=== PATIENT | male | born 1950 | race Asian ===

== ENCOUNTER 2016-11-26 15:32 | Inpatient (IN) | payer MEDICARE ==
--- NOTE | 2016-11-26 18:59 | RAD ---
INDICATION: Chest pain. COMPARISON: There are no prior studies available for comparison. TECHNIQUE: A portable view of the chest was obtained. FINDINGS: Cardiac and mediastinal contours appear to be within normal limits. The lungs are clear. No pleural effusion is seen. IMPRESSION: NO EVIDENCE FOR ACUTE DISEASE.
[2016-11-26 19:41] LABS: Urine Bacteria Absent (Absent); Urine Bilirubin Negative (Negative); Urine Glucose 1+(50 mg/dL) (Negative); Urine Nitrite Negative (Negative)
[2016-11-26 19:52] LABS: Hematocrit 29 % (42-52); Hemoglobin 9.4 g/dl (14.0-18.0); Mean Corpuscular HGB Conc 33 g/dl (31-36); Mean Corpuscular Hemoglobin 24 pg (27-31); Mean Corpuscular Volume 73 fL (80-94); Mean Platelet Volume 7 um3 (7.4-10.4); Red Blood Count 3.94 10^6/ul (4.0-5.4); Red Cell Distribution Width 16 % (10.5-15); White Blood Count 6.5 10^3/ul (3.5-10.8)
[2016-11-26 19:57] LABS: Add Diff/Slide Review? Slide Review Added; Comments Flag Yes
[2016-11-26 20:06] LABS: Albumin 3.3 g/dL (3.2-5.2); Calcium 8.6 mg/dL (8.6-10.3); EGFR African American 12.7 (>60); EGFR Non-African American 9.9 (>60); Globulin 3.7 g/dL (2-4); Magnesium 2.1 mg/dL (1.9-2.7); Potassium 5.6 mmol/L (3.5-5.0); Total Bilirubin 0.2 mg/dL (0.2-1.0)
[2016-11-26] MEDS: NS 0.9% 1000 ML* 1,000 ML IV ONE (20:32)
[2016-11-26 20:45] LABS: TSH (Thyroid Stimulating Horm) 1.18 mcIU/mL (0.34-5.60)
[2016-11-26] MEDS ORDERED: hydrALAZINE IV* 20 MG/ML VIAL IV SLOW PU ONE (21:12)
[2016-11-26] MEDS ORDERED: Acetaminophen TAB* 325 MG PO PRN (21:46)
[2016-11-26] MEDS ORDERED: Sodium Polystyrene ORAL.SOL* 15 GM/60 ML BTL PO ONE (21:49)
[2016-11-26] MEDS ORDERED: hydrALAZINE IV* 20 MG/ML VIAL IV SLOW PU PRN (21:50)
[2016-11-26] MEDS ORDERED: Dextrose 50% Syringe 50 ML* 25 GM/50 ML SYRINGE IV PUSH PRN (21:51)
[2016-11-26] MEDS: amLODIPine TAB* 5 MG PO SCH (23:08)
[2016-11-26] MEDS: hydrALAZINE TAB* 10 MG PO SCH (23:09)
[2016-11-26] MEDS: Heparin VIAL(*) 5000 UNITS/ML VIAL (FIVE THOUSAND) SUBCUT SCH (23:09)
--- NOTE | 2016-11-27 00:33 | HP ---
CC: Dr. Menezes; Dr. Vora* ADMISSION HISTORY AND PHYSICAL: DATE OF ADMISSION: 11/26/16 PRIMARY CARE PROVIDER: Dr. Menezes. AUTOMATIC SPREADER OPERATOR: Dr. Vora. ADMITTING PROVIDER: MARRY An SUPERVISING PHYSICIAN: Dr. Janusz Tsang* (dictated by MARRY An). CHIEF COMPLAINT: Dizziness and syncope. HISTORY OF PRESENT ILLNESS: This is a 66-year-old gentleman with history of stage 4 chronic kidney disease, hypertension, mqq-boaumtq-laeexgkhe diabetes and BPH, who presented to the emergency department with the recommendation of his primary care provider after syncopal episode that occurred yesterday with associated dizziness. The patient has actually been asymptomatic throughout the day today. Yesterday, the patient states that he was outside for the majority of the day and it was a hot day and he was somewhat uncomfortable. He remembers feeling dizzy and he collapsed to the sidewalk. His became nervous when he would not respond her and she started chest compressions. After about 10 to 12 compressions, he regained consciousness and they attempted to walk back into the house at which point he collapsed again and she provided additional compressions. When he regained consciousness, he threw up and then later had diarrhea. He states that after vomiting and diarrhea, he started to feel better. His took him to bed and he slept for the rest of the afternoon and overnight and has had no complaints of dizziness or presyncopal symptoms today. He has had no associated complaints of chest pain or shortness of breath. He denies any history of prior hospitalizations. He states that he is compliant with all of his medications, but is unable to tell me what they are except that he knows that he takes lisinopril, which recently was a dose adjusted down for him. He also denies recent acute illness and states that his symptoms that occurred yesterday were limited to yesterday and he had not been feeling that way for the days leading up. When I asked about recent changes to home medications, he states that in addition to his lisinopril dose going down, he also recalls that one of his diabetes medicines was decreased. He is followed by Dr. Vora for nephrology care. He was seen by his primary care provider earlier today who referred him to the emergency department for evaluation. His blood pressure according to the patient was normal when he was seen at his primary care provider's office earlier today, but since reaching the emergency department, his systolic BP has not been less than 190 mmHg. He continues to deny chest pain, difficulty breathing, headache, or visual changes since arriving in the emergency department. PAST MEDICAL HISTORY: 1. Hypertension. 2. Eyf-iyzxxib-qoarhovzh diabetes. 3. BPH. 4. Chronic kidney disease stage 4. PAST SURGICAL HISTORY: Cataract extraction bilaterally. HOME MEDICATIONS: 1. Lisinopril 10 mg daily. 2. The rest of medications are unknown. SOCIAL HISTORY: No history of smoking or regular alcohol consumption. Patient lives at home with his . REVIEW OF SYSTEMS: As noted above in HPI, all other systems reviewed and negative. PHYSICAL EXAMINATION GENERAL: This is a very pleasant gentleman who is accompanied by his . Pakistani is his second language, but there are no communication barriers. His Pakistani is 100% understandable and he seems to understand all of the information that is given to him. VITAL SIGNS: Initial vitals, temperature 97.9 degrees Fahrenheit, pulse 63 beats per minute, respiratory rate 20 per minute, oxygen saturation 100% on room air, and blood pressure 193/73 mmHg. HEENT: Head is normocephalic and atraumatic. The patient has missing multiple teeth. RESPIRATORY: Lungs are clear to auscultation without wheezes, crackles, or rhonchi. CARDIOVASCULAR: Heart has a regular rate and rhythm without murmurs, rubs, or gallops. ABDOMEN: Abdomen is soft and nontender to palpation. EXTREMITIES: Show no edema. PSYCH: The patient is alert and appropriately oriented and affect is appropriate to the situation. DIAGNOSTIC STUDIES/LAB DATA: CBC shows a white blood cell count of 6500, hemoglobin of 9.4 g/dL, and a platelet count of 332,000. INR of 0.87. Sodium of 131 mmol/L. Potassium of 5.6 mmol/L, BUN of 58, creatinine of 5.79 with a GFR of 9.9. Random glucose of 142 mg/dL. Transaminases and total bilirubin within normal limits. Troponins negative at 0.00. TSH normal at 1.18. Urinalysis shows 2+ protein and is otherwise negative. IMAGING: Chest x-ray shows no acute process. EKG shows a sinus rhythm with J-point elevation in V2 through V4, but this is unchanged from prior tracings. ASSESSMENT AND PLAN: This is a 66-year-old gentleman with chronic kidney disease, hypertension, pkv-myqikni-zretkyevr diabetes and BPH, who was referred to the emergency department after a syncopal event, which resulted in his performing chest compressions yesterday and was noted to be severely hypertensive. 1. Hypertensive urgency - the patient is asymptomatic with systolic pressures remain above 190 mmHg. No EKG changes and troponin negative. The patient received 1 dose of hydralazine in the emergency department. We will plan to start oral hydralazine and amlodipine for treatment of his hypertension at this time. He appears to be euvolemic and will avoid diuretics at this time. 2. Syncope - etiology sounds perhaps to be due to hypovolemia related to being out in the hot weather yesterday. It is unclear if he was truly pulseless and an indication for chest compressions or few loss of consciousness and his became concerned about his unresponsiveness. We will plan to obtain an echocardiogram tomorrow and maintain on continuous telemetry monitoring overnight. 3. Chronic kidney disease. The patient has noted elevated BUN, creatinine and hyperkalemia. The acuity of this is unknown. His last labs are from nearly 2 years ago and his creatinine at that time was about 3.5 with a GFR of 20. Today , his creatinine is up to 5.8 and the GFR of 10. He has followed by Dr. Voar for nephrology care. We will avoid hydration at this point due to the severity of his hypertension. 4. Hyperkalemia - no EKG changes and this is secondary to his renal dysfunction. We will plan to repeat labs in the morning, give 1 dose of Kayexalate at this time. 5. Cct-etvsqwj-kjihgfczbbh diabetes - random glucoses shows reasonable control at this time. We will monitor his glucose at meal times and cover for hyperglycemia with as needed Humalog. Unsure of what his home hypoglycemic agents are, metformin would surely be contraindicated given the severity of his renal disease. 6. Code status. The patient is full code. 7. DVT prophylaxis. The patient will be started on subcu heparin, Lovenox avoided due to his renal dysfunction. 8. Healthcare proxy is his . DISPOSITION: The patient is being admitted to observation status with hypertensive urgency and recent syncope. Can work to obtain last labs from Dr. Vora's office, which would be helpful to determine the acuity of his renal dysfunction and whether further evaluation needs to be done. MARRY AN [id number]/[facility] #: [id number] CARISSA
[2016-11-27] MEDS ORDERED: hydrALAZINE IV* 20 MG/ML VIAL IV SLOW PU PRN (00:41)
--- NOTE | 2016-11-27 02:31 | PN ---
Progress Note - Progress Note Date of Service: 11/27/16 Note: CAT response, called for syncope. Per his , Mr Rojas awoke and stood at the side of the bed attempting to use a urinal when he suddenly stared off into space and would not respond to her. He then slumped back into bed. Upon arrival, Mr Rojas is awake & alert. He reports feeling light-headed and his vision tunnelling. The next thing he knew was of awakening with a lot of staff around him. He denies chest pain, SOB, N/V, palpitations, abdominal pain, focal W/N/T, or other issues. He has a strong accent, but speech sounds clear & fluent. Vitals were reviewed and stable, including saO2. Systolic immediately after nursing respone was 119, by my arrival it was up to 140s. POC glucose 139. ECG is NSR with some peaked T-waves, elevated J-points w/ concave up T-waves similar to presentation. Telemetry showed no arrhythmia. general: WNWD male, NAD lungs: CTAB, normal effort CV: RRR w/ 2/6 aortic murmur abdomen: SNTND integument: diphoretic forehead, not elsewhere extremities: warm & dry He was monitored in bed for a few minutes continuing to feel well and so we decided to allow him up to the restroom to urinate. In the middle of urinating he again syncopized with nursing assisting him to the ground without head injury. LOC lasted less than 30 seconds as he became awake & oriented upon becoming supine. Systolic was 100. Repeat ECG unchanged. Labs ordered, pending: H&H, troponin, lactic acid, & BNP Assessment: plan highly suspicious for vaso-vagal vs situational vs orthostatic syncope : transfer to ICU for improved observation/caution : obtain repeat orthostatic vitals : review labs once reported : 2L IVF bolus : strict bedrest for now : ECHO ordered at admission to [facility] for valvular disease, specifically aortic stenosis : Kari Escudero MD parts interpreter on-call apprised Orthostatic vitals in ICU are markedly positive at lying 162/72 p83, sitting 151 /82 p98, & standing 73/56 p90.
[2016-11-27 02:52] LABS: Hematocrit 30 % (42-52); Hemoglobin 9.7 g/dl (14.0-18.0); Mean Corpuscular HGB Conc 32 g/dl (31-36); Mean Corpuscular Hemoglobin 23 pg (27-31); Mean Platelet Volume 7 um3 (7.4-10.4); Red Blood Count 4.12 10^6/ul (4.0-5.4); Red Cell Distribution Width 15 % (10.5-15); White Blood Count 9.2 10^3/ul (3.5-10.8)
[2016-11-27 02:58] LABS: Comments Flag Yes
[2016-11-27 02:59] LABS: Mean Corpuscular Volume 73 fL (80-94)
[2016-11-27 03:02] LABS: Albumin 3.3 g/dL (3.2-5.2); BUN/Creatinine Ratio 10.9 (8-20); Calcium 8.7 mg/dL (8.6-10.3); EGFR Non-African American 10.8 (>60); Globulin 3.9 g/dL (2-4); Total Bilirubin 0.2 mg/dL (0.2-1.0); Total Protein 7.2 g/dL (6.4-8.9)
[2016-11-27] MEDS: NS 0.9% 1000 ML* 1,000 ML IV ONE (03:23)
[2016-11-27] MEDS: NS 0.9% 1000 ML* 1,000 ML IV SCH ×3 (03:23→05:38)
[2016-11-27] MEDS: Heparin VIAL(*) 5000 UNITS/ML VIAL (FIVE THOUSAND) SUBCUT SCH ×3 (05:47→21:03)
[2016-11-27 06:11] LABS: Hematocrit 28 % (42-52); Hemoglobin 9.1 g/dl (14.0-18.0); Mean Corpuscular HGB Conc 33 g/dl (31-36); Mean Corpuscular Hemoglobin 24 pg (27-31); Mean Platelet Volume 7 um3 (7.4-10.4); Red Blood Count 3.83 10^6/ul (4.0-5.4); Red Cell Distribution Width 15 % (10.5-15); White Blood Count 8.8 10^3/ul (3.5-10.8)
[2016-11-27 06:12] LABS: Comments Flag Yes; Mean Corpuscular Volume 73 fL (80-94)
[2016-11-27 06:23] LABS: BUN/Creatinine Ratio 10.5 (8-20); Calcium 7.6 mg/dL (8.6-10.3); EGFR Non-African American 12.4 (>60)
[2016-11-27 06:56] LABS: Potassium 6.2 mmol/L (3.5-5.0)
[2016-11-27] MEDS ORDERED: Sodium Polystyrene ORAL.SOL* 15 GM/60 ML BTL PO ONE (08:34)
[2016-11-27] MEDS ORDERED: Dextrose 50% VIAL 50 ml IV ONE (08:48)
[2016-11-27] MEDS ORDERED: Insulin REGULAR(*) 1 UNITS UNIT IV PUSH ONE (08:55)
[2016-11-27] MEDS ORDERED: Sodium Bicarbonate 8.4% IV* 50 ML VIAL IV ONE (08:58)
[2016-11-27] MEDS: amLODIPine TAB* 5 MG PO SCH (09:00)
[2016-11-27] MEDS: hydrALAZINE TAB* 10 MG PO SCH ×3 (09:00→21:04)
[2016-11-27] MEDS: Insulin LISPRO* 1 UNITS UNIT SUBCUT SCH ×3 (09:06→18:11)
[2016-11-27] MEDS ORDERED: Calcium Gluconate INJ* 1 GM in NS 0.9% 50 ML* 50 ML IVPB ONE (10:00)
--- NOTE | 2016-11-27 10:44 | ECHO ---
Patient: BIJAN PRESTON [facility] Rec#: [id number] : 1950 Date: 11/27/2016 Age: 66y Height: 160.02 cm / 63.0 in Weight: 56.7 kg / 125.0 lbs Sex: M BSA: 1.58 Room#: [id number] Admit Date#: 11/26/2016 Type: Inpatient Referring: Carlos Miller Reading: Otto Willams MD Research Hydrologist: Juliet Mendoza RDCS CC: Brad Menezes MD Transthoracic Echocardiogram Indication: Syncope BP: 197/84 HR: 82 Rhythm: NSR Findings History: CKD IV, HTN, and DM. Technical Comments: The study quality is good. Completed at 0817. Left Ventricle: The left ventricular chamber size is normal. Moderate concentric left ventricular hypertrophy is observed. Global left ventricular wall motion and contractility are within normal limits. The left ventricle appears hyperdynamic. The estimated ejection fraction is greater than 65%. Abnormal left ventricular diastolic function is observed. Abnormal left ventricular diastolic filling is observed, consistent with impaired relaxation. Left Atrium: The left atrium is mildly dilated. Right Ventricle: Moderator Band present. The right ventricular cavity size is normal. The right ventricular global systolic function is normal. Right Atrium: The right atrial cavity size is normal. Aortic Valve: The aortic valve is trileaflet. The aortic valve leaflets are mildly thickened. There is no evidence of aortic regurgitation. There is no evidence of aortic stenosis. Mitral Valve: The mitral valve leaflets are mildly thickened. There is a trace of mitral regurgitation. There is no evidence of mitral stenosis. Tricuspid Valve: The tricuspid valve leaflets are normal. There is trace tricuspid regurgitation. The right ventricular systolic pressure is estimated at 22 mmHg. No pulmonary hypertension is noted. There is no tricuspid stenosis. Pulmonic Valve: The pulmonic valve appears normal. There is trace to mild pulmonic regurgitation. There is no pulmonic stenosis. Pericardium: There is no significant pericardial effusion. Aorta: There is no dilatation of the ascending aorta. There is no dilatation of the aortic arch. The aortic root is normal in size. Pulmonary Artery: The main pulmonary artery appears normal. Venous: The inferior vena cava appears normal in size. There is a greater than 50% respiratory change in the inferior vena cava dimension. Conclusions Moderate concentric left ventricular hypertrophy is observed. The left ventricle appears hyperdynamic. The estimated ejection fraction is greater than 65%. Abnormal left ventricular diastolic filling is observed, consistent with impaired relaxation. No significant valvular disease: There is a trace of mitral regurgitation. There is trace tricuspid regurgitation. There is trace to mild pulmonic regurgitation. No reports of prior studies are offetred for comparison. Measurements Name Value Normal Range RVIDd (AP) 2D 2.5 cm (0.9 - 2.6) RVDdMajor (2D) 3.8 cm (2.2 - 4.4) RAd ISD 4CH 4.5 cm (3.4 - 4.9) RA (A4C)W 3.3 cm (2.9 - 4.6) IVSd (2D) 1.3 cm (0.6 - 1) LVPWd (2D) 1.3 cm (0.6 - 1) LVIDd (2D) 4.4 cm (3.6 - 5.4) LVIDs (2D) 3.1 cm - LV FS (2D) 28 % (25 - 45) Aortic Annulus 2 cm (1.4 - 2.6) Ao root diameter (2D) 3.2 cm (2.1 - 3.5) Ascending Ao 3.2 cm (2.1 - 3.4) Aortic arch 2.2 cm (1.8 - 3.4) LA dimension (AP) 2D 3 cm (2.3 - 3.8) LAd ISD 4CH 5.6 cm (2.9 - 5.3) LA ISD 4CH W 4 cm (2.5 - 4.5) Name Value Normal Range LA ESV SP 4CH (A/L) 70 ml - LA ESV SP 2CH (A/L) 43 ml - LA ESV BP (A/L) 57 ml - LA ESV BP (A/L) index 36 ml/m2 - LA ESV SP 4CH (MOD) 65 ml - LA ESV SP 2CH (MOD) 39 ml - Name Value Normal Range MV E-wave Vmax 0.78 m/sec - MV deceleration time 153.2 msec - MV A-wave Vmax 1.17 m/sec - MV E:A ratio 0.66 ratio - LV septal e' Vmax 0.04 m/sec - LV lateral e' Vmax 0.07 m/sec - LV E:e' septal ratio 19.5 ratio - LV E:e' lateral ratio 11.14 ratio - Name Value Normal Range AV Vmax 1.4 m/sec - AV VTI 29.5 cm - AV peak gradient 7.84 mmHg - AV mean gradient 3.9 mmHg - LVOT Vmax 1 m/sec - LVOT VTI 21.6 cm - LVOT peak gradient 4.42 mmHg - LVOT mean gradient 2.25 mmHg - YESENIA Vmax 0.63 m/sec - Name Value Normal Range TR Vmax 2.2 m/sec - TR peak gradient 19 mmHg - RAP 3 mmHg - RVSP 22 mmHg - IVC diameter 1.6 cm - Name Value Normal Range PV Vmax 0.96 m/sec - PV peak gradient 3.66 mmHg - IL end-diastolic Vmax 0.78 m/sec -
[2016-11-27 12:23] LABS: BUN/Creatinine Ratio 10.4 (8-20); Calcium 7.6 mg/dL (8.6-10.3); EGFR African American 16.5 (>60); EGFR Non-African American 12.9 (>60)
[2016-11-27 13:49] LABS: Potassium 5.3 mmol/L (3.5-5.0)
[2016-11-27] MEDS: Gabapentin CAP(*) 100 MG PO SCH ×2 (14:04→21:04)
--- NOTE | 2016-11-27 16:42 | PN ---
Critical Care Services: 66 yo Bah[place]ian male with Hx type-2 diabetes, peripheral neuropathy, hypertension, and progressive renal insufficiency, who was admitted yesterday because of recurrent syncopal episodes. Patient was brought to the ICU following a syncopal episode on the floor, and there have been no further syncopal episodes while in the ICU. Vital Signs: Temp Pulse Resp BP SpO2 FiO2 100.2 F 87 16 176/76 99 NOTE: Patient sitting in bed for vital signs. Physical Exam: Gen:Alert and appropriate HEENT:pupils midposition and reactive Lungs:Clear Cardiac: No murmurs. Abdomen:Not distended. Extremities: Warm. No cyanosis or edema. Fluid Balance (Past 24 Hours): 11/28/16 06:59 Intake Total 390 Output Total 400 Balance -10 Intake: Oral 390 Output: Urine 400 Labs: Labs reviewed. Significant labs include serum creatinine = 4.75, BUN=50, K=5.3, Sn=929, and HCO3=20. Studies: None today Nutrition: Oral diet Impression: 1. Orthostatic hypotension - a likely contributing factor is diabetic neuropathy. 2. Renal insufficiency - diabetes is the culprit, but the renal function has improved somewhat with fluids. No signs of uremia at present. Plan: 1. Consult Dr. Vora regarding future plans for hemodialysis. 2. Keep in bed for now, and hydrate to reduce risk of orthostatic hypotension. 3. Monitor renal function and serum K. Critical Care Time: 45 minutes
[2016-11-28] MEDS: Heparin VIAL(*) 5000 UNITS/ML VIAL (FIVE THOUSAND) SUBCUT SCH ×2 (06:11→13:17)
[2016-11-28 06:59] LABS: BUN/Creatinine Ratio 10.8 (8-20); EGFR African American 17.3 (>60); EGFR Non-African American 13.5 (>60)
[2016-11-28 07:16] LABS: Potassium 5.1 mmol/L (3.5-5.0)
[2016-11-28] MEDS: Insulin LISPRO* 1 UNITS UNIT SUBCUT SCH ×2 (07:23→12:24)
[2016-11-28] MEDS: Gabapentin CAP(*) 100 MG PO SCH ×2 (07:38→13:17)
[2016-11-28] MEDS: amLODIPine TAB* 5 MG PO SCH (07:38)
[2016-11-28] MEDS: hydrALAZINE TAB* 10 MG PO SCH ×2 (07:38→13:17)
[2016-11-28 13:12] VITALS: BP 174/101
--- NOTE | 2016-11-28 18:47 | ED ---
Wilfredo Browning Benjamin, scribed for David Lowe MD on 11/26/16 at 1918 . HPI Chest Pain - HPI Summary HPI Summary: 66yo male who states that yesterday, he felt flushed, lightheaded, and room spinning like dizziness. Pt then passed out. Pt only woke up after his rubbed his sternum and pounded his chest. Pt is asymptomatic today but reports having high BP. - History of Current Complaint Chief Complaint: EDDizziness Time Seen by Provider: 11/26/16 18:35 Hx Obtained From: Patient, Family/Roofer Applicator Onset/Duration: Started Days Ago - 1 day ago, Resolved Timing: Constant Initial Severity: Mild Current Severity: None Pain Intensity: 0 Pain Scale Used: 0-10 Numeric Chest Pain Location: Diffuse Aggravating Factor(s): Nothing Alleviating Factor(s): Nothing Associated Signs and Symptoms: Positive: Dizziness, Syncope, Palpitations - Allergy/Home Medications Allergies/Adverse Reactions: Allergies Allergy/AdvReac Type Severity Reaction Status Date / Time No Known Allergies Allergy Verified 03/19/14 18:34 PMH/Surg Hx/FS Hx/Imm Hx Infectious Disease History: No Infectious Disease History: Denies: Traveled Outside the [place] in Last 30 Days - Family History Known Family History: Negative: Cardiac Disease, Hypertension - Social History Occupation: Employed Part-time Lives: With Family Alcohol Use: Rare Substance Use Type: Reports: None Smoking Status (MU): Former Smoker Review of Systems Constitutional: Negative Eyes: Negative ENT: Negative Positive: Palpitations, Chest Pain Respiratory: Negative Gastrointestinal: Negative Genitourinary: Negative Musculoskeletal: Negative Skin: Negative Neurological: Other - dizziness Positive: Syncope Psychological: Normal All Other Systems Reviewed And Are Negative: Yes Physical Exam Triage Information Reviewed: Yes Vital Signs On Initial Exam: Initial Vitals Temp Pulse Resp BP Pulse Ox 97.9 F 63 20 193/73 100 11/26/16 15:40 11/26/16 15:40 11/26/16 15:40 11/26/16 15:40 11/26/16 15:40 Vital Signs Reviewed: Yes Appearance: Positive: Well-Appearing, No Pain Distress, Well-Nourished Skin: Positive: Warm, Skin Color Reflects Adequate Perfusion, Dry Head/Face: Positive: Normal Head/Face Inspection Eyes: Positive: EOMI, DEE ENT: Positive: Normal ENT inspection, Hearing grossly normal Neck: Positive: Supple, Nontender Respiratory/Lung Sounds: Positive: Clear to Auscultation, Breath Sounds Present Cardiovascular: Positive: RRR, Pulses are Symmetrical in both Upper and Lower Extremities Abdomen Description: Positive: Nontender, Soft Bowel Sounds: Positive: Present Musculoskeletal: Positive: Strength/ROM Intact Neurological: Positive: Sensory/Motor Intact, Alert, Oriented to Person Place, Time Psychiatric: Positive: Affect/Mood Appropriate - Salomon Coma Scale Coma Scale Total: 15 Diagnostics - Vital Signs Vital Signs Temp Pulse Resp BP Pulse Ox 11/26/16 18:00 59 16 195/71 99 11/26/16 17:30 60 197/70 100 11/26/16 17:00 59 100 11/26/16 16:36 58 100 11/26/16 16:33 201/61 11/26/16 15:40 97.9 F 63 20 193/73 100 - Laboratory Lab Results: Lab Results 11/26/16 11/26/16 11/26/16 Range/Units 19:20 19:38 19:38 WBC 6.5 (3.5-10.8) 10^3/ul RBC 3.94 L (4.0-5.4) 10^6/ul Hgb 9.4 L (14.0-18.0) g/dl Hct 29 L (42-52) % MCV 73 L (80-94) fL MCH 24 L (27-31) pg MCHC 33 (31-36) g/dl RDW 16 H (10.5-15) % Plt Count 332 (150-450) 10^3/ul MPV 7 L (7.4-10.4) um3 Neut % (Auto) 66.3 (38-83) % Lymph % (Auto) 19.7 L (25-47) % Fallon % (Auto) 8.8 (1-9) % Eos % (Auto) 4.7 (0-6) % Baso % (Auto) 0.5 (0-2) % Absolute Neuts (auto) 4.3 (1.5-7.7) 10^3/ul Absolute Lymphs (auto) 1.3 (1.0-4.8) 10^3/ul Absolute Monos (auto) 0.6 (0-0.8) 10^3/ul Absolute Eos (auto) 0.3 (0-0.6) 10^3/ul Absolute Basos (auto) 0 (0-0.2) 10^3/ul Absolute Nucleated RBC 0 10^3/ul Nucleated RBC % 0 INR (Anticoag Therapy) (0.89-1.11) Sodium 131 L (133-145) mmol/L Potassium 5.6 H (3.5-5.0) mmol/L Chloride 104 (101-111) mmol/L Carbon Dioxide 22 (22-32) mmol/L Anion Gap 5 (2-11) mmol/L BUN 58 H (6-24) mg/dL Creatinine 5.79 H (0.67-1.17) mg/dL Est GFR ( Amer) 12.7 (>60) Est GFR (Non-Af Amer) 9.9 (>60) BUN/Creatinine Ratio 10.0 (8-20) Glucose 142 H (70-100) mg/dL POC Glucose (mg/dL) (70-100) mg/dL Lactic Acid (0.5-2.0) mmol/L Calcium 8.6 (8.6-10.3) mg/dL Magnesium 2.1 (1.9-2.7) mg/dL Total Bilirubin 0.20 (0.2-1.0) mg/dL AST 17 (13-39) U/L ALT 10 (7-52) U/L Alkaline Phosphatase 139 H (34-104) U/L Troponin I 0.00 (<0.04) ng/mL Total Protein 7.0 (6.4-8.9) g/dL Albumin 3.3 (3.2-5.2) g/dL Globulin 3.7 (2-4) g/dL Albumin/Globulin Ratio 0.9 L (1-3) TSH 1.18 (0.34-5.60) mcIU/mL Urine Color Colorless Urine Appearance Clear Urine pH 6.0 (5-9) Ur Specific [place] 1.005 L (1.010-1.030) Urine Protein 2+(100 mg/dl) H (Negative) Urine Ketones Negative (Negative) Urine Blood Negative (Negative) Urine Nitrate Negative (Negative) Urine Bilirubin Negative (Negative) Urine Urobilinogen Negative (Negative) Ur Leukocyte Esterase Negative (Negative) Urine WBC (Auto) Trace(0-5/hpf) (Absent) Urine RBC (Auto) 1+(3-5/hpf) H (Absent) Ur Squamous Epith Cells Present H (Absent) Urine Bacteria Absent (Absent) Urine Glucose 1+(50 mg/dl) H (Negative) 11/26/16 11/26/16 11/27/16 Range/Units 19:38 19:38 01:47 WBC (3.5-10.8) 10^3/ul RBC (4.0-5.4) 10^6/ul Hgb (14.0-18.0) g/dl Hct (42-52) % MCV (80-94) fL MCH (27-31) pg MCHC (31-36) g/dl RDW (10.5-15) % Plt Count (150-450) 10^3/ul MPV (7.4-10.4) um3 Neut % (Auto) (38-83) % Lymph % (Auto) (25-47) % Fallon % (Auto) (1-9) % Eos % (Auto) (0-6) % Baso % (Auto) (0-2) % Absolute Neuts (auto) (1.5-7.7) 10^3/ul Absolute Lymphs (auto) (1.0-4.8) 10^3/ul Absolute Monos (auto) (0-0.8) 10^3/ul Absolute Eos (auto) (0-0.6) 10^3/ul Absolute Basos (auto) (0-0.2) 10^3/ul Absolute Nucleated RBC 10^3/ul Nucleated RBC % INR (Anticoag Therapy) 0.87 L (0.89-1.11) Sodium (133-145) mmol/L Potassium (3.5-5.0) mmol/L Chloride (101-111) mmol/L Carbon Dioxide (22-32) mmol/L Anion Gap (2-11) mmol/L BUN (6-24) mg/dL Creatinine (0.67-1.17) mg/dL Est GFR ( Amer) (>60) Est GFR (Non-Af Amer) (>60) BUN/Creatinine Ratio (8-20) Glucose (70-100) mg/dL POC Glucose (mg/dL) 139 H (70-100) mg/dL Lactic Acid 0.9 (0.5-2.0) mmol/L Calcium (8.6-10.3) mg/dL Magnesium (1.9-2.7) mg/dL Total Bilirubin (0.2-1.0) mg/dL AST (13-39) U/L ALT (7-52) U/L Alkaline Phosphatase (34-104) U/L Troponin I (<0.04) ng/mL Total Protein (6.4-8.9) g/dL Albumin (3.2-5.2) g/dL Globulin (2-4) g/dL Albumin/Globulin Ratio (1-3) TSH (0.34-5.60) mcIU/mL Urine Color Urine Appearance Urine pH (5-9) Ur Specific [place] (1.010-1.030) Urine Protein (Negative) Urine Ketones (Negative) Urine Blood (Negative) Urine Nitrate (Negative) Urine Bilirubin (Negative) Urine Urobilinogen (Negative) Ur Leukocyte Esterase (Negative) Urine WBC (Auto) (Absent) Urine RBC (Auto) (Absent) Ur Squamous Epith Cells (Absent) Urine Bacteria (Absent) Urine Glucose (Negative) 11/27/16 11/27/16 11/27/16 Range/Units 01:55 01:55 02:35 WBC 9.2 (3.5-10.8) 10^3/ul RBC 4.12 (4.0-5.4) 10^6/ul Hgb 9.7 L (14.0-18.0) g/dl Hct 30 L (42-52) % MCV 73 L (80-94) fL MCH 23 L (27-31) pg MCHC 32 (31-36) g/dl RDW 15 (10.5-15) % Plt Count 340 (150-450) 10^3/ul MPV 7 L (7.4-10.4) um3 Neut % (Auto) 74.7 (38-83) % Lymph % (Auto) 14.6 L (25-47) % Fallon % (Auto) 6.1 (1-9) % Eos % (Auto) 3.9 (0-6) % Baso % (Auto) 0.7 (0-2) % Absolute Neuts (auto) 6.9 (1.5-7.7) 10^3/ul Absolute Lymphs (auto) 1.3 (1.0-4.8) 10^3/ul Absolute Monos (auto) 0.6 (0-0.8) 10^3/ul Absolute Eos (auto) 0.4 (0-0.6) 10^3/ul Absolute Basos (auto) 0.1 (0-0.2) 10^3/ul Absolute Nucleated RBC 0 10^3/ul Nucleated RBC % 0 INR (Anticoag Therapy) (0.89-1.11) Sodium 132 L (133-145) mmol/L Potassium 5.0 (3.5-5.0) mmol/L Chloride 107 (101-111) mmol/L Carbon Dioxide 18 L (22-32) mmol/L Anion Gap 7 (2-11) mmol/L BUN 58 H (6-24) mg/dL Creatinine 5.34 H (0.67-1.17) mg/dL Est GFR ( Amer) 14.0 (>60) Est GFR (Non-Af Amer) 10.8 (>60) BUN/Creatinine Ratio 10.9 (8-20) Glucose 135 H (70-100) mg/dL POC Glucose (mg/dL) (70-100) mg/dL Lactic Acid 0.9 (0.5-2.0) mmol/L Calcium 8.7 (8.6-10.3) mg/dL Magnesium (1.9-2.7) mg/dL Total Bilirubin 0.20 (0.2-1.0) mg/dL AST 21 (13-39) U/L ALT 11 (7-52) U/L Alkaline Phosphatase 132 H (34-104) U/L Troponin I 0.00 (<0.04) ng/mL Total Protein 7.2 (6.4-8.9) g/dL Albumin 3.3 (3.2-5.2) g/dL Globulin 3.9 (2-4) g/dL Albumin/Globulin Ratio 0.8 L (1-3) TSH (0.34-5.60) mcIU/mL Urine Color Urine Appearance Urine pH (5-9) Ur Specific [place] (1.010-1.030) Urine Protein (Negative) Urine Ketones (Negative) Urine Blood (Negative) Urine Nitrate (Negative) Urine Bilirubin (Negative) Urine Urobilinogen (Negative) Ur Leukocyte Esterase (Negative) Urine WBC (Auto) (Absent) Urine RBC (Auto) (Absent) Ur Squamous Epith Cells (Absent) Urine Bacteria (Absent) Urine Glucose (Negative) 11/27/16 11/27/16 11/27/16 Range/Units 06:00 06:00 11:55 WBC 8.8 (3.5-10.8) 10^3/ul RBC 3.83 L (4.0-5.4) 10^6/ul Hgb 9.1 L (14.0-18.0) g/dl Hct 28 L (42-52) % MCV 73 L (80-94) fL MCH 24 L (27-31) pg MCHC 33 (31-36) g/dl RDW 15 (10.5-15) % Plt Count 290 (150-450) 10^3/ul MPV 7 L (7.4-10.4) um3 Neut % (Auto) 86.0 H (38-83) % Lymph % (Auto) 9.2 L (25-47) % Fallon % (Auto) 3.6 (1-9) % Eos % (Auto) 0.8 (0-6) % Baso % (Auto) 0.4 (0-2) % Absolute Neuts (auto) 7.6 (1.5-7.7) 10^3/ul Absolute Lymphs (auto) 0.8 L (1.0-4.8) 10^3/ul Absolute Monos (auto) 0.3 (0-0.8) 10^3/ul Absolute Eos (auto) 0.1 (0-0.6) 10^3/ul Absolute Basos (auto) 0 (0-0.2) 10^3/ul Absolute Nucleated RBC 0 10^3/ul Nucleated RBC % 0 INR (Anticoag Therapy) (0.89-1.11) Sodium 132 L 135 (133-145) mmol/L Potassium 6.2 H* 5.3 H (3.5-5.0) mmol/L Chloride 110 112 H (101-111) mmol/L Carbon Dioxide 19 L 20 L (22-32) mmol/L Anion Gap 3 3 (2-11) mmol/L BUN 50 H 48 H (6-24) mg/dL Creatinine 4.75 H 4.61 H (0.67-1.17) mg/dL Est GFR ( Amer) 16.0 16.5 (>60) Est GFR (Non-Af Amer) 12.4 12.9 (>60) BUN/Creatinine Ratio 10.5 10.4 (8-20) Glucose 214 H 164 H (70-100) mg/dL POC Glucose (mg/dL) (70-100) mg/dL Lactic Acid (0.5-2.0) mmol/L Calcium 7.6 L 7.6 L (8.6-10.3) mg/dL Magnesium (1.9-2.7) mg/dL Total Bilirubin (0.2-1.0) mg/dL AST (13-39) U/L ALT (7-52) U/L Alkaline Phosphatase (34-104) U/L Troponin I (<0.04) ng/mL Total Protein (6.4-8.9) g/dL Albumin (3.2-5.2) g/dL Globulin (2-4) g/dL Albumin/Globulin Ratio (1-3) TSH (0.34-5.60) mcIU/mL Urine Color Urine Appearance Urine pH (5-9) Ur Specific [place] (1.010-1.030) Urine Protein (Negative) Urine Ketones (Negative) Urine Blood (Negative) Urine Nitrate (Negative) Urine Bilirubin (Negative) Urine Urobilinogen (Negative) Ur Leukocyte Esterase (Negative) Urine WBC (Auto) (Absent) Urine RBC (Auto) (Absent) Ur Squamous Epith Cells (Absent) Urine Bacteria (Absent) Urine Glucose (Negative) Result Diagrams: 11/27/16 06:00 11/28/16 06:15 Lab Statement: Any lab studies that have been ordered have been reviewed, and results considered in the medical decision making process. - Radiology CXR Xray Interpretation: No Acute Changes Radiology Interpretation Completed By: Radiologist - ED physician has reviewed the radiology report and agrees with the findings. - EKG 8337. Cardiac Rate: NL - 60bpm EKG Rhythm: Sinus Rhythm ST Segment: Non-Specific Chest Pain Course/Dx - Course Course Of Treatment: Reviewed pts list of medications and allergies. High blood pressure noted. Assessment/Plan: Mr. Rojas presented C/O syncope at home yesterday with his performing CPR for a few minutes. He was found to have dramatically worsened renal function (he had diabetic nephropathy) and is being admitted to the hospitalist, Dr. Tsang. - Diagnoses Provider Diagnoses: Syncope and collapse, Acute renal insufficiency Discharge - Discharge Plan Condition: Good Disposition: ADMITTED TO [facility] The documentation as recorded by the Wilfredo caballero Benjamin accurately reflects the service I personally performed and the decisions made by me, David Lowe MD.
--- NOTE | 2016-11-29 02:26 | DS ---
CC: Dr. Brad Menezes DISCHARGE SUMMARY: DATE OF ADMISSION: DATE OF DISCHARGE: 11/28/16 HISTORY: This patient is a 66-year-old [place] male, who is admitted because of orthostatic syncope. The patient has a history of diabetes, peripheral neuropathy, hypertension, and progressive renal insufficiency. After admission, the patient was noted to have orthostatic hypotension, and was given vigorous hydration because of an episode of syncope on the general floor service , the patient was sent to the intensive care unit. After admission to the ICU, the patient had no further episodes of syncope and orthostatic blood pressure showed a drop of about 10 mmHg systolic (the patient was also asymptomatic on standing). After hydration (about 3 liters) the renal function also improved ( creatinine dropped from 5 to 4.4). The patient was seen in consultation by Dr. Vora (renal service), who was encouraged by the impoved renal function, and felt that nothing further was necessary at this time. FINAL DISCHARGE DIAGNOSES: 1. Orthostatic hypotension, corrected with hydration. 2. Oiv-hjojzif-cqmnaaeow diabetes mellitus. 3. Diabetic neuropahy with probable dysautonomia 4. Advanced renal insufficiency. DISCHARGE MEDICATIONS: The patient will continue on oral hypoglycemic meds and antihypertensives in addition to gabapentin 100 mg 3 times daily. DISCHARGE PLAN: The patient to be seen by his primary physician, Dr. Brad Menezes, within 1 week of discharge. If the orthostatis becomes a problem, a "tilt test" would be appropriate. [id number]/[facility] #: [id number] MTDD
== END 2016-11-28 14:00 | disposition home or self-care (01) | DRG 312 ==
LOC: ED 15:32 → MEDTELE 21:16 → ICU 11-27 02:14 → OBSVTOIN 11-27 12:26
PROVIDERS: ADMIT Hospitalist; ATTEND Internal Medicine Critical Care Medicine
DX: I95.1 Orthostatic hypotension (principal); N18.4 Chronic kidney disease, stage 4 (severe); E11.22 Type 2 diabetes mellitus with diabetic chronic kidney disease; E11.43 Type 2 diabetes mellitus with diabetic autonomic (poly)neuropathy; I12.9 Hypertensive chronic kidney disease with stage 1 through stage 4 chronic kidney disease, or unspecified chronic kidney disease; N40.0 Benign prostatic hyperplasia without lower urinary tract symptoms; I16.0 Hypertensive urgency; E87.5 Hyperkalemia; Z79.84 Long term (current) use of oral hypoglycemic drugs; Z79.899 Other long term (current) drug therapy
CPT/HCPCS: 36415; 71010; 80048; 80053; 81003; 81015; 83605; 83735; 84443; 84484; 85025; 85610; 87641; 93005; 93306; A9270-GY; J0360; J0610; J1644

== ENCOUNTER 2017-07-22 07:32 | Inpatient (IN) | payer MEDICARE ==
[2017-07-22] MEDS ORDERED: NS 0.9% 1000 ML* 1,000 ML IV ONE (08:13)
[2017-07-22 09:11] LABS: ABS Basophils 0.1 10^3/ul (0-0.2); ABS Eosinophils 0.1 10^3/ul (0-0.6); ABS Lymphocytes 0.6 10^3/ul (1.0-4.8); ABS Monocytes 0.4 10^3/ul (0-0.8); ABS Neutrophils 8.1 10^3/ul (1.5-7.7); ABS Nucleated RBC 0 10^3/ul; Eosinophil % 0.6 % (0-6); Hematocrit 21 % (42-52); Hemoglobin 7.2 g/dl (14.0-18.0); Lymphocyte % 6.5 % (25-47); Mean Corpuscular HGB Conc 35 g/dl (31-36); Mean Corpuscular Hemoglobin 25 pg (27-31); Mean Corpuscular Volume 71 fL (80-94); Mean Platelet Volume 6.8 um3 (7.4-10.4); Nucleated Red Blood Cells % 0; Platelet Count 206 10^3/ul (150-450); Red Blood Count 2.94 10^6/ul (4.0-5.4); Red Cell Distribution Width 16 % (10.5-15); White Blood Count 9.2 10^3/ul (3.5-10.8)
[2017-07-22 09:26] LABS: EGFR Non-African American 3.7 (>60)
--- NOTE | 2017-07-22 09:35 | ED ---
Gerardo Browning Gabriel scribed for Berkley Tong MD on 07/22/17 at 0930 . HPI Febrile Illness - HPI Summary HPI Summary: This patient is a 67 year old M presenting to [facility] accompanied by his c/o bilateral LE pain and a fever that began 10 days ago. The patient rates the pain 8/10 in severity. Patient reports ABD pain, THOMPSON, neck pain, and n/v/d. The ABD pain began a few days ago but it is slightly better today and he has not vomited today. Patient denies rash, blood in stool, CP, and SOB. No trauma. pt continues with fevers, but had taken OTC antipyretics. Pt has also used topical homeopathic lotion with improvement. Pt took Tylenol and 0600 this morning. Pt denies trauma. No h/o similar. No travel. No rash. Decreased appetitis. Patients medications reviewed during this visit, he takes medication for neuropathy, DM, and HTN. NKDA. Pt is on gabapentin for chronic LE pain but he states today pain is different. - History of Current Complaint Chief Complaint: EDFever Time Seen by Provider: 07/22/17 07:59 Hx Obtained From: Patient Onset/Duration: Started Weeks Ago, Still Present Timing: Constant Initial Severity: Moderate Current Severity: Moderate Pain Intensity: 10 Pain Scale Used: 0-10 Numeric Associated Signs and Symptoms: Negative - rash, blood in stool, CP, and SOB, Other: - ABD pain, THOMPSON, neck pain, diarrhea, and n/v/d. - Additional Pertinent History Primary Care Physician: [id number] - Allergy/Home Medications Allergies/Adverse Reactions: Allergies Allergy/AdvReac Type Severity Reaction Status Date / Time No Known Allergies Allergy Verified 07/22/17 07:50 Home Medications: Home Medications Acetaminophen TAB* [Tylenol TAB*] 325 - 650 mg PO Q4H PRN 07/22/17 [History Confirmed 07/22/17] amLODIPine TAB* [Norvasc 5 mg TAB*] 5 mg PO DAILY 07/22/17 [History Confirmed ] glipiZIDE TAB.XL* [Glucotrol XL*] 5 mg PO QPM 07/22/17 [History Confirmed ] glipiZIDE TAB.XL* [Glucotrol XL*] 10 mg PO QAM 07/22/17 [History Confirmed 07/22] PMH/Surg Hx/FS Hx/Imm Hx Previously Healthy: Yes Endocrine/Hematology History: Reports: Hx Anticoagulant Therapy - ASA, Hx Diabetes Cardiovascular History: Reports: Hx Hypertension Sensory History: Denies: Hx Contacts or Glasses, Hx Hearing Aid Opthamlomology History: Denies: Hx Contacts or Glasses Neurological History: Reports: Hx Peripheral Neuropathy Denies: Hx Dementia Infectious Disease History: No Infectious Disease History: Denies: Traveled Outside the [place] in Last 30 Days - Family History Known Family History: Negative: Cardiac Disease, Hypertension - Social History Occupation: Retired - [employer] Lives: With Family Alcohol Use: Rare Substance Use Type: Reports: None Smoking Status (MU): Former Smoker Review of Systems Positive: Fever Negative: Chest Pain Negative: Shortness Of Breath Gastrointestinal: Negative - blood in stool Positive: Abdominal Pain, Vomiting, Diarrhea, Nausea Positive: Other - neck pain and bilateral LE pain Negative: Rash Positive: Headache All Other Systems Reviewed And Are Negative: Yes Physical Exam Triage Information Reviewed: Yes Vital Signs On Initial Exam: Initial Vitals Temp Pulse Resp BP Pulse Ox 98.6 F 91 20 199/116 98 07/22/17 07:45 07/22/17 07:45 07/22/17 07:45 07/22/17 07:45 07/22/17 07:45 Vital Signs Reviewed: Yes Appearance: Positive: Well-Appearing, No Pain Distress, Well-Nourished Skin: Positive: Warm, Skin Color Reflects Adequate Perfusion Head/Face: Positive: Normal Head/Face Inspection Eyes: Positive: Normal, EOMI, DEE ENT: Positive: Normal ENT inspection, Hearing grossly normal Neck: Positive: Supple, Nontender, No Lymphadenopathy Respiratory/Lung Sounds: Positive: Clear to Auscultation, Breath Sounds Present Cardiovascular: Positive: Normal, RRR Abdomen Description: Positive: No Organomegaly, Soft. Negative: Nontender - mild tender lower quads b/l no guarding, no rebound soft +BS Bowel Sounds: Positive: Present Musculoskeletal: Positive: Normal, Other - + SLE b/l + flex/ext knee, ankles Neurological: Positive: Normal, Sensory/Motor Intact, Alert, Oriented to Person Place, Time AVPU Assessment: Alert - Salomon Coma Scale Best Eye Response: 4 - Spontaneous Best Motor Response: 6 - Obeys Commands Best Verbal Response: 5 - Oriented Coma Scale Total: 15 Diagnostics - Vital Signs Vital Signs Temp Pulse Resp BP Pulse Ox 07/22/17 09:03 90 99 07/22/17 08:58 220/114 07/22/17 08:28 87 228/103 97 07/22/17 08:00 89 97 07/22/17 07:58 89 209/91 97 07/22/17 07:45 98.6 F 91 20 199/116 98 - Laboratory Lab Results: Lab Results 07/22/17 07/22/17 07/22/17 Range/Units 09:00 09:00 09:00 WBC 9.2 (3.5-10.8) 10^3/ul RBC 2.94 L (4.0-5.4) 10^6/ul Hgb 7.2 L (14.0-18.0) g/dl Hct 21 L (42-52) % MCV 71 L (80-94) fL MCH 25 L (27-31) pg MCHC 35 (31-36) g/dl RDW 16 H (10.5-15) % Plt Count 206 (150-450) 10^3/ul MPV 6.8 L (7.4-10.4) um3 Neut % (Auto) 88.0 H (38-83) % Lymph % (Auto) 6.5 L (25-47) % Pope % (Auto) 4.3 (0-7) % Eos % (Auto) 0.6 (0-6) % Baso % (Auto) 0.6 (0-2) % Absolute Neuts (auto) 8.1 H (1.5-7.7) 10^3/ul Absolute Lymphs (auto) 0.6 L (1.0-4.8) 10^3/ul Absolute Monos (auto) 0.4 (0-0.8) 10^3/ul Absolute Eos (auto) 0.1 (0-0.6) 10^3/ul Absolute Basos (auto) 0.1 (0-0.2) 10^3/ul Absolute Nucleated RBC 0 10^3/ul Nucleated RBC % 0 ESR Pending Sodium Pending Potassium Pending Chloride 91 L (101-111) mmol/L Carbon Dioxide Pending Anion Gap Pending BUN 95 H (6-24) mg/dL Creatinine 13.58 H (0.67-1.17) mg/dL Est GFR ( Amer) 4.7 (>60) Est GFR (Non-Af Amer) 3.7 (>60) BUN/Creatinine Ratio 7.0 L (8-20) Glucose 105 H (70-100) mg/dL Lactic Acid 0.7 (0.5-2.0) mmol/L Calcium 7.7 L (8.6-10.3) mg/dL Magnesium 2.0 (1.9-2.7) mg/dL Total Bilirubin 0.30 (0.2-1.0) mg/dL AST 21 (13-39) U/L ALT 9 (7-52) U/L Alkaline Phosphatase 137 H (34-104) U/L Total Creatine Kinase 271 H (10-223) U/L C-Reactive Protein Pending Total Protein 6.5 (6.4-8.9) g/dL Albumin 3.0 L (3.2-5.2) g/dL Globulin 3.5 (2-4) g/dL Albumin/Globulin Ratio 0.9 L (1-3) Result Diagrams: 07/28/17 05:19 07/28/17 05:19 Lab Statement: Any lab studies that have been ordered have been reviewed, and results considered in the medical decision making process. - EKG 0941 Cardiac Rate: NL EKG Rhythm: Sinus Rhythm - at 88 BPM EKG Interpretation: peaked T waves in the lateral leads. No STEMI Re-Evaluation - Re-Evaluation First Eval Comment: reviewed labs with pt and . d/w Dr. Vora, Dr Escudero. Will admit to ICU. eval for ? dialysis. uriel check bladder scan - if retaining, place aguilar reassess abd exam. Pt amd understand with plan Course/Dx - Course Course Of Treatment: Pt with intermittent fevers, progessive LEG pain, nausea, intermittent vomiting, intermittent fevers x 10 days. Will check labs, cxr, EKG , IVF. Pt noted with elevated BP - pt wtih h/o same. will give IV treatment. close reassessment - Diagnoses Provider Diagnoses: ARF (acute renal failure), Hypertensive urgency, Hyponatremia, Hyperkalemia Discharge - Sign-Out/Discharge Documenting (check all that apply): Discharge/Admit/Transfer - Discharge Plan Condition: Fair Disposition: ADMITTED TO [facility] Disposition and Condition Condition: FAIR Disposition: [facility] [place] Consult Consult: [id number] I discussed patient care with Dr. Milner and she suggests checking with the software systems analyst before admitting the patient. 0947 I discussed patient care with Dr. Vora and he suggest a bladder scan and then placing a Aguilar. He will consult on the patient. 0928 I discussed patient care with Dr. Escudero who accepted the patient to ICU. The documentation as recorded by the Gerardo caballero Gabriel accurately reflects the service I personally performed and the decisions made by , Berkley Tong MD.
[2017-07-22 10:34] LABS: Urine Appearance Cloudy; Urine Blood 1+ (Negative); Urine Color Yellow; Urine Ketones Trace (Negative); Urine Protein 3+(>=500 mg/dL) (Negative); Urine Specific Gravity 1.012 (1.010-1.030); Urine Urobilinogen Negative (Negative)
--- NOTE | 2017-07-22 10:59 | RAD ---
INDICATION: Short of breath COMPARISON: November 26, 2016 TECHNIQUE: An AP portable view obtained at 1046 hours is submitted. FINDINGS: Bones/Soft Tissues: There are no acute bony findings. Cardiomediastinal: The cardiomediastinal silhouette is mildly prominent.. Lungs: There are no infiltrates. Pleura: There are no pleural effusions. Other: None IMPRESSION: LUNGS CLEAR. NO RADIOGRAPHIC EVIDENCE OF CHF
[2017-07-22] MEDS ORDERED: Lisinopril TAB* 10 MG PO SCH (11:00)
[2017-07-22] MEDS ORDERED: Morphine INJ* 2 MG/ML 1 ML CARPUJECT IV PRN (11:08)
[2017-07-22] MEDS ORDERED: cloNIDine TAB* 0.1 MG PO ONE (11:10)
[2017-07-22] MEDS: Lisinopril TAB* 10 MG PO SCH (11:41)
[2017-07-22] MEDS: amLODIPine TAB* 5 MG PO SCH (11:42)
[2017-07-22] MEDS ORDERED: Morphine VIAL* 4 MG/ML VIAL (1 ml vial) IV PRN (12:20)
[2017-07-22] MEDS ORDERED: Morphine VIAL* 4 MG/ML VIAL (1 ml vial) IV ONE (12:22)
--- NOTE | 2017-07-22 12:36 | HP ---
ADMISSION HISTORY AND PHYSICAL: DATE OF ADMISSION: 07/22/17 REASON FOR ADMISSION: Renal failure. HISTORY OF PRESENT ILLNESS: This patient is a 67-year-old male with a history of type 2 diabetes, peripheral neuropathy and hypertension who presented to the emergency room today because of pains in the lower extremity and lower abdomen, and was found to have a BUN of 95 and a creatinine of 13.6. There is no associated nausea, vomiting, or chest pain. According to the patient's , there has been difficulty with blood pressure control recently on the meds listed in the next section. Blood pressure in the emergency room was 240/80 and after 10 mg of labetalol the pressure decreased to 196/90. There were no complaints of shortness of breath. OUTPATIENT MEDICATIONS: 1. Amlodipine 5 mg daily. 2. Lisinopril 10 mg daily. 3. Glipizide 10 mg in the morning and 5 mg in the evening. 4. Gabapentin 100 mg 3 times daily. ALLERGIES: There are no known drug allergies. REVIEW OF SYSTEMS: Noncontributory. PHYSICAL EXAMINATION GENERAL: The patient was alert, oriented, and appeared in no distress. VITAL SIGNS: Temp was 97.9, blood pressure as stated, pulse rate was 87 and regular, respirations was 16 and not labored, O2 sat was 99% on room air. HEENT: Pupils were equal. There was no facial asymmetry. There were also no neck masses and no jugular venous distention. LUNGS: Clear to auscultation. CARDIAC: No evidence of a pericardial friction rub. ABDOMEN: Soft and nontender. EXTREMITIES: Warm, not cyanotic, and not edematous. ADMISSION LABORATORY DATA: Labs were significant for a sodium of 117, potassium of 6, CO2 of 11, anion gap of 15, BUN 95, creatinine 13.6, glucose 105 , lactate 0.7. White count of 9.2, hemoglobin of 7.2, and platelet count of 206K. EKG showed a normal sinus rhythm with LVH by voltage and chest x-ray is pending. IMPRESSION: End-stage renal failure secondary to diabetes and poorly- controlled hypertension. No signs of uremia at this time. MANAGEMENT PLAN: Dr. Vora of the renal service has been consulted and the patient will be brought to the intensive care unit for more aggressive blood pressure control and dialysis if deemed necessary. CRITICAL CARE TIME: 50 minutes. [id number]/[facility] #: [id number] [facility]ITALKami
[2017-07-22] MEDS ORDERED: Gabapentin CAP(*) 100 MG PO SCH (14:00)
--- NOTE | 2017-07-22 14:44 | RAD ---
INDICATION: Dialysis catheter placement COMPARISON: July 22, 2017 TECHNIQUE: An AP portable view obtained at 1350 hours is submitted. FINDINGS: Bones/Soft Tissues: There are no acute bony findings. There is a right IJ catheter terminating at the superior vena cava/right atrial junction. There is an external pacer device. Cardiomediastinal: The cardiomediastinal silhouette is normal. Lungs: The lungs are clear. Pleura: There are suspected tiny bilateral effusions. Other: None IMPRESSION: RIGHT IJ CATHETER POSITIONED DESCRIBED. NO PNEUMOTHORAX. LUNGS CLEAR
[2017-07-22] MEDS ORDERED: Norepinephrine VIAL* 1 MG/ML 4 ML VIAL ONE (16:33)
[2017-07-22] MEDS ORDERED: Piperacillin/Tazobac ADVAN(*) 3.375 GM in NS 0.9% 100 ML* 100 ML IVPB ONE (16:46)
[2017-07-22] MEDS ORDERED: Albumin Human 25%* 25 GM/100 ML BTL IV ONE (17:00)
[2017-07-22] MEDS ORDERED: Zosyn per Pharmacy* NOTE FOLLOW UP SCH (17:00)
[2017-07-22] MEDS ORDERED: Heparin DIALYSIS ONLY(*) 1,000 UNITS/ML VIAL DIALYSIS ONE (17:00)
[2017-07-22] MEDS: glipiZIDE TAB.XL* 5 MG PO SCH (19:39)
[2017-07-22 20:54] LABS: EGFR Non-African American 9.9 (>60)
[2017-07-22] MEDS: Heparin VIAL(*) 5000 UNITS/ML VIAL (FIVE THOUSAND) SUBCUT SCH (21:21)
--- NOTE | 2017-07-22 21:36 | CONS ---
NEPHROLOGY CONSULTATION: DATE OF CONSULT: 07/22/17 HISTORY OF PRESENT ILLNESS: Mr. Rojas is a 66-year-old gentleman with a history of diabetes mellitus, type 2 and known stage 4 chronic kidney disease. He apparently came to the emergency room because he was told his blood pressure was quite high and he was complaining of left lower quadrant abdominal pain and pain to his legs. I was taking history from him via his and a wool hat hydraulicker on the phone when he became apneic and unresponsive and then became bradycardic and pulseless. I began chest compressions myself. An ABC alert was called. Dr. Escudero presented immediately. He then began to have a bradycardic rhythm without pulses. Chest compressions were continued. Eventually his rate picked up into the 50s and now there were pulses. He then had spontaneous respirations and then woke up. I have consulted on him in the past for stage 4 chronic kidney disease, which had been stable up until recently. He has long history of hypertension. He has a history of benign prostatic hypertrophy. MEDICATIONS: His home medications included: 1. Lisinopril 10 mg daily. 2. Norvasc 5 mg daily. 3. Gabapentin 100 mg 3 times a day. ALLERGIES: He has no medical allergy. SOCIAL HISTORY: To the best of my knowledge, he is not a smoker. REVIEW OF SYSTEMS: His review of systems is not really obtainable at the present time. PHYSICAL EXAM: General: He is an arousable [place] gentleman, who responds to questions, but in [place]. At the present time, his pulse is 59, respiratory rate is 18. His blood pressure around the time of the arrest is 202/90. His pupils were reactive to light. He is anicteric. His extraocular muscles were intact. Chest: Clear. Heart: Revealed regular rhythm without murmurs. Abdomen is soft. There is no wincing on palpation. I could not feel any organomegaly. Bones, Joints, Extremities: Revealed no cyanosis or clubbing, but there is 1+ edema. DIAGNOSTIC STUDIES/LAB DATA: Review of his laboratory studies reveals a white count of 9.2, hemoglobin of 7.2, hematocrit of 21. Sodium of 117, potassium of 6, total CO2 of 11, chloride 91, BUN 95, creatinine 13.58. In March, his creatinine was 5.33 and it had been 5.79 in October of 2016. He had 200 cc on his bladder scan. A Low catheter was placed. His current urinalysis reveals 1+ blood, trace ketones, is otherwise unremarkable. IMPRESSION AND PLAN: Chronic renal failure with acute exacerbation. It is not clear at all if there was a precipitant to this change in his renal function, which had been relatively stable with a known clearance of 22 cc a minute in March of this year when his serum creatinine was 5.33. I have explained to his that he has had a significant change in his kidney function and that we need to proceed on with dialysis urgently. I have explained the risks of bleeding and infection and potential . She is willing to have us proceed. [id number]/[facility] #: [id number] CARISSA
[2017-07-22] MEDS: ZOSYN 3.375 GM Q12H per EXTENDED INFUSION IVPB SCH ×2 (23:56)
[2017-07-23 05:31] LABS: Hematocrit 16 % (42-52); Hemoglobin 5.7 g/dl (14.0-18.0); Mean Corpuscular HGB Conc 35 g/dl (31-36); Mean Corpuscular Hemoglobin 24 pg (27-31); Mean Corpuscular Volume 69 fL (80-94); Mean Platelet Volume 6.8 um3 (7.4-10.4); Platelet Count 170 10^3/ul (150-450); Red Blood Count 2.36 10^6/ul (4.0-5.4); Red Cell Distribution Width 16 % (10.5-15); White Blood Count 5.8 10^3/ul (3.5-10.8)
[2017-07-23 05:45] LABS: EGFR Non-African American 7.9 (>60)
[2017-07-23] MEDS: Gabapentin CAP(*) 100 MG PO SCH (08:53)
[2017-07-23] MEDS: glipiZIDE TAB.XL* 5 MG PO SCH ×2 (08:53→18:15)
[2017-07-23] MEDS: Famotidine TAB* 20 MG PO SCH (08:53)
[2017-07-23] MEDS: Lisinopril TAB* 10 MG PO SCH (08:54)
[2017-07-23] MEDS: Heparin VIAL(*) 5000 UNITS/ML VIAL (FIVE THOUSAND) SUBCUT SCH ×2 (08:54→21:16)
[2017-07-23] MEDS: amLODIPine TAB* 5 MG PO SCH (08:54)
[2017-07-23] MEDS ORDERED: Ondansetron 40 MG VIAL* 2 MG/ML 20 ML VIAL IV PRN (09:14)
--- NOTE | 2017-07-23 11:02 | ECHO ---
Patient: BIJAN PRESTON [facility] Rec#: [id number] : 1950 Date: 07/23/2017 Age: 67y Height: 163 cm / 64.2 in Weight: 64 kg / 141.1 lbs Sex: M BSA: 1.7 Room#: ICU 8 Admit Date#: 07/22/2017 Type: Inpatient Referring: Otto Escudero MD Reading: Otto Willams MD Metal Machine Operator: Sue Winter RN RDCS CC: Brad Menezes MD Transthoracic Echocardiogram Indication: Hypotension BP: 153/78 HR: 84 Rhythm: NSR Findings History: HTN, DM, CKD Technical Comments: The study quality is good. Completed at 0907. Left Ventricle: The left ventricular chamber size is normal. Moderate concentric left ventricular hypertrophy is observed. There is increased basal septal hypertrophy noted without evidence of an increased gradient across the left ventricular outflow tract. Global left ventricular wall motion and contractility are within normal limits. The left ventricle appears hyperdynamic. The estimated ejection fraction is greater than 65%. Abnormal left ventricular diastolic filling is observed, consistent with impaired relaxation. Left Atrium: The left atrium is mildly dilated. Right Ventricle: The right ventricular cavity size is normal. The right ventricular global systolic function is normal. Right Atrium: The right atrial cavity size is normal. Aortic Valve: The aortic valve is trileaflet. The aortic valve leaflets are mildly thickened. There is no evidence of aortic regurgitation. There is no evidence of aortic stenosis. Mitral Valve: The mitral valve leaflets are mildly thickened. There is a trace of mitral regurgitation. There is no evidence of mitral stenosis. Tricuspid Valve: The tricuspid valve leaflets are normal. There is trace tricuspid regurgitation. Unable to estimate the right ventricular systolic pressure. There is no tricuspid stenosis. Pulmonic Valve: The pulmonic valve appears normal. There is trace to mild pulmonic regurgitation. There is no pulmonic stenosis. Pericardium: There is a small pericardial effusion. There are no signs of significant hemodynamic compromise. There is a circumferential pericardial effusion. Aorta: There is no dilatation of the ascending aorta. The aortic arch is not well visualized. There is no dilation of the aortic root. Pulmonary Artery: The main pulmonary artery appears normal. Venous: The inferior vena cava appears normal in size. There is a greater than 50% respiratory change in the inferior vena cava dimension. Conclusions Moderate concentric left ventricular hypertrophy is observed. There is increased basal septal hypertrophy noted without evidence of an increased gradient across the left ventricular outflow tract. The left ventricle appears hyperdynamic. The estimated ejection fraction is greater than 65%. Abnormal left ventricular diastolic filling is observed, consistent with impaired relaxation. The left atrium is mildly dilated. There is a trace of mitral regurgitation. There is trace tricuspid regurgitation. There is trace to mild pulmonic regurgitation. There is a small pericardial effusion. There are no signs of significant hemodynamic compromise. Compared to report of prio study from 11/25/2016 the small , hemodynamically insignificant pericardial effusion is now seen. Measurements Name Value Normal Range RVIDd (AP) 2D 2.1 cm (0.9 - 2.6) RVDdMajor (2D) 2.8 cm (2.2 - 4.4) RAd ISD 4CH 4.2 cm (3.4 - 4.9) RA (A4C)W 3.1 cm (2.9 - 4.6) IVSd (2D) 1.4 cm (0.6 - 1) LVPWd (2D) 1.3 cm (0.6 - 1) LVIDd (2D) 4.6 cm (3.6 - 5.4) LVIDs (2D) 3 cm - LV FS (2D) 35 % (25 - 45) Aortic Annulus 1.9 cm (1.4 - 2.6) Ao root diameter (2D) 2.9 cm (2.1 - 3.5) Ascending Ao 3.1 cm (2.1 - 3.4) LA dimension (AP) 2D 3.2 cm (2.3 - 3.8) LAd ISD 4CH 4.7 cm (2.9 - 5.3) LA ISD 4CH W 4.2 cm (2.5 - 4.5) Name Value Normal Range LA ESV SP 4CH (A/L) 62 ml - LA ESV SP 2CH (A/L) 61 ml - LA ESV BP (A/L) 65 ml - LA ESV BP (A/L) index 39 ml/m2 - LA ESV SP 4CH (MOD) 56 ml - LA ESV SP 2CH (MOD) 57 ml - Name Value Normal Range MV E-wave Vmax 0.81 m/sec - MV deceleration time 175 msec - MV A-wave Vmax 1.2 m/sec - MV E:A ratio 0.66 ratio - LV septal e' Vmax 0.04 m/sec - LV lateral e' Vmax 0.08 m/sec - LV E:e' septal ratio 20.3 ratio - LV E:e' lateral ratio 10.1 ratio - Name Value Normal Range AV Vmax 1.6 m/sec - AV VTI 35.8 cm - AV peak gradient 9.6 mmHg - AV mean gradient 6.7 mmHg - LVOT Vmax 1.3 m/sec - LVOT VTI 29.2 cm - LVOT peak gradient 7.1 mmHg - LVOT mean gradient 4.2 mmHg - Name Value Normal Range MV Vmax 1.6 m/sec - MV VTI 31.6 cm - MV peak gradient 10.9 mmHg - MV mean gradient 4.3 mmHg - MV PHT 60 msec - MVA (PHT) 3.6 cm2 - Name Value Normal Range IVC diameter 2 cm - Name Value Normal Range PV Vmax 1.1 m/sec -
--- NOTE | 2017-07-23 12:05 | PRO ---
PROCEDURE NOTE: DATE OF PROCEDURE: 07/22/17 PROCEDURE: Insertion of a hemodialysis catheter. INDICATION: The patient is a 67-year-old [place] male who is admitted with end- stage renal failure secondary to diabetes and hypertension, and requires emergency hemodialysis to control hyperkalemia and acidosis. PROCEDURE IN DETAIL: A double-lumen 12-gauge hemodialysis catheter was inserted in the right internal jugular vein under ultrasound guidance and advanced to a distance of 20 cm. The patient tolerated the procedure well and postprocedure x- ray showed proper placement of the catheter and no pneumothorax. Plan is for emergency hemodialysis today. [id number]/[facility] #: [id number] MTDD
[2017-07-23] MEDS: ZOSYN 3.375 GM Q12H per EXTENDED INFUSION IVPB SCH ×4 (12:29→23:42)
--- NOTE | 2017-07-23 13:22 | PN ---
Date of Service: 07/23/17 Critical Care Services: Dialysed yesterday followed by considerable improvement (both clinically and by laboratory measurements). However, Hb dropped from 7.2 to 5.7 since admission, without apparent blood loss. Vital Signs: Temp Pulse Resp BP SpO2 FiO2 98.4 F 80 14 139/81 94 Physical Exam: Gen:Alert and breathing comfortably. Responds appropriately to verbal commands. HEENT: No JVD Lungs: Clear Extremities: No cyanosis or edema Neuro: No asterixis Fluid Balance (Past 24 Hours): 07/23/17 06:59 Intake Total 343 Output Total 750 Balance -407 Weight 137 lb Intake: IV Fluids 93 NS with ABX 93 IVPB 200 NS with ABX 200 Medicated IV 50 CC - Norepinephrine/ 50 Levophed Oral 0 Output: Urine 0 Low 450 Residual 300 Low 16 Fr 300 Labs: 3 07/23/17 07/23/17 07/23/17 05:20 05:20 05:20 WBC 5.8 RBC 2.36 L Hgb 5.7 Hct 16 L MCV 69 L MCH 24 L MCHC 35 RDW 16 H Plt Count 170 MPV 6.8 L Sodium 126 Potassium 4.2 Chloride 87 Carbon Dioxide 24 Anion Gap 15 H BUN 44 H Creatinine 7.04 H Glucose 103 H POC Glucose (mg/dL) Lactic Acid Calcium 7.4 L Phosphorus 7.2 H Troponin I Hepatitis A IgM Ab Hep Bs Antigen Hep B Core IgM Ab Hepatitis C Antibody Blood Type B Positive Antibody Screen Negative Crossmatch See Detail Studies: Cardiac ECHO: LVH with impaired diastolic relaxation Nutrition: Oral diet Impression: Doing well post-dialysis. Hyperkalemia and acidosis corrected, and no signs of uremia. Drop in hemoglobin is surprising, as there is no apparent blood loss ( and sudden hemolysis unlikely). Plan: 1. Blood transfusion to a target Hb of 7 g/dL. 2. Monitor potassium and serum bicarbonate. 3. Repeat dialysis tomorrow.
[2017-07-23 16:25] LABS: Hematocrit 18 % (42-52); Hemoglobin 6.2 g/dl (14.0-18.0)
[2017-07-23] MEDS: hydrALAZINE IV* 20 MG/ML VIAL IV PRN (23:35)
[2017-07-23 23:49] LABS: Hematocrit 25 % (42-52); Hemoglobin 8.6 g/dl (14.0-18.0)
[2017-07-24] MEDS ORDERED: Metoprolol Tartrate IV* 1 MG/ML 5 ML VIAL IV ONE (02:08)
[2017-07-24] MEDS: hydrALAZINE IV* 20 MG/ML VIAL IV PRN (03:38)
[2017-07-24] MEDS ORDERED: Labetalol IV* 5 MG/ML 20 ML VIAL IV PUSH ONE (06:02)
[2017-07-24 06:14] LABS: Hematocrit 25 % (42-52); Hemoglobin 8.9 g/dl (14.0-18.0); Mean Corpuscular HGB Conc 36 g/dl (31-36); Mean Corpuscular Hemoglobin 26 pg (27-31); Mean Corpuscular Volume 72 fL (80-94); Mean Platelet Volume 6.9 um3 (7.4-10.4); Platelet Count 204 10^3/ul (150-450); Red Blood Count 3.45 10^6/ul (4.0-5.4); Red Cell Distribution Width 17 % (10.5-15); White Blood Count 8.3 10^3/ul (3.5-10.8)
[2017-07-24 06:31] LABS: EGFR Non-African American 6.6 (>60)
[2017-07-24] MEDS ORDERED: Heparin DIALYSIS ONLY(*) 1,000 UNITS/ML VIAL DIALYSIS ONE (10:00)
[2017-07-24] MEDS: Heparin VIAL(*) 5000 UNITS/ML VIAL (FIVE THOUSAND) SUBCUT SCH ×2 (10:08→21:25)
[2017-07-24] MEDS: Gabapentin CAP(*) 100 MG PO SCH (10:08)
[2017-07-24] MEDS: Famotidine TAB* 20 MG PO SCH (10:08)
[2017-07-24] MEDS: Lisinopril TAB* 10 MG PO SCH (12:27)
[2017-07-24] MEDS: amLODIPine TAB* 5 MG PO SCH (12:28)
[2017-07-24] MEDS: glipiZIDE TAB.XL* 5 MG PO SCH (12:45)
[2017-07-24] MEDS ORDERED: cloNIDine TAB* 0.1 MG ONE (13:36)
--- NOTE | 2017-07-24 14:31 | PN ---
Date of Service: 07/24/17 Critical Care Services: Continues to do well - no dialysis yesterday, and urine output increased to > 500 ccs over 24 hrs. Dialysed this AM and tolerated it well. Hemoglobin increased to 8.6 after 2nd unit of PRBCs. Vital Signs: Temp Pulse Resp BP SpO2 FiO2 96.6 F 84 16 188/85 93 Physical Exam: Gen:Alert, oriented Lungs:clear Abdomen:Not distended. Extremities:No edema Neuro:No asterixis Fluid Balance (Past 24 Hours): 07/24/17 06:59 Intake Total 2147 Output Total 845 Balance 1302 Weight 152 lb Intake: IV Fluids 256 NS with ABX 256 IVPB 210 NS with ABX 210 Medicated IV CC - Norepinephrine/ Levophed Oral 1080 Packed Cells 601 Output: Urine 190 Low 655 Residual Low 16 Fr Labs: 07/23/17 07/23/17 07/23/17 05:20 16:00 23:40 Hgb 6.2 L* 8.6 L Hct 18 L 25 L MCV MCH MCHC RDW Plt Count MPV Sodium Potassium Chloride Carbon Dioxide Anion Gap BUN Creatinine Est GFR ( Amer) Est GFR (Non-Af Amer) BUN/Creatinine Ratio Glucose Calcium Blood Type B Positive Antibody Screen Negative Crossmatch See Detail 07/24/17 07/24/17 05:55 05:55 WBC 8.3 RBC 3.45 L Hgb 8.9 L Hct 25 L MCV 72 L MCH 26 L MCHC 36 RDW 17 H Plt Count 204 MPV 6.9 L Sodium 126 L Potassium 4.0 Chloride 89 L Carbon Dioxide 26 Anion Gap 11 BUN 49 H Creatinine 8.18 H Est GFR ( Amer) 8.5 Est GFR (Non-Af Amer) 6.6 BUN/Creatinine Ratio 6.0 L Glucose 153 H Calcium 6.7 L Blood Type Antibody Screen Crossmatch Studies: None today Nutrition: Oral diet Impression: Responding to dialysis. Continues to have elevated systolic BPs. Plan: Add clonidine for BP control. Continue dialysis as needed..
[2017-07-24] MEDS: cloNIDine TAB* 0.1 MG PO ONE ×3 (16:20→16:39)
[2017-07-24] MEDS ORDERED: cloNIDine TAB* 0.1 MG PO ONE (17:00)
[2017-07-24] MEDS: cloNIDine TAB* 0.1 MG PO SCH (21:24)
[2017-07-25] MEDS: hydrALAZINE IV* 20 MG/ML VIAL IV PRN (04:05)
[2017-07-25 05:42] LABS: Hematocrit 24 % (42-52); Hemoglobin 8.1 g/dl (14.0-18.0); Mean Corpuscular HGB Conc 34 g/dl (31-36); Mean Corpuscular Hemoglobin 25 pg (27-31); Mean Corpuscular Volume 74 fL (80-94); Mean Platelet Volume 6.9 um3 (7.4-10.4); Platelet Count 178 10^3/ul (150-450); Red Blood Count 3.24 10^6/ul (4.0-5.4); Red Cell Distribution Width 17 % (10.5-15); White Blood Count 5.8 10^3/ul (3.5-10.8)
[2017-07-25] MEDS: Gabapentin CAP(*) 100 MG PO SCH (08:52)
[2017-07-25] MEDS: Heparin VIAL(*) 5000 UNITS/ML VIAL (FIVE THOUSAND) SUBCUT SCH ×2 (08:53→21:12)
[2017-07-25] MEDS: Famotidine TAB* 20 MG PO SCH (08:53)
[2017-07-25] MEDS: amLODIPine TAB* 5 MG PO SCH (08:53)
[2017-07-25] MEDS: cloNIDine TAB* 0.1 MG PO SCH ×2 (08:53→21:12)
[2017-07-25] MEDS: Lisinopril TAB* 10 MG PO SCH (08:53)
--- NOTE | 2017-07-25 15:20 | PN ---
Subjective Date of Service: 07/25/17 Interval History: Patient feeling well, no new complaints. He has been eating well, feels weak over all. Has not been out of bed since leaving ICU yesterday. Denies dyspnea, orthopnea, chest pain. Has mild cough. Family History: Unchanged from Admission Social History: Unchanged from Admission Past Medical History: Unchanged from Admission Objective Active Medications: Amlodipine Besylate (Norvasc Tab*) 5 mg PO DAILY [facility] Last Admin: 07/25/17 08:53 Dose: 5 mg Clonidine HCl (Catapres Tab*) 0.2 mg PO BID [facility] Last Admin: 07/25/17 08:53 Dose: 0.2 mg Famotidine (Pepcid Tab*) 20 mg PO DAILY [facility] Last Admin: 07/25/17 08:53 Dose: 20 mg Gabapentin (Neurontin Cap(*)) 100 mg PO DAILY [facility] Last Admin: 07/25/17 08:52 Dose: 100 mg Heparin Sodium (Porcine) (Heparin Vial(*)) 5,000 units SUBCUT Q12HR [facility] Last Admin: 07/25/17 08:53 Dose: 5,000 units Hydralazine HCl (Apresoline Iv*) 10 mg IV Q4H PRN PRN Reason: Systolic >170 Last Admin: 07/25/17 04:05 Dose: 10 mg Lisinopril (Prinivil Tab*) 20 mg PO DAILY [facility] Last Admin: 07/25/17 08:53 Dose: 20 mg Morphine Sulfate (Morphine Vial*) 2 mg IV Q4H PRN PRN Reason: PAIN - MILD Last Admin: 07/22/17 12:24 Dose: 2 mg Ondansetron HCl (Zofran 40 Mg Vial*) 4 mg IV Q6H PRN PRN Reason: NAUSEA Last Admin: 07/23/17 09:47 Dose: 4 mg Vital Signs - 8 hr 07/25/17 07/25/17 07/25/17 08:52 11:27 11:38 Temperature 36.4 C Pulse Rate 59 Respiratory 16 14 16 Rate Blood Pressure 121/50 (mmHg) O2 Sat by Pulse 94 Oximetry Oxygen Devices in Use Now: None Appearance: no acute distress Eyes: No Scleral Icterus Ears/Nose/Mouth/Throat: Clear Oropharnyx Neck: - - IJ dialysis cath Respiratory: Symmetrical Chest Expansion and Respiratory Effort, Clear to Auscultation Cardiovascular: NL Sounds; No Murmurs; No JVD, RRR Abdominal: NL Sounds; No Tenderness; No Distention Lymphatic: No Cervical Adenopathy Extremities: No Edema Skin: No Rash or Ulcers Neurological: Alert and Oriented x 3 Lines/Tubes/Other Access: Clean, Dry and Intact Central Line Nutrition: Taking PO's Result Diagrams: 07/25/17 05:03 07/25/17 05:03 Microbiology and Other Data: Microbiology 07/22/17 16:58 Aerobic Blood Culture - Preliminary Blood Venous No Growth Day 2 Anaerobic Blood Culture - Preliminary No Growth Day 2 07/22/17 16:58 Aerobic Blood Culture - Preliminary Blood Venous No Growth Day 2 Anaerobic Blood Culture - Preliminary No Growth Day 2 07/22/17 10:13 Urine Culture - Final Urine No Growth (<1,000 CFU/mL) 07/22/17 10:53 Nasal Screen MRSA (PCR)(ANAMARIA) - Final Nasal Mrsa Not Detected Assess/Plan/Problems-Billing Assessment: 67 year old man with HTN, diabetes presented w/ acute on chronic renal failure. - Patient Problems (1) End stage chronic kidney disease Current Visit: Yes Status: Acute Priority: High Code(s): N18.6 - END STAGE RENAL DISEASE SNOMED Code(s): 37596654 Comment: - patient presented w/ full progression to ESRD, after years of CKD - volume status, potassium corrected w/ dialysis. - will discuss discharge plan with Dr. Vora. (2) Type 2 diabetes mellitus Current Visit: Yes Status: Chronic Priority: Medium Comment: - diabetes under adequate control - checking A1c in AM (3) DVT prophylaxis Current Visit: Yes Status: Acute Priority: Low Code(s): YUT2286 - SNOMED Code(s): 401379435 Comment: - SC heparin (4) Hypertension Current Visit: No Status: Acute Priority: Medium Code(s): I10 - ESSENTIAL (PRIMARY) HYPERTENSION SNOMED Code(s): 68265969 Comment: - BP under excellent control Status and Disposition: Inpatient, will work toward discharge in 1-2 days
[2017-07-26 05:49] LABS: EGFR Non-African American 7.7 (>60)
[2017-07-26 05:53] LABS: Hematocrit 22 % (42-52); Hemoglobin 7.7 g/dl (14.0-18.0); Mean Corpuscular HGB Conc 35 g/dl (31-36); Mean Corpuscular Hemoglobin 26 pg (27-31); Mean Corpuscular Volume 74 fL (80-94); Mean Platelet Volume 6.9 um3 (7.4-10.4); Platelet Count 198 10^3/ul (150-450); Red Cell Distribution Width 16 % (10.5-15); White Blood Count 6.6 10^3/ul (3.5-10.8)
[2017-07-26] MEDS: cloNIDine TAB* 0.1 MG PO SCH ×2 (08:52→20:57)
[2017-07-26] MEDS: Lisinopril TAB* 10 MG PO SCH (08:52)
[2017-07-26] MEDS: amLODIPine TAB* 5 MG PO SCH ×2 (08:53→20:57)
[2017-07-26] MEDS: Gabapentin CAP(*) 100 MG PO SCH (08:54)
[2017-07-26] MEDS ORDERED: Polyethylene Glycol 3350* 17 GM PACKET ONE (08:55)
[2017-07-26] MEDS ORDERED: Docusate CAP* 100 MG ONE (08:55)
[2017-07-26] MEDS: Famotidine TAB* 20 MG PO SCH (08:56)
[2017-07-26] MEDS: Docusate CAP* 100 MG PO PRN (08:57)
[2017-07-26] MEDS: Heparin VIAL(*) 5000 UNITS/ML VIAL (FIVE THOUSAND) SUBCUT SCH ×2 (08:58→20:57)
[2017-07-26] MEDS: Polyethylene Glycol 3350* 17 GM PACKET PO PRN (09:00)
--- NOTE | 2017-07-26 14:28 | PN ---
Subjective Date of Service: 07/26/17 Interval History: Patient feels weak. He has not had stool in several days. Eating OK. Was able to walk w/ walker and standby assist today. in room, she does not feel he is strong enough to go home tomorrow. Family History: Unchanged from Admission Social History: Unchanged from Admission Past Medical History: Unchanged from Admission Objective Active Medications: Amlodipine Besylate (Norvasc Tab*) 5 mg PO DAILY [facility] Last Admin: 07/26/17 08:53 Dose: 5 mg Clonidine HCl (Catapres Tab*) 0.2 mg PO BID [facility] Last Admin: 07/26/17 08:52 Dose: 0.2 mg Docusate Sodium (Colace Cap*) 100 mg PO BID PRN PRN Reason: CONSTIPATION Last Admin: 07/26/17 08:57 Dose: 100 mg Famotidine (Pepcid Tab*) 20 mg PO DAILY [facility] Last Admin: 07/26/17 08:56 Dose: 20 mg Gabapentin (Neurontin Cap(*)) 100 mg PO DAILY [facility] Last Admin: 07/26/17 08:54 Dose: 100 mg Heparin Sodium (Porcine) (Heparin Vial(*)) 5,000 units SUBCUT Q12HR [facility] Last Admin: 07/26/17 08:58 Dose: 5,000 units Hydralazine HCl (Apresoline Iv*) 10 mg IV Q4H PRN PRN Reason: Systolic >170 Last Admin: 07/25/17 04:05 Dose: 10 mg Lisinopril (Prinivil Tab*) 20 mg PO DAILY [facility] Last Admin: 07/26/17 08:52 Dose: 20 mg Morphine Sulfate (Morphine Vial*) 2 mg IV Q4H PRN PRN Reason: PAIN - MILD Last Admin: 07/22/17 12:24 Dose: 2 mg Ondansetron HCl (Zofran 40 Mg Vial*) 4 mg IV Q6H PRN PRN Reason: NAUSEA Last Admin: 07/23/17 09:47 Dose: 4 mg Polyethylene Glycol/Electrolytes (Miralax*) 17 gm PO DAILY PRN PRN Reason: CONSTIPATION Last Admin: 07/26/17 09:00 Dose: 17 gm Vital Signs - 8 hr 07/26/17 07/26/17 11:25 13:28 Temperature 37.7 C Pulse Rate 64 Respiratory 16 17 Rate Blood Pressure 149/46 (mmHg) O2 Sat by Pulse 90 Oximetry Oxygen Devices in Use Now: None Appearance: lying in bed, looks fatigued Eyes: No Scleral Icterus Ears/Nose/Mouth/Throat: Clear Oropharnyx Neck: No Thyroid Enlargement, Masses Respiratory: Symmetrical Chest Expansion and Respiratory Effort, Clear to Auscultation Cardiovascular: NL Sounds; No Murmurs; No JVD, RRR Abdominal: NL Sounds; No Tenderness; No Distention Extremities: No Edema Neurological: Alert and Oriented x 3 Lines/Tubes/Other Access: Clean, Dry and Intact Peripheral IV Result Diagrams: 07/26/17 05:15 07/26/17 05:15 Additional Lab and Data: Laboratory Tests 07/26/17 07/26/17 05:15 05:15 Sodium 123 L Potassium 3.9 Carbon Dioxide 29 BUN 31 H Creatinine 7.16 H Glucose 159 H Hemoglobin A1c 6.4 H Calcium 6.3 L* Microbiology and Other Data: Microbiology 07/22/17 16:58 Aerobic Blood Culture - Preliminary Blood Venous No Growth Day 2 Anaerobic Blood Culture - Preliminary No Growth Day 2 07/22/17 16:58 Aerobic Blood Culture - Preliminary Blood Venous No Growth Day 2 Anaerobic Blood Culture - Preliminary No Growth Day 2 07/22/17 10:13 Urine Culture - Final Urine No Growth (<1,000 CFU/mL) 07/22/17 10:53 Nasal Screen MRSA (PCR)(ANAMARIA) - Final Nasal Mrsa Not Detected Assess/Plan/Problems-Billing Assessment: 67 year old man with HTN, diabetes presented w/ acute on chronic renal failure. - Patient Problems (1) End stage chronic kidney disease Current Visit: Yes Status: Acute Priority: High Code(s): N18.6 - END STAGE RENAL DISEASE SNOMED Code(s): 51568552 Comment: - patient presented w/ full progression to ESRD, after years of CKD - volume status, potassium corrected w/ dialysis. - Discussed with Dr. Vora. He will run dialysis tomorrow. Discussed hyponatremia, low Ca, and anemia progression. Will start0.25 calcitriol, restrict fluid 1 liter, give 10,000 units epogen (2) Type 2 diabetes mellitus Current Visit: Yes Status: Chronic Priority: Medium Comment: - diabetes under adequate control - continue finger stick glucose (3) DVT prophylaxis Current Visit: Yes Status: Acute Priority: Low Code(s): [id number] - SNOMED Code(s): 663731184 Comment: - SC heparin (4) Hypertension Current Visit: No Status: Acute Priority: Medium Code(s): I10 - ESSENTIAL (PRIMARY) HYPERTENSION SNOMED Code(s): 66295029 Comment: - BP not fully under control - amlodipine increased Status and Disposition: Inpatient, will work toward discharge in 1-2 days
[2017-07-26] MEDS ORDERED: Epoetin Alfa* 10,000 UNITS/ML VIAL SUBCUT ONE (14:33)
[2017-07-26] MEDS: Calcitriol CAP* 0.25 MCG PO SCH (15:26)
[2017-07-27] MEDS: Docusate CAP* 100 MG PO PRN ×3 (01:42→20:54)
[2017-07-27] MEDS: Polyethylene Glycol 3350* 17 GM PACKET PO PRN ×2 (01:42→11:52)
[2017-07-27 06:24] LABS: Hematocrit 23 % (42-52); Mean Corpuscular HGB Conc 34 g/dl (31-36); Mean Corpuscular Hemoglobin 26 pg (27-31); Mean Corpuscular Volume 75 fL (80-94); Platelet Count 240 10^3/ul (150-450); Red Blood Count 3.11 10^6/ul (4.0-5.4); Red Cell Distribution Width 16 % (10.5-15); White Blood Count 7.8 10^3/ul (3.5-10.8)
[2017-07-27 06:41] LABS: EGFR Non-African American 6.3 (>60)
[2017-07-27] MEDS ORDERED: Heparin DIALYSIS ONLY(*) 1,000 UNITS/ML VIAL DIALYSIS ONE (09:00)
[2017-07-27] MEDS ORDERED: Epoetin Alfa* 10,000 UNITS/ML VIAL IV ONE (09:00)
[2017-07-27] MEDS: cloNIDine TAB* 0.1 MG PO SCH ×2 (11:52→20:53)
[2017-07-27] MEDS: Calcitriol CAP* 0.25 MCG PO SCH (11:52)
[2017-07-27] MEDS: Gabapentin CAP(*) 100 MG PO SCH (11:52)
[2017-07-27] MEDS: Famotidine TAB* 20 MG PO SCH (11:53)
[2017-07-27] MEDS: Lisinopril TAB* 10 MG PO SCH (11:53)
[2017-07-27] MEDS: amLODIPine TAB* 5 MG PO SCH ×2 (11:53→20:54)
[2017-07-27] MEDS: Heparin VIAL(*) 5000 UNITS/ML VIAL (FIVE THOUSAND) SUBCUT SCH ×2 (11:54→20:54)
--- NOTE | 2017-07-27 12:10 | CONS ---
CC: Dr. Surjit Vora; [facility]; Dr. Brad Menezes * SURGICAL CONSULTATION REPORT: DATE OF CONSULT: 07/27/17 HISTORY OF PRESENT ILLNESS: Mr. Rojas is a 67-year-old gentleman with a history of chronic kidney disease who presented with [id number] kidney failure and underwent urgent dialysis through a temporary catheter. He was admitted to the ICU and has since transferred to the floor. He has been undergoing dialysis successfully. He continues to have hyponatremia as well as anemia, but has been improving somewhat since initial admission and the plan is for the patient to continue undergoing hemodialysis as an outpatient and request for a tunneled hemodialysis catheter was made. ASSESSMENT/PLAN: The patient is feeling well. He understands the need for continued hemodialysis in the foreseeable future and for this reason, I described him the placement of a tunneled hemodialysis catheter. I went over the risks, benefits, and alternatives. The patient wishes to proceed. We will try to schedule him for tomorrow, but if not possible then we will look towards Thursday schedule. [id number]/[facility] #: [id number] CARISSA
[2017-07-27 12:43] LABS: INR 0.82 (0.77-1.02)
--- NOTE | 2017-07-27 15:32 | PN ---
Hospitalist Progress Note Date of Service: 07/27/17 Pt seen and examined. Meds and labs reviewed. ROS: Denied THOMPSON/dizziness, F/C, N/V, CP, SOB, increased cough, sputum production , abd pain, diarrhea, constipation, dysuria, myalgias, arthralgias, throat pain , and new skin lesions. The rest of the 14 point ROS are unremarkable. PHYSICAL EXAM: GEN APPEARANCE: Awake, not in acute distress HEENT: NC/AT, PERRLA, moist oral mucosa, (-) throat erythema NECK: Soft, supple, (-) cervical LAD, (-)JVD HEART: S1S2 WNL, RRR, No MRG CHEST: CTA, BL, GAE, No W/R/R ABD: Soft, ND/NT, NABS 4x Q EXT: No C/C/E SKIN: Warm to touch PSYCH: No active psychosis, hallucinations, depression, SI/HI ASSESSMENT AND PLAN: #End stage chronic kidney disease: - patient presented w/ full progression to ESRD, after years of CKD - volume status, potassium corrected w/ dialysis. - Discussed with Dr. Vora S/P dialysis today. -Discussed hyponatremia, low Ca, and anemia progression. Will start0.25 calcitriol, restrict fluid 1 liter, give 10,000 units epogen -Check Vit D levels -Discussed conversion of temporary dialysis catheter to a tunneled catheter with Dr. Morales who requested the pt be placed on NPO after midnight tonight and to obtain coags; requested labs and orders have been placed -Spoke with anesthesia tech and no plan for ultrafiltration today, i.e., for euvolemic dialysis only but will touch base when done #Type 2 diabetes mellitus - continue finger stick glucose #DVT prophylaxis - SC heparin q12h #Hypertension: - BP not fully under control - amlodipine increased #Status and Disposition: -Inpatient, will work toward discharge in 1-2 days
[2017-07-27] MEDS ORDERED: Castor Oil (Pharmaceutic Aid)* 118 ML BTL PO ONE (15:46)
[2017-07-28 06:20] LABS: ABS Basophils 0.1 10^3/ul (0-0.2); ABS Eosinophils 0.1 10^3/ul (0-0.6); ABS Lymphocytes 1.2 10^3/ul (1.0-4.8); ABS Monocytes 0.7 10^3/ul (0-0.8); ABS Neutrophils 4.4 10^3/ul (1.5-7.7); ABS Nucleated RBC 0 10^3/ul; Eosinophil % 1.9 % (0-6); Hematocrit 22 % (42-52); Hemoglobin 7.4 g/dl (14.0-18.0); Lymphocyte % 19.2 % (25-47); Mean Corpuscular HGB Conc 34 g/dl (31-36); Mean Corpuscular Hemoglobin 26 pg (27-31); Mean Corpuscular Volume 75 fL (80-94); Mean Platelet Volume 7.7 um3 (7.4-10.4); Nucleated Red Blood Cells % 0; Platelet Count 240 10^3/ul (150-450); Red Blood Count 2.91 10^6/ul (4.0-5.4); Red Cell Distribution Width 16 % (10.5-15); White Blood Count 6.5 10^3/ul (3.5-10.8)
[2017-07-28 06:33] LABS: EGFR Non-African American 8.5 (>60)
[2017-07-28] MEDS: Gabapentin CAP(*) 100 MG PO SCH (08:50)
[2017-07-28] MEDS: amLODIPine TAB* 5 MG PO SCH ×2 (08:51→20:39)
[2017-07-28] MEDS: Famotidine TAB* 20 MG PO SCH (08:51)
[2017-07-28] MEDS: Lisinopril TAB* 10 MG PO SCH (08:51)
[2017-07-28] MEDS: cloNIDine TAB* 0.1 MG PO SCH ×2 (08:51→20:39)
[2017-07-28] MEDS: Calcitriol CAP* 0.25 MCG PO SCH (08:51)
[2017-07-28] MEDS: Heparin VIAL(*) 5000 UNITS/ML VIAL (FIVE THOUSAND) SUBCUT SCH ×2 (08:52→20:39)
[2017-07-28] MEDS ORDERED: Buffered Lidocaine 0.9% SYRIN* 5 ML/SYR SYRINGE INTRADERM ONE (12:47)
--- NOTE | 2017-07-28 16:35 | PN ---
Hospitalist Progress Note Date of Service: 07/28/17 Pt seen and examined. Meds and labs reviewed. Spoke with Dr. Adame who mentioned he will place tunnel cath tomorrow instead. ROS: Denied THOMPSON/dizziness, F/C, N/V, CP, SOB, increased cough, sputum production , abd pain, diarrhea, constipation, dysuria, myalgias, arthralgias, throat pain , and new skin lesions. The rest of the 14 point ROS are unremarkable. PHYSICAL EXAM: GEN APPEARANCE: Awake, not in acute distress HEENT: NC/AT, PERRLA, moist oral mucosa, (-) throat erythema NECK: Soft, supple, (-) cervical LAD, (-)JVD HEART: S1S2 WNL, RRR, No MRG CHEST: CTA, BL, GAE, No W/R/R ABD: Soft, ND/NT, NABS 4x Q EXT: No C/C/E SKIN: Warm to touch PSYCH: No active psychosis, hallucinations, depression, SI/HI ASSESSMENT AND PLAN: #End stage chronic kidney disease: - patient presented w/ full progression to ESRD, after years of CKD - volume status, potassium corrected w/ dialysis. - Discussed with Dr. Vora S/P dialysis today. -Discussed hyponatremia, low Ca, and anemia progression. Will start0.25 calcitriol, restrict fluid 1 liter, give 10,000 units epogen -Check Vit D levels -Discussed conversion of temporary dialysis catheter to a tunneled catheter with Dr. Morales who requested the pt be placed on NPO after midnight tonight and to obtain re-ordered #Anemia of Chronic disease concomitant with mild CATRACHO: -Pt on Epoetin -Wont give PO Iron given history of significant constipation at this time; Transferrin/Iron sats not low enough and will defer with Nephrology if IV Iron might be necessary in the future -Continue watchful waiting #Euvolemic hyponatremia: -Likely with some form of SIADH -Improved with mild fluid restriction #Type 2 diabetes mellitus - continue finger stick glucose #DVT prophylaxis - SC heparin q12h #Hypertension: - BP not fully under control - amlodipine increased #Status and Disposition: -Inpatient, will work toward discharge in 1-2 days -For Tunneled cath placement tomorrow
[2017-07-29] MEDS ORDERED: NS 0.45% 1000 ML BAG* 1,000 ML IV SCH (06:00)
[2017-07-29] MEDS: Lisinopril TAB* 10 MG PO SCH (07:53)
[2017-07-29] MEDS: amLODIPine TAB* 5 MG PO SCH ×2 (07:53→20:32)
[2017-07-29] MEDS: hydrALAZINE IV* 20 MG/ML VIAL IV PRN (07:53)
[2017-07-29] MEDS: cloNIDine TAB* 0.1 MG PO SCH ×2 (07:53→20:33)
[2017-07-29] MEDS: Calcitriol CAP* 0.25 MCG PO SCH (07:53)
[2017-07-29] MEDS: Gabapentin CAP(*) 100 MG PO SCH (07:53)
[2017-07-29] MEDS: Famotidine TAB* 20 MG PO SCH (07:53)
[2017-07-29] MEDS: Heparin VIAL(*) 5000 UNITS/ML VIAL (FIVE THOUSAND) SUBCUT SCH ×2 (08:01→20:33)
[2017-07-29] MEDS ORDERED: Dexamethasone IV* 4 MG/ML 1 ML (4 MG) ONE (09:31)
[2017-07-29] MEDS ORDERED: Propofol* 10 MG/ML 20 ML BTL IV PUSH ONE (09:31)
[2017-07-29] MEDS ORDERED: fentaNYL* 50 MCG/ML 2 ML VIAL (100 MCG VIAL) ONE (09:31)
[2017-07-29] MEDS ORDERED: Lidocaine 2% PF * 5 ML VIAL ONE (09:31)
[2017-07-29] MEDS ORDERED: Ondansetron ODT TAB* 4 MG ONE (09:31)
[2017-07-29] MEDS ORDERED: Midazolam* 1 MG/ML 5 ML VIAL (5 MG) ONE (09:32)
[2017-07-29] MEDS ORDERED: amLODIPine TAB* 5 MG PO ONE (10:00)
[2017-07-29] MEDS ORDERED: Lisinopril TAB* 10 MG PO ONE (10:00)
[2017-07-29] MEDS ORDERED: Lidocain 1% EPI 1:100,000 * 30 ML MDV ONE (10:28)
[2017-07-29] MEDS ORDERED: ceFAZolin 2 GM PREMIX (*) 0 GM/0 ML BAG IVPB ONE (10:28)
[2017-07-29] MEDS ORDERED: ceFAZolin 1 GM in Dextrose (*) 1 GM/50 ML BAG IVPB ONE (10:31)
--- NOTE | 2017-07-29 11:46 | BRIEFOPN ---
Brief Operative Note - Surgery Procedures: Procedures Pre-OP Diagnoses: ESRD Post-op Diagnosis: same Procedure: placement of hemosplit hemodialysis catheter Surgeon: Deep Asst: none Anethesia: local, MAC EBL: minimal IVF: minimal Specimen: none Drains: 19cm 14.5fr curved catheter placed via R IJV
[2017-07-29] MEDS ORDERED: fentaNYL* 50 MCG/ML 2 ML VIAL (100 MCG VIAL) IV PRN (11:55)
[2017-07-29] MEDS ORDERED: Naloxone* 0.4 MG/ML 1 ML VIAL IV PRN (11:55)
[2017-07-29] MEDS ORDERED: Ondansetron ODT TAB* 4 MG PO PRN (11:55)
[2017-07-29 15:47] LABS: ABS Basophils 0 10^3/ul (0-0.2); ABS Eosinophils 0.1 10^3/ul (0-0.6); ABS Lymphocytes 1.1 10^3/ul (1.0-4.8); ABS Monocytes 0.9 10^3/ul (0-0.8); ABS Nucleated RBC 0 10^3/ul; Eosinophil % 1.3 % (0-6); Hematocrit 25 % (42-52); Hemoglobin 8.1 g/dl (14.0-18.0); Lymphocyte % 13.8 % (25-47); Mean Corpuscular HGB Conc 33 g/dl (31-36); Mean Corpuscular Hemoglobin 25 pg (27-31); Mean Corpuscular Volume 76 fL (80-94); Mean Platelet Volume 7.3 um3 (7.4-10.4); Nucleated Red Blood Cells % 0; Platelet Count 279 10^3/ul (150-450); Red Blood Count 3.23 10^6/ul (4.0-5.4); Red Cell Distribution Width 15 % (10.5-15); White Blood Count 8.2 10^3/ul (3.5-10.8)
[2017-07-29 16:09] LABS: EGFR Non-African American 6.3 (>60)
--- NOTE | 2017-07-29 17:06 | PN ---
Hospitalist Progress Note Date of Service: 07/29/17 Pt seen and examined. Meds and labs reviewed. S/P tunneled cath placement on Right IJV. Pt however, was observed in PACU longer since he was sedated longer than usual given his CKD. Saw pt when he is already appropriately responding and answering questions on the floor. ROS: Denied THOMPSON/dizziness, F/C, N/V, CP, SOB, increased cough, sputum production , abd pain, diarrhea, constipation, dysuria, myalgias, arthralgias, throat pain , and new skin lesions. The rest of the 14 point ROS are unremarkable. PHYSICAL EXAM: GEN APPEARANCE: Awake, not in acute distress HEENT: NC/AT, PERRLA, moist oral mucosa, (-) throat erythema NECK: Soft, supple, (-) cervical LAD, (-)JVD HEART: S1S2 WNL, RRR, No MRG CHEST: CTA, BL, GAE, No W/R/R ABD: Soft, ND/NT, NABS 4x Q EXT: No C/C/E SKIN: Warm to touch PSYCH: No active psychosis, hallucinations, depression, SI/HI ASSESSMENT AND PLAN: #End stage chronic kidney disease: - patient presented w/ full progression to ESRD, after years of CKD - Dialysis deferred today by Dr. Vora given above prolonged sedation; Dr. Vora informed and prefers dialysis to transpire until tomorrowwill defer -Check Vit D levels -Appreciate Dr. Acosta help in placing tunneled cath -Possible transient bradycardia and mental status change on presentation may have been due to underlying arrhythmia and electrolyte abnormalities on presentation #Anemia of Chronic disease concomitant with mild CATRACHO: -Pt on Epoetin -Wont give PO Iron given history of significant constipation at this time; Transferrin/Iron sats not low enough and will defer with Nephrology if IV Iron might be necessary in the future -Continue watchful waiting #Euvolemic hyponatremia, chronic: -Likely with some form of SIADH -Continue watchful waiting -Will check TSH #Type 2 diabetes mellitus - continue finger stick glucose #DVT prophylaxis - SC heparin q12h #Hypertension, Well controlled: - Continue Amlodipine and Lisinopril #Disposition: -For D/C tomorrow if no issues o/n and during dialysis
[2017-07-30 05:17] LABS: Hematocrit 24 % (42-52); Hemoglobin 8.1 g/dl (14.0-18.0); Mean Corpuscular HGB Conc 34 g/dl (31-36); Mean Corpuscular Hemoglobin 25 pg (27-31); Mean Corpuscular Volume 75 fL (80-94); Mean Platelet Volume 7.6 um3 (7.4-10.4); Platelet Count 279 10^3/ul (150-450); Red Blood Count 3.21 10^6/ul (4.0-5.4); Red Cell Distribution Width 16 % (10.5-15); White Blood Count 8.2 10^3/ul (3.5-10.8)
[2017-07-30 05:32] LABS: EGFR Non-African American 5.8 (>60)
[2017-07-30] MEDS: amLODIPine TAB* 5 MG PO SCH (08:08)
[2017-07-30] MEDS: Heparin VIAL(*) 5000 UNITS/ML VIAL (FIVE THOUSAND) SUBCUT SCH ×2 (08:08→20:02)
[2017-07-30] MEDS: Lisinopril TAB* 10 MG PO SCH (08:08)
[2017-07-30] MEDS: Gabapentin CAP(*) 100 MG PO SCH (08:08)
[2017-07-30] MEDS: Famotidine TAB* 20 MG PO SCH (08:09)
[2017-07-30] MEDS: cloNIDine TAB* 0.1 MG PO SCH ×2 (08:09→20:01)
[2017-07-30] MEDS: Polyethylene Glycol 3350* 17 GM PACKET PO PRN (08:17)
[2017-07-30] MEDS: Calcitriol CAP* 0.25 MCG PO SCH (08:17)
[2017-07-30] MEDS: Docusate CAP* 100 MG PO PRN (08:17)
[2017-07-30] MEDS ORDERED: Epoetin Alfa* 10,000 UNITS/ML VIAL IV ONE (13:30)
[2017-07-30] MEDS ORDERED: Heparin DIALYSIS ONLY(*) 1,000 UNITS/ML VIAL DIALYSIS ONE (13:30)
--- NOTE | 2017-07-30 14:07 | OP ---
CC: Dr. Brad Menezes; Dr. Surjit Vora. * DATE OF OPERATION: 07/29/17 - ROOM #438 DATE OF : 52 SURGEON: Deep Adame MD HEADING REPAIRER: None. ANESTHESIOLOGIST: Dr. Miguel. ANESTHESIA: Local MAC. PRE-OP DIAGNOSIS: Acute on chronic renal disease. POST-OP DIAGNOSIS: Acute on chronic renal disease. OPERATIVE PROCEDURE: Insertion of HemoSplit catheter. ESTIMATED BLOOD LOSS: Less than 50 cc. SPECIMEN: None. INDICATIONS: The patient was identified in the preoperative area, case was discussed with him and his . We went over the details of the procedure and they signed consent. We spoke about the possible complications which included, but not limited to bleeding, infection, need for removal of the catheter, and a possible malfunction. PROCEDURE IN DETAIL: The patient was brought to the operating room, placed on the operating room table in supine position. Gentle sedation was given. The previously placed non-tunneled dialysis catheter was cut from its sutures and then backed out approximately 2 cm and the right upper chest and right neck along with the catheter were prepped and draped in a standard surgical fashion. A time-out was performed. Next, the catheter was gently pulled a little more out of the incision site. It was cut and then a wire inserted through the catheter. Once this was assured in the approximate position in the inferior vena cava, which was seen under fluoroscopy, we then removed the tubing and passed it off the table. With the wire in place, we then dilated the right internal jugular vein with the given dilators and then placed the split-away catheter. Next a 19 cm HemoSplit catheter, a straight type catheter was then brought in through separate stab incision and tunneled into the area of our wire. The catheter was then inserted. Split away catheter removed and we assured its location under fluoroscopy. Next the catheter was noted to be kinked and I opened up the incision at the next somewhat more and tried to take down some tissue to allow for this catheter to lay with more of a gentle bend. This proved not possible. A new catheter was opened, this time a 19-cm curved catheter. Again, we cut the catheter, wire inserted under fluoroscopy in a similar fashion, put the split- away catheter in and at this time the curved catheter was placed into the superior vena cava. Split-away catheter removed and this lay in the pre-made angle in the catheter. The ports were both aspirated of blood with ease and injected with first saline and then heparinized saline. Next the capsule was sutured to the chest wall with 3-0 Prolene sutures and then we closed the incision on the neck with 4-0 Monocryl subcuticular suture. Steri- strips and sterile dressing were applied. The patient tolerated the procedure well and was transferred to the PACU in stable condition. [id number]/[facility] #: [id number] CARISSA
[2017-07-30 17:45] LABS: EGFR Non-African American 11.8 (>60)
--- NOTE | 2017-07-30 19:52 | RAD ---
HISTORY: Desaturation COMPARISONS: July 22, 2017 VIEWS: 2: frontal portable view of the chest at 7:34 PM FINDINGS: LINES AND TUBES: A right sided dual lumen internal jugular venous catheter is noted with the tip overlying the cavoatrial junction. CARDIOMEDIASTINAL SILHOUETTE: The cardiomediastinal silhouette is normal for portable technique. PLEURA: The costophrenic angles are sharp. No pleural abnormalities are noted. LUNG PARENCHYMA: There is a mild diffuse reticular pattern with indistinct pulmonary vessels. ABDOMEN: The upper abdomen is clear. There is no subphrenic gas. BONES AND SOFT TISSUES: No bone or soft tissue abnormalities are noted. IMPRESSION: 1. LINES AND TUBES ABOVE. 2. MILD PULMONARY INTERSTITIAL EDEMA.
[2017-07-31] MEDS: amLODIPine TAB* 5 MG PO SCH (08:11)
[2017-07-31] MEDS: Lisinopril TAB* 10 MG PO SCH (08:11)
[2017-07-31] MEDS: Famotidine TAB* 20 MG PO SCH (08:11)
[2017-07-31] MEDS: cloNIDine TAB* 0.1 MG PO SCH ×2 (08:11→20:54)
[2017-07-31] MEDS: Gabapentin CAP(*) 100 MG PO SCH (08:11)
[2017-07-31] MEDS: Calcitriol CAP* 0.25 MCG PO SCH (08:12)
[2017-07-31] MEDS: Heparin VIAL(*) 5000 UNITS/ML VIAL (FIVE THOUSAND) SUBCUT SCH ×2 (08:13→20:55)
[2017-07-31] MEDS: Docusate CAP* 100 MG PO PRN ×2 (08:17→20:58)
[2017-07-31] MEDS: Polyethylene Glycol 3350* 17 GM PACKET PO PRN (08:17)
--- NOTE | 2017-07-31 08:28 | PN ---
Hospitalist Progress Note Date of Service: 07/30/17 Pt seen and examined. Meds and labs reviewed. Pt S/P hemodialysis. Pt was being prepared for D/C, however, pt when ambulated prior to D/C desaturated with CXR showing some interstitial edema. D/C order rescinded ROS: Denied THOMPSON/dizziness, F/C, N/V, CP, SOB, increased cough, sputum production , abd pain, diarrhea, constipation, dysuria, myalgias, arthralgias, throat pain , and new skin lesions. The rest of the 14 point ROS are unremarkable. PHYSICAL EXAM: GEN APPEARANCE: Awake, not in acute distress HEENT: NC/AT, PERRLA, moist oral mucosa, (-) throat erythema NECK: Soft, supple, (-) cervical LAD, (-)JVD HEART: S1S2 WNL, RRR, No MRG CHEST: CTA, BL, GAE, No W/R/R ABD: Soft, ND/NT, NABS 4x Q EXT: No C/C/E SKIN: Warm to touch PSYCH: No active psychosis, hallucinations, depression, SI/HI ASSESSMENT AND PLAN: #End stage chronic kidney disease: - patient presented w/ full progression to ESRD, after years of CKD - S/P ultra-filtration of 1L todaywill discuss with Dr. Vora if pt can be re-ultrafiltrated on Thursday -Appreciate Dr. Acsota help in placing tunneled cath -Possible transient bradycardia and mental status change on presentation may have been due to underlying arrhythmia and electrolyte abnormalities on presentation #Anemia of Chronic disease concomitant with mild CATRACHO: -Pt on Epoetin -Wont give PO Iron given history of significant constipation at this time; Transferrin/Iron sats not low enough and will defer with Nephrology if IV Iron might be necessary in the future -Continue watchful waiting #Euvolemic hyponatremia, chronic: -Likely with some form of SIADH -Continue watchful waiting -Improves with ultrafiltration -Continue 1L fluid restriction given congestion despite ultrafiltration #Type 2 diabetes mellitus - continue finger stick glucose #DVT prophylaxis - SC heparin q12h #Hypertension, Well controlled: - Continue Amlodipine and Lisinopril #Disposition: -Will discuss with Dr. Vora
[2017-07-31 10:08] LABS: ABS Basophils 0.1 10^3/ul (0-0.2); ABS Eosinophils 0.1 10^3/ul (0-0.6); ABS Lymphocytes 1.1 10^3/ul (1.0-4.8); ABS Monocytes 0.8 10^3/ul (0-0.8); ABS Neutrophils 4.1 10^3/ul (1.5-7.7); ABS Nucleated RBC 0 10^3/ul; Eosinophil % 1.8 % (0-6); Hematocrit 24 % (42-52); Lymphocyte % 17.2 % (25-47); Mean Corpuscular HGB Conc 33 g/dl (31-36); Mean Corpuscular Hemoglobin 25 pg (27-31); Mean Corpuscular Volume 77 fL (80-94); Mean Platelet Volume 7.6 um3 (7.4-10.4); Nucleated Red Blood Cells % 0.1; Platelet Count 268 10^3/ul (150-450); Red Blood Count 3.17 10^6/ul (4.0-5.4); Red Cell Distribution Width 16 % (10.5-15); White Blood Count 6.1 10^3/ul (3.5-10.8)
--- NOTE | 2017-07-31 10:28 | RAD ---
INDICATION: Hemodialysis catheter placement. COMPARISON: Comparison is made with a prior chest x-ray study from July 22, 2017. TECHNIQUE: 13.4 seconds of intermittent fluoroscopic guidance were provided and a single spot film was obtained in the operating room. FINDINGS: Note is made of placement of a hemodialysis catheter entering on the right side. The catheter tips project approximately the region of the superior vena cava and right atrial junction. IMPRESSION: INTRAOPERATIVE CONTROL FILMS. CPT II Codes: G9500
[2017-07-31 10:42] LABS: EGFR Non-African American 8.4 (>60)
--- NOTE | 2017-07-31 18:25 | ECHO ---
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 Abn/Edema BP: 154/70 HR: 60 Rhythm: NSR Findings History: Full echo 07/22/2017. Limited study for evaluation of EF. PMHx: renal failure with dialysis,HTN,DM. Technical Comments: The study quality is good. Completed at 1347(post dialysis). Left Ventricle: There is a prominent septal knuckle. There is normal left ventricular systolic function. The estimated ejection fraction is 60-65%. Right Ventricle: The right ventricular global systolic function is normal. Pericardium: A pericardial effusion is visualized. There is a small pericardial effusion. There are no signs of significant hemodynamic compromise. A left pleural effusion is present. There is a moderate pleural effusion. Conclusions Limited study for evaluation of EF. There is normal left ventricular systolic function. The estimated ejection fraction is 60-65%. There is a small pericardial effusion. There are no signs of significant hemodynamic compromise. A left pleural effusion is present. There is a moderate pleural effusion. Similar to 5.23.18; pericardial effusion is miminal and stable.
--- NOTE | 2017-07-31 18:28 | DS ---
CC: Dr. Otto Escudero; Dr. Berkley Tong; Dr. Deep Adame; Dr. Brad Menezes; and Dr. Vora. DISCHARGE SUMMARY: DATE OF ADMISSION: DATE OF DISCHARGE: 07/30/17 DISCHARGE DIAGNOSES: As follows: 1. End-stage chronic kidney disease, now on dialysis. 2. Anemia of chronic disease with concomitant mild iron deficiency anemia. 3. Euvolemic hyponatremia likely secondary to syndrome of inappropriate antidiuretic hormone secretion, chronic. 4. Type 2 diabetes mellitus. 5. Hypertension, well controlled. DISCHARGE MEDICATIONS: 1. Amlodipine 7.5 mg p.o. daily. 2. Calcitriol 0.25 mg p.o. daily. 3. Clonidine 0.2 mg p.o. b.i.d. 4. Colace 100 mg p.o. b.i.d. 5. Famotidine 20 mg p.o. daily. 6. Gabapentin 100 mg p.o. t.i.d. 7. Lisinopril 10 mg p.o. daily. 8. Polyethylene glycol 17 g p.o. daily p.r.n. 9. Tylenol 650 p.o. q. 4 p.r.n. 10. Glipizide 5 mg p.o. q. p.m. and 10 mg p.o. q. a.m. HISTORY OF PRESENT ILLNESS/HOSPITAL COURSE: The patient is a 67-year-old gentleman from [facility] who has a history of type 2 diabetes mellitus, peripheral neuropathy, and hypertension who presented to the ED on 07/22/17 due to pain in his lower extremity and lower abdomen. He was then found to have BUN of 95 and creatinine of 13.6 and had no associated nausea and vomiting nor chest pain. He was then transferred to the ICU for acute on chronic renal failure and while being evaluated by Dr. Vora in the ICU, he mentioned that the patient became bradycardic and possibly lost pulse and he started chest compression only for a few seconds to minutes until they regained his blood pressure. This was thought to be due to his uremia and Dr. Escudero has also seen patient in consultation in the ICU. He has not had any events after he was dialyzed and his electrolyte abnormalities were corrected and has been clinically stable since. There has been some doubt as to whether the code that was called was in fact a real code because of the [facility] presentation. He was also found to have anemia of chronic disease with concomitant mild iron deficiency anemia and given his history of constipation, we have elected not to give him oral iron, but will defer with Dr. Vora and his PCP whether oral iron therapy versus IV therapy while on dialysis is needed. He did have significant constipation while he was hospitalized that was not amenable to Senna Plus as well as MiraLAX, but responded well with castor oil x1. His hyponatremia, on review of his records, is chronic and usually in the level of high 120s to mid 120s. His urine lytes as well as his clinical picture suggests an SIADH given his euvolemic hyponatremia. His TSH was found to be normal at 3. He will be discharged home with VNS and had been advised to follow up with his PCP within 3 days post discharge and to make sure to go to his appointments for dialysis 3 times a week, Thursday, Thursday, and Thursday and to take his medications as prescribed. PHYSICAL EXAM: GEN APPEARANCE: Awake, not in acute distress HEENT: NC/AT, PERRLA, moist oral mucosa, (-) throat erythema NECK: Soft, supple, (-) cervical LAD, (-)JVD HEART: S1S2 WNL, RRR, No MRG CHEST: CTA, BL, GAE, No W/R/R ABD: Soft, ND/NT, NABS 4x Q EXT: No C/C/E SKIN: Warm to touch PSYCH: No active psychosis, hallucinations, depression, SI/HI ADDENDUM: -DISCHARGE ORDER AND PLAN RISCINDED given pt was found to be intravascularly hypervolemic and desaturated when ambulated by PT upon re-assessment prior to planned D/C. Please se subsequent documentations. TIME SPENT: The total time spent evaluating the patient, reviewing pertinent data, and appropriate documentation is greater than 30 minutes. [id number]/[facility] #: [id number] CARISSA
--- NOTE | 2017-07-31 18:46 | PN ---
Hospitalist Progress Note Date of Service: 07/31/17 Pt seen and examined. Meds and labs reviewed. Pt planned to be ultrafiltrated today for total of 2.5L due to desaturation upon ambulation on preparation for D/C yesterday. D/C order rescinded as pt needs ultrafiltration. Please see discussion below. ROS: Denied THOMPSON/dizziness, F/C, N/V, CP, SOB, increased cough, sputum production , abd pain, diarrhea, constipation, dysuria, myalgias, arthralgias, throat pain , and new skin lesions. The rest of the 14 point ROS are unremarkable. PHYSICAL EXAM: GEN APPEARANCE: Awake, not in acute distress HEENT: NC/AT, PERRLA, moist oral mucosa, (-) throat erythema NECK: Soft, supple, (-) cervical LAD, (-)JVD HEART: S1S2 WNL, RRR, No MRG CHEST: CTA, BL, GAE, No W/R/R ABD: Soft, ND/NT, NABS 4x Q EXT: No C/C/E SKIN: Warm to touch PSYCH: No active psychosis, hallucinations, depression, SI/HI ASSESSMENT AND PLAN: #End stage chronic kidney disease: - patient presented w/ full progression to ESRD, after years of CKD - S/P ultra-filtration of 1L todaywill discuss with Dr. Vora if pt can be re-ultrafiltrated on Thursday -Appreciate Dr. Acosta help in placing tunneled cath -Possible transient bradycardia and mental status change on presentation may have been due to underlying arrhythmia and electrolyte abnormalities on presentation #Anemia of Chronic disease concomitant with mild CATRACHO: -Pt on Epoetin -Wont give PO Iron given history of significant constipation at this time; Transferrin/Iron sats not low enough and will defer with Nephrology if IV Iron might be necessary in the future -Continue watchful waiting #Hypervolemic hyponatremia, chronic: -Given CXR suggestive of congestion yesterday, I have spoken with Dr. Vora and agreed he will need more ultrafiltration with goal of 2.5L to be removed in repeat dialysis today -Pt is intravascularly hypervolemic despite minimal third spacing if any on physical exam -Continue watchful waiting -Improves with ultrafiltration -Continue 1L fluid restriction given congestion despite ultrafiltration #Type 2 diabetes mellitus - continue finger stick glucose #DVT prophylaxis - SC heparin q12h #Hypertension, Well controlled: - Continue Amlodipine and Lisinopril #Disposition: -Discussed case with care coordinators and requested PT to re-evaluate -For possible STR placement
[2017-08-01] MEDS: amLODIPine TAB* 5 MG PO SCH (08:28)
[2017-08-01] MEDS: Famotidine TAB* 20 MG PO SCH (08:29)
[2017-08-01] MEDS: Calcitriol CAP* 0.25 MCG PO SCH (08:29)
[2017-08-01] MEDS: Gabapentin CAP(*) 100 MG PO SCH (08:29)
[2017-08-01] MEDS: Heparin VIAL(*) 5000 UNITS/ML VIAL (FIVE THOUSAND) SUBCUT SCH ×2 (08:29→20:24)
[2017-08-01] MEDS: cloNIDine TAB* 0.1 MG PO SCH ×2 (08:29→20:24)
[2017-08-01] MEDS: Lisinopril TAB* 10 MG PO SCH (08:29)
[2017-08-01] MEDS: Polyethylene Glycol 3350* 17 GM PACKET PO PRN (08:38)
--- NOTE | 2017-08-01 15:45 | PN ---
Hospitalist Progress Note Date of Service: 08/01/17 Pt seen and examined. Meds and labs reviewed. ROS: Denied THOMPSON/dizziness, F/C, N/V, CP, SOB, increased cough, sputum production , abd pain, diarrhea, constipation, dysuria, myalgias, arthralgias, throat pain , and new skin lesions. The rest of the 14 point ROS are unremarkable. PHYSICAL EXAM: GEN APPEARANCE: Awake, not in acute distress HEENT: NC/AT, PERRLA, moist oral mucosa, (-) throat erythema NECK: Soft, supple, (-) cervical LAD, (-)JVD HEART: S1S2 WNL, RRR, No MRG CHEST: CTA, BL, GAE, No W/R/R ABD: Soft, ND/NT, NABS 4x Q EXT: No C/C/E SKIN: Warm to touch PSYCH: No active psychosis, hallucinations, depression, SI/HI ASSESSMENT AND PLAN: #End stage chronic kidney disease: - patient presented w/ full progression to ESRD, after years of CKD - S/P ultra-filtration of 1L todaywibrandin discuss with Dr. Vora if pt can be re-ultrafiltrated on Thursday -Appreciate Dr. Acosta help in placing tunneled cath -Possible transient bradycardia and mental status change on presentation may have been due to underlying arrhythmia and electrolyte abnormalities on presentation #Anemia of Chronic disease concomitant with mild CATRACHO: -Pt on Epoetin -Wont give PO Iron given history of significant constipation at this time; Transferrin/Iron sats not low enough and will defer with Nephrology if IV Iron might be necessary in the future -Continue watchful waiting #Hypervolemic hyponatremia, chronic: -Will D/C fluid restriction and instead place pt on Sodium restriction (<2g/ day) concomitant with ultrafiltration on dialysis -Continue watchful waiting -Improves with ultrafiltration #Type 2 diabetes mellitus - continue finger stick glucose #DVT prophylaxis - SC heparin q12h #Hypertension, Well controlled: - Continue Amlodipine and Lisinopril #Disposition: -For STR placement
[2017-08-02 05:48] LABS: ABS Basophils 0.1 10^3/ul (0-0.2); ABS Eosinophils 0.2 10^3/ul (0-0.6); ABS Lymphocytes 1.1 10^3/ul (1.0-4.8); ABS Monocytes 0.9 10^3/ul (0-0.8); ABS Neutrophils 4.9 10^3/ul (1.5-7.7); ABS Nucleated RBC 0 10^3/ul; Hematocrit 24 % (42-52); Hemoglobin 7.9 g/dl (14.0-18.0); Lymphocyte % 15.5 % (25-47); Mean Corpuscular HGB Conc 33 g/dl (31-36); Mean Corpuscular Hemoglobin 26 pg (27-31); Mean Corpuscular Volume 77 fL (80-94); Mean Platelet Volume 7.8 um3 (7.4-10.4); Nucleated Red Blood Cells % 0; Platelet Count 287 10^3/ul (150-450); Red Blood Count 3.08 10^6/ul (4.0-5.4); Red Cell Distribution Width 16 % (10.5-15); White Blood Count 7.1 10^3/ul (3.5-10.8)
[2017-08-02 06:06] LABS: EGFR Non-African American 6.4 (>60)
--- NOTE | 2017-08-02 07:39 | PN ---
Subjective Date of Service: 08/02/17 Interval History: Patient went from 3L to 3.5L overnight - was sleeping all night. States he is coughing. Denies SOB. RN is weaning him back down to 3L this AM. NO CP. No N/ V or abdominal pain. AMbulating with a walker. Awaiting subacute rehab placement Family History: Unchanged from Admission Social History: Unchanged from Admission Past Medical History: Unchanged from Admission Objective Active Medications: Amlodipine Besylate (Norvasc Tab*) 10 mg PO DAILY [facility] Last Admin: 08/01/17 08:28 Dose: 10 mg Calcitriol (Rocaltrol Cap*) 0.25 mcg PO DAILY [facility] Last Admin: 08/01/17 08:29 Dose: 0.25 mcg Clonidine HCl (Catapres Tab*) 0.2 mg PO BID [facility] Last Admin: 08/01/17 20:24 Dose: 0.2 mg Docusate Sodium (Colace Cap*) 100 mg PO BID PRN PRN Reason: CONSTIPATION Last Admin: 07/31/17 20:58 Dose: 100 mg Famotidine (Pepcid Tab*) 20 mg PO DAILY [facility] Last Admin: 08/01/17 08:29 Dose: 20 mg Gabapentin (Neurontin Cap(*)) 100 mg PO DAILY [facility] Last Admin: 08/01/17 08:29 Dose: 100 mg Heparin Sodium (Porcine) (Heparin Vial(*)) 5,000 units SUBCUT Q12HR [facility] Last Admin: 08/01/17 20:24 Dose: 5,000 units Hydralazine HCl (Apresoline Iv*) 10 mg IV Q4H PRN PRN Reason: Systolic >170 Last Admin: 07/29/17 07:53 Dose: 10 mg Sodium Chloride (Ns 0.45% 1000 Ml Bag*) 1,000 mls @ 0 mls/hr IV KVO [facility] PRN Reason: KVO Lisinopril (Prinivil Tab*) 30 mg PO DAILY [facility] Last Admin: 08/01/17 08:29 Dose: 30 mg Ondansetron HCl (Zofran 40 Mg Vial*) 4 mg IV Q6H PRN PRN Reason: NAUSEA Last Admin: 07/23/17 09:47 Dose: 4 mg Polyethylene Glycol/Electrolytes (Miralax*) 17 gm PO DAILY PRN PRN Reason: CONSTIPATION Last Admin: 08/01/17 08:38 Dose: 17 gm Vital Signs - 8 hr 08/02/17 08/02/17 00:01 04:16 Temperature 98.2 F 98.6 F Pulse Rate 64 71 Respiratory 18 18 Rate Blood Pressure 155/60 149/62 (mmHg) O2 Sat by Pulse 94 91 Oximetry Oxygen Devices in Use Now: Nasal Cannula Appearance: NAD, sitting up in chair Ears/Nose/Mouth/Throat: Mucous Membranes Moist Respiratory: Symmetrical Chest Expansion and Respiratory Effort, - - bibasilar crackles Cardiovascular: RRR, - - systolic murmur heard throughout Abdominal: NL Sounds; No Tenderness; No Distention Extremities: No Edema Skin: No Rash or Ulcers Neurological: Alert and Oriented x 3, NL Muscle Strength and Tone Result Diagrams: 08/02/17 05:11 08/02/17 05:11 Additional Lab and Data: Lab Results 07/22/17 07/22/17 07/22/17 Range/Units 09:00 09:00 09:00 WBC 9.2 (3.5-10.8) 10^3/ul RBC 2.94 L (4.0-5.4) 10^6/ul Hgb 7.2 L (14.0-18.0) g/dl Hct 21 L (42-52) % MCV 71 L (80-94) fL MCH 25 L (27-31) pg MCHC 35 (31-36) g/dl RDW 16 H (10.5-15) % Plt Count 206 (150-450) 10^3/ul MPV 6.8 L (7.4-10.4) um3 Neut % (Auto) 88.0 H (38-83) % Lymph % (Auto) 6.5 L (25-47) % [place] % (Auto) 4.3 (0-7) % Eos % (Auto) 0.6 (0-6) % Baso % (Auto) 0.6 (0-2) % Absolute Neuts (auto) 8.1 H (1.5-7.7) 10^3/ul Absolute Lymphs (auto) 0.6 L (1.0-4.8) 10^3/ul Absolute Monos (auto) 0.4 (0-0.8) 10^3/ul Absolute Eos (auto) 0.1 (0-0.6) 10^3/ul Absolute Basos (auto) 0.1 (0-0.2) 10^3/ul Absolute Nucleated RBC 0 10^3/ul Nucleated RBC % 0 ESR Pending Sodium Pending Potassium Pending Chloride 91 L (101-111) mmol/L Carbon Dioxide Pending Anion Gap Pending BUN 95 H (6-24) mg/dL Creatinine 13.58 H (0.67-1.17) mg/dL Est GFR ( Amer) 4.7 (>60) Est GFR (Non-Af Amer) 3.7 (>60) BUN/Creatinine Ratio 7.0 L (8-20) Glucose 105 H (70-100) mg/dL Lactic Acid 0.7 (0.5-2.0) mmol/L Calcium 7.7 L (8.6-10.3) mg/dL Magnesium 2.0 (1.9-2.7) mg/dL Total Bilirubin 0.30 (0.2-1.0) mg/dL AST 21 (13-39) U/L ALT 9 (7-52) U/L Alkaline Phosphatase 137 H (34-104) U/L Total Creatine Kinase 271 H (10-223) U/L C-Reactive Protein Pending Total Protein 6.5 (6.4-8.9) g/dL Albumin 3.0 L (3.2-5.2) g/dL Globulin 3.5 (2-4) g/dL Albumin/Globulin Ratio 0.9 L (1-3) Microbiology and Other Data: Microbiology 07/22/17 16:58 Aerobic Blood Culture - Preliminary Blood Venous No Growth Day 2 Anaerobic Blood Culture - Preliminary No Growth Day 2 07/22/17 16:58 Aerobic Blood Culture - Preliminary Blood Venous No Growth Day 2 Anaerobic Blood Culture - Preliminary No Growth Day 2 07/22/17 10:13 Urine Culture - Final Urine No Growth (<1,000 CFU/mL) 07/22/17 10:53 Nasal Screen MRSA (PCR)(ANAMARIA) - Final Nasal Mrsa Not Detected Assess/Plan/Problems-Billing Assessment: 67 year old man with HTN and diabetes presented w/ acute on chronic renal failure and HTN urgency, admitted initially to the ICU for BP control. - Patient Problems (1) End stage chronic kidney disease Current Visit: Yes Status: Acute Priority: High Code(s): N18.6 - END STAGE RENAL DISEASE SNOMED Code(s): 26375801 Comment: A- patient presented w/ full progression to ESRD, after years of CKD - volume status, potassium corrected w/ Dialysis and ultrafiltration. Plan Continue ultrafiltration/dialysis per Dr. Vora's recommendations via tunnelled catheter Will likely need more permanent port placement - if prolonged hospitalization would consider pursuing this. Continue Calcitriol (2) Type 2 diabetes mellitus Current Visit: Yes Status: Chronic Priority: Medium Comment: A. HgbA1c: 6.4 Glucose: 100-200 - diabetes under adequate control - continue finger stick glucose and lispro sliding scale (3) Hypertension Current Visit: No Status: Acute Priority: Medium Code(s): I10 - ESSENTIAL (PRIMARY) HYPERTENSION SNOMED Code(s): 79072548 Comment: A. Controlled Continue LIsinopril, Clonidine, Amlodipine and Hydralazine, prn (4) Diastolic dysfunction with acute on chronic heart failure Current Visit: Yes Status: Acute Code(s): I50.33 - ACUTE ON CHRONIC DIASTOLIC (CONGESTIVE) HEART FAILURE SNOMED Code(s): 2294526 Comment: A. Echo shows diastolic dysfunction with interstitial edema on CXR Patient on 3L of oxygen Plan Continue with HD and ultrafiltration Patient also to get a overnight pulse ox - likely undiagnosed sleep apnea and needs CPAP (5) Obstructive sleep apnea Current Visit: Yes Status: Acute Code(s): G47.33 - OBSTRUCTIVE SLEEP APNEA ( ADULT) (PEDIATRIC) SNOMED Code(s): 99331294 Comment: A. There is a question of SOLEDAD - per family patient sleeps all night and most of day. Is smonolent on occasion but awakes easily. Plan Overnight pulse ox ordered (6) DVT prophylaxis Current Visit: Yes Status: Acute Priority: Low Code(s): UZU1728 - SNOMED Code(s): 976879157 Comment: - SC heparin (7) Full code status Current Visit: Yes Status: Acute Code(s): Z78.9 - OTHER SPECIFIED HEALTH STATUS SNOMED Code(s): 837845116 (8) Peripheral neuropathy Current Visit: Yes Status: Acute Code(s): G62.9 - POLYNEUROPATHY, UNSPECIFIED SNOMED Code(s): 898555515 Comment: A/P stable COntinue gabapentin Status and Disposition: Patient qualified for subacute rehab - waiting for placement
[2017-08-02] MEDS ORDERED: Dextrose 50% Syringe 50 ML* 25 GM/50 ML SYRINGE IV PUSH PRN ×2 (07:41→07:42)
[2017-08-02] MEDS: Gabapentin CAP(*) 100 MG PO SCH (08:27)
[2017-08-02] MEDS: amLODIPine TAB* 5 MG PO SCH (08:27)
[2017-08-02] MEDS: cloNIDine TAB* 0.1 MG PO SCH ×2 (08:27→20:46)
[2017-08-02] MEDS: Lisinopril TAB* 10 MG PO SCH (08:27)
[2017-08-02] MEDS: Calcitriol CAP* 0.25 MCG PO SCH (08:27)
[2017-08-02] MEDS: Heparin VIAL(*) 5000 UNITS/ML VIAL (FIVE THOUSAND) SUBCUT SCH ×2 (08:27→20:46)
[2017-08-02] MEDS: Polyethylene Glycol 3350* 17 GM PACKET PO PRN (08:30)
[2017-08-02] MEDS ORDERED: Insulin LISPRO* 1 UNITS UNIT SUBCUT SCH (11:30)
[2017-08-02] MEDS: Insulin LISPRO* 1 UNITS UNIT SUBCUT SCH ×2 (12:27→17:46)
--- NOTE | 2017-08-02 20:30 | PN ---
Hospitalist Progress Note Date of Service: 08/02/17 Added PRN Lactulose q72H PRN for constipation to bowel regimen due to constipation
[2017-08-03] MEDS: amLODIPine TAB* 5 MG PO SCH (08:43)
[2017-08-03] MEDS: Calcitriol CAP* 0.25 MCG PO SCH (08:43)
[2017-08-03] MEDS: Lisinopril TAB* 10 MG PO SCH (08:43)
[2017-08-03] MEDS: cloNIDine TAB* 0.1 MG PO SCH ×2 (08:43→20:31)
[2017-08-03] MEDS: Gabapentin CAP(*) 100 MG PO SCH (08:43)
[2017-08-03] MEDS: Heparin VIAL(*) 5000 UNITS/ML VIAL (FIVE THOUSAND) SUBCUT SCH ×2 (08:43→20:31)
[2017-08-03] MEDS: Insulin LISPRO* 1 UNITS UNIT SUBCUT SCH ×3 (08:44→18:32)
[2017-08-03] MEDS ORDERED: Epoetin Alfa* 3,000 UNITS/ML VIAL IV ONE (11:30)
[2017-08-03] MEDS ORDERED: Epoetin Alfa* 2,000 UNITS/ML VIAL IV ONE (11:30)
[2017-08-03] MEDS ORDERED: Epoetin Alfa* 2,000 UNITS/ML VIAL SUBCUT ONE (11:30)
[2017-08-03] MEDS: hydrALAZINE IV* 20 MG/ML VIAL IV PRN (17:09)
--- NOTE | 2017-08-03 17:33 | PN ---
Subjective Date of Service: 08/03/17 Interval History: hypoxic overnight on pulse ox, needed 10L weaned down to 3L in AM got bed offer for [facility]. Family History: Unchanged from Admission Social History: Unchanged from Admission Past Medical History: Unchanged from Admission Objective Active Medications: Amlodipine Besylate (Norvasc Tab*) 10 mg PO DAILY [facility] Last Admin: 08/03/17 08:43 Dose: 10 mg Calcitriol (Rocaltrol Cap*) 0.25 mcg PO DAILY [facility] Last Admin: 08/03/17 08:43 Dose: 0.25 mcg Clonidine HCl (Catapres Tab*) 0.2 mg PO BID [facility] Last Admin: 08/03/17 08:43 Dose: 0.2 mg Dextrose (D50w Syringe 50 Ml*) 12.5 gm IV PUSH .FOR FS < 60 - SS PRN PRN Reason: FS < 60 Dextrose (D50w Syringe 50 Ml*) 12.5 gm IV PUSH .FOR FS < 60 - SS PRN PRN Reason: FS < 60 Docusate Sodium (Colace Cap*) 100 mg PO BID PRN PRN Reason: CONSTIPATION Last Admin: 07/31/17 20:58 Dose: 100 mg Gabapentin (Neurontin Cap(*)) 100 mg PO DAILY [facility] Last Admin: 08/03/17 08:43 Dose: 100 mg Heparin Sodium (Porcine) (Heparin Vial(*)) 5,000 units SUBCUT Q12HR [facility] Last Admin: 08/03/17 08:43 Dose: 5,000 units Hydralazine HCl (Apresoline Iv*) 10 mg IV Q4H PRN PRN Reason: Systolic >170 Last Admin: 08/03/17 17:09 Dose: 10 mg Sodium Chloride (Ns 0.45% 1000 Ml Bag*) 1,000 mls @ 0 mls/hr IV KVO [facility] PRN Reason: KVO Insulin Human Lispro (Humalog*) 0 units SUBCUT AC [facility] PRN Reason: Protocol Last Admin: 08/03/17 12:25 Dose: 1 units Lactulose (Lactulose*) 30 ml PO Q73H PRN PRN Reason: CONSTIPATION Last Admin: 08/02/17 20:46 Dose: 30 ml Lisinopril (Prinivil Tab*) 30 mg PO DAILY [facility] Last Admin: 08/03/17 08:43 Dose: 30 mg Ondansetron HCl (Zofran 40 Mg Vial*) 4 mg IV Q6H PRN PRN Reason: NAUSEA Last Admin: 07/23/17 09:47 Dose: 4 mg Polyethylene Glycol/Electrolytes (Miralax*) 17 gm PO DAILY PRN PRN Reason: CONSTIPATION Last Admin: 08/02/17 08:30 Dose: 17 gm Vital Signs - 8 hr 08/03/17 08/03/17 08/03/17 09:39 10:30 15:34 Temperature 100.7 F Pulse Rate 71 76 Respiratory 16 16 Rate Blood Pressure 166/59 170/73 (mmHg) O2 Sat by Pulse 96 Oximetry Oxygen Devices in Use Now: Nasal Cannula Appearance: NAD Ears/Nose/Mouth/Throat: NL Teeth, Lips, Gums Neck: NL Appearance and Movements; NL JVP Respiratory: Symmetrical Chest Expansion and Respiratory Effort, - - rales Cardiovascular: NL Sounds; No Murmurs; No JVD, RRR Abdominal: NL Sounds; No Tenderness; No Distention, No Hepatosplenomegaly Extremities: - - 1+ edema Skin: No Rash or Ulcers Neurological: Alert and Oriented x 3, NL Sensation, NL Muscle Strength and Tone Nutrition: Taking PO's Result Diagrams: 08/02/17 05:11 08/02/17 05:11 Additional Lab and Data: Laboratory Results - last 24 hr 08/03/17 08/03/17 08/03/17 07:26 11:32 17:24 POC Glucose (mg/dL) 175 H 176 H 222 H Microbiology and Other Data: Microbiology 07/22/17 16:58 Blood Venous Aerobic Blood Culture - Final No Growth Day 5 07/22/17 16:58 Blood Venous Anaerobic Blood Culture - Final No Growth Day 5 07/22/17 16:58 Blood Venous Aerobic Blood Culture - Final No Growth Day 5 07/22/17 16:58 Blood Venous Anaerobic Blood Culture - Final No Growth Day 5 07/22/17 10:13 Urine Urine Culture - Final No Growth (<1,000 CFU/mL) 07/22/17 10:53 Nasal Nasal Screen MRSA (PCR)(ANAMARIA) - Final Mrsa Not Detected Assess/Plan/Problems-Billing Assessment: 67 year old man with HTN and diabetes presented w/ acute on chronic renal failure and HTN urgency, admitted initially to the ICU for BP control. - Patient Problems (1) Diastolic dysfunction with acute on chronic heart failure Current Visit: Yes Status: Acute Code(s): I50.33 - ACUTE ON CHRONIC DIASTOLIC (CONGESTIVE) HEART FAILURE SNOMED Code(s): 7815619 Comment: Echo shows diastolic dysfunction with interstitial edema on CXR Patient on 3L of oxygen Continue with HD desay on overnight pulse ox - likely undiagnosed sleep apnea and have ordered CPAP (2) End stage chronic kidney disease Current Visit: Yes Status: Acute Priority: High Code(s): N18.6 - END STAGE RENAL DISEASE SNOMED Code(s): 78693824 Comment: Continue ultrafiltration/dialysis per Dr. Vora's recommendations via tunnelled catheter Will likely need more permanent port placement - if prolonged hospitalization would consider pursuing this. Continue Calcitriol (3) Obstructive sleep apnea Current Visit: Yes Status: Acute Code(s): G47.33 - OBSTRUCTIVE SLEEP APNEA ( ADULT) (PEDIATRIC) SNOMED Code(s): 46709266 Comment: CPAP initiated. (4) Type 2 diabetes mellitus Current Visit: Yes Status: Chronic Priority: Medium Comment: HgbA1c: 6.4 Glucose: 100-200 - diabetes under adequate control - continue finger stick glucose and lispro sliding scale (5) Hypertension Current Visit: No Status: Acute Priority: Medium Code(s): I10 - ESSENTIAL (PRIMARY) HYPERTENSION SNOMED Code(s): 98648481 Comment: A. Controlled Continue LIsinopril 30mg, Clonidine 0.2mg po BID, Amlodipine 10 and Hydralazine prn Status and Disposition: Patient qualified for subacute rehab - likely to [facility] in AM
[2017-08-03] MEDS: Acetaminophen TAB* 325 MG PO PRN (18:48)
[2017-08-04] MEDS: hydrALAZINE IV* 20 MG/ML VIAL IV PRN (00:38)
[2017-08-04 06:02] LABS: Hematocrit 30 % (42-52); Hemoglobin 9.9 g/dl (14.0-18.0); Mean Corpuscular HGB Conc 33 g/dl (31-36); Mean Corpuscular Hemoglobin 26 pg (27-31); Mean Corpuscular Volume 78 fL (80-94); Red Blood Count 3.84 10^6/ul (4.0-5.4)
[2017-08-04 06:39] LABS: Monocytes % 5 % (0-7); Platelet Count 234 10^3/ul (150-450); Red Cell Distribution Width 17 % (10.5-15); White Blood Count 8.2 10^3/ul (3.5-10.8)
[2017-08-04] MEDS: Gabapentin CAP(*) 100 MG PO SCH (08:29)
[2017-08-04] MEDS: Lisinopril TAB* 10 MG PO SCH (08:29)
[2017-08-04] MEDS: cloNIDine TAB* 0.1 MG PO SCH ×2 (08:29→20:51)
[2017-08-04] MEDS: amLODIPine TAB* 5 MG PO SCH (08:29)
[2017-08-04] MEDS: Calcitriol CAP* 0.25 MCG PO SCH (08:29)
[2017-08-04] MEDS: Insulin LISPRO* 1 UNITS UNIT SUBCUT SCH ×3 (08:29→17:18)
[2017-08-04] MEDS: Heparin VIAL(*) 5000 UNITS/ML VIAL (FIVE THOUSAND) SUBCUT SCH ×2 (08:30→20:52)
--- NOTE | 2017-08-04 15:17 | RAD ---
HISTORY: Fever, hypoxia, end-stage renal disease COMPARISONS: July 30, 2017 VIEWS: 4: Frontal dual-energy and lateral views of the chest. FINDINGS: CARDIOMEDIASTINAL SILHOUETTE: The cardiomediastinal silhouette is normal. DEL: The del are normal. PLEURA: There are small bilateral pleural effusions. LUNG PARENCHYMA: There is mild diffuse pattern of reticular opacification. ABDOMEN: The upper abdomen is clear. There is no subphrenic gas. BONES AND SOFT TISSUES: No bone or soft tissue abnormalities are noted. OTHER: A central venous catheter is noted from a right internal jugular vein approach with the tip overlying the cavoatrial junction. IMPRESSION: 1. MILD PULMONARY INTERSTITIAL EDEMA. 2. SMALL BILATERAL PLEURAL EFFUSIONS.
[2017-08-04] MEDS: Acetaminophen TAB* 325 MG PO PRN (15:46)
--- NOTE | 2017-08-04 17:15 | PN ---
Subjective Date of Service: 08/04/17 Interval History: Slept poorly with the CPAP. not restful. complaint in AM that his face, legs and arms were puffy. Spiked fever again. Family History: Unchanged from Admission Social History: Unchanged from Admission Past Medical History: Unchanged from Admission Objective Active Medications: Acetaminophen (Tylenol Tab*) 650 mg PO Q6H PRN PRN Reason: FEVER/PAIN Last Admin: 08/04/17 15:46 Dose: 650 mg Amlodipine Besylate (Norvasc Tab*) 10 mg PO DAILY [facility] Last Admin: 08/04/17 08:29 Dose: 10 mg Calcitriol (Rocaltrol Cap*) 0.25 mcg PO DAILY [facility] Last Admin: 08/04/17 08:29 Dose: 0.25 mcg Clonidine HCl (Catapres Tab*) 0.2 mg PO BID [facility] Last Admin: 08/04/17 08:29 Dose: 0.2 mg Dextrose (D50w Syringe 50 Ml*) 12.5 gm IV PUSH .FOR FS < 60 - SS PRN PRN Reason: FS < 60 Dextrose (D50w Syringe 50 Ml*) 12.5 gm IV PUSH .FOR FS < 60 - SS PRN PRN Reason: FS < 60 Docusate Sodium (Colace Cap*) 100 mg PO BID PRN PRN Reason: CONSTIPATION Last Admin: 07/31/17 20:58 Dose: 100 mg Gabapentin (Neurontin Cap(*)) 100 mg PO DAILY [facility] Last Admin: 08/04/17 08:29 Dose: 100 mg Heparin Sodium (Porcine) (Heparin Vial(*)) 5,000 units SUBCUT Q12HR [facility] Last Admin: 08/04/17 08:30 Dose: 5,000 units Hydralazine HCl (Apresoline Iv*) 10 mg IV Q4H PRN PRN Reason: Systolic >170 Last Admin: 08/04/17 00:38 Dose: 10 mg Sodium Chloride (Ns 0.45% 1000 Ml Bag*) 1,000 mls @ 0 mls/hr IV KVO [facility] PRN Reason: KVO Insulin Human Lispro (Humalog*) 0 units SUBCUT AC [facility] PRN Reason: Protocol Last Admin: 08/04/17 12:47 Dose: 1 units Lactulose (Lactulose*) 30 ml PO Q73H PRN PRN Reason: CONSTIPATION Last Admin: 08/02/17 20:46 Dose: 30 ml Lisinopril (Prinivil Tab*) 30 mg PO DAILY [facility] Last Admin: 08/04/17 08:29 Dose: 30 mg Ondansetron HCl (Zofran 40 Mg Vial*) 4 mg IV Q6H PRN PRN Reason: NAUSEA Last Admin: 07/23/17 09:47 Dose: 4 mg Polyethylene Glycol/Electrolytes (Miralax*) 17 gm PO DAILY PRN PRN Reason: CONSTIPATION Last Admin: 08/02/17 08:30 Dose: 17 gm Vital Signs - 8 hr 08/04/17 08/04/17 11:15 15:30 Temperature 100.1 F 100.1 F Pulse Rate 70 Respiratory 18 16 Rate Blood Pressure 165/64 143/45 (mmHg) O2 Sat by Pulse 98 96 Oximetry Oxygen Devices in Use Now: None, Nasal Cannula Appearance: NAD Eyes: No Scleral Icterus, PERRLA Ears/Nose/Mouth/Throat: NL Teeth, Lips, Gums, Mucous Membranes Moist Respiratory: Symmetrical Chest Expansion and Respiratory Effort, - - rales at left midlung and base. Cardiovascular: NL Sounds; No Murmurs; No JVD, RRR Abdominal: NL Sounds; No Tenderness; No Distention, No Hepatosplenomegaly Extremities: - - 1+ edema in arms. trace in legs. Skin: No Rash or Ulcers Neurological: Alert and Oriented x 3, NL Sensation, NL Muscle Strength and Tone Nutrition: Taking PO's Result Diagrams: 08/04/17 05:32 08/04/17 11:06 Additional Lab and Data: Laboratory Results - last 24 hr 08/03/17 08/04/17 08/04/17 17:24 05:32 07:22 WBC 8.2 RBC 3.84 L Hgb 9.9 L Hct 30 L MCV 78 L MCH 26 L MCHC 33 RDW 17 H Plt Count 234 MPV Not Reportable Neut % (Auto) Not Reportable Lymph % (Auto) Not Reportable [place] % (Auto) Not Reportable Eos % (Auto) Not Reportable Baso % (Auto) Not Reportable Absolute Neuts (auto) 6.0 Absolute Lymphs (auto) Not Reportable Absolute Monos (auto) Not Reportable Absolute Eos (auto) Not Reportable Absolute Basos (auto) Not Reportable Absolute Nucleated RBC Not Reportable Neutrophils % 78 Lymphocytes % 12 L Monocytes % 5 Eosinophils % 5 Basophils % 0 Nucleated RBC % Not Reportable Abs Neuts (Manual) 6.9 Abs Lymphs (Manual) 1.1 Abs Monocytes (Manual) 0.4 Absolute Eos (Manual) 0.4 Abs Basophils (Manual) 0 Normal RBC Morphology Not Reportable Hypochromasia 2+ Anisocytosis 2+ Sodium Potassium Chloride Carbon Dioxide Anion Gap BUN Creatinine Est GFR ( Amer) Est GFR (Non-Af Amer) BUN/Creatinine Ratio Glucose POC Glucose (mg/dL) 222 H 153 H Calcium C-Reactive Protein 08/04/17 08/04/17 08/04/17 11:06 11:49 16:57 WBC RBC Hgb Hct MCV MCH MCHC RDW Plt Count MPV Neut % (Auto) Lymph % (Auto) [place] % (Auto) Eos % (Auto) Baso % (Auto) Absolute Neuts (auto) Absolute Lymphs (auto) Absolute Monos (auto) Absolute Eos (auto) Absolute Basos (auto) Absolute Nucleated RBC Neutrophils % Lymphocytes % Monocytes % Eosinophils % Basophils % Nucleated RBC % Abs Neuts (Manual) Abs Lymphs (Manual) Abs Monocytes (Manual) Absolute Eos (Manual) Abs Basophils (Manual) Normal RBC Morphology Hypochromasia Anisocytosis Sodium 134 L Potassium 4.5 Chloride 97 L Carbon Dioxide 30 Anion Gap 7 BUN 39 H Creatinine 6.91 H Est GFR ( Amer) 10.3 Est GFR (Non-Af Amer) 8.0 BUN/Creatinine Ratio 5.6 L Glucose 167 H POC Glucose (mg/dL) 165 H 215 H Calcium 8.0 L C-Reactive Protein 40.36 H Microbiology and Other Data: Microbiology 07/22/17 16:58 Blood Venous Aerobic Blood Culture - Final No Growth Day 07/22/17 16:58 Blood Venous Anaerobic Blood Culture - Final No Growth Day 5 07/22/17 16:58 Blood Venous Aerobic Blood Culture - Final No Growth Day 5 07/22/17 16:58 Blood Venous Anaerobic Blood Culture - Final No Growth Day 07/22/17 10:13 Urine Urine Culture - Final No Growth (<1,000 CFU/mL) 07/22/17 10:53 Nasal Nasal Screen MRSA (PCR)(ANAMARIA) - Final Mrsa Not Detected Assess/Plan/Problems-Billing Assessment: 67 year old man with HTN and diabetes presented w/ acute on chronic renal failure and HTN urgency. Course complicated by PEA cardiac arrest in ICU s/p CPR but no shocks. Febrile, continued volume overload present barriers to discharge. - Patient Problems (1) Diastolic dysfunction with acute on chronic heart failure Current Visit: Yes Status: Acute Code(s): I50.33 - ACUTE ON CHRONIC DIASTOLIC (CONGESTIVE) HEART FAILURE SNOMED Code(s): 7717012 Comment: Echo shows diastolic dysfunction with interstitial edema on CXR Patient on 2L of oxygen today. Continue with HD desat on overnight pulse ox - likely undiagnosed sleep apnea, howevere did not tolerate CPAP CXR with left pleural effusion and pulm interstitial edema - countinue volume removal with HD. (2) End stage chronic kidney disease Current Visit: Yes Status: Acute Priority: High Code(s): N18.6 - END STAGE RENAL DISEASE SNOMED Code(s): 14543165 Comment: Continue ultrafiltration/dialysis per Dr. Vora's recommendations via tunnelled catheter Will likely need more permanent port placement - if prolonged hospitalization would consider pursuing this. Continue Calcitriol (3) Obstructive sleep apnea Current Visit: Yes Status: Acute Code(s): G47.33 - OBSTRUCTIVE SLEEP APNEA ( ADULT) (PEDIATRIC) SNOMED Code(s): 01546004 Comment: CPAP not tolerated (4) Type 2 diabetes mellitus Current Visit: Yes Status: Chronic Priority: Medium Comment: HgbA1c: 6.4 Glucose: 100-200 - diabetes under adequate control - continue finger stick glucose and lispro sliding scale (5) Hypertension Current Visit: No Status: Acute Priority: Medium Code(s): I10 - ESSENTIAL (PRIMARY) HYPERTENSION SNOMED Code(s): 04802084 Comment: poorly controlled. Continue Lisinopril 30mg, Clonidine 0.2mg po BID, Amlodipine 10 and Hydralazine prn. Add isosorbide mononitrate 30mg daily. (6) Fever Current Visit: Yes Status: Acute Code(s): R50.9 - FEVER, UNSPECIFIED SNOMED Code(s): 337975299 Comment: f/u Bcx, does have tunneled cath. CXR with pleural effusion, no declan infiltrate. CRP to 40. UA Status and Disposition: Patient qualified for subacute rehab - likely to [facility] when medically clear.
[2017-08-04] MEDS ORDERED: Isosorbide Mononitrate ER TAB* 30 MG PO SCH (18:00)
[2017-08-05] MEDS: Insulin LISPRO* 1 UNITS UNIT SUBCUT SCH ×2 (08:41→13:02)
[2017-08-05] MEDS: Docusate CAP* 100 MG PO PRN (08:41)
[2017-08-05] MEDS: Gabapentin CAP(*) 100 MG PO SCH (08:41)
[2017-08-05] MEDS: hydrALAZINE IV* 20 MG/ML VIAL IV PRN (08:42)
[2017-08-05] MEDS: Heparin VIAL(*) 5000 UNITS/ML VIAL (FIVE THOUSAND) SUBCUT SCH (08:42)
[2017-08-05] MEDS: Polyethylene Glycol 3350* 17 GM PACKET PO PRN (08:42)
[2017-08-05] MEDS: Lisinopril TAB* 10 MG PO SCH (08:42)
[2017-08-05] MEDS: cloNIDine TAB* 0.1 MG PO SCH (08:42)
[2017-08-05] MEDS: amLODIPine TAB* 5 MG PO SCH (08:42)
[2017-08-05] MEDS: Calcitriol CAP* 0.25 MCG PO SCH (08:46)
[2017-08-05 09:50] LABS: Urine Appearance Cloudy; Urine Blood Negative (Negative); Urine Color Yellow; Urine Ketones Trace (Negative); Urine Protein 3+(>=500 mg/dL) (Negative); Urine Urobilinogen Negative (Negative)
[2017-08-05] MEDS ORDERED: Epoetin Alfa* 3,000 UNITS/ML VIAL IV ONE (11:00)
[2017-08-05] MEDS ORDERED: Epoetin Alfa* 2,000 UNITS/ML VIAL IV ONE (11:00)
[2017-08-05] MEDS ORDERED: Isosorbide Mononitrate ER TAB* 30 MG PO SCH (12:00)
[2017-08-05 14:21] VITALS: BP 142/64
--- NOTE | 2017-08-05 14:41 | DS ---
DISCHARGE SUMMARY: DATE OF ADMISSION: 07/22/17 DATE OF DISCHARGE: 08/05/17 ADMITTING PROVIDER: Otto Escudero MD, glove cutter service. PRIMARY CARE PROVIDER: Dr. Brad Menezes. CONSULTING PHYSICIANS: Dr. Deep Adame of Surgery, Dr. Vora of Nephrology. HOSPITALIST ATTENDING ON DISCHARGE: Vel Amaya MD. CHIEF COMPLAINT: Lower extremity pain and lower abdominal pain. PRINCIPAL DIAGNOSES: 1. Progression of stage 5 chronic kidney disease into endstage renal disease requiring initiation of dialysis. 2. Anemia of chronic disease with mild iron-deficiency anemia, euvolemic hyponatremia secondary to syndrome of inappropriate antidiuretic hormone secretion. 3. Type 2 diabetes mellitus. 4. Hypertension. 5. Hypoxic respiratory failure. 6. Obstructive sleep apnea. 7. Left pleural effusion. 8. Cardiac arrest (pulseless electrical activity), status post CPR but no shocks or medicine administration. HISTORY OF PRESENT ILLNESS AND HOSPITAL COURSE: Filippo Rojas is a 67-year-old male who presents from from [facility] with a history of type 2 diabetes mellitus, peripheral neuropathy, hypertension, chronic kidney disease, presented to the ED on 07/22/17 with lower extremity and lower abdominal pain, found to have been in acute renal failure with BUN of 95, creatinine of 13.6. He denied nausea, vomiting, or chest pain. He was transferred to the ICU for progression of kidney disease and while being evaluated by Dr. Vora, Nephrology, in ICU he became bradycardic, lost his pulse, and CPR was initiated. He had pulseless electrical activity before regaining a pulse. He did not require any shocks or medications administered during ACLS protocol, this was thought due to his uremia. He was set up for dialysis and a tunnel catheter was eventually placed. He was found to have anemia of chronic disease with mild iron- deficiency anemia, but given his history of constipation he was not given oral iron. He was hyponatremic which was chronic initially in the high 120s to mid 120s. His urine lytes were consistent with history of SIADH. His TSH was checked, it was normal at 3. He had hypoxic respiratory failure, desaturated prior to previous attempts at discharge on 07/30/17. He had had transthoracic echocardiogram which demonstrated ejection fraction of 60% to 65%, small pericardial effusion, a left pleural effusion that was moderate in size. This was a limited study. He had also had a transthoracic echocardiogram on which demonstrated EF of 65%, trace mitral regurgitation, trace tricuspid regurgitation, trace to mild pulmonic regurgitation, small pericardial effusion with no evidence of significant hemodynamic compromise. The patient was noted to desaturate at night requiring up to 10 L between 08/02/17 and 08/03/17 and he had an overnight pulse oximetry testing which confirmed desaturations. He was tried on CPAP, but did not tolerate the device. He also had fevers to a max of 101.5 on 08/03/17, blood cultures have been obtained, there had been no growth for the first 24 hours. He had had a repeat chest x-ray which showed no evidence of infiltrate, but persistent evidence of a left greater than right pleural effusion and some mild pulmonary interstitial edema. It was requested that additional volume be taken off with his hemodialysis and his discharge weight is 63 kg. He also had a urinalysis which did not show any evidence of infection. He is being discharged to [facility] for continued rehabilitation and planned outpatient hemodialysis on Thursday, Thursday, and Thursday. His blood pressures were difficult to control and multiple medications were added. PHYSICAL EXAMINATION: On discharge, general appearance: In no acute distress. HEENT: Normocephalic and atraumatic. Pupils are equal, round, and reactive to light. Extraocular movements intact. No scleral icterus. Moist mucous membranes. No oropharyngeal lesions. Neck: Supple and soft. No cervical lymphadenopathy. Heart: Regular, rate, and rhythm. No murmurs, rubs, or gallops. Pulmonary: Clear to auscultation except for rales at left base. Abdomen : Soft, nontender, and nondistended. Extremities: Trace to 1+ pitting edema bilaterally. Skin: No lesions, no rashes. Neuro: Cranial nerves II through XII intact. Alert and oriented x4. DISCHARGE MEDICATIONS: Include: 1. Amlodipine 10 mg daily (new). 2. Calcitriol 0.24 mcg p.o. daily (new). 3. Clonidine 0.2 mg p.o. b.i.d. (new). 4. Docusate 100 mg p.o. b.i.d. (new). 5. Gabapentin 100 mg p.o. daily (new). 6. Lisinopril 30 mg (increased dose from prior 10). 7. MiraLAX 17 g p.o. daily p.r.n. (new). 8. Tylenol 650 mg p.o. q. 6 hours p.r.n. 9. Glipizide 5 mg p.o. q.a.m. and 10 mg q. . 10. Imdur 60 mg p.o. daily (new). DISCHARGE DIET: Heart healthy renal diet, low salt. ACTIVITY LEVEL: No restrictions. FOLLOWUP: Please follow up with Dr. Brad Menezes within 3 to 5 days of discharge to [facility]. He will be doing hemodialysis at the local [facility] on Thursday, Thursday, and Thursday. His blood cultures should be followed up until finalized negative. TIME SPENT: Time spent on discharge 45 minutes. [id number]/CPS #: [id number] MTDD
== END 2017-08-05 16:28 | DRG 698 ==
LOC: ED 07:32 → ICU 10:08 → MEDTELE 07-24 17:35
PROVIDERS: ADMIT Internal Medicine Critical Care Medicine; ATTEND Internal Medicine
PROC: 5A12012 Performance of Cardiac Output, Single, Manual (ICD-10-PCS; principal; 2017-07-22)
PROC: 5A1D70Z Performance of Urinary Filtration, Intermittent, Less than 6 Hours Per Day (ICD-10-PCS; 2017-07-22)
PROC: 30233N1 Transfusion of Nonautologous Red Blood Cells into Peripheral Vein, Percutaneous Approach (ICD-10-PCS; 2017-07-23)
PROC: 05HM33Z Insertion of Infusion Device into Right Internal Jugular Vein, Percutaneous Approach (ICD-10-PCS; 2017-07-23)
PROC: 5A1D70Z Performance of Urinary Filtration, Intermittent, Less than 6 Hours Per Day (ICD-10-PCS; 2017-07-24)
PROC: 5A1D70Z Performance of Urinary Filtration, Intermittent, Less than 6 Hours Per Day (ICD-10-PCS; 2017-07-27)
PROC: 06W Lower Veins, Revision (ICD-10-PCS; 2017-07-29)
PROC: 0JH63XZ Insertion of Tunneled Vascular Access Device into Chest Subcutaneous Tissue and Fascia, Percutaneous Approach (ICD-10-PCS; 2017-07-29)
PROC: 06H033Z Insertion of Infusion Device into Inferior Vena Cava, Percutaneous Approach (ICD-10-PCS; 2017-07-29)
PROC: 5A09357 Assistance with Respiratory Ventilation, Less than 24 Consecutive Hours, Continuous Positive Airway Pressure (ICD-10-PCS; 2017-07-29)
PROC: 5A1D70Z Performance of Urinary Filtration, Intermittent, Less than 6 Hours Per Day (ICD-10-PCS; 2017-07-29)
PROC: 5A1D70Z Performance of Urinary Filtration, Intermittent, Less than 6 Hours Per Day (ICD-10-PCS; 2017-07-31)
PROC: 5A1D70Z Performance of Urinary Filtration, Intermittent, Less than 6 Hours Per Day (ICD-10-PCS; 2017-08-05)
DX: E11.22 Type 2 diabetes mellitus with diabetic chronic kidney disease (principal); I46.9 Cardiac arrest, cause unspecified; J96.91 Respiratory failure, unspecified with hypoxia; I50.33 Acute on chronic diastolic (congestive) heart failure; I13.2 Hypertensive heart and chronic kidney disease with heart failure and with stage 5 chronic kidney disease, or end stage renal disease; E22.2 Syndrome of inappropriate secretion of antidiuretic hormone; N18.6 End stage renal disease; N17.9 Acute kidney failure, unspecified; D63.1 Anemia in chronic kidney disease; D50.9 Iron deficiency anemia, unspecified; E11.42 Type 2 diabetes mellitus with diabetic polyneuropathy; G47.33 Obstructive sleep apnea (adult) (pediatric); R50.9 Fever, unspecified; K59.00 Constipation, unspecified; G89.29 Other chronic pain; M79.606 Pain in leg, unspecified; E87.5 Hyperkalemia; N40.0 Benign prostatic hyperplasia without lower urinary tract symptoms; R00.1 Bradycardia, unspecified; I08.1 Rheumatic disorders of both mitral and tricuspid valves; E11.65 Type 2 diabetes mellitus with hyperglycemia; R40.2142 Coma scale, eyes open, spontaneous, at arrival to emergency department; R40.2362 Coma scale, best motor response, obeys commands, at arrival to emergency department; R40.2252 Coma scale, best verbal response, oriented, at arrival to emergency department; I16.0 Hypertensive urgency; E11.36 Type 2 diabetes mellitus with diabetic cataract; Z79.84 Long term (current) use of oral hypoglycemic drugs; Z87.891 Personal history of nicotine dependence
CPT/HCPCS: 36415; 71045; 71046; 76000; 80048; 80051; 80053; 80061; 80074; 81003; 81015; 82306; 82550; 82553; 82607; 82728; 83036; 83540; 83550; 83605; 83690; 83735; 83880; 84100; 84443; 84484; 85014; 85018; 85025; 85027; 85610; 85652; 86140; 86850; 86900; 86901; 86922; 87040; 87086; 87641; 90935; 92950; 93005; 93306; 93308; 94660; 94762; 99284; A9270-GY; C1750; G0257; G8978-GP-CI; G8978-GP-CJ; G8979-GP-CH; G8979-GP-CI; G8980-GP-CI; J0360; J0690; J0885; J1100; J1642; J1644; J2250; J2270; J2543; J2704; J3010; J3490; P9040; P9047

== ENCOUNTER 2017-09-17 05:59 | Day surgery (SDC) | payer MEDICARE ==
--- NOTE | 2017-09-16 12:01 | HP ---
HISTORY AND PHYSICAL: DATE OF ADMISSION: 09/17/17 CHIEF COMPLAINT: End-stage renal disease. HISTORY OF PRESENT ILLNESS: The patient is a 67-year-old male with end-stage renal disease that has been on dialysis, first peritoneal and most recently hemodialysis via temporary catheter through the right jugular vein. The patient is being admitted for the creation of right arm radiocephalic fistula. PAST MEDICAL HISTORY: Remarkable for hypertension, end-stage renal disease. Denies any coronary artery disease. The patient's past medical history is also remarkable for non-insulin diabetes mellitus. CURRENT MEDICATIONS: Include: 1. Amlodipine 10 mg p.o. daily. 2. Clonidine 0.2 mg p.o. daily. 3. Gabapentin 100 mg p.o. daily. 4. Glipizide 5 mg p.o. daily. 5. Isosorbide 60 mg daily, long relief. 6. Lisinopril 30 mg p.o. daily. 7. Polyethylene glycol. ALLERGIES: He has no known allergies. REVIEW OF SYSTEMS: Contributory for the above mentioned end-stage renal disease , diabetes, hypertension. PHYSICAL EXAMINATION VITAL SIGNS: The patient's height is 56 inches, weight is 133 pounds, blood pressure is 143/73, BMI of 29.8, pulse 55, respirations of 16. HEAD AND NECK: Reveal no neck nodes or masses. No evidence of pacemaker. There is a temporary dialysis catheter on the right internal jugular. LUNGS: Clear to auscultation bilaterally. HEART: Regular without murmurs. ABDOMEN: Unremarkable. EXTREMITIES: Lower extremities, unremarkable. On examination of the upper arm on the left side, the patient had an insect bite as a child with an area of scarring. There are visible forearm veins; however, the ones on the right side appear to be better. The patient has excellent palpable pulses at the axillary , brachial, radials, and ulnars. The cephalic veins of the wrist are at least 3 mm in diameter. There is peripheral edema present both in the arms and in the lower extremities. DIAGNOSTIC STUDIES: An upper extremity ultrasound on the right side as the selected access reveals the cephalic vein at mid arm measures 3.7 mm, at the wrist measures 3.1 mm, and the basilic vein at the mid arm measures 4.6 mm with excellent arterial thickness at the brachial and at the radial. The selected right arm was done because of better appearance and no history of trauma on the right side. 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 DIAGNOSTIC IMPRESSION: End-stage renal disease. The patient being admitted for creation of right radiocephalic fistula under local anesthesia. The patient understands that there are potential complications including, but not exclusive of others such as, recurrence of occlusion, stenosis, hematoma formation, bruising, infection. The patient understands that 30% of radiocephalic fistulas do not mature to be used and that this may be to be converted into a different fistula or a graft. The patient assisted by his daughter had the opportunity to ask questions. He understands, agrees, and wishes to proceed with the surgery. PLAN: Planned surgery is right radiocephalic fistula. [id number]/CPS #: [id number] CARISSA
[~2017-09-17 05:59] MED LIST: Buffered Lidocaine 0.9% SYRIN* 5 ML/SYR SYRINGE INTRADERM ONE
[2017-09-17] MEDS ORDERED: Famotidine IV* 10 MG/ML 2 ML (20 mg) IV ONE (06:00)
[2017-09-17] MEDS ORDERED: NS 0.9% 1000 ML* 1,000 ML IV SCH (06:00)
[2017-09-17] MEDS ORDERED: Famotidine IV* 10 MG/ML 2 ML (20 mg) ONE (06:05)
[2017-09-17] MEDS ORDERED: ceFAZolin 2 GM PREMIX (*) 2 GM/50 ML BAG IVPB ONE (06:05)
[2017-09-17] MEDS ORDERED: Lidocaine 1% INJ* 10 MG/ML 30 ML SDV ONE (07:16)
[2017-09-17] MEDS ORDERED: Heparin VIAL(*) 5000 UNITS/ML VIAL (FIVE THOUSAND) ONE ×2 (07:16→08:30)
[2017-09-17] MEDS ORDERED: fentaNYL* 50 MCG/ML 2 ML VIAL (100 MCG VIAL) ONE (07:30)
[2017-09-17] MEDS ORDERED: Midazolam* 1 MG/ML 5 ML VIAL (5 MG) ONE (07:31)
[2017-09-17] MEDS ORDERED: DiMENhydriNATE IV* 50 MG/ML VIAL IV PUSH PRN (07:59)
[2017-09-17] MEDS ORDERED: Acetaminophen TAB* 325 MG PO PRN (07:59)
[2017-09-17] MEDS ORDERED: Ondansetron INJ* 2 MG/ML VIAL ONE (08:00)
[2017-09-17 10:09] VITALS: BP 161/74
--- NOTE | 2017-09-17 11:49 | OP ---
DATE OF OPERATION: 09/17/17 - [facility] DATE OF : 52 SURGEON: Sukh Delcid MD BODY PIERCER: Isabelle Seklton NP ANESTHESIA: Local plus MAC. PRE-OP DIAGNOSIS: End-stage renal disease. POST-OP DIAGNOSIS: End-stage renal disease. OPERATIVE PROCEDURE: Right radiocephalic arteriovenous fistula. ESTIMATED BLOOD LOSS: Approximately 10 cc. DESCRIPTION OF PROCEDURE: The patient was taken to the procedure room. The right radiocephalic approach was selected as the patient had adequate-sized vessels for [place] fistula creation. The proper surgical site was identified. The patient was placed in supine position. He was prepped and draped in the usual sterile fashion. He received preoperative antibiotics. Proper time-out was performed and after this was completed under sedation, lidocaine 1% was used to infiltrate on the radial aspect of the wrist. A transverse incision that measured approximately 4 cm in length was performed. The incision was carried down through the skin subcutaneous tissue, branch of the radial nerve was identified and preserved. The cephalic vein was identified, dissected proximal and distally, encircling vessel loops, and after this was done, the dissection of the radial artery was then performed, encircling vessel loops, proximally and distally. Retraction was performed and transection of the distal end of the cephalic vein was done, tied off with 3-0 silk suture. The proximal end of the cephalic vein was then dilated using dilators starting with 1 mm going up to 3.5 mm going easily and without obstruction. The vein was then tested using heparinized saline and there was flow into the vein easily without resistance. It was felt that the vein was adequate for anastomosis. Retractors were then placed and we then proceeded to given the patient heparin 2000 units and 5 minutes later, the artery was then cross clamped proximally and distally and arteriotomy was performed with an 11 blade and extended with Fiore scissors. The vein was then fashioned for anastomosis. The anastomosis measured a centimeter in length. We then proceeded to do the anastomosis in a parachute technique using 7-0 Prolene from the cephalic vein and to the side of the radial artery. Once the anastomosis was completed, flow was established into the vein and artery with excellent flow into the vein and a good thrill up to the mid arm. At this point, the area was checked for hemostasis. A lateral branch of the radial nerve was stretched out and detached; it was then reattached with 7-0 Prolene suture; however, the main branch was intact. After this was done, again the area was checked for hemostasis, no bleeding was noted. The subcutaneous tissue was then closed with 4-0 Vicryl and the skin was closed with subcuticular 5-0 Biosyn. The patient tolerated the procedure well and he was taken in good condition to the recovery room. [id number]/[facility] #: [id number] CARISSA
== END 2017-09-17 10:17 | disposition home or self-care (01) ==
LOC: OR 05:59
PROVIDERS: ATTEND Surgery
DX: I12.9 Hypertensive chronic kidney disease with stage 1 through stage 4 chronic kidney disease, or unspecified chronic kidney disease (principal); N18.6 End stage renal disease; E11.22 Type 2 diabetes mellitus with diabetic chronic kidney disease; I12.0 Hypertensive chronic kidney disease with stage 5 chronic kidney disease or end stage renal disease; Z99.2 Dependence on renal dialysis
CPT/HCPCS: J0690; J1644; J2250; J2405; J3010

== ENCOUNTER 2017-09-22 08:00 | Emergency (ER) | payer MEDICARE ==
[2017-09-22] MEDS ORDERED: amLODIPine TAB* 5 MG PO ONE (08:22)
--- NOTE | 2017-09-22 08:22 | ED ---
Hypertension - HPI Summary HPI Summary: This is [facility] documenting for attending Jose Qureshi MD. Pt is a 67 y/o M c/o THOMPSON and increasing blood pressure. THOMPSON onset 3 days ago and is located all around head. BP was noted to be up to 200 this AM. Denies: SOB, CP. PMHx: denies respiratory issues. - History of Current Complaint Chief Complaint: EDHypertension Stated Complaint: HIGH BP Time Seen by Provider: 09/22/17 08:14 Hx Obtained From: Family/Health Plan Manager Onset/Duration: Started Days Ago Timing: Constant, Lasting Days Associated Signs & Symptoms: Negative - CP, SOB, Headaches - Allergies/Home Medications Allergies/Adverse Reactions: Allergies Allergy/AdvReac Type Severity Reaction Status Date / Time No Known Allergies Allergy Verified 09/17/17 06:15 PMH/Surg Hx/FS Hx/Imm Hx Endocrine/Hematology History: Reports: Hx Anticoagulant Therapy - ASA, Hx Diabetes - type 2 Cardiovascular History: Reports: Hx Congestive Heart Failure - hx of diastolic dysfunction w/acute chronic heart failure, Hx Hypertension Sensory History: Reports: Hx Contacts or Glasses - glasses Denies: Hx Hearing Aid Opthamlomology History: Reports: Hx Contacts or Glasses - glasses Neurological History: Reports: Hx Nerve Disease - peripheral neuropathy- patient denied- per md note, Hx Peripheral Neuropathy Denies: Hx Dementia, Hx Developmental Delay - Cancer History Hx Chemotherapy: No - Surgical History Surgery Procedure, Year, and Place: insertion of hemosplit catheter 07/29/[place] [facility] [place] Cataract left eye with SCMIN and IOL Hx Anesthesia Reactions: No Infectious Disease History: No Infectious Disease History: Denies: Traveled Outside the [place] in Last 30 Days - Family History Known Family History: Negative: Cardiac Disease, Hypertension - Social History Occupation: Retired Lives: With Family Alcohol Use: None Substance Use Type: Reports: None Smoking Status (MU): Never Smoked Tobacco Type: Cigarettes Review of Systems Negative: Fever Positive: Other - Hypertension All Other Systems Reviewed And Are Negative: Yes Physical Exam - Summary Physical Exam Summary: Constitutional: Well-developed, Well-nourished, Alert. (-) Distressed Skin: Warm, Dry HENT: Normocephalic; Atraumatic Eyes: Conjunctiva normal Neck: Musculoskeletal ROM normal neck. (-) JVD, (-) Stridor, (-) Tracheal deviation Cardio: Rhythm regular, rate normal, Heart sounds normal; Intact distal pulses; The pedal pulses are 2+ and symmetric. Radial pulses are 2+ and symmetric. (-) Murmur Pulmonary/Chest wall: Effort normal. (-) Respiratory distress, (-) Wheezes, (-) Rales Abd: Soft, (-), epigastric tenderness, (-) Distension, (-) Guarding, (-) Rebound Musculoskeletal: (-) Edema Lymph: (-) Cervical adenopathy Neuro: Alert, Oriented x3 Psych: Mood and affect Normal Triage Information Reviewed: Yes Vital Signs On Initial Exam: Initial Vitals Temp Pulse Resp BP Pulse Ox 97.3 F 106 16 180/100 98 09/22/17 08:02 09/22/17 08:02 09/22/17 08:02 09/22/17 08:02 09/22/17 08:02 Vital Signs Reviewed: Yes Diagnostics - Vital Signs Vital Signs Temp Pulse Resp BP Pulse Ox 09/22/17 08:02 97.3 F 106 16 180/100 98 - Laboratory Result Diagrams: 09/22/17 09:03 09/22/17 09:03 Lab Statement: Any lab studies that have been ordered have been reviewed, and results considered in the medical decision making process. - EKG 0824 Cardiac Rate: NL - 94 bpm EKG Rhythm: Sinus Rhythm ST Segment: Normal EKG Interpretation: Sinus rhythm.normal P axis, V-rate 60- 99 Prolonged [place] interval.NY >215, Re-Evaluation - Re-Evaluation First Eval Re-Evaluation Time: 11:10 Change: Improved Comment: Pt is feeling better. Took gliposide w/o eating this AM. Feeling better now but BP is 200 systolic. Second Eval Re-Evaluation Time: 12:00 Change: Improved - remarkably Comment: Improved w home medication regimen. Hypertension Course/Dx - Course Assessment/Plan: BP medications are at [facility] waiting pick-up. - Diagnoses Provider Diagnoses: Hypoglycemia, Uncontrolled hypertension, Noncompliance with diabetes treatment , Medication adverse effect Discharge - Sign-Out/Discharge Documenting (check all that apply): Patient Departure - Discharge Plan Condition: Stable Disposition: HOME Patient Education Materials: Hypoglycemia in a Person with Diabetes (ED) Referrals: Brad Menezes MD [Primary Care Provider] - 2 Days Additional Instructions: Follow up with primary care physician within 48 hours. RETURN TO THE EMERGENCY DEPARTMENT FOR CHANGING OR WORSENING SYMPTOMS
[2017-09-22 09:10] LABS: Hematocrit 35 % (42-52); Hemoglobin 11.4 g/dl (14.0-18.0); Mean Corpuscular HGB Conc 32 g/dl (31-36); Mean Corpuscular Hemoglobin 25 pg (27-31); Mean Corpuscular Volume 76 fL (80-94); Mean Platelet Volume 6.6 um3 (7.4-10.4); Platelet Count 290 10^3/ul (150-450); Red Blood Count 4.67 10^6/ul (4.00-5.40); Red Cell Distribution Width 17 % (10.5-15); White Blood Count 6.3 10^3/ul (3.5-10.8)
[2017-09-22] MEDS ORDERED: Isosorbide Mononitrate ER TAB* 60 MG PO ONE (09:15)
[2017-09-22 09:42] LABS: EGFR Non-African American 10.9 (>60)
[2017-09-22 12:33] VITALS: BP 127/103
== END 2017-09-22 12:32 | disposition home or self-care (01) ==
LOC: ED 08:00
DX: I10 Essential (primary) hypertension (principal); E11.649 Type 2 diabetes mellitus with hypoglycemia without coma; Z79.01 Long term (current) use of anticoagulants
CPT/HCPCS: 36415; 80048; 85027; 93005; 99283; A9270-GY

== ENCOUNTER 2017-11-18 14:29 | Day surgery (SDC) | payer MEDICARE ==
--- NOTE | 2017-11-17 21:49 | HP ---
HISTORY AND PHYSICAL: DATE OF ADMISSION: 11/18/17 CHIEF COMPLAINT: Malfunctioning right radiocephalic fistula. HISTORY OF PRESENT ILLNESS: The patient is a 67-year-old male with end-stage renal disease, on hemodialysis, who underwent a radiocephalic fistula on the right wrist on 09/17/17. The patient did well postoperatively with excellent process in maturation of the fistula. He was then referred back to the dialysis unit and they started doing dialysis. He has excellent flow on the arterial side of the fistula, but they had difficulty cannulating the venous side. He was referred back for evaluation and he is noticed to have large collaterals around the fistula. This may be contributing to a steal syndrome, and therefore not enough flow is in the more proximal veins. For this reason, the patient is being admitted for an intraoperative angiogram, possible ligation of collaterals, possible balloon angioplasty. PAST MEDICAL HISTORY: Remarkable for hypertension, end-stage renal disease, diabetes. CURRENT MEDICATIONS: Include: 1. Amlodipine 10 mg p.o. daily. 2. Clonidine 0.2 mg p.o. daily. 3. Gabapentin 100 mg p.o. daily. 4. Glipizide 5 mg p.o. daily. 5. Isosorbide ER 60 mg p.o. daily. 6. Lisinopril 30 mg p.o. daily. 7. Polyethylene glycol mixture p.r.n. ALLERGIES: The patient has no known allergies. REVIEW OF SYSTEMS: Contributory for the above mentioned. PHYSICAL EXAMINATION GENERAL: The patient is alert and oriented, in no acute distress. HEAD AND NECK: Unremarkable. There is a dialysis catheter on the right side of the neck for temporary use. LUNGS: Clear to auscultation bilaterally. HEART: Regular without murmurs. EXTREMITIES: On the left side is completely unremarkable with excellent palpable pulses on the right side. The patient has a radiocephalic fistula with a palpable bruit and collateral flow likely stealing the main flow to the fistula itself. The lower extremity examination is completely unremarkable. DIAGNOSTIC IMPRESSION: Malfunctioning right radiocephalic fistula, likely related to steal syndrome, and possible vein stenosis. PLAN: The plan is admission for angiogram, possible angioplasty, possible ligation of fistula. [id number]/[facility] #: [id number] [facility]OTSDAM HOSPITALKami
[~2017-11-18 14:29] MED LIST changes: +Famotidine IV* 10 MG/ML 2 ML (20 mg) IV ONE; +Famotidine IV* 10 MG/ML 2 ML (20 mg) ONE; +NS 0.45% 1000 ML BAG* 1,000 ML IV SCH; +ceFAZolin 2 GM in NS PREMIX(*) 2 GM/100 ML BAG IVPB ONE
[2017-11-18] MEDS ORDERED: Metoclopramide IV* 5 MG/ML 2 ML VIAL ONE (15:08)
[2017-11-18] MEDS ORDERED: Metoclopramide IV* 5 MG/ML 2 ML VIAL IV ONE (15:30)
[2017-11-18] MEDS ORDERED: Labetalol IV* 5 MG/ML 20 ML VIAL IV PUSH ONE (15:30)
[2017-11-18] MEDS ORDERED: Labetalol IV* 5 MG/ML 20 ML VIAL ONE (15:33)
[2017-11-18] MEDS ORDERED: fentaNYL* 50 MCG/ML 2 ML VIAL (100 MCG VIAL) ONE (16:30)
[2017-11-18] MEDS ORDERED: Midazolam* 1 MG/ML 5 ML VIAL (5 MG) ONE (16:30)
[2017-11-18] MEDS ORDERED: Enalaprilat IV* 1.25 MG/ML 2 ML VIAL (2.5 MG) ONE (16:42)
[2017-11-18] MEDS ORDERED: Iodixanol* (CONTRAST) 320 MG/ML 100 ML SDV ONE (17:54)
[2017-11-18] MEDS ORDERED: Ondansetron INJ* 2 MG/ML VIAL IV PRN (19:30)
[2017-11-18] MEDS ORDERED: fentaNYL* 50 MCG/ML 2 ML VIAL (100 MCG VIAL) IV PRN (19:30)
[2017-11-18] MEDS ORDERED: Naloxone* 0.4 MG/ML 1 ML VIAL IV PRN (19:30)
[2017-11-18 19:46] VITALS: BP 179/92
--- NOTE | 2017-11-19 15:02 | OP ---
DATE OF OPERATION: 11/18/17 - [facility] DATE OF : 52 SURGEON: Sukh Delcid MD ANESTHESIA: Local plus MAC. PRE-OP DIAGNOSIS: Malfunctioning right radiocephalic arteriovenous fistula. POST-OP DIAGNOSIS: Malfunctioning right radiocephalic arteriovenous fistula secondary to stenosis of the cephalic vein. OPERATIVE PROCEDURE: 1. Right arm radiocephalic fistula angiogram. 2. Balloon angioplasty of cephalic vein. INDICATIONS: The patient is a 67-year-old male with end-stage renal disease, on hemodialysis. He had a right arm radiocephalic fistula placement and the patient had excellent pulse and bruit, but they were having difficulty cannulating the venous site and for this reason, the patient was taken to the operating room for an on-table angiogram. The working diagnosis is possible stenosis, possible steal syndrome from collateral branches. ESTIMATED BLOOD LOSS: None. DESCRIPTION OF PROCEDURE: The patient was taken to the operating room. He was placed in the supine position. After appropriate identification of the patient and site of surgery, he was prepped and draped in the usual sterile fashion. Under ultrasound guidance, dorsal branch of the cephalic vein connecting to the arteriovenous fistula was accessed under direct ultrasound guidance with a micropuncture kit, once the needle was in place, the guidewire was advanced which would not thread in the more distal area. However, we were able to advance the 4- Vietnamese catheter over the wire into the branch and into the main fistula. Brisk arterial back flow was noted and at this point, an angiogram performed through the 4-Vietnamese catheter revealed an obstruction of the main cephalic vein at approximately the junction between the mid third and lower third of the forearm. The 4-Vietnamese catheter was then advanced closer to the stenosis and using a 0.035 Glidewire, the area of obstruction was able to be crossed. This area was limited to approximately a segment of 1.5 to 2 cm. Once the wire advanced further proximal into the forearm, we then proceeded to exchange the 4-Vietnamese catheter for a 6- Vietnamese sheath. That was advanced over the wire and subsequently via the sheath, we proceeded to perform an angiogram again revealing areas of stenosis along the cephalic vein. After this was done, we then proceeded to sequentially balloon angioplasty the cephalic vein from the antecubital fossa all the way down to the arteriovenous fistula branch. After this was completed, an angiogram was performed and this appeared to show flow without areas of stenosis. At that time, the patient had excellent thrill in the forearm veins and a palpable pulse in the branches of the cephalic vein. At this point, it was felt that there was no need to tie off the collateral branches and the sheath and wire were removed. Pressure was applied uninterrupted for 10 minutes. There was no bleeding. The small incision was then closed with 5-0 Prolene and Steri-Strips. The patient was then taken in good condition to recovery room. The balloon angioplasty performed was done with a 5-mm [place] balloon, 4 cm long. [id number]/[facility] #: [id number] MTDD
--- NOTE | 2017-11-25 11:41 | RAD ---
CPT II Codes: G9500 INDICATION: Fluoroscopic imaging was provided to Dr. Delcid during a right arm fistulogram and angioplasty TECHNIQUE: Intraoperative fluoroscopy was provided during right upper extremity fistulogram and angioplasty. FINDINGS: 39 spot films depict a right arm fistulogram and balloon angioplasty. Fluoroscopy time: 5 minutes and 9 seconds IMPRESSION: 1. As above. 2. Please see Dr. Delcid's operative note for details of the procedure, imaging findings and intervention.
== END 2017-11-18 20:00 | disposition home or self-care (01) ==
LOC: OR 14:29
PROVIDERS: ATTEND Surgery
DX: T82.898A Other specified complication of vascular prosthetic devices, implants and grafts, initial encounter (principal); N18.6 End stage renal disease; Z99.2 Dependence on renal dialysis; G47.33 Obstructive sleep apnea (adult) (pediatric); E22.2 Syndrome of inappropriate secretion of antidiuretic hormone; D64.9 Anemia, unspecified; I13.2 Hypertensive heart and chronic kidney disease with heart failure and with stage 5 chronic kidney disease, or end stage renal disease; I50.9 Heart failure, unspecified; E11.22 Type 2 diabetes mellitus with diabetic chronic kidney disease
CPT/HCPCS: 36140; 36415; 75710; 80051; J0690; J2250; J2765; J3010

== ENCOUNTER 2017-11-20 22:12 | Inpatient (IN) | payer MEDICARE ==
[2017-11-20] MEDS ORDERED: Acetaminophen TAB* 325 MG PO ONE (22:45)
[2017-11-20 23:33] LABS: INR 0.84 (0.77-1.02)
[2017-11-20] MEDS ORDERED: Azithromycin IV(*) 500 MG in NS 0.9% 250 ML* 250 ML IVPB ONE (23:37)
[2017-11-20] MEDS ORDERED: cefTRIAXone(*) 1 GM in NS 0.9% 50 ML* 50 ML IVPB ONE (23:37)
[2017-11-20 23:38] LABS: Hematocrit 36 % (42-52); Hemoglobin 11.6 g/dl (14.0-18.0); Mean Corpuscular HGB Conc 33 g/dl (31-36); Mean Corpuscular Hemoglobin 24 pg (27-31); Mean Corpuscular Volume 74 fL (80-94); Mean Platelet Volume 8.1 um3 (7.4-10.4); Platelet Count 271 10^3/ul (150-450); Red Blood Count 4.77 10^6/ul (4.00-5.40); Red Cell Distribution Width 20 % (10.5-15); White Blood Count 8.4 10^3/ul (3.5-10.8)
--- NOTE | 2017-11-20 23:38 | ED ---
HPI Cardiac - HPI Summary HPI Summary: This patient is a 67 year old male [facility] by with a chief complaint of cough since today. Patient states that the cough is productive and he is bringing up clear phlegm. Symptoms aggravated by nothing. Symptoms alleviated by nothing. Patient denies SOB, fever. - History of Current Complaint Chief Complaint: EDUpperRespComplaint Stated Complaint: COUGH Time Seen by Provider: 11/20/17 23:33 Hx Obtained From: Patient Onset/Duration: Still Present Timing: Constant Initial Severity: Moderate Current Severity: Moderate Pain Intensity: 0 Pain Scale Used: 0-10 Numeric Chest Pain Radiates: No Aggravating Factor(s): Nothing Alleviating Factor(s): Nothing Associated Signs and Symptoms: Positive: Cough, Productive Cough - clear phlegm - Additional Pertinent History Primary Care Physician: TERESA - Allergy/Home Medications Allergies/Adverse Reactions: Allergies Allergy/AdvReac Type Severity Reaction Status Date / Time No Known Allergies Allergy Verified 11/18/17 15:03 Home Medications: Home Medications Isosorbide Mononitrate ER TAB* [Imdur ER TAB*] 60 mg PO DAILY 11/21/17 [History Confirmed 11/21/17] PMH/Surg Hx/FS Hx/Imm Hx Previously Healthy: No Endocrine/Hematology History: Reports: Hx Anticoagulant Therapy - ASA, Hx Diabetes - type 2 Denies: Hx Bone Marrow Disease, Hx Sickle Cell Disease, Hx Anemia Cardiovascular History: Reports: Hx Congestive Heart Failure - hx of diastolic dysfunction w/acute chronic heart failure, Hx Hypertension, Other Cardiovascular Problems/Disorders - right AV fistula, stenosis of vascular devices Respiratory History: Reports: Hx Sleep Apnea - 08/17 dx [facility]- can't tolerate CPAP Sensory History: Reports: Hx Contacts or Glasses - reading glasses Denies: Hx Hearing Aid Opthamlomology History: Reports: Hx Contacts or Glasses - reading glasses Neurological History: Reports: Hx Nerve Disease - peripheral neuropathy- patient denied- per md note, Hx Peripheral Neuropathy Denies: Hx Dementia, Hx Developmental Delay - Cancer History Hx Chemotherapy: No - Surgical History Surgery Procedure, Year, and Place: Circumcision 08/01 [facility]. Extraction of cataract to the right eye with an IOL implant 04/07 [facility]. Extraction of cataract to the left eye with an IOL implant 01/10 [facility]. Insertion of watermelon inspector hemosplit hemodialysis catheter 5/30/18 [facility] Hx Anesthesia Reactions: No Infectious Disease History: No Infectious Disease History: Denies: Traveled Outside the [place] in Last 30 Days - Family History Known Family History: Negative: Cardiac Disease, Hypertension - Social History Lives: With Family Alcohol Use: None Hx Substance Use: No Substance Use Type: Reports: None Hx Tobacco Use: No Smoking Status (MU): Never Smoked Tobacco Type: Cigarettes Have You Smoked in the Last Year: No Review of Systems Negative: Fever Negative: Chest Pain Positive: Cough. Negative: Shortness Of Breath All Other Systems Reviewed And Are Negative: Yes Physical Exam - Summary Physical Exam Summary: Appearance: Well-appearing, Well-nourished, lying in bed comfortable Skin: Warm, dry, no obvious rash Eyes: sclera anicteric, no conjunctival pallor ENT: mucous membranes moist Neck: deferred Respiratory: Bronchial breath sounds on right midline, No wheezing, No respiratory distress, No signs of pleural effusion Cardiovascular: Appears well perfused, pulses are nml Abdomen: deferred Musculoskeletal: Moving all 4 extremities without obvious discomfort Neurological: Awake and alert, mentation is normal, speech is fluent and appropriate Psychiatric: affect is normal, does not appear anxious or depressed Triage Information Reviewed: Yes Vital Signs On Initial Exam: Initial Vitals Temp Pulse Resp BP Pulse Ox 100.2 F 108 16 224/85 92 11/20/17 22:15 11/20/17 22:15 11/20/17 22:15 11/20/17 22:15 11/20/17 22:15 Vital Signs Reviewed: Yes Diagnostics - Vital Signs Vital Signs Temp Pulse Resp BP Pulse Ox 11/20/17 22:15 100.2 F 108 16 224/85 92 - Laboratory Lab Results: Lab Results 11/20/17 Range/Units 23:15 INR (Anticoag Therapy) 0.84 (0.77-1.02) Result Diagrams: 11/24/17 05:07 11/24/17 05:07 Lab Statement: Any lab studies that have been ordered have been reviewed, and results considered in the medical decision making process. - Radiology CXR Xray Interpretation: Positive (See Comments) - CXR reveals right lower lobe infiltrate. ED physician has reviewed this XR. Radiology Interpretation Completed By: ED Physician - EKG 0121 Cardiac Rate: NL EKG Rhythm: Sinus Rhythm - [address] Segment: Normal Ectopy: None EKG Interpretation: P waves, QRS complex, and T waves are within normal limits, no isc changes Disposition - Course Assessment/Plan: This patient is a 67 year old male presenting to [facility] accompanied by with a chief complaint of cough since today. Patient states that the cough is productive and he is bringing up clear phlegm. CXR reveals right lower lobe infiltrate. ED physician has reviewed this XR. An EKG, taken 0121, reveals NSR at 98 BPM, P waves, QRS complex, and T waves are within normal limits, T waves and intervals are normal, no ischemic changes. Bloodwork Obtained. Urinalysis Obtained. Test results with no significant abnormalities except for 0.04H troponin. In the ED course the patient was given Acetaminophen 650mg PO, Robitussin 10mL PO, Zofran 8mg SL, Oxycodone 2 tabs PO, Rocephin 1gm in NS 0.9% 50mL, Zithromax 500mg in NS 0.9% 250mL. We discussed patient care with Baron Hamlin (Hospitalist) at 0055 and they recommended admitting patient to ICU. The patient is agreeable with this plan. - Diagnoses Provider Diagnoses: Pneumonia - Physician Notifications Discussed Care Of Patient With: Baron Hamlin - Hospitalist Time Discussed With Above Provider: 00:55 - We discussed patient care with Baron Hamlin (Hospitalist) at 0055 and they recommended admitting patient to ICU Discharge - Sign-Out/Discharge Documenting (check all that apply): Patient Departure All imaging exams completed and their final reports reviewed: Yes - Discharge Plan Condition: Fair Disposition: ADMITTED TO [facility] - Billing Disposition and Condition Condition: FAIR Disposition: Admitted to [facility] - Attestation Statements Document Initiated by John: Yes Documenting Scribe: Shannan Husain Provider For Whom John is Documenting (Include Credential): David Wheeler MD Scribe Attestation: Shannan Browning scribed for David Wheeler MD on 12/05/17 at 0438. Scribe Documentation Reviewed: Yes Provider Attestation: The documentation as recorded by the Shannan caballero accurately reflects the service I personally performed and the decisions made by me, David Wheeler MD
[2017-11-20] MEDS ORDERED: GuaiFENesin DM* 5 ML UDC PO ONE (23:39)
[2017-11-20 23:44] LABS: EGFR Non-African American 12.9 (>60)
[2017-11-20 23:59] LABS: ABS Basophils 0 10^3/ul (0-0.2); ABS Neutrophils 6.9 10^3/ul (1.5-7.7); Monocytes % 3 % (0-7)
[2017-11-21] LABS: ABS Neutrophils 6.6 10^3/ul (1.5-7.7)
[2017-11-21] MEDS ORDERED: Ondansetron ODT TAB* 4 MG SL ONE (00:52)
[2017-11-21] MEDS ORDERED: oxyCODONE/Acetamin 5/325 MG* TAB PO ONE (00:52)
[2017-11-21] MEDS ORDERED: Acetaminophen TAB* 325 MG PO PRN (01:01)
[2017-11-21] MEDS ORDERED: Albuterol 2.5 MG/3 ML NEB.SOL* (0.083%) INH PRN (01:01)
[2017-11-21] MEDS ORDERED: Dextrose 50% Syringe 50 ML* 25 GM/50 ML SYRINGE IV PUSH PRN (01:05)
[2017-11-21] MEDS ORDERED: Sodium Polystyrene ORAL.SOL* 15 GM/60 ML BTL PO ONE ×2 (01:15→09:33)
[2017-11-21] MEDS: cloNIDine TAB* 0.1 MG PO SCH ×4 (01:53→20:30)
[2017-11-21] MEDS: predniSONE TAB* 20 MG PO SCH (01:53)
[2017-11-21] MEDS ORDERED: Albuterol/Ipratropium NEB.SOL* Albuterol 2.5 MG/Ipratropium 0.5 MG 3 ML INH SCH (02:00)
[2017-11-21] MEDS: hydrALAZINE IV* 20 MG/ML VIAL IV SLOW PU PRN ×2 (02:51→18:09)
[2017-11-21] MEDS ORDERED: diPHENhydraMINE PO* 25 MG PO ONE (04:02)
[2017-11-21] MEDS ORDERED: Labetalol IV* 5 MG/ML 20 ML VIAL IV PUSH ONE (04:02)
--- NOTE | 2017-11-21 04:03 | HP ---
CC: Dr. Menezes; Dr. Vora * HISTORY AND PHYSICAL: DATE OF ADMISSION: 11/21/17 PRIMARY CARE PROVIDER: Dr. Menezes. ATTENDING PHYSICIAN WHILE IN THE HOSPITAL: Juanis Moses DO * (report dictated by Baron Hamlin NP) CONSULTING STAFFING RN: Dr. Vora. CHIEF COMPLAINT: 1. Cough. 2. Chills. HISTORY OF PRESENT ILLNESS: Mr. Rojas is a 67-year-old male patient with multiple medical problems. He has a history of hypertension, diabetes, BPH, and end-stage renal disease, on hemodialysis. He is coming into our ER today stating that today he developed pretty significant cough. He has not had any weight gain. He denies any orthopnea. He has admitted to having shortness of breath. He states recently he has been having chills; he just cannot get warm. He denied any chest pain. He states that he has been feeling warm at times. He has been coughing up a clear- type sputum. His was recently sick with similar symptoms. He did admit to having last few days some rhinorrhea, but no sore throat. He denies any arthralgias or myalgias, but he just states that he just has not been feeling good. He has been coughing, feeling short of breath. He denied having any chest discomfort, but he denied any abdominal pain or any nausea or vomiting. He states that he just was not feeling well. He decided to come into the ED today because of this. He was noted to have what appeared to be pneumonia in the right lower lobe and we were asked to evaluate for admission. He was also requiring oxygen when he presented. In addition to this , he was noted to be tachycardic. PAST MEDICAL HISTORY: Significant for: 1. Hypertension. 2. Diabetes. 3. BPH. 4. End-stage renal disease. PAST SURGICAL HISTORY: 1. He has had cataract extraction. 2. AV fistula. MEDICATIONS: Home medications include: 1. Glipizide 10 mg in the morning and 5 mg at bedtime. 2. MiraLAX 17 g p.o. daily as needed. 3. Tylenol 650 mg every 6 hours as needed. 4. Colace 100 mg p.o. b.i.d. 5. Catapres 0.2 mg p.o. b.i.d. 6. Norvasc 10 mg in the morning. 7. Neurontin 100 mg daily. 8. Imdur 60 mg p.o. daily. 9. Lisinopril 30 mg p.o. q.a.m. ALLERGIES TO MEDICATIONS: Include no known drug allergies. FAMILY HISTORY: His mother had kidney disease as well. Father had a history of dementia. SOCIAL HISTORY: He does not smoke. He does not drink. Surrogate decision maker is his . REVIEW OF SYSTEMS: There is no documented fever, but he did admit to subjective chills and fever. He denied having any chest pain. He did admit to rhinorrhea. No sore throat. No thyroid enlargement. He denied having again any chest pain. He denied any orthopnea. He did admit to shortness of breath, dyspnea on exertion. No abdominal pain. There was no nausea. No vomiting. No dysuria. No frequency. No seizure. No loss of consciousness. No pruritus. No skin ulcerations. Review of 14 systems was completed, all others negative. PHYSICAL EXAMINATION GENERAL: At this time, Mr. Rojas is a 67-year-old male patient. He is chronically ill appearing. He is sitting in the ED stretcher. He does not appear to be in any acute respiratory distress. VITAL SIGNS: Blood pressure of 224/109 with a pulse of 98, respirations were 24 , O2 sat 94% on 2 L, temperature initially when he came in was 100.2, it is now 99.6. HEENT: Head: Atraumatic. Eyes: EOMs intact. Sclerae anicteric, not pale. NECK: Supple. Throat: Oral mucosa appears to be dry. No oropharyngeal erythema. LUNGS: He had wheezing noted in the bases. He had rhonchi noted in the upper lobes and he did have diaphragmatic expansion. HEART: Sounds S1 and S2. He is tachycardic. ABDOMEN: Soft. It was flat, nontender. Bowel sounds present. EXTREMITIES: Pulses were 2+ throughout. He had no peripheral edema. Moving all 4 extremities with 5/5 strength. NEUROLOGIC: He is awake, alert, oriented x3. Speech is clear. No gross focal deficits. SKIN: Intact. LABORATORY DATA/DIAGNOSTIC STUDIES: Labs, WBC of 8.4, RBC of 4.77, hemoglobin 11.6, hematocrit of 36, his platelet count was 271. INR 0.84. His sodium was 130, potassium was 5.3, chloride 99, his bicarb was 22, his BUN was 14, creatinine of 4.59, which is near his baseline, glucose 114. Lactate 1.2. Calcium 9.0. Total bili 0.6, AST 30, ALT less than 3. Troponin was 0.04. CRP pending. Albumin was 3.7. Chest x-ray obtained today under my review, he does appear to have infiltrate noted in the right lower lobe, he did have diaphragmatic expansion, no effusions were noted. Old medical records were reviewed. ASSESSMENT AND PLAN: Mr. Rojas is a 67-year-old male patient coming in to the ED today with complaints of cough, getting much worse today. He was evaluated here in the ED because of the fact that he had pneumonia and was requiring O2. We were asked to evaluate for admission. He will be admitted under observation status for: 1. Pneumonia. He does meet septic criteria, but not severe sepsis. He does have elevated heart rate and he is mildly tachypneic. Plan: He has been pancultured. He had blood cultures sent. I am going to put him on antibiotics. I am not going to give him fluids because his blood pressures are exclusively high. In addition to this, he is a dialysis patient. He appears to be euvolemic and I do not want to put him in worsening respiratory stress and cause fluid overload. We will check Legionella antigen, Strep pneumo antigen, flu swab. In addition to this, I will also get sputum culture if possible. I have placed him on nebulizers, steroids. In addition to this, flutter valve and Dulera for aggressive pulmonary toileting and we will continue to follow him. 2. Hypertension with hypertensive urgency. I am placing him in the ICU. I am going to go ahead and get his blood pressure down. I would like to try get him in the 180 systolic range and the diastolic less than 100. I have ordered p.r.n. hydralazine. I am going to give him extra dose of clonidine tonight and we will follow this closely. If I need to, I will start him on a nicardipine drip in the ICU. 3. Elevated troponins, probably demand ischemia secondary to the patient's acute illness and blood pressure. He is not having any chest pain. EKG is pending. We will check this. We will continue to monitor. If they continue to elevate, low threshold for cardiology consult. 4. Diabetes. Lispro sliding scale has been ordered. 5. History of end-stage renal disease. We will place call with Dr. Vora in the morning to continue his dialysis. I do note his potassium is 5.3. I will repeat this in the morning. We will continue to follow it closely. If it is unchanged or elevated, I certainly will give him Kayexalate. 6. Benign prostatic hypertrophy. Continue current medical regimen. 7. Deep vein thrombosis prophylaxis. He will be placed on heparin subcu. 8. Code status. He is full code. 9. Fluids, electrolytes, and nutrition. He can have a renal diet. TIME SPENT: On admission 50 minutes, greater than half of the time spent face- to- face with the patient obtaining my history and physical, the other half of the time was spent going over the plan of care with the patient and implementing the plan of care. I discussed the plan with my attending, Dr. Moses; she is in agreement. BARON HAMLIN, REJI [id number]/CPS #: [id number] CARISSA
[2017-11-21] MEDS ORDERED: Labetalol IV* 5 MG/ML 20 ML VIAL ONE (04:11)
[2017-11-21] MEDS ORDERED: diPHENhydraMINE PO* 25 MG ONE (04:11)
[2017-11-21 05:40] LABS: Hematocrit 32 % (42-52); Hemoglobin 10.5 g/dl (14.0-18.0); Mean Corpuscular HGB Conc 33 g/dl (31-36); Mean Corpuscular Hemoglobin 24 pg (27-31); Mean Corpuscular Volume 74 fL (80-94); Mean Platelet Volume 6.8 um3 (7.4-10.4); Platelet Count 211 10^3/ul (150-450); Red Blood Count 4.33 10^6/ul (4.00-5.40); Red Cell Distribution Width 19 % (10.5-15); White Blood Count 14.9 10^3/ul (3.5-10.8)
[2017-11-21 05:46] LABS: INR 0.93 (0.77-1.02)
[2017-11-21 05:59] LABS: ABS Basophils 0.1 10^3/ul (0-0.2); ABS Eosinophils 0 10^3/ul (0-0.6); ABS Lymphocytes 0.3 10^3/ul (1.0-4.8); ABS Monocytes 0.7 10^3/ul (0-0.8); ABS Neutrophils 13.8 10^3/ul (1.5-7.7); ABS Nucleated RBC 0 10^3/ul; Eosinophil % 0.1 % (0-6); Nucleated Red Blood Cells % 0
[2017-11-21 06:06] LABS: EGFR Non-African American 11.6 (>60)
[2017-11-21] MEDS: Heparin VIAL(*) 5000 UNITS/ML VIAL (FIVE THOUSAND) SUBCUT SCH ×3 (06:30→23:08)
[2017-11-21] MEDS ORDERED: cloNIDine TAB* 0.1 MG PO ONE ×2 (08:14→09:33)
[2017-11-21] MEDS: Mometasone/Formoter 200/5 MDI INH SCH ×2 (08:15→20:30)
[2017-11-21] MEDS: Insulin LISPRO* 1 UNITS UNIT SUBCUT SCH ×3 (08:27→18:10)
[2017-11-21] MEDS: Isosorbide Mononitrate ER TAB* 60 MG PO SCH (08:28)
[2017-11-21] MEDS: Lisinopril TAB* 10 MG PO SCH (08:28)
[2017-11-21] MEDS: amLODIPine TAB* 5 MG PO SCH (08:28)
--- NOTE | 2017-11-21 09:49 | PN ---
Subjective Date of Service: 11/21/17 Interval History: Pt had been coughing x 2 days. Vapotherm weaned down from 30 to 5 L/min Objective Active Medications: Acetaminophen (Tylenol Tab*) 650 mg PO Q4H PRN PRN Reason: FEVER/PAIN Albuterol (Ventolin 2.5 Mg/3 Ml Neb.Bindu*) 2.5 mg INH Q2H PRN PRN Reason: SOB/WHEEZING Amlodipine Besylate (Norvasc Tab*) 10 mg PO QAM [facility] Last Admin: 11/21/17 08:28 Dose: 10 mg Clonidine HCl (Catapres Tab*) 0.3 mg PO TID [facility] Dextrose (D50w Syringe 50 Ml*) 12.5 gm IV PUSH .FOR FS < 60 - SS PRN PRN Reason: FS < 60 Gabapentin (Neurontin Cap(*)) 100 mg PO QPM [facility] Heparin Sodium (Porcine) (Heparin Vial(*)) 5,000 units SUBCUT Q8HR [facility] Last Admin: 11/21/17 06:30 Dose: 5,000 units Hydralazine HCl (Apresoline Iv*) 5 mg IV SLOW PU Q6H PRN PRN Reason: BLOOD PRESSURE Last Admin: 11/21/17 02:51 Dose: 5 mg Ceftriaxone Sodium 1,000 mg/ (Sodium Chloride) 50 mls @ 200 mls/hr IVPB Q24H [facility] Azithromycin 500 mg/ Sodium (Chloride) 250 mls @ 250 mls/hr IVPB Q24H [facility] Insulin Human Lispro (Humalog*) 0 units SUBCUT AC [facility]; Protocol Last Admin: 11/21/17 08:27 Dose: Not Given Isosorbide Mononitrate (Imdur Er Tab*) 60 mg PO DAILY [facility] Last Admin: 11/21/17 08:28 Dose: 60 mg Lisinopril (Prinivil Tab*) 30 mg PO QAM [facility] Last Admin: 11/21/17 08:28 Dose: 30 mg Mometasone Furoate/Formoterol Fumar (Dulera 200/5 Mdi*) 2 puff INH BID [facility] Last Admin: 11/21/17 08:15 Dose: Not Given Prednisone (Deltasone Tab*) 60 mg PO 0900 [facility] Last Admin: 11/21/17 01:53 Dose: 60 mg Vital Signs - 8 hr 11/21/17 11/21/1711/21/18 01:53 02:00 02:01 Temperature Pulse Rate 93 94 Respiratory 24 20 25 Rate Blood Pressure 228/114 (mmHg) O2 Sat by Pulse 100 100 Oximetry 11/21/17 11/21/17 11/21/17 02:22 02:34 02:45 Temperature 98.8 F 98.6 F Pulse Rate 93 96 92 Respiratory 22 26 23 Rate Blood Pressure 228/114 242/107 242/112 (mmHg) O2 Sat by Pulse 99 100 100 Oximetry 11/21/17 11/21/17 11/21/17 03:00 03:15 03:31 Temperature Pulse Rate 98 100 108 Respiratory 15 24 24 Rate Blood Pressure 215/100 214/95 225/108 (mmHg) O2 Sat by Pulse 99 97 95 Oximetry 11/21/17 11/21/17 11/21/17 03:41 03:45 04:00 Temperature 98.6 F Pulse Rate 109 110 Respiratory 19 21 Rate Blood Pressure 220/104 212/112 (mmHg) O2 Sat by Pulse 91 95 Oximetry 11/21/17 11/21/17 11/21/17 04:16 04:31 04:46 Temperature Pulse Rate 118 80 81 Respiratory 24 14 18 Rate Blood Pressure 232/102 192/91 201/73 (mmHg) O2 Sat by Pulse 93 96 97 Oximetry 11/21/17 11/21/17 11/21/17 05:00 05:30 05:45 Temperature Pulse Rate 79 77 78 Respiratory 16 16 16 Rate Blood Pressure 182/115 189/86 208/91 (mmHg) O2 Sat by Pulse 100 98 97 Oximetry 11/21/17 11/21/17 11/21/17 06:00 06:15 07:56 Temperature 100 F Pulse Rate 75 77 Respiratory 15 16 Rate Blood Pressure 201/92 194/93 (mmHg) O2 Sat by Pulse 97 98 Oximetry 11/21/17 08:19 Temperature Pulse Rate 89 Respiratory 25 Rate Blood Pressure (mmHg) O2 Sat by Pulse 96 Oximetry Oxygen Devices in Use Now: High Flow Heated Nasal Cannula Appearance: 67 yo M in nAD, AAOx3 Eyes: No Scleral Icterus, PERRLA Ears/Nose/Mouth/Throat: NL Teeth, Lips, Gums, Mucous Membranes Moist Neck: NL Appearance and Movements; NL JVP, Trachea Midline Respiratory: Symmetrical Chest Expansion and Respiratory Effort, - - coarse rhonchi b/l Cardiovascular: NL Sounds; No Murmurs; No JVD, RRR Abdominal: NL Sounds; No Tenderness; No Distention, No Hepatosplenomegaly Lymphatic: No Cervical Adenopathy Extremities: No Clubbing, Cyanosis, - - R forearm fistula with positive thrill. R subclavian dialysis cath inplace , no evidence of skin infection Skin: No Rash or Ulcers, No Nodules or Sclerosis Neurological: Alert and Oriented x 3, NL Muscle Strength and Tone Result Diagrams: 11/21/17 05:21 11/21/17 05:21 Additional Lab and Data: Lab Results 11/20/17 Range/Units 23:15 INR (Anticoag Therapy) 0.84 (0.77-1.02) Microbiology and Other Data: Microbiology 11/21/17 03:12 Gram Stain - Final Sputum 11/21/17 06:30 Influenza Types A,B Antigen - Final Nasopharyngeal Specimen received for Influenza A/B Molecular testing Assess/Plan/Problems-Billing Assessment: 67 year old man with HTN and diabetes, ESRD presented PNA and sepsis - Patient Problems (1) Acute hypoxemic respiratory failure Comment: due to pneumonia and sepsis due to it cont Ceftriaxone/Azithro cx pending cont Vapotherm-02 need improving (2) Hypertension Comment: uncontrolled. Pt's baseline SBP in 170's range. D/w /Vileka-pt's Clonidine was just increased to 0.3 mg BID. will increase it to TID. Cont hydralazine/lisinopril/Norvasc/imdur (3) End stage chronic kidney disease Comment: Continue dialysis per Dr. Vora's recommendations via tunnelled catheter. Pt's was dialysed on Thursday. Will tx hyperkalemia with Kayexalate. There is no avaliability of urgent dialysis over the weekend at [facility] if it were needed (4) Diabetes Comment: cont iSS (5) DVT prophylaxis Comment: - SC heparin Status and Disposition: inpatient
[2017-11-21] MEDS ORDERED: cloNIDine TAB* 0.1 MG PO SCH (14:00)
--- NOTE | 2017-11-21 15:09 | RAD ---
INDICATION: Cough and fever COMPARISON: Most recent comparison chest x-rays dated August 04, 2017 TECHNIQUE: PA and lateral views of the chest were obtained. FINDINGS: Again seen is a right internal jugular vein hemodialysis catheter with the tip terminating at the superior vena cava. There is a mild degree of cardiomegaly similar in appearance to the previous chest x-ray. There is a new density in the right lower lobe that appears to be localizing anteriorly in the lateral view chest x-ray. The pulmonary vasculature appears mildly engorged and indistinct consistent with vascular congestion. There is a mild degree of peribronchial cuffing depicted better on the lateral view images. There is no focal or lobar consolidation. Visualized bones are normal for the patient's age. There is no radiographic evidence of free air beneath the diaphragm IMPRESSION: 1. THERE IS A NEW INFILTRATE AT THE RIGHT LOWER LOBE. THIS CORRELATE TO SIGNS OR SYMPTOMS OF PNEUMONIA. 2. THE MILD PERIBRONCHIAL CUFFING COULD BE DUE TO BRONCHITIS AND/OR INFLAMMATORY LUNG DISEASE. 3. APPEARANCE IS CONSISTENT WITH MILD PULMONARY EDEMA SIMILAR IN APPEARANCE TO THE PRIOR CHEST X-RAY. R0
--- NOTE | 2017-11-21 16:04 | RAD ---
CPT II Codes: 3100F INDICATION: Hypertension COMPARISON: None TECHNIQUE: Multiple lovell scale, color and doppler tracings of the common, internal and external carotid and vertebral arteries were obtained. Stenosis estimations reflect velocity criteria that have been correlated to angiographic stenosis calculations based on the distal internal carotid diameter. Right carotid: There is partially calcified moderate plaque within the right carotid bulb. The peak systolic velocity in the proximal right internal carotid artery is 53 cm/s and the maximum end-diastolic velocity is 10 cm/s. The peak systolic velocity in the distal common carotid artery is 83 cm/s and the maximum end-diastolic velocity is 14 cm/s. The internal to common carotid ratio is 0.6. This would be consistent with a <50% stenosis. Left carotid: There is moderate partially calcified plaque within the left carotid bulb. The peak systolic velocity in the proximal right internal carotid artery is 86 cm/s and the maximum end-diastolic velocity is 21 cm/s. The peak systolic velocity in the distal common carotid artery is 90 cm/s and the maximum end-diastolic velocity is 13 cm/s. The internal to common carotid ratio is 1.0. This would be consistent with a <50% stenosis. Vertebrals: There is antegrade flow in both vertebral arteries. IMPRESSION: Mixed echogenicity plaque at the bilateral carotid bulbs without increased flow velocity to indicate significant stenosEs according to the NASCET criteria.
[2017-11-21] MEDS: Gabapentin CAP(*) 100 MG PO SCH (18:09)
[2017-11-21] MEDS: cefTRIAXone VIAL(*) 1,000 MG in NS 0.9% 50 ML* 50 ML IVPB SCH (23:07)
[2017-11-21] MEDS: Azithromycin IV(*) 500 MG in NS 0.9% 250 ML* 250 ML IVPB SCH (23:30)
[2017-11-22 06:27] LABS: Hematocrit 31 % (42-52); Hemoglobin 9.8 g/dl (14.0-18.0); Mean Corpuscular HGB Conc 32 g/dl (31-36); Mean Corpuscular Hemoglobin 24 pg (27-31); Mean Corpuscular Volume 75 fL (80-94); Mean Platelet Volume 6.9 um3 (7.4-10.4); Platelet Count 219 10^3/ul (150-450); Red Blood Count 4.15 10^6/ul (4.00-5.40); Red Cell Distribution Width 20 % (10.5-15); White Blood Count 12.5 10^3/ul (3.5-10.8)
[2017-11-22 06:35] LABS: EGFR Non-African American 8.3 (>60)
[2017-11-22] MEDS: Heparin VIAL(*) 5000 UNITS/ML VIAL (FIVE THOUSAND) SUBCUT SCH ×3 (06:35→21:14)
[2017-11-22 06:45] LABS: ABS Basophils 0 10^3/ul (0-0.2); ABS Neutrophils 10.8 10^3/ul (1.5-7.7); ABS Neutrophils 9.7 10^3/ul (1.5-7.7); Monocytes % 6 % (0-7)
[2017-11-22] MEDS: Mometasone/Formoter 200/5 MDI INH SCH (07:18)
[2017-11-22] MEDS ORDERED: Sodium Polystyrene ORAL.SOL* 15 GM/60 ML BTL PO ONE (08:06)
[2017-11-22] MEDS: hydrALAZINE IV* 20 MG/ML VIAL IV SLOW PU PRN (08:12)
[2017-11-22] MEDS: Insulin LISPRO* 1 UNITS UNIT SUBCUT SCH ×3 (08:52→16:29)
[2017-11-22] MEDS: predniSONE TAB* 20 MG PO SCH (08:53)
[2017-11-22] MEDS: Lisinopril TAB* 10 MG PO SCH (08:54)
[2017-11-22] MEDS: amLODIPine TAB* 5 MG PO SCH (08:55)
[2017-11-22] MEDS: Isosorbide Mononitrate ER TAB* 60 MG PO SCH (08:55)
[2017-11-22] MEDS: cloNIDine TAB* 0.1 MG PO SCH ×3 (08:55→21:14)
--- NOTE | 2017-11-22 14:18 | PN ---
Subjective Date of Service: 11/22/17 Interval History: Pt feels better. Still "wheezing". Less cough complaints Objective Active Medications: Acetaminophen (Tylenol Tab*) 650 mg PO Q4H PRN PRN Reason: FEVER/PAIN Albuterol (Ventolin 2.5 Mg/3 Ml Neb.Bindu*) 2.5 mg INH Q2H PRN PRN Reason: SOB/WHEEZING Last Admin: 11/22/17 02:48 Dose: 2.5 mg Amlodipine Besylate (Norvasc Tab*) 10 mg PO QAM [facility] Last Admin: 11/22/17 08:55 Dose: 10 mg Clonidine HCl (Catapres Tab*) 0.4 mg PO TID [facility] Last Admin: 11/22/17 14:03 Dose: 0.4 mg Dextrose (D50w Syringe 50 Ml*) 12.5 gm IV PUSH .FOR FS < 60 - SS PRN PRN Reason: FS < 60 Gabapentin (Neurontin Cap(*)) 100 mg PO QPM [facility] Last Admin: 11/21/17 18:09 Dose: 100 mg Heparin Sodium (Porcine) (Heparin Vial(*)) 5,000 units SUBCUT Q8HR [facility] Last Admin: 11/22/17 14:03 Dose: 5,000 units Hydralazine HCl (Apresoline Iv*) 5 mg IV SLOW PU Q6H PRN PRN Reason: BLOOD PRESSURE Last Admin: 11/22/17 08:12 Dose: 5 mg Ceftriaxone Sodium 1,000 mg/ (Sodium Chloride) 50 mls @ 200 mls/hr IVPB Q24H [facility] Last Admin: 11/21/17 23:07 Dose: 200 mls/hr Azithromycin 500 mg/ Sodium (Chloride) 250 mls @ 250 mls/hr IVPB Q24H [facility] Last Admin: 11/21/17 23:30 Dose: 250 mls/hr Insulin Human Lispro (Humalog*) 0 units SUBCUT AC [facility]; Protocol Last Admin: 11/22/17 11:49 Dose: 2 units Isosorbide Mononitrate (Imdur Er Tab*) 60 mg PO DAILY [facility] Last Admin: 11/22/17 08:55 Dose: 60 mg Lisinopril (Prinivil Tab*) 30 mg PO QAM [facility] Last Admin: 11/22/17 08:54 Dose: 30 mg Mometasone Furoate/Formoterol Fumar (Dulera 200/5 Mdi*) 2 puff INH BID [facility] Last Admin: 11/22/17 07:18 Dose: Not Given Prednisone (Deltasone Tab*) 60 mg PO 0900 [facility] Last Admin: 11/22/17 08:53 Dose: 60 mg Vital Signs - 8 hr 11/22/17 11/22/17 11/22/17 07:55 08:00 08:01 Temperature 97.5 F Pulse Rate 64 61 Respiratory 18 16 Rate Blood Pressure 210/69 201/69 (mmHg) O2 Sat by Pulse 100 100 Oximetry 11/22/17 11:15 Temperature 97.9 F Pulse Rate 73 Respiratory 20 Rate Blood Pressure 190/66 (mmHg) O2 Sat by Pulse 100 Oximetry Oxygen Devices in Use Now: High Flow Nasal Cannula Appearance: 67 yo m in nAD, aAOx3 Eyes: No Scleral Icterus, PERRLA Ears/Nose/Mouth/Throat: NL Teeth, Lips, Gums, Mucous Membranes Moist Neck: NL Appearance and Movements; NL JVP, Trachea Midline Respiratory: Symmetrical Chest Expansion and Respiratory Effort, - - diffuse b/ l wheezing and rhonchi at RLL Cardiovascular: NL Sounds; No Murmurs; No JVD, RRR Abdominal: NL Sounds; No Tenderness; No Distention, No Hepatosplenomegaly Lymphatic: No Cervical Adenopathy Extremities: No Clubbing, Cyanosis, - - R arm dialysis fistula noted Skin: No Rash or Ulcers, No Nodules or Sclerosis Neurological: Alert and Oriented x 3, NL Muscle Strength and Tone Result Diagrams: 11/22/17 05:49 11/22/17 05:49 Additional Lab and Data: Lab Results 11/20/17 Range/Units 23:15 INR (Anticoag Therapy) 0.84 (0.77-1.02) Microbiology and Other Data: Microbiology 11/21/17 03:12 Gram Stain - Final Sputum 11/21/17 06:30 Influenza Types A,B Antigen - Final Nasopharyngeal Specimen received for Influenza A/B Molecular testing Assess/Plan/Problems-Billing Assessment: 67 year old man with HTN and diabetes, ESRD presented PNA and sepsis - Patient Problems (1) Acute hypoxemic respiratory failure Comment: due to pneumonia and sepsis due to it cont Ceftriaxone/Azithro Sputum cx positive for Klebsiella Pneumoniae cont oxygen and prednisone for significant bronchospasm. Will start CECELIA duonebs and hold Dulera (2) Hypertension Comment: uncontrolled. Pt's baseline SBP in 170's range at home D/w /Vielka- will increase Clonidine to 0.4 mg TID. Cont hydralazine/lisinopril/Norvasc/imdur (3) End stage chronic kidney disease Comment: Continue dialysis per Dr. Vora's recommendations via tunnelled catheter. Pt's was dialysed on Thursday. Will tx hyperkalemia with Kayexalate. There is no avaliability of urgent dialysis over the weekend at [facility] if it were needed (4) Diabetes Comment: cont iSS (5) DVT prophylaxis Comment: - SC heparin Status and Disposition: inpatient
[2017-11-22] MEDS: Albuterol/Ipratropium NEB.SOL* Albuterol 2.5 MG/Ipratropium 0.5 MG 3 ML INH SCH ×2 (14:56→19:56)
[2017-11-22] MEDS: Gabapentin CAP(*) 100 MG PO SCH (17:00)
[2017-11-22] MEDS: cefTRIAXone VIAL(*) 1,000 MG in NS 0.9% 50 ML* 50 ML IVPB SCH (23:40)
[2017-11-23] MEDS: Azithromycin IV(*) 500 MG in NS 0.9% 250 ML* 250 ML IVPB SCH (00:23)
[2017-11-23] MEDS: Heparin VIAL(*) 5000 UNITS/ML VIAL (FIVE THOUSAND) SUBCUT SCH ×3 (06:38→23:04)
[2017-11-23] MEDS: Albuterol/Ipratropium NEB.SOL* Albuterol 2.5 MG/Ipratropium 0.5 MG 3 ML INH SCH ×3 (06:59→13:22)
[2017-11-23 07:09] LABS: EGFR Non-African American 6.4 (>60)
[2017-11-23] MEDS: Insulin LISPRO* 1 UNITS UNIT SUBCUT SCH ×3 (09:08→19:42)
[2017-11-23] MEDS: amLODIPine TAB* 5 MG PO SCH (10:02)
[2017-11-23] MEDS: cloNIDine TAB* 0.1 MG PO SCH ×3 (10:02→20:32)
[2017-11-23] MEDS: Isosorbide Mononitrate ER TAB* 60 MG PO SCH (10:02)
[2017-11-23] MEDS: Lisinopril TAB* 10 MG PO SCH (10:02)
[2017-11-23] MEDS: predniSONE TAB* 20 MG PO SCH (10:04)
[2017-11-23] MEDS ORDERED: Albuterol/Ipratropium NEB.SOL* Albuterol 2.5 MG/Ipratropium 0.5 MG 3 ML INH PRN (14:36)
--- NOTE | 2017-11-23 14:42 | PN ---
Subjective Date of Service: 11/23/17 Interval History: pt and RT think that duonebs are not helpful. pt continues to wheeze despite the scheduled tx. Overall pt feels better, c/o less cough, 02 needs down Objective Active Medications: Acetaminophen (Tylenol Tab*) 650 mg PO Q4H PRN PRN Reason: FEVER/PAIN Albuterol (Ventolin 2.5 Mg/3 Ml Neb.Bindu*) 2.5 mg INH Q2H PRN PRN Reason: SOB/WHEEZING Last Admin: 11/22/17 02:48 Dose: 2.5 mg Albuterol/Ipratropium (Duoneb (Albuterol 2.5 Mg/Ipratropium 0.5 Mg)) 1 neb INH [id number] AWAKE PRN PRN Reason: WHEEZING Amlodipine Besylate (Norvasc Tab*) 10 mg PO QAM [facility] Last Admin: 11/23/17 10:02 Dose: 10 mg Clonidine HCl (Catapres Tab*) 0.4 mg PO TID [facility] Last Admin: 11/23/17 13:00 Dose: 0.4 mg Dextrose (D50w Syringe 50 Ml*) 12.5 gm IV PUSH .FOR FS < 60 - SS PRN PRN Reason: FS < 60 Gabapentin (Neurontin Cap(*)) 100 mg PO QPM [facility] Last Admin: 11/22/17 17:00 Dose: 100 mg Heparin Sodium (Porcine) (Heparin Vial(*)) 5,000 units SUBCUT Q8HR [facility] Last Admin: 11/23/17 13:00 Dose: 5,000 units Hydralazine HCl (Apresoline Iv*) 5 mg IV SLOW PU Q6H PRN PRN Reason: BLOOD PRESSURE Last Admin: 11/22/17 08:12 Dose: 5 mg Ceftriaxone Sodium 1,000 mg/ (Sodium Chloride) 50 mls @ 200 mls/hr IVPB Q24H [facility] Last Admin: 11/22/17 23:40 Dose: 200 mls/hr Insulin Human Lispro (Humalog*) 0 units SUBCUT AC [facility]; Protocol Last Admin: 11/23/17 12:14 Dose: 1 units Isosorbide Mononitrate (Imdur Er Tab*) 60 mg PO DAILY [facility] Last Admin: 11/23/17 10:02 Dose: 60 mg Lisinopril (Prinivil Tab*) 30 mg PO QAM [facility] Last Admin: 11/23/17 10:02 Dose: 30 mg Prednisone (Deltasone Tab*) 60 mg PO 0900 [facility] Last Admin: 11/23/17 10:04 Dose: 60 mg Vital Signs - 8 hr 11/23/17 11/23/17 11/23/17 07:29 07:52 08:00 Temperature Pulse Rate 55 54 Respiratory 18 20 Rate Blood Pressure 191/62 (mmHg) O2 Sat by Pulse 99 100 Oximetry 11/23/17 11/23/17 11:32 13:22 Temperature 97.4 F Pulse Rate 51 55 Respiratory 20 18 Rate Blood Pressure 184/58 (mmHg) O2 Sat by Pulse 100 98 Oximetry Oxygen Devices in Use Now: Nasal Cannula Appearance: 67 yo M in NAD, aAOx3 Eyes: No Scleral Icterus, PERRLA Ears/Nose/Mouth/Throat: NL Teeth, Lips, Gums, Mucous Membranes Moist Neck: NL Appearance and Movements; NL JVP, Trachea Midline Respiratory: Symmetrical Chest Expansion and Respiratory Effort, - - diffuse wheezes and rhonchi b/l Cardiovascular: NL Sounds; No Murmurs; No JVD, RRR Abdominal: NL Sounds; No Tenderness; No Distention, No Hepatosplenomegaly Lymphatic: No Cervical Adenopathy Extremities: No Clubbing, Cyanosis, - - R arm fistulA maturing with positive thrill. R chest dialysis cath with no evidence of infection Skin: No Nodules or Sclerosis, - - R arm ecchymosis Neurological: Alert and Oriented x 3, NL Muscle Strength and Tone Result Diagrams: 11/22/17 05:49 11/23/17 06:20 Additional Lab and Data: Lab Results 11/20/17 Range/Units 23:15 INR (Anticoag Therapy) 0.84 (0.77-1.02) Microbiology and Other Data: Microbiology 11/21/17 03:12 Gram Stain - Final Sputum 11/21/17 06:30 Influenza Types A,B Antigen - Final Nasopharyngeal Specimen received for Influenza A/B Molecular testing Assess/Plan/Problems-Billing Assessment: 67 year old man with HTN and diabetes, ESRD presented PNA and sepsis - Patient Problems (1) Acute hypoxemic respiratory failure Comment: due to pneumonia and sepsis due to it cont Ceftriaxone, d/c Azithro Sputum cx positive for Klebsiella Pneumoniae cont oxygen and prednisone for significant bronchospasm. Will d/c duonebs, benefit doubtful, clinically pt is not improving after using them (2) Hypertension Comment: uncontrolled. Pt's baseline SBP in 170's range at home D/w /Vielka- will increase Clonidine to 0.4 mg TID. Cont hydralazine/lisinopril/Norvasc/imdur will observe if BP better after HD today (3) End stage chronic kidney disease Comment: Continue dialysis per Dr. Vora's recommendations via tunnelled catheter. HD today (4) Diabetes Comment: cont iSS (5) DVT prophylaxis Comment: - SC heparin Status and Disposition: inpatient
--- NOTE | 2017-11-23 15:34 | RAD ---
Indication: Evaluate for renal artery stenosis. Real-time sonography of the kidneys was performed. The right kidney measures 7.8 x 4.3 x 5.0 cm with echogenic kidneys. No cortical flow could be identified. Evaluation of the right renal artery is limited due to inability for patient to hold his breath. The left kidney measures 9.8 x 4.3 x 5.4 cm. Echogenic kidneys are noted. No hydronephrosis is noted. The left renal artery could not be evaluated as the patient could not cooperate with examination. Pleural effusion and ascites is noted. IMPRESSION: Bilateral echogenic kidneys. Renal arteries could not be evaluated due to lack of patient cooperation.
[2017-11-23] MEDS ORDERED: Epoetin Alfa* 3,000 UNITS/ML VIAL IV ONE (17:00)
[2017-11-23] MEDS ORDERED: Heparin DIALYSIS ONLY(*) 1,000 UNITS/ML VIAL DIALYSIS ONE (17:00)
[2017-11-23] MEDS ORDERED: Epoetin Alfa* 2,000 UNITS/ML VIAL IV ONE (17:00)
[2017-11-23] MEDS: Gabapentin CAP(*) 100 MG PO SCH (20:32)
[2017-11-23] MEDS: cefTRIAXone VIAL(*) 1,000 MG in NS 0.9% 50 ML* 50 ML IVPB SCH (23:03)
[2017-11-24] MEDS: hydrALAZINE IV* 20 MG/ML VIAL IV SLOW PU PRN (04:17)
[2017-11-24 05:31] LABS: ABS Basophils 0 10^3/ul (0-0.2); ABS Eosinophils 0 10^3/ul (0-0.6); ABS Lymphocytes 0.7 10^3/ul (1.0-4.8); ABS Monocytes 0.5 10^3/ul (0-0.8); ABS Neutrophils 8.4 10^3/ul (1.5-7.7); ABS Nucleated RBC 0 10^3/ul; Eosinophil % 0 % (0-6); Hematocrit 32 % (42-52); Hemoglobin 10.5 g/dl (14.0-18.0); Lymphocyte % 7.5 % (25-47); Mean Corpuscular HGB Conc 33 g/dl (31-36); Mean Corpuscular Hemoglobin 24 pg (27-31); Mean Corpuscular Volume 74 fL (80-94); Mean Platelet Volume 7.5 um3 (7.4-10.4); Nucleated Red Blood Cells % 0.2; Platelet Count 244 10^3/ul (150-450); Red Blood Count 4.29 10^6/ul (4.00-5.40); Red Cell Distribution Width 20 % (10.5-15); White Blood Count 9.7 10^3/ul (3.5-10.8)
[2017-11-24] MEDS: Heparin VIAL(*) 5000 UNITS/ML VIAL (FIVE THOUSAND) SUBCUT SCH ×3 (06:04→23:06)
[2017-11-24] MEDS: Insulin LISPRO* 1 UNITS UNIT SUBCUT SCH ×3 (08:31→17:25)
[2017-11-24] MEDS: predniSONE TAB* 20 MG PO SCH (08:33)
[2017-11-24] MEDS: Isosorbide Mononitrate ER TAB* 60 MG PO SCH (08:34)
[2017-11-24] MEDS: Lisinopril TAB* 10 MG PO SCH (08:35)
[2017-11-24] MEDS: amLODIPine TAB* 5 MG PO SCH (08:35)
[2017-11-24] MEDS: cloNIDine TAB* 0.1 MG PO SCH ×3 (08:36→20:25)
[2017-11-24] MEDS: Docusate CAP* 100 MG PO SCH ×2 (14:22→20:25)
--- NOTE | 2017-11-24 14:26 | PN ---
Subjective Date of Service: 11/24/17 Interval History: HOSPITALIST PROGRESS NOTE Patient seen and examined at bedside. Care reviewed and d/w Carlton Lomeli RN. He feels better today. Dyspnea is improved. States he coughed and expectorated a lot last night and his breathing felt easier today as he got "the phlegm out off of my chest". Family History: Unchanged from Admission Social History: Unchanged from Admission Past Medical History: Unchanged from Admission Objective Active Medications: Acetaminophen (Tylenol Tab*) 650 mg PO Q4H PRN PRN Reason: FEVER/PAIN Albuterol (Ventolin 2.5 Mg/3 Ml Neb.Bindu*) 2.5 mg INH Q2H PRN PRN Reason: SOB/WHEEZING Last Admin: 11/22/17 02:48 Dose: 2.5 mg Albuterol/Ipratropium (Duoneb (Albuterol 2.5 Mg/Ipratropium 0.5 Mg)) 1 neb INH [id number] AWAKE PRN PRN Reason: WHEEZING Amlodipine Besylate (Norvasc Tab*) 10 mg PO QAM [facility] Last Admin: 11/24/17 08:35 Dose: 10 mg Clonidine HCl (Catapres Tab*) 0.4 mg PO TID [facility] Last Admin: 11/24/17 13:48 Dose: 0.4 mg Dextrose (D50w Syringe 50 Ml*) 12.5 gm IV PUSH .FOR FS < 60 - SS PRN PRN Reason: FS < 60 Docusate Sodium (Colace Cap*) 100 mg PO BID CECELIA Gabapentin (Neurontin Cap(*)) 100 mg PO QPM [facility] Last Admin: 11/23/17 20:32 Dose: 100 mg Heparin Sodium (Porcine) (Heparin Vial(*)) 5,000 units SUBCUT Q8HR [facility] Last Admin: 11/24/17 13:49 Dose: 5,000 units Hydralazine HCl (Apresoline Iv*) 5 mg IV SLOW PU Q6H PRN PRN Reason: BLOOD PRESSURE Last Admin: 11/24/17 04:17 Dose: 5 mg Ceftriaxone Sodium 1,000 mg/ (Sodium Chloride) 50 mls @ 200 mls/hr IVPB Q24H [facility] Last Admin: 11/23/17 23:03 Dose: 200 mls/hr Insulin Human Lispro (Humalog*) 0 units SUBCUT AC [facility]; Protocol Last Admin: 11/24/17 12:30 Dose: 1 units Isosorbide Mononitrate (Imdur Er Tab*) 60 mg PO DAILY [facility] Last Admin: 11/24/17 08:34 Dose: 60 mg Lisinopril (Prinivil Tab*) 30 mg PO QAM [facility] Last Admin: 11/24/17 08:35 Dose: 30 mg Polyethylene Glycol/Electrolytes (Miralax*) 17 gm PO 0800,2100 [facility] Prednisone (Deltasone Tab*) 60 mg PO 0900 [facility] Last Admin: 11/24/17 08:33 Dose: 60 mg Vital Signs - 8 hr 11/24/17 11/24/17 11/24/17 07:37 08:00 11:05 Temperature 98.0 F 97.7 F Pulse Rate 56 53 Respiratory 18 18 18 Rate Blood Pressure 181/58 191/63 (mmHg) O2 Sat by Pulse 96 97 Oximetry 11/24/17 13:45 Temperature Pulse Rate 59 Respiratory 18 Rate Blood Pressure (mmHg) O2 Sat by Pulse 96 Oximetry Oxygen Devices in Use Now: None Appearance: Pleasant gentleman sitting up in bed in NAD. Eyes: No Scleral Icterus Ears/Nose/Mouth/Throat: Mucous Membranes Moist Neck: Trachea Midline Respiratory: Symmetrical Chest Expansion and Respiratory Effort, Clear to Auscultation Cardiovascular: RRR - Normal S1 and S2 Abdominal: NL Sounds; No Tenderness; No Distention Extremities: - - Right arm fistula +thrill. Right ACW HD catheter in place, clean and dry Neurological: Alert and Oriented x 3, NL Muscle Strength and Tone Result Diagrams: 11/24/17 05:07 11/24/17 05:07 Assess/Plan/Problems-Billing Assessment: Mr Rojas is a 67 yo M with PMH of HTN, diabetes, ESRD on HD, PEA in 08/17 (likely secondary to uremia), who presented to ED with cough and chills, found to have pneumonia. - Patient Problems (1) Acute hypoxemic respiratory failure Comment: - Secondary to pneumonia. - Much improved - patient is now on RA. (2) Sepsis Comment: - Presentation on admission compatible with sepsis on leukocytosis, fever, and tachycardia. - Source is pneumonia. (3) Klebsiella pneumonia Comment: - Sputum culture positive for Klebsiella Pneumoniae. - Continue Ceftriaxone. - Taper steroids. (4) Hypertension Comment: - Still uncontrolled. Pt's baseline SBP in 170's range at home. - Continue Lisinopril 30mg/day, Amlodipine 10mg/day, Imdur 60mg/day and Clonidine 0.4 mg TID (recently increased). - HR in the high 50s and SBP still elevated - may need to add another agent. (5) Diabetes Comment: - Controlled - continue Lispro SS. (6) End stage chronic kidney disease Comment: - Continue dialysis as scheduled. (7) DVT prophylaxis Comment: - SQ heparin. (8) Full code status Status and Disposition: inpatient
[2017-11-24] MEDS: Polyethylene Glycol 3350* 17 GM PACKET PO SCH ×2 (14:29→20:26)
--- NOTE | 2017-11-24 17:23 | CONSULT ---
Consult Consult: Endocrinology Inpatient Consult Note Reason for Consultation: type 2 diabetes with hypoglycemia Reason for Admission: lower respiratory infection with sepsis syndrome ASSESSMENT: 67 yo M with well-controlled DM (A1c 6.4% in June 2017), ESRD on HD and HTN, now admitted for LRI with sepsis. His history is notable for symptomatic hypoglycemia occurring in the morning and requiring frequent carbohydrate rescue. Note is made of modest hyperglycemia during this admission , most likely due to use of systemic steroids. His A1c goal is <7.5% and glipizide therapy should be reduced to target this number and avoid overnight hypoglycemia. There is no indication for insulin at this time. PLAN: - continue lispro SSI while inpatient (no need for scheduled insulin therapy) - REDUCE glipizide XL to 5mg QAM only at discharge (d/c QPM dose) - RECHECK A1c and fructosamine this admission (d/c glipizide entirely if A1c <6% ) - f/u with PCP or nephrology HPI: 67-year-old male patient with history of hypertension, diabetes, BPH and ESRD on HD, who presented to ED on 11/21/17 with cough, dyspnea, fatigue and malaise. He was hypoxemic on presentation with airspace disease on CXR and had signs of early sepsis. He was admitted to ICU for respiratory failure and hypertensive urgency. In addition to ESRD, he has diabetic retinopathy ("foggy vision") and neuropathy ("tingling"). He was diagnosed with T2DM >10 years ago and has used only oral medications since then. He has never required insulin. His tells me that he routinely has BG<80 occurring upon awakening in the morning and accompanied by tremors, altered mental status and tremors. These symptoms always resolve with provision of juice or other snack. He has never had severe hypoglycemia or seizure. Home Meds: glipiZIDE TAB.XL* [Glucotrol Xl*] 5 mg PO QPM 07/22/17 [History Confirmed ] glipiZIDE TAB.XL* [Glucotrol Xl*] 10 mg PO QAM 07/22/17 [History Confirmed 11/21] Polyethylene Glycol 3350* [Miralax*] 17 gm PO DAILY PRN 30 Days #30 packet 07/30 [Rx Confirmed 11/21/17] Acetaminophen TAB* [Tylenol TAB*] 650 mg PO Q6H PRN #30 tab 08/05/17 [Rx Confirmed 11/21/17] Docusate CAP* [Colace Cap*] 100 mg PO BID PRN #40 cap 08/05/17 [Rx Confirmed ] Gabapentin CAP(*) [Neurontin 100 mg CAP(*)] 100 mg PO QPM 09/16/17 [History Confirmed 11/21/17] Lisinopril TAB* [Prinivil TAB 10 MG*] 30 mg PO QAM 09/16/17 [History Confirmed 11/21/17] amLODIPine TAB* [Norvasc 5 mg TAB*] 10 mg PO QAM 09/16/17 [History Confirmed ] Isosorbide Mononitrate ER TAB* [Imdur ER TAB*] 60 mg PO DAILY 11/21/17 [History Confirmed 11/21/17] cloNIDine TAB* [Catapres 0.1 MG TAB*] 0.2 mg PO BID 11/21/17 [History Confirmed 11/21/17] Hospital Meds: Acetaminophen (Tylenol Tab*) 650 mg PO Q4H PRN PRN Reason: FEVER/PAIN Albuterol (Ventolin 2.5 Mg/3 Ml Neb.Bindu*) 2.5 mg INH Q2H PRN PRN Reason: SOB/WHEEZING Last Admin: 11/22/17 02:48 Dose: 2.5 mg Albuterol/Ipratropium (Duoneb (Albuterol 2.5 Mg/Ipratropium 0.5 Mg)) 1 neb INH [id number] AWAKE PRN PRN Reason: WHEEZING Amlodipine Besylate (Norvasc Tab*) 10 mg PO QAM [facility] Last Admin: 11/24/17 08:35 Dose: 10 mg Clonidine HCl (Catapres Tab*) 0.4 mg PO TID [facility] Last Admin: 11/24/17 13:48 Dose: 0.4 mg Dextrose (D50w Syringe 50 Ml*) 12.5 gm IV PUSH .FOR FS < 60 - SS PRN PRN Reason: FS < 60 Docusate Sodium (Colace Cap*) 100 mg PO BID [facility] Last Admin: 11/24/17 14:22 Dose: 100 mg Gabapentin (Neurontin Cap(*)) 100 mg PO QPM [facility] Last Admin: 11/23/17 20:32 Dose: 100 mg Heparin Sodium (Porcine) (Heparin Vial(*)) 5,000 units SUBCUT Q8HR [facility] Last Admin: 11/24/17 13:49 Dose: 5,000 units Hydralazine HCl (Apresoline Iv*) 5 mg IV SLOW PU Q6H PRN PRN Reason: BLOOD PRESSURE Last Admin: 11/24/17 04:17 Dose: 5 mg Ceftriaxone Sodium 1,000 mg/ (Sodium Chloride) 50 mls @ 200 mls/hr IVPB Q24H [facility] Last Admin: 11/23/17 23:03 Dose: 200 mls/hr Insulin Human Lispro (Humalog*) 0 units SUBCUT AC [facility]; Protocol Last Admin: 11/24/17 12:30 Dose: 1 units Isosorbide Mononitrate (Imdur Er Tab*) 60 mg PO DAILY [facility] Last Admin: 11/24/17 08:34 Dose: 60 mg Lisinopril (Prinivil Tab*) 30 mg PO QAM [facility] Last Admin: 11/24/17 08:35 Dose: 30 mg Polyethylene Glycol/Electrolytes (Miralax*) 17 gm PO 0800,2100 [facility] Last Admin: 11/24/17 14:29 Dose: 17 gm Prednisone (Deltasone Tab*) 50 mg PO 0900 [facility] FAM: no relevant family history ALL: NKDA SOC: lives with ; no tobacco, alcohol or drugs OBJECTIVE: Vital Signs: Temp Pulse Resp BP Pulse Ox 97.4 F 50 16 172/63 98 11/24/17 15:13 11/24/17 15:13 11/24/17 15:13 11/24/17 15:13 11/24/17 15:13 GEN: alert, pleasant, NAD ENT: no thyromegaly CHEST: rhonchorous breath sounds, no crackles, central line RUE CV: RRR, no murmur EXT: shunt in RUE with thrill, no edema ABD: S/NT/ND Laboratory Tests 11/20/17 11/20/17 11/20/17 23:15 23:15 23:15 WBC 8.4 RBC 4.77 Hgb 11.6 L Hct 36 L MCV 74 L MCH 24 L MCHC 33 RDW 20 H Plt Count 271 MPV 8.1 Neut % (Auto) Not Reportable Lymph % (Auto) Not Reportable [place] % (Auto) Not Reportable Eos % (Auto) Not Reportable Baso % (Auto) Not Reportable Absolute Neuts (auto) 6.6 Absolute Lymphs (auto) Not Reportable Absolute Monos (auto) Not Reportable Absolute Eos (auto) Not Reportable Absolute Basos (auto) Not Reportable Absolute Nucleated RBC Not Reportable Immature Gran % 2 Neutrophils % 82 Lymphocytes % 11 L Monocytes % 3 Eosinophils % 2 Basophils % 0 Myelocytes % 1 Promyelocytes % 1 Nucleated RBC % Not Reportable Abs Neuts (Manual) 6.9 Abs Lymphs (Manual) 0.9 L Abs Monocytes (Manual) 0.3 Absolute Eos (Manual) 0.2 Abs Basophils (Manual) 0 Normal RBC Morphology Not Reportable Anisocytosis 1+ ESR 43 H INR (Anticoag Therapy) 0.84 Sodium 130 L Potassium 5.3 H Chloride 99 L Carbon Dioxide 22 Anion Gap 9 BUN 14 Creatinine 4.59 H Est GFR ( Amer) 15.6 Est GFR (Non-Af Amer) 12.9 BUN/Creatinine Ratio 3.1 L Glucose 114 H POC Glucose (mg/dL) Lactic Acid Calcium 9.0 Total Bilirubin 0.60 AST 30 ALT < 3 L Alkaline Phosphatase 336 H Troponin I 0.04 H* C-Reactive Protein 13.96 H Total Protein 7.4 Albumin 3.7 Globulin 3.7 Albumin/Globulin Ratio 1.0 Procalcitonin Influenza A (Rapid) Influenza B (Rapid) 11/20/17 11/20/17 11/21/17 23:15 23:15 01:19 WBC RBC Hgb Hct MCV MCH MCHC RDW Plt Count MPV Neut % (Auto) Lymph % (Auto) [place] % (Auto) Eos % (Auto) Baso % (Auto) Absolute Neuts (auto) Absolute Lymphs (auto) Absolute Monos (auto) Absolute Eos (auto) Absolute Basos (auto) Absolute Nucleated RBC Immature Gran % Neutrophils % Lymphocytes % Monocytes % Eosinophils % Basophils % Myelocytes % Promyelocytes % Nucleated RBC % Abs Neuts (Manual) Abs Lymphs (Manual) Abs Monocytes (Manual) Absolute Eos (Manual) Abs Basophils (Manual) Normal RBC Morphology Anisocytosis ESR INR (Anticoag Therapy) Sodium Potassium Chloride Carbon Dioxide Anion Gap BUN Creatinine Est GFR ( Amer) Est GFR (Non-Af Amer) BUN/Creatinine Ratio Glucose POC Glucose (mg/dL) Lactic Acid 1.2 Calcium Total Bilirubin AST ALT Alkaline Phosphatase Troponin I 0.04 H* C-Reactive Protein Total Protein Albumin Globulin Albumin/Globulin Ratio Procalcitonin 0.2 Influenza A (Rapid) Influenza B (Rapid) 11/21/17 11/21/17 11/21/17 05:21 05:21 05:21 WBC 14.9 H RBC 4.33 Hgb 10.5 L Hct 32 L MCV 74 L MCH 24 L MCHC 33 RDW 19 H Plt Count 211 MPV 6.8 L Neut % (Auto) 92.9 H Lymph % (Auto) 2.0 L [place] % (Auto) 4.6 Eos % (Auto) 0.1 Baso % (Auto) 0.4 Absolute Neuts (auto) 13.8 H Absolute Lymphs (auto) 0.3 L Absolute Monos (auto) 0.7 Absolute Eos (auto) 0 Absolute Basos (auto) 0.1 Absolute Nucleated RBC 0 Immature Gran % Neutrophils % Lymphocytes % Monocytes % Eosinophils % Basophils % Myelocytes % Promyelocytes % Nucleated RBC % 0 Abs Neuts (Manual) Abs Lymphs (Manual) Abs Monocytes (Manual) Absolute Eos (Manual) Abs Basophils (Manual) Normal RBC Morphology Anisocytosis ESR INR (Anticoag Therapy) 0.93 Sodium 130 L Potassium 5.4 H Chloride 100 L Carbon Dioxide 23 Anion Gap 7 BUN 17 Creatinine 5.03 H Est GFR ( Amer) 14.0 Est GFR (Non-Af Amer) 11.6 BUN/Creatinine Ratio 3.4 L Glucose 135 H POC Glucose (mg/dL) Lactic Acid Calcium 8.4 L Total Bilirubin AST ALT Alkaline Phosphatase Troponin I 0.04 H* C-Reactive Protein Total Protein Albumin Globulin Albumin/Globulin Ratio Procalcitonin Influenza A (Rapid) Influenza B (Rapid) 11/21/17 11/21/17 11/21/17 06:36 07:56 12:30 WBC RBC Hgb Hct MCV MCH MCHC RDW Plt Count MPV Neut % (Auto) Lymph % (Auto) [place] % (Auto) Eos % (Auto) Baso % (Auto) Absolute Neuts (auto) Absolute Lymphs (auto) Absolute Monos (auto) Absolute Eos (auto) Absolute Basos (auto) Absolute Nucleated RBC Immature Gran % Neutrophils % Lymphocytes % Monocytes % Eosinophils % Basophils % Myelocytes % Promyelocytes % Nucleated RBC % Abs Neuts (Manual) Abs Lymphs (Manual) Abs Monocytes (Manual) Absolute Eos (Manual) Abs Basophils (Manual) Normal RBC Morphology Anisocytosis ESR INR (Anticoag Therapy) Sodium Potassium Chloride Carbon Dioxide Anion Gap BUN Creatinine Est GFR ( Amer) Est GFR (Non-Af Amer) BUN/Creatinine Ratio Glucose POC Glucose (mg/dL) 129 H 256 H Lactic Acid Calcium Total Bilirubin AST ALT Alkaline Phosphatase Troponin I C-Reactive Protein Total Protein Albumin Globulin Albumin/Globulin Ratio Procalcitonin Influenza A (Rapid) Negative Influenza B (Rapid) Negative 11/21/17 11/22/17 11/22/17 17:57 05:49 05:49 WBC 12.5 H RBC 4.15 Hgb 9.8 L Hct 31 L MCV 75 L MCH 24 L MCHC 32 RDW 20 H Plt Count 219 MPV 6.9 L Neut % (Auto) Not Reportable Lymph % (Auto) Not Reportable [place] % (Auto) Not Reportable Eos % (Auto) Not Reportable Baso % (Auto) Not Reportable Absolute Neuts (auto) 9.7 H Absolute Lymphs (auto) Not Reportable Absolute Monos (auto) Not Reportable Absolute Eos (auto) Not Reportable Absolute Basos (auto) Not Reportable Absolute Nucleated RBC Not Reportable Immature Gran % Neutrophils % 86 H Lymphocytes % 5 L Monocytes % 6 Eosinophils % 3 Basophils % 0 Myelocytes % Promyelocytes % Nucleated RBC % Not Reportable Abs Neuts (Manual) 10.8 H Abs Lymphs (Manual) 0.6 L Abs Monocytes (Manual) 0.8 Absolute Eos (Manual) 0.4 Abs Basophils (Manual) 0 Normal RBC Morphology Not Reportable Anisocytosis 1+ ESR INR (Anticoag Therapy) Sodium 132 L Potassium 5.5 H Chloride 99 L Carbon Dioxide 24 Anion Gap 9 BUN 33 H Creatinine 6.74 H Est GFR ( Amer) 10.0 Est GFR (Non-Af Amer) 8.3 BUN/Creatinine Ratio 4.9 L Glucose 129 H POC Glucose (mg/dL) 222 H Lactic Acid Calcium 7.9 L Total Bilirubin AST ALT Alkaline Phosphatase Troponin I C-Reactive Protein Total Protein Albumin Globulin Albumin/Globulin Ratio Procalcitonin Influenza A (Rapid) Influenza B (Rapid) 11/22/17 11/22/17 11/22/17 07:32 11:25 16:08 WBC RBC Hgb Hct MCV MCH MCHC RDW Plt Count MPV Neut % (Auto) Lymph % (Auto) [place] % (Auto) Eos % (Auto) Baso % (Auto) Absolute Neuts (auto) Absolute Lymphs (auto) Absolute Monos (auto) Absolute Eos (auto) Absolute Basos (auto) Absolute Nucleated RBC Immature Gran % Neutrophils % Lymphocytes % Monocytes % Eosinophils % Basophils % Myelocytes % Promyelocytes % Nucleated RBC % Abs Neuts (Manual) Abs Lymphs (Manual) Abs Monocytes (Manual) Absolute Eos (Manual) Abs Basophils (Manual) Normal RBC Morphology Anisocytosis ESR INR (Anticoag Therapy) Sodium Potassium Chloride Carbon Dioxide Anion Gap BUN Creatinine Est GFR ( Amer) Est GFR (Non-Af Amer) BUN/Creatinine Ratio Glucose POC Glucose (mg/dL) 137 H 219 H 236 H Lactic Acid Calcium Total Bilirubin AST ALT Alkaline Phosphatase Troponin I C-Reactive Protein Total Protein Albumin Globulin Albumin/Globulin Ratio Procalcitonin Influenza A (Rapid) Influenza B (Rapid) 11/23/17 11/23/17 11/23/17 06:20 07:15 11:19 WBC RBC Hgb Hct MCV MCH MCHC RDW Plt Count MPV Neut % (Auto) Lymph % (Auto) [place] % (Auto) Eos % (Auto) Baso % (Auto) Absolute Neuts (auto) Absolute Lymphs (auto) Absolute Monos (auto) Absolute Eos (auto) Absolute Basos (auto) Absolute Nucleated RBC Immature Gran % Neutrophils % Lymphocytes % Monocytes % Eosinophils % Basophils % Myelocytes % Promyelocytes % Nucleated RBC % Abs Neuts (Manual) Abs Lymphs (Manual) Abs Monocytes (Manual) Absolute Eos (Manual) Abs Basophils (Manual) Normal RBC Morphology Anisocytosis ESR INR (Anticoag Therapy) Sodium 130 L Potassium 5.6 H Chloride 96 L Carbon Dioxide 23 Anion Gap 11 BUN 47 H Creatinine 8.37 H Est GFR ( Amer) 7.8 Est GFR (Non-Af Amer) 6.4 BUN/Creatinine Ratio 5.6 L Glucose 233 H POC Glucose (mg/dL) 226 H 175 H Lactic Acid Calcium 7.3 L Total Bilirubin AST ALT Alkaline Phosphatase Troponin I C-Reactive Protein Total Protein Albumin Globulin Albumin/Globulin Ratio Procalcitonin Influenza A (Rapid) Influenza B (Rapid) 11/24/17 11/24/17 11/24/17 05:07 05:07 07:25 WBC 9.7 RBC 4.29 Hgb 10.5 L Hct 32 L MCV 74 L MCH 24 L MCHC 33 RDW 20 H Plt Count 244 MPV 7.5 Neut % (Auto) 86.8 H Lymph % (Auto) 7.5 L [place] % (Auto) 5.4 Eos % (Auto) 0 Baso % (Auto) 0.3 Absolute Neuts (auto) 8.4 H Absolute Lymphs (auto) 0.7 L Absolute Monos (auto) 0.5 Absolute Eos (auto) 0 Absolute Basos (auto) 0 Absolute Nucleated RBC 0 Immature Gran % Neutrophils % Lymphocytes % Monocytes % Eosinophils % Basophils % Myelocytes % Promyelocytes % Nucleated RBC % 0.2 Abs Neuts (Manual) Abs Lymphs (Manual) Abs Monocytes (Manual) Absolute Eos (Manual) Abs Basophils (Manual) Normal RBC Morphology Anisocytosis ESR INR (Anticoag Therapy) Sodium 128 L Potassium 5.0 Chloride 94 L Carbon Dioxide 24 Anion Gap 10 BUN 37 H Creatinine 6.24 H Est GFR ( Amer) 10.9 Est GFR (Non-Af Amer) 9.0 BUN/Creatinine Ratio 5.9 L Glucose 278 H POC Glucose (mg/dL) 254 H Lactic Acid Calcium 7.5 L Total Bilirubin AST ALT Alkaline Phosphatase Troponin I C-Reactive Protein Total Protein Albumin Globulin Albumin/Globulin Ratio Procalcitonin Influenza A (Rapid) Influenza B (Rapid) 11/24/17 11/24/17 11:22 17:04 WBC RBC Hgb Hct MCV MCH MCHC RDW Plt Count MPV Neut % (Auto) Lymph % (Auto) [place] % (Auto) Eos % (Auto) Baso % (Auto) Absolute Neuts (auto) Absolute Lymphs (auto) Absolute Monos (auto) Absolute Eos (auto) Absolute Basos (auto) Absolute Nucleated RBC Immature Gran % Neutrophils % Lymphocytes % Monocytes % Eosinophils % Basophils % Myelocytes % Promyelocytes % Nucleated RBC % Abs Neuts (Manual) Abs Lymphs (Manual) Abs Monocytes (Manual) Absolute Eos (Manual) Abs Basophils (Manual) Normal RBC Morphology Anisocytosis ESR INR (Anticoag Therapy) Sodium Potassium Chloride Carbon Dioxide Anion Gap BUN Creatinine Est GFR ( Amer) Est GFR (Non-Af Amer) BUN/Creatinine Ratio Glucose POC Glucose (mg/dL) 190 H 286 H Lactic Acid Calcium Total Bilirubin AST ALT Alkaline Phosphatase Troponin I C-Reactive Protein Total Protein Albumin Globulin Albumin/Globulin Ratio Procalcitonin Influenza A (Rapid) Influenza B (Rapid)
[2017-11-24] MEDS: Gabapentin CAP(*) 100 MG PO SCH (17:51)
[2017-11-24] MEDS: cefTRIAXone VIAL(*) 1,000 MG in NS 0.9% 50 ML* 50 ML IVPB SCH (23:06)
[2017-11-25] MEDS: hydrALAZINE IV* 20 MG/ML VIAL IV SLOW PU PRN (03:52)
[2017-11-25] MEDS: Heparin VIAL(*) 5000 UNITS/ML VIAL (FIVE THOUSAND) SUBCUT SCH ×3 (05:38→22:41)
[2017-11-25] MEDS: Polyethylene Glycol 3350* 17 GM PACKET PO SCH ×2 (07:31→22:44)
[2017-11-25] MEDS: cloNIDine TAB* 0.1 MG PO SCH ×3 (07:32→22:41)
[2017-11-25] MEDS: amLODIPine TAB* 5 MG PO SCH (07:33)
[2017-11-25] MEDS: Docusate CAP* 100 MG PO SCH ×2 (07:33→22:41)
[2017-11-25] MEDS: Isosorbide Mononitrate ER TAB* 60 MG PO SCH (07:34)
[2017-11-25] MEDS: Lisinopril TAB* 10 MG PO SCH (07:34)
[2017-11-25] MEDS: predniSONE TAB* 50 MG PO SCH (08:47)
[2017-11-25] MEDS: Insulin LISPRO* 1 UNITS UNIT SUBCUT SCH ×3 (08:47→17:21)
--- NOTE | 2017-11-25 16:19 | PN ---
Subjective Date of Service: 11/25/17 Interval History: HOSPITALIST PROGRESS NOTE Patient seen and examined at bedside. Care reviewed and d/w Carlton Lomeli RN. He feels better today, dyspnea and cough are improved. Family History: Unchanged from Admission Social History: Unchanged from Admission Past Medical History: Unchanged from Admission Objective Active Medications: Acetaminophen (Tylenol Tab*) 650 mg PO Q4H PRN PRN Reason: FEVER/PAIN Albuterol (Ventolin 2.5 Mg/3 Ml Neb.Bindu*) 2.5 mg INH Q2H PRN PRN Reason: SOB/WHEEZING Last Admin: 11/22/17 02:48 Dose: 2.5 mg Albuterol/Ipratropium (Duoneb (Albuterol 2.5 Mg/Ipratropium 0.5 Mg)) 1 neb INH [id number] AWAKE PRN PRN Reason: WHEEZING Amlodipine Besylate (Norvasc Tab*) 10 mg PO QAM ON [facility] OF [facility] Last Admin: 11/25/17 07:33 Dose: 10 mg Clonidine HCl (Catapres Tab*) 0.6 mg PO TID ON [facility] OF [facility] Dextrose (D50w Syringe 50 Ml*) 12.5 gm IV PUSH .FOR FS < 60 - SS PRN PRN Reason: FS < 60 Docusate Sodium (Colace Cap*) 100 mg PO BID ON [facility] Last Admin: 11/25/17 07:33 Dose: 100 mg Gabapentin (Neurontin Cap(*)) 100 mg PO QPM [facility] Last Admin: 11/24/17 17:51 Dose: 100 mg Heparin Sodium (Porcine) (Heparin Vial(*)) 5,000 units SUBCUT Q8HR [facility] Last Admin: 11/25/17 15:22 Dose: 5,000 units Hydralazine HCl (Apresoline Iv*) 5 mg IV SLOW PU Q6H PRN PRN Reason: BLOOD PRESSURE Last Admin: 11/25/17 03:52 Dose: 5 mg Ceftriaxone Sodium 1,000 mg/ (Sodium Chloride) 50 mls @ 200 mls/hr IVPB Q24H [facility] Last Admin: 11/24/17 23:06 Dose: 200 mls/hr Insulin Human Lispro (Humalog*) 0 units SUBCUT AC [facility]; Protocol Last Admin: 11/25/17 12:27 Dose: 2 units Isosorbide Mononitrate (Imdur Er Tab*) 60 mg PO DAILY [facility] Last Admin: 11/25/17 07:34 Dose: 60 mg Lisinopril (Prinivil Tab*) 40 mg PO QAM ON [facility] Polyethylene Glycol/Electrolytes (Miralax*) 17 gm PO 0800,2100 [facility] Last Admin: 11/25/17 07:31 Dose: 17 gm Prednisone (Deltasone Tab*) 50 mg PO 0900 [facility] Last Admin: 11/25/17 08:47 Dose: 50 mg Vital Signs - 8 hr 11/25/17 11:08 Temperature 97.4 F Pulse Rate 53 Respiratory 16 Rate Blood Pressure 182/59 (mmHg) O2 Sat by Pulse 98 Oximetry Oxygen Devices in Use Now: None Appearance: Pleasant gentleman sitting up in bed in NAD. Eyes: No Scleral Icterus Ears/Nose/Mouth/Throat: Mucous Membranes Moist Neck: Trachea Midline Respiratory: Symmetrical Chest Expansion and Respiratory Effort, Clear to Auscultation Cardiovascular: RRR - Normal S1 and S2 Neurological: Alert and Oriented x 3, NL Muscle Strength and Tone Result Diagrams: 11/24/17 05:07 11/24/17 05:07 Assess/Plan/Problems-Billing Assessment: Mr Rojas is a 67 yo M with PMH of HTN, diabetes, ESRD on HD, PEA in 08/17 (likely secondary to uremia), who presented to ED with cough and chills, found to have pneumonia. - Patient Problems (1) Acute hypoxemic respiratory failure Comment: - Secondary to pneumonia. - Much improved - patient is now on RA. (2) Sepsis Comment: - Presentation on admission compatible with sepsis on leukocytosis, fever, and tachycardia. - Source is pneumonia. (3) Klebsiella pneumonia Comment: - Sputum culture positive for Klebsiella Pneumoniae. - Continue Ceftriaxone. - Taper steroids. (4) Hypertension Comment: - Still uncontrolled but becomes symptomatic when BP around 170s. D/w Dr Vora - recommended increasing Lisinopril to 40mg/day, continue Amlodipine 10mg/day, Imdur 60mg/day and reduce Clonidine to 0.3 mg TID. - May need Caverdilol and Minoxidil as outpatient. (5) Diabetes Comment: - Controlled - continue Lispro SS. - Endocrinology input appreciated - decrease Glipizide to 5mg/daily on discharge. (6) End stage chronic kidney disease Comment: - Continue dialysis as scheduled. (7) DVT prophylaxis Comment: - SQ heparin. (8) Full code status Status and Disposition: inpatient
[2017-11-25] MEDS: Gabapentin CAP(*) 100 MG PO SCH (17:21)
[2017-11-25] MEDS ORDERED: Heparin DIALYSIS ONLY(*) 1,000 UNITS/ML VIAL DIALYSIS ONE ×2 (20:00→21:00)
[2017-11-25] MEDS ORDERED: cloNIDine TAB* 0.1 MG PO SCH (21:00)
[2017-11-25] MEDS: cefTRIAXone VIAL(*) 1,000 MG in NS 0.9% 50 ML* 50 ML IVPB SCH (22:45)
[2017-11-26] MEDS: hydrALAZINE IV* 20 MG/ML VIAL IV SLOW PU PRN ×2 (00:03→08:28)
[2017-11-26] MEDS: Heparin VIAL(*) 5000 UNITS/ML VIAL (FIVE THOUSAND) SUBCUT SCH (06:25)
--- NOTE | 2017-11-26 08:00 | PN ---
Progress Note - Progress Note Date of Service: 11/26/17 Note: [facility] Inpatient Follow-Up Note Reason for Consult: hyperglycemia Reason for Admission: respiratory failure ASSESSMENT: 67 yo M with ESRD and diabetes, now admitted for acute respiratory failure. His condition is improving, though he remains weak. He is now experienced significant hyperglycemia >300mg/dL despite sliding scale coverage. This is likely due to ongoing dose of high-dose prednisone and discontinuation of glipizide, which had been causing hypoglycemia at home prior to admission. A reduced dose of this agent should be sufficient to prevent steroid-induced hyperglycemia. PLAN: - start glipizide XL 5mg once daily, first dose this AM, continue at discharge - recommend scheduled insulin (5 units regular with meals, 5 units NPH QHS) if patient remains hospitalized SUBJECTIVE: As above. Acetaminophen (Tylenol Tab*) 650 mg PO Q4H PRN PRN Reason: FEVER/PAIN Albuterol (Ventolin 2.5 Mg/3 Ml Neb.Bindu*) 2.5 mg INH Q2H PRN PRN Reason: SOB/WHEEZING Last Admin: 11/22/17 02:48 Dose: 2.5 mg Albuterol/Ipratropium (Duoneb (Albuterol 2.5 Mg/Ipratropium 0.5 Mg)) 1 neb INH [id number] AWAKE PRN PRN Reason: WHEEZING Amlodipine Besylate (Norvasc Tab*) 10 mg PO QAM [facility] Last Admin: 11/25/17 07:33 Dose: 10 mg Clonidine HCl (Catapres Tab*) 0.3 mg PO TID [facility] Last Admin: 11/25/17 22:41 Dose: 0.3 mg Dextrose (D50w Syringe 50 Ml*) 12.5 gm IV PUSH .FOR FS < 60 - SS PRN PRN Reason: FS < 60 Docusate Sodium (Colace Cap*) 100 mg PO BID [facility] Last Admin: 11/25/17 22:41 Dose: 100 mg Gabapentin (Neurontin Cap(*)) 100 mg PO QPM [facility] Last Admin: 11/25/17 17:21 Dose: 100 mg Heparin Sodium (Porcine) (Heparin Vial(*)) 5,000 units SUBCUT Q8HR [facility] Last Admin: 11/26/17 06:25 Dose: 5,000 units Hydralazine HCl (Apresoline Iv*) 5 mg IV SLOW PU Q6H PRN PRN Reason: BLOOD PRESSURE Last Admin: 11/26/17 00:03 Dose: 5 mg Ceftriaxone Sodium 1,000 mg/ (Sodium Chloride) 50 mls @ 200 mls/hr IVPB Q24H [facility] Last Admin: 11/25/17 22:45 Dose: 200 mls/hr Insulin Human Lispro (Humalog*) 0 units SUBCUT AC [facility]; Protocol Last Admin: 11/25/17 17:21 Dose: 4 units Isosorbide Mononitrate (Imdur Er Tab*) 60 mg PO DAILY [facility] Last Admin: 11/25/17 07:34 Dose: 60 mg Lisinopril (Prinivil Tab*) 40 mg PO QAM [facility] Polyethylene Glycol/Electrolytes (Miralax*) 17 gm PO 0800,2100 [facility] Last Admin: 11/25/17 22:44 Dose: 17 gm Prednisone (Deltasone Tab*) 50 mg PO 0900 [facility] Last Admin: 11/25/17 08:47 Dose: 50 mg OBJECTIVE: Vital Signs: Temp Pulse Resp BP Pulse Ox 98.4 F 58 16 217/62 96 11/26/17 07:24 11/26/17 07:24 11/26/17 07:47 11/26/17 07:24 11/26/17 07:24 Labs: 11/23/17 11/24/17 11/24/17 11:19 05:07 05:07 WBC 9.7 RBC 4.29 Hgb 10.5 L Hct 32 L MCV 74 L MCH 24 L MCHC 33 RDW 20 H Plt Count 244 MPV 7.5 Neut % (Auto) 86.8 H Lymph % (Auto) 7.5 L [place] % (Auto) 5.4 Eos % (Auto) 0 Baso % (Auto) 0.3 Absolute Neuts (auto) 8.4 H Absolute Lymphs (auto) 0.7 L Absolute Monos (auto) 0.5 Absolute Eos (auto) 0 Absolute Basos (auto) 0 Absolute Nucleated RBC 0 Nucleated RBC % 0.2 Sodium 128 L Potassium 5.0 Chloride 94 L Carbon Dioxide 24 Anion Gap 10 BUN 37 H Creatinine 6.24 H Est GFR ( Amer) 10.9 Est GFR (Non-Af Amer) 9.0 BUN/Creatinine Ratio 5.9 L Glucose 278 H POC Glucose (mg/dL) 175 H Hemoglobin A1c Calcium 7.5 L 11/24/17 11/24/17 11/24/17 05:07 07:25 11:22 WBC RBC Hgb Hct MCV MCH MCHC RDW Plt Count MPV Neut % (Auto) Lymph % (Auto) [place] % (Auto) Eos % (Auto) Baso % (Auto) Absolute Neuts (auto) Absolute Lymphs (auto) Absolute Monos (auto) Absolute Eos (auto) Absolute Basos (auto) Absolute Nucleated RBC Nucleated RBC % Sodium Potassium Chloride Carbon Dioxide Anion Gap BUN Creatinine Est GFR ( Amer) Est GFR (Non-Af Amer) BUN/Creatinine Ratio Glucose POC Glucose (mg/dL) 254 H 190 H Hemoglobin A1c 5.5 Calcium 11/24/17 11/25/17 11/25/17 17:04 06:52 11:59 WBC RBC Hgb Hct MCV MCH MCHC RDW Plt Count MPV Neut % (Auto) Lymph % (Auto) [place] % (Auto) Eos % (Auto) Baso % (Auto) Absolute Neuts (auto) Absolute Lymphs (auto) Absolute Monos (auto) Absolute Eos (auto) Absolute Basos (auto) Absolute Nucleated RBC Nucleated RBC % Sodium Potassium Chloride Carbon Dioxide Anion Gap BUN Creatinine Est GFR ( Amer) Est GFR (Non-Af Amer) BUN/Creatinine Ratio Glucose POC Glucose (mg/dL) 286 H 250 H 229 H Hemoglobin A1c Calcium 11/25/17 11/26/17 17:01 07:19 WBC RBC Hgb Hct MCV MCH MCHC RDW Plt Count MPV Neut % (Auto) Lymph % (Auto) [place] % (Auto) Eos % (Auto) Baso % (Auto) Absolute Neuts (auto) Absolute Lymphs (auto) Absolute Monos (auto) Absolute Eos (auto) Absolute Basos (auto) Absolute Nucleated RBC Nucleated RBC % Sodium Potassium Chloride Carbon Dioxide Anion Gap BUN Creatinine Est GFR ( Amer) Est GFR (Non-Af Amer) BUN/Creatinine Ratio Glucose POC Glucose (mg/dL) 306 H 266 H Hemoglobin A1c Calcium
[2017-11-26] MEDS ORDERED: glipiZIDE TAB.XL* 5 MG PO ONE (08:17)
[2017-11-26] MEDS: Polyethylene Glycol 3350* 17 GM PACKET PO SCH (08:28)
[2017-11-26] MEDS: Insulin LISPRO* 1 UNITS UNIT SUBCUT SCH (08:28)
[2017-11-26] MEDS: cloNIDine TAB* 0.1 MG PO SCH (08:29)
[2017-11-26] MEDS: Isosorbide Mononitrate ER TAB* 60 MG PO SCH (08:29)
[2017-11-26] MEDS: Docusate CAP* 100 MG PO SCH (08:29)
[2017-11-26] MEDS: amLODIPine TAB* 5 MG PO SCH (08:29)
[2017-11-26] MEDS: predniSONE TAB* 50 MG PO SCH (08:30)
[2017-11-26] MEDS ORDERED: Lisinopril TAB* 10 MG PO SCH (09:00)
[2017-11-26 11:48] VITALS: BP 175/58
--- NOTE | 2017-11-27 07:28 | DS ---
CC: Dr. Menezes; Dr. Vora * DISCHARGE SUMMARY: DATE OF ADMISSION: 11/21/17 DATE OF DISCHARGE: 11/26/17 PRIMARY CARE PROVIDER: Dr. Menezes. WAFER POLISHER: Dr. Vora. DISCHARGE DIAGNOSES: 1. Sepsis, present on admission. 2. Acute hypoxemic respiratory failure. 3. Klebsiella pneumoniae. 4. Uncontrolled hypertension. SECONDARY DIAGNOSES: 1. Hypertension. 2. Type 2 diabetes. 3. Benign prostatic hypertrophy. 4. End-stage renal disease status post AV fistula to the right arm and PermCath placement to the right internal jugular vein. MEDICATIONS: 1. Amlodipine 10 mg p.o. daily. 2. Gabapentin 100 mg p.o. at bedtime. 3. Imdur 60 mg p.o. daily. Medication change: 1. Clonidine was increased to 0.3 mg p.o. t.i.d. 2. Lisinopril was increased to 40 mg p.o. daily. New medications: 1. MiraLAX 17 g p.o. daily as needed for constipation. 2. Acetaminophen 650 mg p.o. q.6 hours p.r.n. pain or fever. 3. Colace 100 mg p.o. b.i.d. as needed for constipation. 4. Prednisone taper as follows: 40 mg p.o. daily for 3 days, then 30 mg for 3 days, 20 mg for 3 days, 10 mg for 3 days, and stop. 5. Glipizide XL was reduced to 5 mg p.o. daily. 6. Cefpodoxime 200 mg p.o., after dialysis 3 more doses. HOSPITAL COURSE: Mr. Rojas is a 67-year-old male with a past medical history stated above that presented to the emergency room with complaints of cough and chills. For more details about his presentation, I refer you to his history and physical. In the emergency room, he had a chest x-ray that revealed a new infiltrate at the right lower lobe, mild peribronchial cuffing that could be due to bronchitis and/or inflammatory lung disease. The patient had a white cell count of 14.9, low-grade temperature of 100.2, and he was tachycardic. His presentation was compatible with sepsis as the source was pneumonia. The patient's sputum culture grew Klebsiella pneumoniae and he was treated in the hospital with ceftriaxone. He also had a component of bronchitis and responded to steroids. Regarding his diabetes, the patient was having episodes of hypoglycemia at home and was using sulfonylurea in a patient with no end-stage renal disease, so an vice president quality improvement consultation was requested with Dr. Mitchell Thorne. His assessment was the patient had a well-controlled diabetes; ESRD, on hemodialysis ; hypertension, admitted for pneumonia with sepsis. His history is notable for symptomatic hypoglycemia occurring in the morning and requiring a frequent carbohydrate rescue. Note is made of hyperglycemia during this admission most likely due to use of systemic steroids. He thought that his glipizide therapy should be reduced to avoid overnight hypoglycemia and he felt there is no indication for insulin at this time. At this point, the patient is being discharged on glipizide 5 mg p.o. daily, but his A1c is 5.5, so after he is done with his steroid taper, maybe he will not require medication anymore, but maybe just diet, so he will need to be monitored as outpatient. Another issue during the hospital stay was uncontrolled hypertension. When the patient's systolic blood pressure became lower than 170, he was symptomatic, so the goal was to keep him between 170s and 180s. We increased his clonidine and lisinopril with a somewhat reasonable blood pressure control, but he will need further management as outpatient. I discussed the case with Dr. Vora, and as outpatient, he may need addition of carvedilol and minoxidil. He had improvement of his symptoms. He did not require supplemental oxygen anymore and he was felt to be stable for discharge. PHYSICAL EXAMINATION: Vital Signs: Temperature 97.3, heart rate is 67, respiratory rate is 19, oxygen saturation is 98% on room air, blood pressure is 175/58. General: The patient is a pleasant gentleman, sitting up in bed, in no acute distress. CVS: Normal S1, S2. Regular rate and rhythm. Chest: Breath sounds present bilaterally with no added sounds. Extremities: The patient has a right arm AV fistula with positive thrill. His right IJ hemodialysis catheter is clean with no drainage. Neuro: He is alert and oriented x3, able to move all 4 extremities. DIET: Renal, consistent carb diet. ACTIVITY: As tolerated. DISPOSITION: To home. STATUS WHILE IN THE HOSPITAL: Inpatient. Please keep in mind this is a summarized version of this patient's hospital stay. If you need more information, please feel free to call me at [phone] or please obtain full medical records. TIME SPENT: Approximately 45 minutes were spent to complete this discharge. [id number]/[facility] #: [id number] CARISSA
== END 2017-11-26 11:53 | disposition home health service (06) | DRG 871 ==
LOC: ED 22:12 → ICU 11-21 00:24 → MEDTELE 11-21 21:36
PROVIDERS: ADMIT Hospitalist; ATTEND Internal Medicine
PROC: 5A1D70Z Performance of Urinary Filtration, Intermittent, Less than 6 Hours Per Day (ICD-10-PCS; principal; 2017-11-23)
PROC: 5A1D70Z Performance of Urinary Filtration, Intermittent, Less than 6 Hours Per Day (ICD-10-PCS; 2017-11-25)
DX: A41.9 Sepsis, unspecified organism (principal); J96.01 Acute respiratory failure with hypoxia; J15.0 Pneumonia due to Klebsiella pneumoniae; N18.6 End stage renal disease; I13.2 Hypertensive heart and chronic kidney disease with heart failure and with stage 5 chronic kidney disease, or end stage renal disease; N40.0 Benign prostatic hyperplasia without lower urinary tract symptoms; E11.22 Type 2 diabetes mellitus with diabetic chronic kidney disease; J40 Bronchitis, not specified as acute or chronic; E11.65 Type 2 diabetes mellitus with hyperglycemia; E11.649 Type 2 diabetes mellitus with hypoglycemia without coma; I16.0 Hypertensive urgency; R74.8 Abnormal levels of other serum enzymes; E87.5 Hyperkalemia; I50.9 Heart failure, unspecified; G47.33 Obstructive sleep apnea (adult) (pediatric); E11.42 Type 2 diabetes mellitus with diabetic polyneuropathy; Z96.1 Presence of intraocular lens; T38.0X5A Adverse effect of glucocorticoids and synthetic analogues, initial encounter; Y92.239 Unspecified place in hospital as the place of occurrence of the external cause; R55 Syncope and collapse; I95.9 Hypotension, unspecified; E11.319 Type 2 diabetes mellitus with unspecified diabetic retinopathy without macular edema; Z99.2 Dependence on renal dialysis; Z79.84 Long term (current) use of oral hypoglycemic drugs; Z84.1 Family history of disorders of kidney and ureter; Z82.0 Family history of epilepsy and other diseases of the nervous system; Z98.42 Cataract extraction status, left eye; Z98.41 Cataract extraction status, right eye
CPT/HCPCS: 36140; 36415; 71046; 75710; 80048; 80051; 80053; 83036; 83605; 84145; 84484; 85025; 85610; 85652; 86140; 87040; 87070; 87077; 87186; 87205; 90935; 93005; 93880; 93975; 94640; 99285; A9270-GY; G0257; J0360; J0456; J0690; J0696; J0885; J1644; J2250; J2765; J3010; J7512

== ENCOUNTER 2017-12-06 09:25 | Emergency (ER) | payer MEDICARE ==
--- NOTE | 2017-12-06 10:02 | ED ---
Hypertension - HPI Summary HPI Summary: The patient is a 67 y/o M presenting to [facility] with a chief complaint of shaking , mild chest pain, and HTN starting this morning around 0700. He woke up shaking after a normal night's rest of approximately 9 hours. He has had this shaking before but not in a long time. He is also experiencing chest pressure and heaviness over the right anterior of his chest, which is where his dialysis catheter is placed. He additionally c/o a parietal headache and SOB. He denies abnormal urination and BM, cough, and fever. His CP has since resolved in the ED , so his pain is rated 0/10 in severity at this time. Since he is currently a dialysis patient and he gets treatments on Mondays, Wednesdays, and Fridays, so he is expected to have a treatment tomorrow. He also has a hx of HTN, which he takes medication for. He states that he has taken all of his medications today, except for carvedilol, which he has not taken for two days. - History of Current Complaint Chief Complaint: EDHypertension Stated Complaint: DIZZINESS/HIGH BP Time Seen by Provider: 12/06/17 09:47 Hx Obtained From: Patient Onset/Duration: Started Hours Ago - this morning at 0700, Resolved - CP has resolved Timing: Lasting Hours Aggravating Factor(s): Nothing Alleviating Factor(s): Nothing Associated Signs & Symptoms: Chest Pain - pressure and heaviness, Headaches - parietal, SOB, Other: - NEGATIVE: abnormal urination and BM, cough, fever Current Medications: Beta Kwasi - Allergies/Home Medications Allergies/Adverse Reactions: Allergies Allergy/AdvReac Type Severity Reaction Status Date / Time No Known Allergies Allergy Verified 11/18/17 15:03 PMH/Surg Hx/FS Hx/Imm Hx Endocrine/Hematology History: Reports: Hx Anticoagulant Therapy - ASA, Hx Diabetes - type 2 Denies: Hx Bone Marrow Disease, Hx Sickle Cell Disease, Hx Anemia Cardiovascular History: Reports: Hx Congestive Heart Failure - hx of diastolic dysfunction w/acute chronic heart failure, Hx Hypertension, Other Cardiovascular Problems/Disorders - right AV fistula, stenosis of vascular devices Respiratory History: Reports: Hx Sleep Apnea - 08/17 dx [facility]- can't tolerate CPAP Denies: Hx Asthma, Hx Chronic Obstructive Pulmonary Disease (COPD) History: Reports: Hx Dialysis Sensory History: Reports: Hx Contacts or Glasses - reading glasses Denies: Hx Hearing Aid Opthamlomology History: Reports: Hx Contacts or Glasses - reading glasses EENT History: Denies: Hx Deafness Neurological History: Reports: Hx Nerve Disease - peripheral neuropathy- patient denied- per md note, Hx Peripheral Neuropathy Denies: Hx Dementia, Hx Developmental Delay - Cancer History Hx Chemotherapy: No - Surgical History Surgery Procedure, Year, and Place: Circumcision 08/01 [facility]. Extraction of cataract to the right eye with an IOL implant 04/07 [facility]. Extraction of cataract to the left eye with an IOL implant 01/10 [facility]. Insertion of residential hemosplit hemodialysis catheter 07/29/17 [facility] Hx Anesthesia Reactions: No Infectious Disease History: No Infectious Disease History: Denies: Traveled Outside the [place] in Last 30 Days - Family History Known Family History: Negative: Cardiac Disease, Hypertension - Social History Alcohol Use: None Hx Substance Use: No Substance Use Type: Reports: None Hx Tobacco Use: No Smoking Status (MU): Never Smoked Tobacco Type: Cigarettes Have You Smoked in the Last Year: No Review of Systems Negative: Fever Positive: Chest Pain - heaviness in near catheter on right anterior chest Positive: Shortness Of Breath. Negative: Cough Neurological: Other - shaking in bilateral feet Positive: Headache All Other Systems Reviewed And Are Negative: Yes Physical Exam - Summary Physical Exam Summary: Appearance: Well appearing, no pain distress Skin: warm, dry, reflects adequate perfusion Head/face: normal Eyes: EOMI, DEE ENT: mucous membranes moist Neck: supple, non-tender Respiratory: fine crackles in bases, breath sounds present Cardiovascular: RRR, pulses symmetrical, dialysis catheter in right chest Abdomen: non-tender, soft Bowel Sounds: present Musculoskeletal: normal, strength/ROM intact Neuro: normal, sensory motor intact, A&Ox3 Triage Information Reviewed: Yes Vital Signs On Initial Exam: Initial Vitals Temp Pulse Resp BP Pulse Ox 97.4 F 52 16 239/73 96 12/06/17 09:40 12/06/17 09:40 12/06/17 09:40 12/06/17 09:40 12/06/17 09:40 Vital Signs Reviewed: Yes Diagnostics - Vital Signs Vital Signs Temp Pulse Resp BP Pulse Ox 12/06/17 09:40 97.4 F 52 16 239/73 96 - Laboratory Result Diagrams: 12/06/17 10:10 12/06/17 10:10 Lab Statement: Any lab studies that have been ordered have been reviewed, and results considered in the medical decision making process. - Radiology CXR Xray Interpretation: No Acute Changes - Alveolar and interstitial pulmonary edema with small pleural effusions. Worsening compared with the prior exam. ED physician has reviewed this report. Radiology Interpretation Completed By: Radiologist - EKG 10:04 Cardiac Rate: Bradycardia - 54 BPM EKG Rhythm: Sinus Bradycardia EKG Interpretation: Non-specific T wave. Nml axis. Hypertension Course/Dx - Course Course Of Treatment: Patient with history of end-stage renal disease on dialysis with chronically uncontrolled hypertension area he is a Thursday, Thursday, Thursday dialysis patient and would be due for dialysis today Asher in that pattern however no dialysis is done on Thursday. He does have some fluid overload evident on chest x-ray. His blood pressure was managed here with IV hydralazine with significant improvement. His symptoms have not recurred. He is due for dialysis in the morning. He'll follow this up with his a operator and primary care physician. - Diagnoses Differential Diagnosis/HQI PQRI: Hypertension, Hypertensive Crisis, Hypertensive Urgency, Myocardial Infarction, Renal Disease, Other - Sepsis Provider Diagnoses: End stage renal disease on dialysis, Uncontrolled hypertension, Iron deficiency anemia - Critical Care Time Critical Care Time: 30-74 min - Critical care time is exclusive of separately billable procedures Discharge - Sign-Out/Discharge Documenting (check all that apply): Patient Departure - Patient will be discharged home. - Discharge Plan Condition: Improved Disposition: HOME Patient Education Materials: Dialysis Diet (DC) Referrals: Brad Menezes MD [Primary Care Provider] - Surjit Vora MD [Medical Doctor] - Additional Instructions: Return with fevers, chills, worse, new symptoms or other concerns. Low-salt diet. Be sure to go to dialysis first thing in the morning. - Billing Disposition and Condition Condition: IMPROVED Disposition: Home - Attestation Statements Document Initiated by Scribe: Yes Documenting Scribe: Lillian Fitzgerald Provider For Whom Maraibe is Documenting (Include Credential): Dr. Shyam Silverman MD Scribe Attestation: Lillian Browning, scribed for Dr. Shyam Silverman MD on 12/06/17 at 1457. Scribe Documentation Reviewed: Yes Provider Attestation: The documentation as recorded by the Lillian caballero accurately reflects the service I personally performed and the decisions made by me, Dr. Shyam Silverman MD
[2017-12-06 10:21] LABS: ABS Basophils 0.1 10^3/ul (0-0.2); ABS Eosinophils 0 10^3/ul (0-0.6); ABS Lymphocytes 0.4 10^3/ul (1.0-4.8); ABS Monocytes 0.9 10^3/ul (0-0.8); ABS Neutrophils 10.2 10^3/ul (1.5-7.7); ABS Nucleated RBC 0 10^3/ul; Eosinophil % 0.4 % (0-6); Hematocrit 32 % (42-52); Hemoglobin 10.2 g/dl (14.0-18.0); Lymphocyte % 3.4 % (25-47); Mean Corpuscular HGB Conc 32 g/dl (31-36); Mean Corpuscular Hemoglobin 24 pg (27-31); Mean Corpuscular Volume 75 fL (80-94); Mean Platelet Volume 8.2 um3 (7.4-10.4); Nucleated Red Blood Cells % 0; Platelet Count 194 10^3/ul (150-450); Red Blood Count 4.22 10^6/ul (4.00-5.40); Red Cell Distribution Width 20 % (10.5-15); White Blood Count 11.7 10^3/ul (3.5-10.8)
[2017-12-06] MEDS ORDERED: hydrALAZINE IV* 20 MG/ML VIAL IV SLOW PU ONE (10:26)
[2017-12-06 10:28] LABS: INR 0.85 (0.77-1.02)
[2017-12-06 10:39] LABS: EGFR Non-African American 5.4 (>60)
--- NOTE | 2017-12-06 10:39 | RAD ---
Indication: High blood pressure. Shaking. History of diastolic cardiac dysfunction with chronic heart failure. Comparison: November 20, 2017 Technique: Upright AP 1027 hours Report: Distal tip of the dual-lumen tunneled RIGHT chest wall central venous catheter at level of the RIGHT atrium. Cardiomegaly and prominent ill-defined central pulmonary vasculature with perihilar alveolar opacities. Diffuse prominence of the interstitial markings. Small bilateral pleural effusions. Negative for pneumothorax. IMPRESSION: #. Alveolar and interstitial pulmonary edema with small pleural effusions. Worsening compared with the prior exam.
[2017-12-06 12:20] VITALS: BP 162/74
== END 2017-12-06 12:16 | disposition home or self-care (01) ==
LOC: ED 09:25
DX: I13.2 Hypertensive heart and chronic kidney disease with heart failure and with stage 5 chronic kidney disease, or end stage renal disease (principal); N18.6 End stage renal disease; I50.30 Unspecified diastolic (congestive) heart failure; Z99.2 Dependence on renal dialysis; D50.0 Iron deficiency anemia secondary to blood loss (chronic); G47.33 Obstructive sleep apnea (adult) (pediatric); R07.9 Chest pain, unspecified; I44.5 Left posterior fascicular block; Z79.899 Other long term (current) drug therapy
CPT/HCPCS: 36415; 71045; 80053; 83605; 83880; 84443; 84484; 85025; 85610; 93005; 96374; 99283; J0360

== ENCOUNTER 2017-12-07 14:34 | Inpatient (IN) | payer MEDICARE ==
[2017-12-07] MEDS ORDERED: LORazepam INJ* 2 MG/ML 1 ML VIAL ONE (15:05)
[2017-12-07 15:14] LABS: Hematocrit 37 % (42-52); Hemoglobin 11.9 g/dl (14.0-18.0); Mean Corpuscular HGB Conc 32 g/dl (31-36); Mean Corpuscular Hemoglobin 24 pg (27-31); Mean Corpuscular Volume 75 fL (80-94); Mean Platelet Volume 7.8 um3 (7.4-10.4); Platelet Count 219 10^3/ul (150-450); Red Cell Distribution Width 20 % (10.5-15); White Blood Count 13.8 10^3/ul (3.5-10.8)
[2017-12-07] MEDS ORDERED: niCARdipine 0.1MG/ML IVPREMIX* 20 MG/200 ML BAG IV ONE (15:23)
[2017-12-07] MEDS ORDERED: LORazepam INJ* 2 MG/ML 1 ML VIAL IV PUSH ONE (15:35)
--- NOTE | 2017-12-07 15:36 | RAD ---
INDICATION: Seizure COMPARISON: None. TECHNIQUE: Contiguous axial sections of the brain were obtained from the skull base to the vertex without contrast. FINDINGS: The ventricles, cisterns and sulci mild symmetrical involutional changes. Is a mild degree of periventricular and subcortical white matter hypoattenuation most consistent with chronic microvascular disease. Otherwise the young-white matter differentiation is adequately maintained and there is no sulcal effacement. No significant focal abnormality or mass effect is present. There is no evidence for intracranial hemorrhage. No significant focal osseous abnormality is present. The visualized portion of the paranasal sinuses appear clear. There is a fusion of the right mastoid air cells IMPRESSION: 1. Intracranial CT findings are consistent with mild involutional changes and mild microvascular disease. 2. Right-sided mastoid air cell effusion. Please correlate to signs or symptoms of mastoiditis.
[2017-12-07 15:37] LABS: INR 0.82 (0.77-1.02)
--- NOTE | 2017-12-07 15:40 | ED ---
Neurological HPI - HPI Summary HPI Summary: This patient is a 67 year old male BIBA to [facility] with a chief complaint of seizures since approx. 2 hours ago. EMS states that patient was at dialysis when he exhibited seizure-like activity. The pain is rated 9/10 in severity. Symptoms aggravated by nothing. Symptoms alleviated by nothing. Level 5 Caveat: AMS - History of Current Complaint Chief Complaint: EDSeizure Stated Complaint: AMS Time Seen by Provider: 12/07/17 14:49 Hx Obtained From: Patient, EMS Hx From Patient Unobtainable Due To: Altered Mental Status Onset/Duration: Started hours ago, Still Present Current Severity: Mild Pain Intensity: 9 Pain Scale Used: 0-10 Numeric Character: Motor Weakness Episode Lasting: Seconds/Minutes Syncope Context: Witnessed Aggravating: Nothing Alleviating: Nothing - Additional Pertinent History Primary Care Physician: TERESA - Allergy/Home Medications Allergies/Adverse Reactions: Allergies Allergy/AdvReac Type Severity Reaction Status Date / Time No Known Allergies Allergy Verified 12/23/17 12:00 Home Medications: Home Medications Carvedilol TAB* [Coreg TAB*] 12.5 mg PO BID 12/07/17 [History Confirmed 12/07/17 ] Lisinopril 40 mg PO QPM 12/07/17 [History Confirmed 12/07/17] amLODIPine TAB* [Norvasc 5 mg TAB*] 10 mg PO QPM 12/07/17 [History Confirmed 10/17] glipiZIDE TAB* [Glucotrol TAB*] 5 mg PO QPM 12/07/17 [History Confirmed 12/07/17 ] PMH/Surg Hx/FS Hx/Imm Hx Previously Healthy: No Endocrine/Hematology History: Reports: Hx Anticoagulant Therapy - ASA, Hx Diabetes - type 2 Denies: Hx Bone Marrow Disease, Hx Sickle Cell Disease, Hx Anemia Cardiovascular History: Reports: Hx Congestive Heart Failure - hx of diastolic dysfunction w/acute chronic heart failure, Hx Hypertension, Other Cardiovascular Problems/Disorders - right AV fistula, stenosis of vascular devices Respiratory History: Reports: Hx Sleep Apnea - 08/17 dx [facility]- can't tolerate CPAP Denies: Hx Asthma, Hx Chronic Obstructive Pulmonary Disease (COPD) History: Reports: Hx Dialysis Sensory History: Reports: Hx Contacts or Glasses - reading glasses Denies: Hx Deafness, Hx Hearing Aid Opthamlomology History: Reports: Hx Contacts or Glasses - reading glasses Neurological History: Reports: Hx Nerve Disease - peripheral neuropathy- patient denied- per md note, Hx Peripheral Neuropathy Denies: Hx Dementia, Hx Developmental Delay - Cancer History Hx Chemotherapy: No - Surgical History Surgery Procedure, Year, and Place: Circumcision 08/01 [facility]. Extraction of cataract to the right eye with an IOL implant 04/07 [facility]. Extraction of cataract to the left eye with an IOL implant 01/10 [facility]. Insertion of buttermaker hemosplit hemodialysis catheter 07/29/17 [facility] Hx Anesthesia Reactions: No Infectious Disease History: No Infectious Disease History: Denies: Traveled Outside the [place] in Last 30 Days - Family History Known Family History: Negative: Cardiac Disease, Hypertension - Social History Alcohol Use: None Hx Substance Use: No Substance Use Type: Reports: None Hx Tobacco Use: No Smoking Status (MU): Never Smoked Tobacco Type: Cigarettes Have You Smoked in the Last Year: No Review of Systems Negative: Fever Neurological: Other - seizure Positive: Syncope All Other Systems Reviewed And Are Negative: No - Comments Additional Review of Systems Comments: Level 5 Caveat - AMS Physical Exam - Summary Physical Exam Summary: Appearance: Obtunded, not responsive. Responds to painful stimuli Skin: Warm, dry, no obvious rash Eyes: sclera anicteric, no conjunctival pallor ENT: mucous membranes moist Neck: deferred Respiratory: No signs of respiratory distress Cardiovascular: S3 gallop rhythm Abdomen: deferred Musculoskeletal: Moving all 4 extremities without obvious discomfort Neurological: unable to follow commands, but muscle tone is symmetric and normal Triage Information Reviewed: Yes Vital Signs On Initial Exam: Initial Vitals Temp Pulse Resp BP Pulse Ox 99.1 F 103 12 00/00 99 12/07/17 14:37 12/07/17 14:37 12/07/17 14:37 12/07/17 14:37 12/07/17 14:37 Vital Signs Reviewed: Yes Completion Of Physical Exam Limited Due To: Altered Mental Status, Level 5 Diagnostics - Vital Signs Vital Signs Temp Pulse Resp BP Pulse Ox 12/07/17 15:31 282/112 12/07/17 14:37 99.1 F 103 12 00/00 99 - Laboratory Lab Results: Lab Results 12/07/17 12/07/17 Range/Units 15:00 15:00 WBC 13.8 H (3.5-10.8) 10^3/ul RBC 4.90 (4.00-5.40) 10^6/ul Hgb 11.9 L (14.0-18.0) g/dl Hct 37 L (42-52) % MCV 75 L (80-94) fL MCH 24 L (27-31) pg MCHC 32 (31-36) g/dl RDW 20 H (10.5-15) % Plt Count 219 (150-450) 10^3/ul MPV 7.8 (7.4-10.4) um3 Neut % (Auto) Pending Lymph % (Auto) Pending [place] % (Auto) Pending Eos % (Auto) Pending Baso % (Auto) Pending Absolute Neuts (auto) Pending Absolute Lymphs (auto) Pending Absolute Monos (auto) Pending Absolute Eos (auto) Pending Absolute Basos (auto) Pending Absolute Nucleated RBC Pending Nucleated RBC % Pending Sodium 130 L (135-145) mmol/L Potassium 4.6 (3.5-5.0) mmol/L Chloride 97 L (101-111) mmol/L Carbon Dioxide 15 L (22-32) mmol/L Anion Gap 18 H (2-11) mmol/L BUN 70 H (6-24) mg/dL Creatinine 6.94 H (0.67-1.17) mg/dL Est GFR ( Amer) 9.7 (>60) Est GFR (Non-Af Amer) 8.0 (>60) BUN/Creatinine Ratio 10.1 (8-20) Glucose 229 H (70-100) mg/dL Calcium 8.9 (8.6-10.3) mg/dL Magnesium 2.3 (1.9-2.7) mg/dL Total Bilirubin 1.00 (0.2-1.0) mg/dL AST 36 (13-39) U/L ALT 31 (7-52) U/L Alkaline Phosphatase 219 H (34-104) U/L Total Protein 6.7 (6.4-8.9) g/dL Albumin 3.6 (3.2-5.2) g/dL Globulin 3.1 (2-4) g/dL Albumin/Globulin Ratio 1.2 (1-3) Result Diagrams: 12/11/17 06:04 12/11/17 06:04 Lab Statement: Any lab studies that have been ordered have been reviewed, and results considered in the medical decision making process. - CT CT Brain CT Interpretation: Positive (See Comments) - CT Brain reveals, per radiologist, IMPRESSION: 1. Intracranial CT findings are consistent with mild involutional changes and mild microvascular disease. 2. Right-sided mastoid air cell effusion. Please correlate to signs or symptoms of mastoiditis. ED physician has reviewed this radiology report. CT Interpretation Completed By: Radiologist Course/Dx - Course Assessment/Plan: This patient is a 67 year old male BIBA to [facility] with a chief complaint of seizures since approx. 2 hours ago. EMS states that patient was at dialysis when he exhibited seizure-like activity. CT Brain reveals, per radiologist, IMPRESSION: 1. Intracranial CT findings are consistent with mild involutional changes and mild microvascular disease. 2. Right-sided mastoid air cell effusion. Please correlate to signs or symptoms of mastoiditis. ED physician has reviewed this radiology report. Bloodwork Obtained. Urinalysis Obtained. In the ED course the patient was given Ativan 1mg IV, Cardene 20mg in 200mL IV. We discussed patient care with Dr. Leal (ICU) at 1527 and they agreed to come see the patient and admit them into ICU. Patient will be admitted with a dx of seizure. - Diagnoses Provider Diagnoses: Malignant hypertension, Seizure - Physician Notifications Discussed Care Of Patient With: Nestor Leal - ICU Time Discussed With Above Provider: 15:27 - We discussed patient care with Dr. Leal (ICU) at 1527 and they agreed to come see the patient and admit them into ICU - Critical Care Time Critical Care Time: 30-74 min - Critically ill dialysis patient with seizures from malignant hypertension, requiring IV anti hypertensives, ICU consultation and admission to ICU Discharge - Sign-Out/Discharge Documenting (check all that apply): Patient Departure - Discharge Plan Condition: Improved Disposition: ADMITTED TO [facility] - Billing Disposition and Condition Condition: IMPROVED Disposition: Admitted to [facility] - Attestation Statements Document Initiated by Scribe: Yes Documenting Scribe: Shannan Husain Provider For Whom Scribe is Documenting (Include Credential): David Wheeler MD Scribe Attestation: Sahnnan Browning, scribed for David Wheeler MD on 12/24/17 at 1448. Scribe Documentation Reviewed: Yes Provider Attestation: The documentation as recorded by the Shannan caballero accurately reflects the service I personally performed and the decisions made by me, David Wheeler MD
[2017-12-07 16:09] LABS: ABS Basophils 0.2 10^3/ul (0-0.2); ABS Eosinophils 0.1 10^3/ul (0-0.6); ABS Lymphocytes 0.3 10^3/ul (1.0-4.8); ABS Monocytes 0.9 10^3/ul (0-0.8); ABS Neutrophils 12.4 10^3/ul (1.5-7.7); ABS Nucleated RBC 0 10^3/ul; Eosinophil % 0.4 % (0-6); Lymphocyte % 1.8 % (25-47); Nucleated Red Blood Cells % 0.1
[2017-12-07] MEDS ORDERED: levETIRAcetam IV* 1,000 MG in NS 0.9% 100 ML* 100 ML IVPB ONE ×2 (16:09→16:30)
[2017-12-07] MEDS ORDERED: Dextrose 50% Syringe 50 ML* 25 GM/50 ML SYRINGE IV PUSH PRN (16:15)
--- NOTE | 2017-12-07 16:17 | HP ---
H&P (Free Text) History and Physical: [facility] History and Physical CC: Seizure HPI: 67M with htn, dm, bph, esrd on hd presents with a seizure. The patient was at his HD session today which he did not complete. His BP was markedly elevated and then he had a seizure. He was post ictal after and brought to the ER. The patient was found to have a bp of 280 systolic and was started on a cardene gtt. He was taken to ct scan which did not show any bleeding. He currently remains post-ictal and is unable to provide history. History was obtained from his family members. He has never had a seizure before. ROS - unable 2/2 ams PMHx - htn, dm, bph, esrd on hd PSHx - av fistual, permcath, cataract removal All - nkda SocHx - no drugs, etoh, or tobacco FamHx - denies PE Vital Signs: Temp Pulse Resp BP Pulse Ox 99.1 F 85 15 209/94 93 12/07/17 14:37 12/07/17 15:52 12/07/17 15:52 12/07/17 15:52 12/07/17 15:52 Gen - NAD HEENT - ncat, eomi, perrl Neck - mild jvd CV - s1/s2, no murmur Lungs - cta, dec bs at bases Abd - soft, nt, nd Ext - no cce Neuro - unresponsive, protecting airway Labs Laboratory Results - last 24 hr 12/07/17 12/07/17 12/07/17 15:00 15:00 15:00 WBC 13.8 H RBC 4.90 Hgb 11.9 L Hct 37 L MCV 75 L MCH 24 L MCHC 32 RDW 20 H Plt Count 219 MPV 7.8 Neut % (Auto) 90.1 H Lymph % (Auto) 1.8 L [place] % (Auto) 6.5 Eos % (Auto) 0.4 Baso % (Auto) 1.2 Absolute Neuts (auto) 12.4 H Absolute Lymphs (auto) 0.3 L Absolute Monos (auto) 0.9 H Absolute Eos (auto) 0.1 Absolute Basos (auto) 0.2 Absolute Nucleated RBC 0 Nucleated RBC % 0.1 INR (Anticoag Therapy) 0.82 Sodium 130 L Potassium 4.6 Chloride 97 L Carbon Dioxide 15 L Anion Gap 18 H BUN 70 H Creatinine 6.94 H Est GFR ( Amer) 9.7 Est GFR (Non-Af Amer) 8.0 BUN/Creatinine Ratio 10.1 Glucose 229 H Lactic Acid Calcium 8.9 Magnesium 2.3 Total Bilirubin 1.00 AST 36 ALT 31 Alkaline Phosphatase 219 H Total Protein 6.7 Albumin 3.6 Globulin 3.1 Albumin/Globulin Ratio 1.2 12/07/17 15:00 WBC RBC Hgb Hct MCV MCH MCHC RDW Plt Count MPV Neut % (Auto) Lymph % (Auto) [place] % (Auto) Eos % (Auto) Baso % (Auto) Absolute Neuts (auto) Absolute Lymphs (auto) Absolute Monos (auto) Absolute Eos (auto) Absolute Basos (auto) Absolute Nucleated RBC Nucleated RBC % INR (Anticoag Therapy) Sodium Potassium Chloride Carbon Dioxide Anion Gap BUN Creatinine Est GFR ( Amer) Est GFR (Non-Af Amer) BUN/Creatinine Ratio Glucose Lactic Acid 4.8 H* Calcium Magnesium Total Bilirubin AST ALT Alkaline Phosphatase Total Protein Albumin Globulin Albumin/Globulin Ratio Imaging CT Head 12/07 IMPRESSION: 1[address] Intr[address] CT findings are consistent with mild involutional changes and mild microvascular disease. 2. Right-sided mastoid air cell effusion. Please correlate to signs or symptoms of mastoiditis. Impression 67M with htn, dm, bph, esrd on hd presents with seizure 2/2 hypertensive emergency Neuro - Seizure - likely 2/2 hypertensive emergency/PRES - ct head negative - eeg - ativan prn - fall/seizure precautions - neurology consult CV - hypertensive emergency - cardene gtt - lower bp to 200 systolic today - can lower further tomorrow Pulm - oxygenating ok - protecting airway ID - no evidence of infection - lactate mildly elevate 2/2 seizure GI - npo for now - diet when awake Renal - esrd on hd - hd per renal Heme - monitor cbc Endo - check fs, niss Lines - piv PPx - gi/dvt Full Code Admit to ICU Critical Care Time: 65 mins
[2017-12-07] MEDS: Insulin LISPRO* 1 UNITS UNIT SUBCUT SCH (19:00)
[2017-12-07] MEDS: Heparin VIAL(*) 5000 UNITS/ML VIAL (FIVE THOUSAND) SUBCUT SCH (20:45)
--- NOTE | 2017-12-07 21:40 | CONS ---
CONSULTATION REPORT: DATE OF CONSULT: 12/07/17 PATIENT OF: Dr. Leal. HISTORY: This is a 67-year-old man who I am evaluating for seizures. The history is difficult to elicit from the , but it seems like at least he had a seizure at 2 a.m. this morning that consisted of bilateral clonic activity that lasted for perhaps a couple of minutes. He was then somewhat confused this morning, but still talking. Then, at dialysis, in the late morning, he had a seizure that was generalized shaking, and then at CAT scan shortly before 3 o'clock, he had a third seizure. Those were the seizures that she reported to me, but in the notes, there was some shaking that was noted when he was in the ER on 12/06/17 when he came in for acute hypertension and the shaking. She says that it was not as large an episode as the ones he has had since 2 a.m., but it was similar in quality. It sounds like he was not completely out of it but was somewhat confused briefly with this, but that part of the history is a little unsure. There is also some history that he has prior shaking but it is unclear whether this was tremor or similar to what he has been having today and yesterday. It sounds like it may be the same. Then, yesterday when he came to the ER, he had shortness of breath and a headache, but on review of systems, all other spheres was negative. He had a blood pressure initially of 239/73 in the ER yesterday. PAST MEDICAL HISTORY: He has a history of hypertension, end-stage renal disease , well-controlled diabetes. He was recently hospitalized on 11/24/17. He had sepsis for this recent admission. He also has diabetic retinopathy and neuropathy secondary to diabetes. PAST SURGICAL HISTORY: He has no recent surgeries. MEDICATIONS: At home, include: 1. Amlodipine 10 mg once a day. 2. Carvedilol 12.5 twice a day. 3. Clonidine 0.3 three times a day. 4. Docusate 100 mg as needed. 5. Gabapentin 100 mg once a day. 6. Glipizide 5 mg a day. 7. Imdur 60 mg once a day. 8. Lidocaine cream. 9. Lisinopril 40 mg once a day. ALLERGIES: There is no known allergies. FAMILY HISTORY: There is no relevant family history. SOCIAL HISTORY: Per the , there is no tobacco, alcohol, or drugs. He gets dialysis. REVIEW OF SYSTEMS: Negative in all 14 spheres, although history is somewhat limited. PHYSICAL EXAM: Blood pressure is currently 209/94, he came in at 282/112; temperature 99.1 initially; pulse 85; respirations 15. He has no spontaneous eye opening, but when stimulated on either side, he would partially open his eyes. He had some mouthing movements during the exam and would move both extremities semi- purposely, but at times it looks like he was just bringing his hands together and holding them. There is no clear asymmetry. He withdrew to noxious stim in his legs symmetrically. Pupils were equal, round, and reactive to light. He had full extraocular movements Reflexes were trace to 1. Toes were equivocal. Chest: Clear. Cardiovascular: Regular rate and rhythm. Abdomen: Soft, positive bowel sounds. DIAGNOSTIC STUDIES/LAB DATA: His white count is 13.8 today, hematocrit 37, platelets 219. INR was 0.82. Chemistries include sodium of 130, BUN of 70, creatinine of 6.9, lactate is 4.8. Normal liver function tests. He had, as I said, dialysis. A CT scan was reviewed and to my eye it showed some diffuse white matter disease consistent with microvascular changes and there was no acute bleed or stroke noted. An EEG is being done. IMPRESSION AND PLAN: He is being treated for his blood pressure. He got 1 mg of Ativan and I have ordered Keppra 1000 mg. We are getting an EEG now. It is unclear whether he is just postictal or whether he is having recurrent seizures. It is very possible and likely that his seizures are secondary to malignant hypertension, but for now, I would treat the seizures and see how he does over the short term. It is possible that there will be a different underlying etiology for his seizures, but that is not clear at this point. He has nothing that clearly suggested focality on his exam that would show an underlying stroke. We will give him Keppra and we will see what the EEG shows and go from there. Thank you for sharing his case. [id number]/[facility] #: [id number] CARISSA
[2017-12-07] MEDS ORDERED: LORazepam INJ* 2 MG/ML 1 ML VIAL IV PUSH PRN (21:42)
[2017-12-07] MEDS: niCARdipine 0.1MG/ML IVPREMIX* 20 MG/200 ML BAG IV SCH (22:45)
[2017-12-07] MEDS ORDERED: Ketorolac INJ* 15 MG/ML 1 ML VIAL IV PUSH ONE (23:00)
[2017-12-07] MEDS ORDERED: ZOSYN 3.375 GM x ONE DOSE over 30 miuntes IVPB ×2 (23:00)
[2017-12-08] MEDS: Insulin LISPRO* 1 UNITS UNIT SUBCUT SCH ×4 (00:44→18:18)
[2017-12-08 01:04] LABS: Urine Appearance Cloudy; Urine Blood Negative (Negative); Urine Color Yellow; Urine Ketones Negative (Negative); Urine Protein 3+(>=500 mg/dL) (Negative); Urine Red Blood Cell 3+(>10/hpf) (Absent); Urine Specific Gravity 1.029 (1.010-1.030); Urine Urobilinogen Negative (Negative); Urine White Blood Cell 3+(>20/hpf) (Absent)
[2017-12-08] MEDS ORDERED: ZOSYN 3.375 GM Q12H per EXTENDED INFUSION IVPB SCH ×2 (02:15)
[2017-12-08] MEDS: niCARdipine 0.1MG/ML IVPREMIX* 20 MG/200 ML BAG IV SCH ×6 (02:19→17:21)
[2017-12-08 05:36] LABS: ABS Basophils 0.1 10^3/ul (0-0.2); ABS Eosinophils 0 10^3/ul (0-0.6); ABS Lymphocytes 0.4 10^3/ul (1.0-4.8); ABS Monocytes 0.6 10^3/ul (0-0.8); ABS Neutrophils 8.2 10^3/ul (1.5-7.7); ABS Nucleated RBC 0 10^3/ul; Eosinophil % 0 % (0-6); Hematocrit 31 % (42-52); Hemoglobin 10.4 g/dl (14.0-18.0); Lymphocyte % 4.3 % (25-47); Mean Corpuscular HGB Conc 33 g/dl (31-36); Mean Corpuscular Hemoglobin 25 pg (27-31); Mean Corpuscular Volume 74 fL (80-94); Mean Platelet Volume 8.4 um3 (7.4-10.4); Nucleated Red Blood Cells % 0.1; Platelet Count 190 10^3/ul (150-450); Red Blood Count 4.19 10^6/ul (4.00-5.40); Red Cell Distribution Width 19 % (10.5-15); White Blood Count 9.3 10^3/ul (3.5-10.8)
[2017-12-08 05:41] LABS: EGFR Non-African American 6.3 (>60)
--- NOTE | 2017-12-08 07:53 | RAD ---
HISTORY: sepsis criteria COMPARISONS: December 06, 2017 VIEWS: 1: frontal AP view of the chest at 9:49 PM FINDINGS: LINES AND TUBES: A right central venous catheter is noted from internal jugular vein pressure the tip overlying the trachea which will junction. CARDIOMEDIASTINAL SILHOUETTE: The cardiac silhouette is enlarged. The cardiomediastinal silhouette is otherwise normal for portable technique. PLEURA: There is blunting of the right costophrenic angle. LUNG PARENCHYMA: There is a diffuse reticular pattern with indistinct pulmonary vessels. ABDOMEN: The upper abdomen is clear. There is no subphrenic gas. BONES AND SOFT TISSUES: No bone or soft tissue abnormalities are noted. IMPRESSION: 1. CARDIOMEGALY. 2. PULMONARY INTERSTITIAL EDEMA. 3. SMALL RIGHT PLEURAL EFFUSION. 4. LINES AND TUBES ABOVE. R1
[2017-12-08] MEDS: Heparin VIAL(*) 5000 UNITS/ML VIAL (FIVE THOUSAND) SUBCUT SCH ×2 (09:28→20:58)
--- NOTE | 2017-12-08 11:33 | PN ---
Date of Service: 12/08/17 Critical Care Services: 67M with htn, dm, bph, esrd on hd presents with seizure 2/2 hypertensive emergency 12/08: BP better controlled on cardene. Still lethargic. EEG neg for seizure yesterday. Spiked fever overnight. Started on Zosyn. Vital Signs: Temp Pulse Resp BP SpO2 FiO2 101.2 F 86 15 140/58 95 12/08/17 07:43 12/08/17 10:16 12/08/17 10:16 12/08/17 10:16 12/08/17 10:16 Physical Exam: CT Head 12/07 IMPRESSION: 1. Intracranial CT findings are consistent with mild involutional changes and mild microvascular disease. 2. Right-sided mastoid air cell effusion. Please correlate to signs or symptoms of mastoiditis. CXR 12/08 IMPRESSION: 1. CARDIOMEGALY. 2. PULMONARY INTERSTITIAL EDEMA. 3. SMALL RIGHT PLEURAL EFFUSION. 4. LINES AND TUBES ABOVE. Fluid Balance (Past 24 Hours): I= O= Net Intake & Output 12/06/17 12/07/17 12/08/17 12/09/17 06:59 06:59 06:59 06:59 Intake Total 859 0 Output Total 75 0 Balance 784 0 Weight 64 kg Intake: IV Fluids 225 NS (0.9%) 25 IVPB 200 ABX - ZOSYN 200 Medicated IV 434 CC - Nicarpidine/Cardene 434 Oral 0 0 Output: Urine 0 Straight Cath 75 0 Labs: Laboratory Results - last 24 hr 12/07/17 12/07/17 12/07/17 14:58 15:00 15:00 WBC 13.8 H RBC 4.90 Hgb 11.9 L Hct 37 L MCV 75 L MCH 24 L MCHC 32 RDW 20 H Plt Count 219 MPV 7.8 Neut % (Auto) 90.1 H Lymph % (Auto) 1.8 L [place] % (Auto) 6.5 Eos % (Auto) 0.4 Baso % (Auto) 1.2 Absolute Neuts (auto) 12.4 H Absolute Lymphs (auto) 0.3 L Absolute Monos (auto) 0.9 H Absolute Eos (auto) 0.1 Absolute Basos (auto) 0.2 Absolute Nucleated RBC 0 Nucleated RBC % 0.1 INR (Anticoag Therapy) 0.82 Sodium Potassium Chloride Carbon Dioxide Anion Gap BUN Creatinine Est GFR ( Amer) Est GFR (Non-Af Amer) BUN/Creatinine Ratio Glucose POC Glucose (mg/dL) 216 H Lactic Acid Calcium Phosphorus Magnesium Total Bilirubin AST ALT Alkaline Phosphatase Total Protein Albumin Globulin Albumin/Globulin Ratio Urine Color Urine Appearance Urine pH Ur Specific [place] Urine Protein Urine Ketones Urine Blood Urine Nitrate Urine Bilirubin Urine Urobilinogen Ur Leukocyte Esterase Urine WBC (Auto) Urine RBC (Auto) Urine Bacteria Urine Glucose 12/07/17 12/07/17 12/07/17 15:00 15:00 18:41 WBC RBC Hgb Hct MCV MCH MCHC RDW Plt Count MPV Neut % (Auto) Lymph % (Auto) [place] % (Auto) Eos % (Auto) Baso % (Auto) Absolute Neuts (auto) Absolute Lymphs (auto) Absolute Monos (auto) Absolute Eos (auto) Absolute Basos (auto) Absolute Nucleated RBC Nucleated RBC % INR (Anticoag Therapy) Sodium 130 L Potassium 4.6 Chloride 97 L Carbon Dioxide 15 L Anion Gap 18 H BUN 70 H Creatinine 6.94 H Est GFR ( Amer) 9.7 Est GFR (Non-Af Amer) 8.0 BUN/Creatinine Ratio 10.1 Glucose 229 H POC Glucose (mg/dL) 241 H Lactic Acid 4.8 H* Calcium 8.9 Phosphorus Magnesium 2.3 Total Bilirubin 1.00 AST 36 ALT 31 Alkaline Phosphatase 219 H Total Protein 6.7 Albumin 3.6 Globulin 3.1 Albumin/Globulin Ratio 1.2 Urine Color Urine Appearance Urine pH Ur Specific [place] Urine Protein Urine Ketones Urine Blood Urine Nitrate Urine Bilirubin Urine Urobilinogen Ur Leukocyte Esterase Urine WBC (Auto) Urine RBC (Auto) Urine Bacteria Urine Glucose 12/07/17 12/08/17 12/08/17 21:50 00:35 05:10 WBC RBC Hgb Hct MCV MCH MCHC RDW Plt Count MPV Neut % (Auto) Lymph % (Auto) [place] % (Auto) Eos % (Auto) Baso % (Auto) Absolute Neuts (auto) Absolute Lymphs (auto) Absolute Monos (auto) Absolute Eos (auto) Absolute Basos (auto) Absolute Nucleated RBC Nucleated RBC % INR (Anticoag Therapy) Sodium 131 L Potassium 5.3 H Chloride 100 L Carbon Dioxide 18 L Anion Gap 13 H BUN 82 H Creatinine 8.50 H Est GFR ( Amer) 7.7 Est GFR (Non-Af Amer) 6.3 BUN/Creatinine Ratio 9.6 Glucose 118 H POC Glucose (mg/dL) Lactic Acid 1.1 Calcium 7.9 L Phosphorus 6.5 H Magnesium 2.2 Total Bilirubin AST ALT Alkaline Phosphatase Total Protein Albumin Globulin Albumin/Globulin Ratio Urine Color Yellow Urine Appearance Cloudy Urine pH 5.0 Ur Specific [place] 1.029 Urine Protein 3+(>=500 mg/dl) A Urine Ketones Negative Urine Blood Negative Urine Nitrate Negative Urine Bilirubin Negative Urine Urobilinogen Negative Ur Leukocyte Esterase Negative Urine WBC (Auto) 3+(>20/hpf) A Urine RBC (Auto) 3+(>10/hpf) A Urine Bacteria 1+ A Urine Glucose 3+(>=500 mg/dl) A 12/08/17 05:10 WBC 9.3 RBC 4.19 Hgb 10.4 L Hct 31 L MCV 74 L MCH 25 L MCHC 33 RDW 19 H Plt Count 190 MPV 8.4 Neut % (Auto) 88.2 H Lymph % (Auto) 4.3 L [place] % (Auto) 6.8 Eos % (Auto) 0 Baso % (Auto) 0.7 Absolute Neuts (auto) 8.2 H Absolute Lymphs (auto) 0.4 L Absolute Monos (auto) 0.6 Absolute Eos (auto) 0 Absolute Basos (auto) 0.1 Absolute Nucleated RBC 0 Nucleated RBC % 0.1 INR (Anticoag Therapy) Sodium Potassium Chloride Carbon Dioxide Anion Gap BUN Creatinine Est GFR ( Amer) Est GFR (Non-Af Amer) BUN/Creatinine Ratio Glucose POC Glucose (mg/dL) Lactic Acid Calcium Phosphorus Magnesium Total Bilirubin AST ALT Alkaline Phosphatase Total Protein Albumin Globulin Albumin/Globulin Ratio Urine Color Urine Appearance Urine pH Ur Specific [place] Urine Protein Urine Ketones Urine Blood Urine Nitrate Urine Bilirubin Urine Urobilinogen Ur Leukocyte Esterase Urine WBC (Auto) Urine RBC (Auto) Urine Bacteria Urine Glucose Studies: CXR 12/08 IMPRESSION: 1. CARDIOMEGALY. 2. PULMONARY INTERSTITIAL EDEMA. 3. SMALL RIGHT PLEURAL EFFUSION. 4. LINES AND TUBES ABOVE. CT Head 12/07 IMPRESSION: 1. Intracranial CT findings are consistent with mild involutional changes and mild microvascular disease. 2. Right-sided mastoid air cell effusion. Please correlate to signs or symptoms of mastoiditis. Impression: 67M with htn, dm, bph, esrd on hd presents with seizure 2/2 hypertensive emergency Plan: Neuro - AMS - remains lethargic - 2/2 hypertensive emergency/PRES? - ct head negative - eeg neg - ativan prn - fall/seizure precautions - MRI brain CV - hypertensive emergency - cardene gtt - Keep SBP < 160 Pulm - oxygenating ok - protecting airway ID - fever overnight - started on empiric zosyn - f/u cultures - ua positive - lactate normal GI -ng tube placement and tube feeds after MRI Renal - esrd on hd - hd per renal Heme - monitor cbc Endo - check fs, niss Lines - piv PPx - gi/dvt Full Code Critical Care Time: 65 mins
[2017-12-08] MEDS ORDERED: Zosyn per Pharmacy* NOTE FOLLOW UP SCH (12:00)
[2017-12-08] MEDS: ZOSYN 3.375 GM Q12H per EXTENDED INFUSION IVPB SCH ×2 (14:05)
--- NOTE | 2017-12-08 14:10 | RAD ---
HISTORY: eval for PRES COMPARISONS: December 07, 2017 TECHNIQUE: The following sequences were obtained of the head: Sagittal T1-weighted images, axial T2-weighted images, axial FLAIR images, axial susceptibility weighted images, axial T1-weighted images. Additionally, axial diffusion-weighted images were obtained with calculated apparent diffusion coefficients. FINDINGS: The study is limited by patient motion artifact. HEMORRHAGE/INFARCT: There is no hemorrhage or acute infarct. MASSES/SHIFT: There is no mass or shift. EXTRA-AXIAL SPACES/MENINGES: There are no extra-axial fluid collections. SULCI AND VENTRICLES: There is mild diffuse and proportional enlargement of the sulci and ventricles. CEREBRUM: There is confluent elevated T2/FLAIR signal within the periventricular white matter. BRAINSTEM: Is mild elevated T2/FLAIR signal within the pontine white matter. CEREBELLUM: There are no focal parenchymal abnormalities. The cerebellar tonsils are normal in size and position. SELLA: The sella is normal. PINEAL: The pineal region is clear. CP ANGLE/TEMPORAL BONES: The labyrinthine structures are grossly normal. VESSELS: Normal flow-voids are noted within the visualized vertebral vasculature. DIFFUSION ABNORMALITIES: There are no diffusion abnormalities. PARANASAL SINUSES/MASTOIDS: The paranasal sinuses are clear. There is a right mastoid effusion. ORBITS: The orbits are unremarkable. BONES AND SOFT TISSUE: No bone or soft tissue abnormalities are noted. OTHER: None IMPRESSION: 1. ELEVATED T2/FLAIR SIGNAL THE PERIVENTRICULAR AND SUBCORTICAL WHITE MATTER, NONSPECIFIC BUT SUGGESTIVE OF CHRONIC SMALL VESSEL ISCHEMIA. 2. RIGHT MASTOID EFFUSION.
[2017-12-08] MEDS ORDERED: levETIRAcetam 500 MG IVPREMIX* 500 MG/100 ML BAG IV SCH (17:00)
[2017-12-08] MEDS: levETIRAcetam 500 MG IVPREMIX* 500 MG/100 ML BAG IV SCH (17:54)
--- NOTE | 2017-12-08 21:38 | PN ---
PROGRESS NOTE: DATE OF SERVICE: 12/08/17 HISTORY: This is a 67-year-old man being reevaluated in followup for his seizures he was having yesterday. There has been no seizures since and his blood pressure has been better controlled. He developed a fever overnight. He is not answering questions at this point. PHYSICAL EXAM: Blood pressure 150/55, respirations 10, pulse 68, temperature 98.5, but this morning he had temperature of 101.2. He was arousable and with open eyes, moves all extremities with power. He appeared obtunded and will not follow instructions. Reflexes were trace. Chest: Clear. Cardiovascular: Regular rate and rhythm. Abdomen: Soft, positive bowel sounds. DIAGNOSTIC STUDIES/LAB DATA: His 2 EEGs did not show any subclinical seizures. There was diffuse slowing. His MRI scan today showed diffuse white matter disease consistent with chronic small vessel ischemic disease. There is no acute stroke. Labs include white count is 9.3 today, hematocrit 31, platelets 190. CMP today had a BUN of 82, creatinine 8.5, calcium 7.9, phosphorous 6.5. IMPRESSION AND PLAN: Mr. Rojas appears like he is becoming more responsive with eyes open and moving all extremities, but he is still obtunded. This could still be from a postictal state; however, if he does not continue to improve, the issue would be whether he has an infection, possibly PATIENT OMBUDSPERSON causing these problems. However, typically one would not be improving like he is if he had some meningoencephalitis. He is being followed closely in the ICU. Medications , currently are his piperacillin, Cardene, Ativan, heparin, dextrose. He will need to be continued on Keppra. I will discuss this with Dr. Leal. Thank you for sharing this case. [id number]/[facility] #: [id number] [facility]PITALKami
[2017-12-09] MEDS: Insulin LISPRO* 1 UNITS UNIT SUBCUT SCH ×4 (00:33→18:06)
[2017-12-09] MEDS: ZOSYN 3.375 GM Q12H per EXTENDED INFUSION IVPB SCH ×6 (02:26→15:52)
[2017-12-09] MEDS: niCARdipine 0.1MG/ML IVPREMIX* 20 MG/200 ML BAG IV SCH ×3 (03:48→15:02)
--- NOTE | 2017-12-09 05:02 | EEG ---
ELECTROENCEPHALOGRAPHY: DATE OF STUDY: 12/08/17 - ROOM #ICU-11 PATIENT OF: Dr. Leal. CLINICAL PROBLEM: This is a 67-year-old man being reevaluated for seizures. He had a series of at least 3 seizures yesterday and has been slow to wake up today and so this was for further evaluation for subclinical seizures. MEDICATIONS: Include: 1. Humalog. 2. Heparin. 3. Lorazepam. 4. Cardene. 5. Zosyn. He has gotten a dose of Keppra in the emergency room. REPORT: With the patient asleep, background consists of diffuse irregular delta and theta activity of moderate amplitude. There is some prominent sharply contoured activity over Cz, which may be a pattern of sleep. When he awakes, this diminishes and background consists of just delta and theta activity. No clearcut focal abnormalities or major asymmetries of background are noted. CLINICAL IMPRESSION: This asleep and briefly awake EEG shows no clearcut seizures. There is some activity at Cz, which is sharply contoured, but seems to be related to a sleep pattern rather than epileptiform discharges. [id number]/[facility] #: [id number] [facility]
--- NOTE | 2017-12-09 05:18 | EEG ---
ELECTROENCEPHALOGRAPHY: DATE OF STUDY: - ROOM #ICU-11 PATIENT OF: Dr. Leal. CLINICAL PROBLEM: This 67-year-old man being evaluated for new onset of seizures with significant hypertension. MEDICATIONS: Listed as: 1. Cardizem. 2. Ativan. REPORT: With the patient obtunded, background cerebral activity consists of diffuse irregular admixed delta and theta activity. There is occasional sharp transients in either hemisphere centrally, but no clear subclinical seizures are noted. CLINICAL IMPRESSION: This EEG is abnormal because of diffuse slowing of background. There is occasional multifocal sharply contoured activity suggesting a predisposition to seizures, but no subclinical seizures were noted. [id number]/[facility] #: [id number] [facility]
[2017-12-09 05:49] LABS: ABS Basophils 0.1 10^3/ul (0-0.2); ABS Eosinophils 0 10^3/ul (0-0.6); ABS Lymphocytes 0.4 10^3/ul (1.0-4.8); ABS Monocytes 0.7 10^3/ul (0-0.8); ABS Neutrophils 6.4 10^3/ul (1.5-7.7); ABS Nucleated RBC 0 10^3/ul; Eosinophil % 0.1 % (0-6); Hematocrit 32 % (42-52); Hemoglobin 10.5 g/dl (14.0-18.0); Lymphocyte % 4.9 % (25-47); Mean Corpuscular HGB Conc 33 g/dl (31-36); Mean Corpuscular Hemoglobin 25 pg (27-31); Mean Corpuscular Volume 75 fL (80-94); Mean Platelet Volume 8.2 um3 (7.4-10.4); Nucleated Red Blood Cells % 0; Platelet Count 171 10^3/ul (150-450); Red Blood Count 4.21 10^6/ul (4.00-5.40); Red Cell Distribution Width 20 % (10.5-15); White Blood Count 7.6 10^3/ul (3.5-10.8)
[2017-12-09 06:09] LABS: EGFR Non-African American 5.5 (>60)
[2017-12-09] MEDS ORDERED: Insulin REGULAR(*) 1 UNITS UNIT IV PUSH ONE (07:00)
[2017-12-09] MEDS ORDERED: Dextrose 50% Syringe 50 ML* 25 GM/50 ML SYRINGE IV PUSH ONE (07:00)
[2017-12-09] MEDS: levETIRAcetam 500 MG IVPREMIX* 500 MG/100 ML BAG IV SCH ×2 (07:03→18:01)
[2017-12-09] MEDS: Heparin VIAL(*) 5000 UNITS/ML VIAL (FIVE THOUSAND) SUBCUT SCH ×2 (08:29→20:15)
--- NOTE | 2017-12-09 08:48 | PN ---
Date of Service: 12/09/17 Critical Care Services: 67M with htn, dm, bph, esrd on hd presents with seizure 2/2 hypertensive emergency 12/08: BP better controlled on cardene. Still lethargic. EEG neg for seizure yesterday. Spiked fever overnight. Started on Zosyn. 12/09: UA+. Marked acidosis this am. Discussed with Renal for HD today. Mental status improving. Vital Signs: Temp Pulse Resp BP SpO2 FiO2 97.7 F 87 2 162/53 98 12/09/17 07:47 12/09/17 07:30 12/09/17 07:30 12/09/17 07:30 12/09/17 07:30 Physical Exam: Gen - NAD HEENT - ncat, eomi, perrl Neck - mild jvd CV - s1/s2, no murmur Lungs - cta, dec bs at bases Abd - soft, nt, nd Ext - no cce Neuro - arousable to physical stimuli. moving all extremities Fluid Balance (Past 24 Hours): I= O= Net Intake & Output 12/07/17 12/08/17 12/09/17 12/10/17 06:59 06:59 06:59 06:59 Intake Total 859 1444.9 Output Total 75 0 Balance 784 1444.9 Weight 64 kg 64.8 kg Intake: IV Fluids 225 154.9 NS (0.9%) 25 154.9 IVPB 200 207 ABX - ZOSYN 200 207 Medicated IV 434 1083 CC - Nicarpidine/Cardene 434 1083 Oral 0 0 Output: Urine 0 0 Straight Cath 75 0 Labs: Laboratory Results - last 24 hr 12/08/17 12/08/17 12/08/17 00:24 12:21 18:14 WBC RBC Hgb Hct MCV MCH MCHC RDW Plt Count MPV Neut % (Auto) Lymph % (Auto) [place] % (Auto) Eos % (Auto) Baso % (Auto) Absolute Neuts (auto) Absolute Lymphs (auto) Absolute Monos (auto) Absolute Eos (auto) Absolute Basos (auto) Absolute Nucleated RBC Nucleated RBC % ABG pH ABG pCO2 ABG pO2 ABG HCO3 ABG O2 Saturation ABG Base Excess Sodium Potassium Chloride Carbon Dioxide Anion Gap BUN Creatinine Est GFR ( Amer) Est GFR (Non-Af Amer) BUN/Creatinine Ratio Glucose POC Glucose (mg/dL) 181 H 118 H 149 H Calcium Phosphorus Magnesium 12/09/17 12/09/17 12/09/17 00:20 05:29 05:30 WBC RBC Hgb Hct MCV MCH MCHC RDW Plt Count MPV Neut % (Auto) Lymph % (Auto) [place] % (Auto) Eos % (Auto) Baso % (Auto) Absolute Neuts (auto) Absolute Lymphs (auto) Absolute Monos (auto) Absolute Eos (auto) Absolute Basos (auto) Absolute Nucleated RBC Nucleated RBC % ABG pH ABG pCO2 ABG pO2 ABG HCO3 ABG O2 Saturation ABG Base Excess Sodium 132 L Potassium 5.9 H Chloride 101 Carbon Dioxide 12 L* Anion Gap 19 H BUN 94 H Creatinine 9.63 H Est GFR ( Amer) 6.6 Est GFR (Non-Af Amer) 5.5 BUN/Creatinine Ratio 9.8 Glucose 151 H POC Glucose (mg/dL) 163 H 144 H Calcium 7.9 L Phosphorus 9.6 H Magnesium 2.4 12/09/17 12/09/17 05:30 06:40 WBC 7.6 RBC 4.21 Hgb 10.5 L Hct 32 L MCV 75 L MCH 25 L MCHC 33 RDW 20 H Plt Count 171 MPV 8.2 Neut % (Auto) 84.0 H Lymph % (Auto) 4.9 L [place] % (Auto) 9.7 H Eos % (Auto) 0.1 Baso % (Auto) 1.3 Absolute Neuts (auto) 6.4 Absolute Lymphs (auto) 0.4 L Absolute Monos (auto) 0.7 Absolute Eos (auto) 0 Absolute Basos (auto) 0.1 Absolute Nucleated RBC 0 Nucleated RBC % 0 ABG pH 7.28 L ABG pCO2 26 L ABG pO2 102 H ABG HCO3 14.7 L ABG O2 Saturation 94.0 L ABG Base Excess -13.1 L Sodium Potassium Chloride Carbon Dioxide Anion Gap BUN Creatinine Est GFR ( Amer) Est GFR (Non-Af Amer) BUN/Creatinine Ratio Glucose POC Glucose (mg/dL) Calcium Phosphorus Magnesium Studies: CT Head 12/[address] IMPRESSION: 1[address] Intr[address] CT findings are consistent with mild involutional changes and mild microvascular disease. 2. Right-sided mastoid air cell effusion. Please correlate to signs or symptoms of mastoiditis. CXR 12/08 IMPRESSION: 1. CARDIOMEGALY. 2. PULMONARY INTERSTITIAL EDEMA. 3. SMALL RIGHT PLEURAL EFFUSION. 4. LINES AND TUBES ABOVE. MRI Brain 12/08 IMPRESSION: 1. ELEVATED T2/FLAIR SIGNAL THE PERIVENTRICULAR AND SUBCORTICAL WHITE MATTER, NONSPECIFIC BUT SUGGESTIVE OF CHRONIC SMALL VESSEL ISCHEMIA. 2. RIGHT MASTOID EFFUSION. EEG 12/07 CLINICAL IMPRESSION: This asleep and briefly awake EEG shows no clearcut seizures. There is some activity at Cz, which is sharply contoured, but seems to be related to a sleep pattern rather than epileptiform discharges. Impression: 67M with htn, dm, bph, esrd on hd presents with seizure 2/2 hypertensive emergency Plan: Neuro - AMS - remains lethargic - 2/2 hypertensive emergency - ct head negative - MRI brain negative - eeg neg - keppra q12 - ativan prn - fall/seizure precautions CV - hypertensive emergency - cardene gtt - Keep SBP < 160 - add oral meds when more awake Pulm - oxygenating ok - protecting airway ID - fever overnight - started on empiric zosyn - f/u cultures - ua positive - lactate normal GI - diet when more awake Renal - esrd, metabolic acidosis - lactate normal - acidosis 2/2 renal failure - Discussed with Renal - HD today Heme - monitor cbc Endo - check fs, niss Lines - piv PPx - gi/dvt Full Code Critical Care Time: 55 mins
[2017-12-09] MEDS: amLODIPine TAB* 5 MG PO SCH ×3 (14:58→15:30)
[2017-12-09] MEDS: Carvedilol TAB* 6.25 MG PO SCH (20:15)
[2017-12-10] MEDS: Insulin LISPRO* 1 UNITS UNIT SUBCUT SCH ×5 (00:11→21:20)
[2017-12-10] MEDS: niCARdipine 0.1MG/ML IVPREMIX* 20 MG/200 ML BAG IV SCH ×4 (00:38→09:36)
[2017-12-10] MEDS: ZOSYN 3.375 GM Q12H per EXTENDED INFUSION IVPB SCH ×4 (01:22→14:52)
[2017-12-10] MEDS: levETIRAcetam 500 MG IVPREMIX* 500 MG/100 ML BAG IV SCH ×2 (05:19→21:07)
[2017-12-10 05:41] LABS: ABS Basophils 0 10^3/ul (0-0.2); ABS Eosinophils 0 10^3/ul (0-0.6); ABS Lymphocytes 0.3 10^3/ul (1.0-4.8); ABS Neutrophils 8.1 10^3/ul (1.5-7.7); ABS Nucleated RBC 0 10^3/ul; Eosinophil % 0.2 % (0-6); Hematocrit 31 % (42-52); Hemoglobin 10.4 g/dl (14.0-18.0); Lymphocyte % 3.1 % (25-47); Mean Corpuscular HGB Conc 34 g/dl (31-36); Mean Corpuscular Hemoglobin 25 pg (27-31); Mean Corpuscular Volume 75 fL (80-94); Mean Platelet Volume 8.6 um3 (7.4-10.4); Nucleated Red Blood Cells % 0; Platelet Count 193 10^3/ul (150-450); Red Blood Count 4.17 10^6/ul (4.00-5.40); Red Cell Distribution Width 19 % (10.5-15); White Blood Count 9.5 10^3/ul (3.5-10.8)
[2017-12-10 06:04] LABS: EGFR Non-African American 8.3 (>60)
--- NOTE | 2017-12-10 08:14 | PN ---
Date of Service: 12/10/17 Critical Care Services: 67M with htn, dm, bph, esrd on hd presents with seizure 2/2 hypertensive emergency 12/08: BP better controlled on cardene. Still lethargic. EEG neg for seizure yesterday. Spiked fever overnight. Started on Zosyn. 12/09: UA+. Marked acidosis this am. Discussed with Renal for HD today. Mental status improving. 12/10: s/p HD yesterday. Labs improved this am. Patient remains confused but more awake. Remains on cardine gtt. Vital Signs: Temp Pulse Resp BP SpO2 FiO2 98.2 F 64 4 161/41 96 12/10/17 07:54 12/10/17 07:45 12/10/17 07:45 12/10/17 07:45 12/10/17 07:45 Physical Exam: Gen - NAD HEENT - ncat, eomi, perrl Neck - mild jvd CV - s1/s2, no murmur Lungs - cta, dec bs at bases Abd - soft, nt, nd Ext - no cce Neuro - more awake. confused. Fluid Balance (Past 24 Hours): I= O= Net Intake & Output 12/08/17 12/09/17 12/10/17 12/11/17 06:59 06:59 06:59 06:59 Intake Total 859 1444.9 1244 Output Total 75 0 0 Balance 784 1444.9 1244 Weight 64 kg 64.8 kg 64 kg Intake: IV Fluids 225 154.9 66 NS (0.9%) 25 154.9 66 IVPB 200 207 310 ABX - ZOSYN 200 207 110 Keppra 200 Medicated IV 434 1083 668 CC - Nicarpidine/Cardene 434 1083 668 Oral 0 0 200 Output: Urine 0 0 0 Straight Cath 75 0 Labs: Laboratory Results - last 24 hr 12/09/17 12/09/17 12/09/17 12:01 12:05 18:00 WBC RBC Hgb Hct MCV MCH MCHC RDW Plt Count MPV Neut % (Auto) Lymph % (Auto) [place] % (Auto) Eos % (Auto) Baso % (Auto) Absolute Neuts (auto) Absolute Lymphs (auto) Absolute Monos (auto) Absolute Eos (auto) Absolute Basos (auto) Absolute Nucleated RBC Nucleated RBC % Sodium Potassium Chloride Carbon Dioxide Anion Gap BUN Creatinine Est GFR ( Amer) Est GFR (Non-Af Amer) BUN/Creatinine Ratio Glucose POC Glucose (mg/dL) 131 H 148 H Lactic Acid 0.6 Calcium Phosphorus Magnesium Total Creatine Kinase 12/10/17 12/10/17 12/10/17 00:06 05:30 05:30 WBC 9.5 RBC 4.17 Hgb 10.4 L Hct 31 L MCV 75 L MCH 25 L MCHC 34 RDW 19 H Plt Count 193 MPV 8.6 Neut % (Auto) 86.1 H Lymph % (Auto) 3.1 L [place] % (Auto) 10.1 H Eos % (Auto) 0.2 Baso % (Auto) 0.5 Absolute Neuts (auto) 8.1 H Absolute Lymphs (auto) 0.3 L Absolute Monos (auto) 1.0 H Absolute Eos (auto) 0 Absolute Basos (auto) 0 Absolute Nucleated RBC 0 Nucleated RBC % 0 Sodium 132 L Potassium 4.4 D Chloride 95 L Carbon Dioxide 24 Anion Gap 13 H BUN 46 H Creatinine 6.72 H Est GFR ( Amer) 10.0 Est GFR (Non-Af Amer) 8.3 BUN/Creatinine Ratio 6.8 L Glucose 141 H POC Glucose (mg/dL) 184 H Lactic Acid Calcium 7.4 L Phosphorus 6.0 H Magnesium 2.0 Total Creatine Kinase 88 Studies: CT Head 12/07 IMPRESSION: 1. Intracranial CT findings are consistent with mild involutional changes and mild microvascular disease. 2. Right-sided mastoid air cell effusion. Please correlate to signs or symptoms of mastoiditis. CXR 12/08 IMPRESSION: 1. CARDIOMEGALY. 2. PULMONARY INTERSTITIAL EDEMA. 3. SMALL RIGHT PLEURAL EFFUSION. 4. LINES AND TUBES ABOVE. MRI Brain 12/08 IMPRESSION: 1. ELEVATED T2/FLAIR SIGNAL THE PERIVENTRICULAR AND SUBCORTICAL WHITE MATTER, NONSPECIFIC BUT SUGGESTIVE OF CHRONIC SMALL VESSEL ISCHEMIA. 2. RIGHT MASTOID EFFUSION. EEG 12/07 CLINICAL IMPRESSION: This asleep and briefly awake EEG shows no clearcut seizures. There is some activity at Cz, which is sharply contoured, but seems to be related to a sleep pattern rather than epileptiform discharges. Impression: 67M with htn, dm, bph, esrd on hd presents with seizure 2/2 hypertensive emergency Plan: Neuro - AMS 2/2 seizure and delirium - seizure 2/2 hypertensive emergency - ct head negative - MRI brain negative - eeg neg - keppra q12 - ativan prn - fall/seizure precautions CV - hypertensive emergency - cardene gtt - Keep SBP < 160 - titrate up oral medications Pulm - oxygenating ok ID - uti - zosyn for 7 days - f/u cultures GI - advance diet as tolerated Renal - esrd, metabolic acidosis - lactate normal - acidosis 2/2 renal failure - s/p HD yesterday - HD per renal Heme - monitor cbc Endo - check fs, niss Lines - piv PPx - gi/dvt Full Code Critical Care Time: 60 mins
[2017-12-10] MEDS: Heparin VIAL(*) 5000 UNITS/ML VIAL (FIVE THOUSAND) SUBCUT SCH ×2 (09:28→21:18)
[2017-12-10] MEDS: cloNIDine TAB* 0.1 MG PO SCH ×3 (09:28→21:17)
[2017-12-10] MEDS: Carvedilol TAB* 6.25 MG PO SCH ×2 (09:28→21:17)
[2017-12-10] MEDS: amLODIPine TAB* 5 MG PO SCH (09:28)
[2017-12-10] MEDS: Isosorbide Mononitrate ER TAB* 60 MG PO SCH (09:28)
--- NOTE | 2017-12-10 10:33 | PN ---
PROGRESS NOTE: DATE OF SERVICE: 12/09/2017. PATIENT OF: Dr. Leal. HISTORY: This is a 67-year-old man who is waking up following several seizures during a hypertensive emergency. The thinks the patient is doing very well and is pleased. MEDICATIONS: Include: 1. Norvasc 10 mg daily. 2. Coreg 12.5 b.i.d. 3. Insulin as per protocol. 4. Keppra 500 b.i.d. 5. Nicardipine drip. 6. Piperacillin. PHYSICAL EXAM: Temperature 97.4, pulse 83, respirations 12, blood pressure 147/ 54. He is alert. He is able to speak to his and answers apparent simple questions appropriately. He moves all extremities with power. It is hard to get a full evaluation. Reflexes were 1. Chest: Clear. Cardiovascular: Regular rate and rhythm. IMPRESSION AND PLAN: Than is doing much better in terms of his mental status level of alertness and he most likely had complications from being postictal and hypertensive emergency. He is clinically improving and no changes are recommended at this point. Thank you for sharing his case. [id number]/[facility] #: [id number] [facility]
[2017-12-11] MEDS: ZOSYN 3.375 GM Q12H per EXTENDED INFUSION IVPB SCH ×4 (02:55→13:44)
[2017-12-11 06:56] LABS: Hematocrit 28 % (42-52); Hemoglobin 9.2 g/dl (14.0-18.0); Mean Corpuscular HGB Conc 33 g/dl (31-36); Mean Corpuscular Hemoglobin 25 pg (27-31); Mean Corpuscular Volume 76 fL (80-94); Mean Platelet Volume 8.7 um3 (7.4-10.4); Platelet Count 156 10^3/ul (150-450); Red Blood Count 3.71 10^6/ul (4.00-5.40); Red Cell Distribution Width 19 % (10.5-15); White Blood Count 7.3 10^3/ul (3.5-10.8)
[2017-12-11 07:09] LABS: EGFR Non-African American 6.7 (>60)
--- NOTE | 2017-12-11 07:28 | PN ---
PROGRESS NOTE: DATE OF VISIT: 12/10/2017. PATIENT OF: Dr. Leal. HISTORY: This is a followup on a 67-year-old man with obtundation and seizures with severe hypertension. He has end-stage renal disease, hypertension, diabetes with improved blood pressure. He is now talking and moving all extremities, but still appears somewhat confused. His translates for him but he is able to follow 1- and some 2-step commands. His thinks he is back to his baseline, but she has been consistently optimistic. PHYSICAL EXAMINATION: Temperature 98.2, pulse 65, respirations 18, blood pressure 167/48. He was alert with his eyes open, interactive, speaking to his in apparent detail. He is able to converse briefly with me and follow 1- and simple 2- step commands, but is at times confused. Apparently, this is his baseline according to his . Cranial nerves II through XII are intact. Motor exam reveals normal tone and strength bilaterally. Chest: Clear. Cardiovascular: Regular rate and rhythm. LABORATORY DATA: White count 9.5, hematocrit 31, platelets 193. IMPRESSION AND PLAN: Mr. Barkley has had no further seizures and has a nonfocal neurological exam. It is unclear whether he is clearly much better than he has been in the past couple of days' time. It is not totally clear whether he is completely back to his baseline. [id number]/[facility] #: [id number] [facility]
[2017-12-11 07:43] LABS: ABS Basophils 0.1 10^3/ul (0-0.2); ABS Neutrophils 5.8 10^3/ul (1.5-7.7); Monocytes % 4 % (0-7)
[2017-12-11] MEDS ORDERED: cloNIDine TAB* 0.1 MG PO SCH (09:00)
[2017-12-11] MEDS: Heparin VIAL(*) 5000 UNITS/ML VIAL (FIVE THOUSAND) SUBCUT SCH ×2 (09:05→21:28)
[2017-12-11] MEDS: Insulin LISPRO* 1 UNITS UNIT SUBCUT SCH ×4 (09:05→21:58)
[2017-12-11] MEDS: amLODIPine TAB* 5 MG PO SCH (09:06)
[2017-12-11] MEDS: Isosorbide Mononitrate ER TAB* 60 MG PO SCH (09:06)
[2017-12-11] MEDS: Carvedilol TAB* 6.25 MG PO SCH ×2 (09:21→21:28)
[2017-12-11] MEDS: levETIRAcetam 500 MG IVPREMIX* 500 MG/100 ML BAG IV SCH ×3 (11:35→23:57)
[2017-12-11] MEDS ORDERED: hydrALAZINE IV* 20 MG/ML VIAL IV SLOW PU ONE (13:35)
[2017-12-11] MEDS: cloNIDine TAB* 0.1 MG PO SCH ×2 (13:44→21:28)
[2017-12-11] MEDS ORDERED: Heparin DIALYSIS ONLY(*) 1,000 UNITS/ML VIAL DIALYSIS ONE (14:00)
--- NOTE | 2017-12-11 15:59 | PN ---
Subjective Date of Service: 12/11/17 Interval History: HOSPITALIST PROGRESS NOTE Patient seen and examined at bedside. Care reviewed and d/w Tiffanie Zhao RN. He's lying in bed and answers yes/no questions. Denies CP, THOMPSON, N/V, palpitations. As per family members, patient's appetite is good and he ate fried rice, mushroom, and eggs she brought. Family History: Unchanged from Admission Social History: Unchanged from Admission Past Medical History: Unchanged from Admission Objective Active Medications: Amlodipine Besylate (Norvasc Tab*) 10 mg PO DAILY COUNTS INCLUDE 234 BEDS AT THE [facility] Last Admin: 12/11/17 09:06 Dose: 10 mg Carvedilol (Coreg Tab*) 12.5 mg PO BID COUNTS INCLUDE 234 BEDS AT THE [facility] Last Admin: 12/11/17 09:21 Dose: 12.5 mg Clonidine HCl (Catapres Tab*) 0.1 mg PO TID COUNTS INCLUDE 234 BEDS AT THE [facility] Last Admin: 12/11/17 13:44 Dose: 0.1 mg Dextrose (D50w Syringe 50 Ml*) 12.5 gm IV PUSH .FOR FS < 60 - SS PRN PRN Reason: FS < 60 Heparin Sodium (Porcine) (Heparin Vial(*)) 5,000 units SUBCUT Q12HR COUNTS INCLUDE 234 BEDS AT THE [facility] Last Admin: 12/11/17 09:05 Dose: 5,000 units Piperacillin Sod/Tazobactam (Sod 3.375 gm/ Sodium Chloride) 100 mls @ 25 mls/ hr IVPB Q12H COUNTS INCLUDE 234 BEDS AT THE [facility] Last Admin: 12/11/17 13:44 Dose: 25 mls/hr Levetiracetam (Keppra Iv Premix*) 500 mg in 100 mls @ 400 mls/hr IV 0000,1200 COUNTS INCLUDE 234 BEDS AT THE [facility] Last Admin: 12/11/17 11:35 Dose: 400 mls/hr Insulin Human Lispro (Humalog*) 0 units SUBCUT ACHS COUNTS INCLUDE 234 BEDS AT THE [facility]; Protocol Last Admin: 12/11/17 12:41 Dose: 2 units Isosorbide Mononitrate (Imdur Er Tab*) 60 mg PO DAILY COUNTS INCLUDE 234 BEDS AT THE [facility] Last Admin: 12/11/17 09:06 Dose: 60 mg Lorazepam (Ativan Inj*) 2 mg IV PUSH Q4H PRN PRN Reason: SEIZURE ACTIVITY > 2 MINS Pharmacy Consult (Zosyn Per Pharmacy*) 1 note FOLLOW UP .ZOSYN PER PHARMACY COUNTS INCLUDE 234 BEDS AT THE [facility] Vital Signs - 8 hr 12/11/17 12/11/17 08:00 13:45 Temperature 98.5 F Pulse Rate 49 Respiratory 17 16 Rate Blood Pressure 162/48 (mmHg) Oxygen Devices in Use Now: None Appearance: Pleasant gentleman lying in bed in NAD. Eyes: No Scleral Icterus Ears/Nose/Mouth/Throat: Mucous Membranes Moist Neck: Trachea Midline Respiratory: Symmetrical Chest Expansion and Respiratory Effort, Clear to Auscultation Cardiovascular: NL Sounds; No Murmurs; No JVD, RRR Neurological: NL Muscle Strength and Tone, - - AAOx2 (self and place) Lines/Tubes/Other Access: Clean, Dry and Intact Peripheral IV Result Diagrams: 12/11/17 06:04 12/11/17 06:04 Assess/Plan/Problems-Billing Assessment: Mr Rojas is a 67 yo M with PMH of HTN, diabetes, ESRD on HD, PEA in 08/17 (likely secondary to uremia), recent admission for pneumonia, who presented to ED after a seizure, secondary to hypertensive emergency. - Patient Problems (1) Hypertensive emergency Comment: - Was on Cardene drip in ICU, Clonidine was resumed yesterday. - Continue Imdur, Coreg, Amlodipine. - If BP trends up again, will resume Lisinopril. (2) QT prolongation Comment: - EKG shows prolonged QTc 537. It was normal 12/07/17. Suspect secondary to clonidine resumed yesterday. Will titrate clonidine down and d/c it. If BP trends up again, will resume Lisinopril. - Continue to monitor on Telemetry. (3) Seizure Comment: - Secondary to hypertensive emergency. - CT/MRI brain were negative. - Neuro input appreciated - continue Keppra. (4) Diabetes Current Visit: No Status: Acute Code(s): E11.9 - TYPE 2 DIABETES MELLITUS WITHOUT COMPLICATIONS SNOMED Code(s): 35161073 Comment: - Controlled with Hb A1c 5.5. Medications were reduced to only Glipizide 5mg /daily on his last admission. - Check FS and cover with Lispro SS. (5) ESRD (end stage renal disease) Comment: - Continue HD. (6) DVT prophylaxis Comment: - SQ heparin. (7) Full code status Status and Disposition: Inpatient.
[2017-12-12] MEDS: ZOSYN 3.375 GM Q12H per EXTENDED INFUSION IVPB SCH ×4 (02:03→14:26)
[2017-12-12] MEDS: amLODIPine TAB* 5 MG PO SCH (08:31)
[2017-12-12] MEDS: Isosorbide Mononitrate ER TAB* 60 MG PO SCH (08:31)
[2017-12-12] MEDS: Carvedilol TAB* 6.25 MG PO SCH ×2 (08:31→21:23)
[2017-12-12] MEDS: Heparin VIAL(*) 5000 UNITS/ML VIAL (FIVE THOUSAND) SUBCUT SCH ×2 (08:31→21:23)
[2017-12-12] MEDS ORDERED: cloNIDine TAB* 0.1 MG PO SCH (09:00)
[2017-12-12] MEDS: Insulin LISPRO* 1 UNITS UNIT SUBCUT SCH ×4 (09:59→20:20)
[2017-12-12] MEDS: Lisinopril TAB* 10 MG PO SCH (12:03)
[2017-12-12] MEDS: levETIRAcetam 500 MG IVPREMIX* 500 MG/100 ML BAG IV SCH ×2 (12:11→23:44)
--- NOTE | 2017-12-12 15:19 | PN ---
Subjective Date of Service: 12/12/17 Interval History: HOSPITALIST PROGRESS NOTE Patient seen and examined at bedside. Care reviewed and d/w Yue Mohamud RN. He's lethargic, unchanged from yesterday. Arousable to voice, does not interact much. Denies pain. Family History: Unchanged from Admission Social History: Unchanged from Admission Past Medical History: Unchanged from Admission Objective Active Medications: Amlodipine Besylate (Norvasc Tab*) 10 mg PO DAILY [facility] Last Admin: 12/12/17 08:31 Dose: 10 mg Carvedilol (Coreg Tab*) 12.5 mg PO BID [facility] Last Admin: 12/12/17 08:31 Dose: 12.5 mg Clonidine HCl (Catapres Tab*) 0.1 mg PO BID [facility] Last Admin: 12/12/17 08:31 Dose: 0.1 mg Dextrose (D50w Syringe 50 Ml*) 12.5 gm IV PUSH .FOR FS < 60 - SS PRN PRN Reason: FS < 60 Heparin Sodium (Porcine) (Heparin Vial(*)) 5,000 units SUBCUT Q12HR [facility] Last Admin: 12/12/17 08:31 Dose: 5,000 units Piperacillin Sod/Tazobactam (Sod 3.375 gm/ Sodium Chloride) 100 mls @ 25 mls/ hr IVPB Q12H [facility] Last Admin: 12/12/17 14:26 Dose: 25 mls/hr Levetiracetam (Keppra Iv Premix*) 500 mg in 100 mls @ 400 mls/hr IV 0000,1200 [facility] Last Admin: 12/12/17 12:11 Dose: 400 mls/hr Insulin Human Lispro (Humalog*) 0 units SUBCUT ACHS [facility]; Protocol Last Admin: 12/12/17 12:02 Dose: 2 units Isosorbide Mononitrate (Imdur Er Tab*) 60 mg PO DAILY [facility] Last Admin: 12/12/17 08:31 Dose: 60 mg Lisinopril (Prinivil Tab*) 40 mg PO DAILY [facility] Last Admin: 12/12/17 12:03 Dose: 40 mg Lorazepam (Ativan Inj*) 2 mg IV PUSH Q4H PRN PRN Reason: SEIZURE ACTIVITY > 2 MINS Pharmacy Consult (Zosyn Per Pharmacy*) 1 note FOLLOW UP .ZOSYN PER PHARMACY [facility] Vital Signs - 8 hr 12/12/17 12/12/17 12/12/17 08:00 08:17 10:21 Temperature 99.6 F Pulse Rate 59 56 Respiratory 20 20 Rate Blood Pressure 187/59 175/55 (mmHg) O2 Sat by Pulse 97 Oximetry 12/12/17 11:22 Temperature 99.1 F Pulse Rate 57 Respiratory 12 Rate Blood Pressure 184/58 (mmHg) O2 Sat by Pulse 97 Oximetry Oxygen Devices in Use Now: None Appearance: Elderly gentleman lying in bed in NAD. Eyes: No Scleral Icterus Ears/Nose/Mouth/Throat: Mucous Membranes Moist Neck: Trachea Midline Respiratory: Symmetrical Chest Expansion and Respiratory Effort, Clear to Auscultation Cardiovascular: RRR - Normal S1 and S2 Neurological: - - Lethargic, arousable to voice, answers yes/no questions Result Diagrams: 12/11/17 06:04 12/11/17 06:04 Assess/Plan/Problems-Billing Assessment: Mr Rojas is a 67 yo M with PMH of HTN, diabetes, ESRD on HD, PEA in 08/17 (likely secondary to uremia), recent admission for pneumonia, who presented to ED after a seizure, secondary to hypertensive emergency. - Patient Problems (1) Hypertensive emergency Comment: - Was on Cardene drip in ICU, Clonidine was resumed yesterday. - Continue Imdur, Coreg, Amlodipine, resume Lisinopril. - Titrate Clonidine to off due to QT prolongation. (2) QT prolongation Comment: - EKG 12/11/17 showed prolonged QTc 537, improved today. - Suspect secondary to clonidine - continue to titrate it down and d/c it. - Continue to monitor on Telemetry. - Repeat EKG in AM. (3) Seizure Comment: - Secondary to hypertensive emergency. - CT/MRI brain were negative. - Neuro input appreciated - continue Keppra. (4) Diabetes Current Visit: No Status: Acute Code(s): E11.9 - TYPE 2 DIABETES MELLITUS WITHOUT COMPLICATIONS SNOMED Code(s): 09856895 Comment: - Controlled with Hb A1c 5.5. - Medications were reduced to only Glipizide 5mg/daily on his last admission. - Check FS and cover with Lispro SS. (5) ESRD (end stage renal disease) Comment: - Continue HD. (6) DVT prophylaxis Comment: - SQ heparin. (7) Full code status Status and Disposition: Inpatient.
[2017-12-13] MEDS: Heparin VIAL(*) 5000 UNITS/ML VIAL (FIVE THOUSAND) SUBCUT SCH ×2 (07:54→21:31)
[2017-12-13] MEDS: Insulin LISPRO* 1 UNITS UNIT SUBCUT SCH ×4 (07:54→21:31)
[2017-12-13] MEDS: Lisinopril TAB* 10 MG PO SCH (07:55)
[2017-12-13] MEDS: Carvedilol TAB* 6.25 MG PO SCH ×2 (07:55→21:31)
[2017-12-13] MEDS: Isosorbide Mononitrate ER TAB* 60 MG PO SCH (07:55)
[2017-12-13] MEDS: amLODIPine TAB* 5 MG PO SCH (07:56)
[2017-12-13] MEDS ORDERED: cloNIDine TAB* 0.1 MG PO SCH ×2 (09:00)
--- NOTE | 2017-12-13 14:19 | PN ---
Subjective Date of Service: 12/13/17 Interval History: No c/o. Family History: Unchanged from Admission Social History: Unchanged from Admission Past Medical History: Unchanged from Admission Objective Active Medications: Amlodipine Besylate (Norvasc Tab*) 10 mg PO DAILY [facility] Last Admin: 12/13/17 07:56 Dose: 10 mg Carvedilol (Coreg Tab*) 12.5 mg PO BID [facility] Last Admin: 12/13/17 07:55 Dose: 12.5 mg Dextrose (D50w Syringe 50 Ml*) 12.5 gm IV PUSH .FOR FS < 60 - SS PRN PRN Reason: FS < 60 Doxazosin Mesylate (Cardura Tab*) 2 mg PO BEDTIME [facility] Heparin Sodium (Porcine) (Heparin Vial(*)) 5,000 units SUBCUT Q12HR [facility] Last Admin: 12/13/17 07:54 Dose: 5,000 units Insulin Human Lispro (Humalog*) 0 units SUBCUT ACHS [facility]; Protocol Last Admin: 12/13/17 12:12 Dose: 2 units Isosorbide Mononitrate (Imdur Er Tab*) 60 mg PO DAILY [facility] Last Admin: 12/13/17 07:55 Dose: 60 mg Levetiracetam (Keppra Tab*) 500 mg PO BID [facility] Lisinopril (Prinivil Tab*) 40 mg PO DAILY [facility] Last Admin: 12/13/17 07:55 Dose: 40 mg Vital Signs - 8 hr 12/13/17 12/13/17 12/13/17 07:15 07:19 08:00 Temperature 98.9 F Pulse Rate 70 Respiratory 16 16 Rate Blood Pressure 188/58 205/64 (mmHg) O2 Sat by Pulse 94 Oximetry 12/13/17 10:58 Temperature 98.3 F Pulse Rate 59 Respiratory 22 Rate Blood Pressure 147/56 (mmHg) O2 Sat by Pulse 100 Oximetry Oxygen Devices in Use Now: None Appearance: Alert, neutral affect. Supine in bed. Looks comfortable. Eyes: No Scleral Icterus Respiratory: Symmetrical Chest Expansion and Respiratory Effort, Clear to Auscultation, Clear to Percussion Cardiovascular: NL Sounds; No Murmurs; No JVD, RRR, No Edema, - Extremities: No Edema, No Clubbing, Cyanosis, - Skin: No Rash or Ulcers, No Nodules or Sclerosis, - Neurological: NL Sensation - Passive. His command of Guinean is not very good. With his present he remained very passive and did not contribute to the disucssion of his dispositon. No tremor. Result Diagrams: 12/11/17 06:04 12/11/17 06:04 Additional Lab and Data: Lab Results 12/07/17 12/07/17 Range/Units 15:00 15:00 WBC 13.8 H (3.5-10.8) 10^3/ul RBC 4.90 (4.00-5.40) 10^6/ul Hgb 11.9 L (14.0-18.0) g/dl Hct 37 L (42-52) % MCV 75 L (80-94) fL MCH 24 L (27-31) pg MCHC 32 (31-36) g/dl RDW 20 H (10.5-15) % Plt Count 219 (150-450) 10^3/ul MPV 7.8 (7.4-10.4) um3 Neut % (Auto) Pending Lymph % (Auto) Pending [place] % (Auto) Pending Eos % (Auto) Pending Baso % (Auto) Pending Absolute Neuts (auto) Pending Absolute Lymphs (auto) Pending Absolute Monos (auto) Pending Absolute Eos (auto) Pending Absolute Basos (auto) Pending Absolute Nucleated RBC Pending Nucleated RBC % Pending Sodium 130 L (135-145) mmol/L Potassium 4.6 (3.5-5.0) mmol/L Chloride 97 L (101-111) mmol/L Carbon Dioxide 15 L (22-32) mmol/L Anion Gap 18 H (2-11) mmol/L BUN 70 H (6-24) mg/dL Creatinine 6.94 H (0.67-1.17) mg/dL Est GFR ( Amer) 9.7 (>60) Est GFR (Non-Af Amer) 8.0 (>60) BUN/Creatinine Ratio 10.1 (8-20) Glucose 229 H (70-100) mg/dL Calcium 8.9 (8.6-10.3) mg/dL Magnesium 2.3 (1.9-2.7) mg/dL Total Bilirubin 1.00 (0.2-1.0) mg/dL AST 36 (13-39) U/L ALT 31 (7-52) U/L Alkaline Phosphatase 219 H (34-104) U/L Total Protein 6.7 (6.4-8.9) g/dL Albumin 3.6 (3.2-5.2) g/dL Globulin 3.1 (2-4) g/dL Albumin/Globulin Ratio 1.2 (1-3) Microbiology and Other Data: Microbiology 12/07/17 22:00 Blood Culture - Preliminary Blood Venous No Growth Day 3 12/07/17 21:50 Blood Culture - Preliminary Blood Venous No Growth Day 3 12/08/17 00:35 Urine Culture - Final Urine No Growth (<1,000 CFU/mL) 12/07/17 18:33 Nasal Screen MRSA (PCR) - Final Nasal Mrsa Not Detected Assess/Plan/Problems-Billing Assessment: Mr Rojas is a 67 yo M with PMH of HTN, diabetes, ESRD on HD, PEA in 08/17 (likely secondary to uremia), recent admission for pneumonia, who presented to ED after a seizure, secondary to hypertensive emergency. - Patient Problems (1) Seizure Current Visit: Yes Status: Acute Code(s): R56.9 - UNSPECIFIED CONVULSIONS SNOMED Code(s): 39247833 Comment: - Secondary to hypertensive emergency. - CT/MRI brain were negative. - Neuro input appreciated - continue Keppra. Discussed with Dr. Bassett 12/13/17. (2) Hypertensive emergency Current Visit: Yes Status: Acute Code(s): I16.1 - HYPERTENSIVE EMERGENCY SNOMED Code(s): 101034415964410 Comment: - Was on Cardene drip in ICU, Clonidine was resumed yesterday. - Continue Imdur, Coreg, Amlodipine, resume Lisinopril. Clonidine d/c'd due to QT prolongation. Add hs doxazosin 1 mg start 12/13. (3) ESRD (end stage renal disease) Current Visit: Yes Status: Acute Code(s): N18.6 - END STAGE RENAL DISEASE SNOMED Code(s): 31682201 Comment: - Continue HD. His regular days are MWF. (4) QT prolongation Current Visit: Yes Status: Acute Code(s): R94.31 - ABNORMAL ELECTROCARDIOGRAM [ECG] [EKG] SNOMED Code(s): 071150297 Comment: Resolved when off clonidine. (5) Diabetes Current Visit: No Status: Acute Code(s): E11.9 - TYPE 2 DIABETES MELLITUS WITHOUT COMPLICATIONS SNOMED Code(s): 45545864 Comment: - Controlled with Hb A1c 5.5. - Medications were reduced to only Glipizide 5mg/daily on his last admission. - Check FS and cover with Lispro SS. (6) Debility Current Visit: Yes Status: Acute Code(s): R53.81 - OTHER MALAISE SNOMED Code(s): 38212150 Comment: Patient walked the length of the clements several times with a walker and CG. Pt will go to HD as outpt 12/14 and his son will take him home from there. Status and Disposition: Inpatient.
[2017-12-13] MEDS ORDERED: Doxazosin TAB* 2 MG PO SCH (21:00)
[2017-12-13] MEDS: levETIRAcetam TAB* 500 MG PO SCH (21:31)
[2017-12-14] MEDS: Insulin LISPRO* 1 UNITS UNIT SUBCUT SCH (08:26)
[2017-12-14 08:27] VITALS: BP 198/66
[2017-12-14] MEDS: Heparin VIAL(*) 5000 UNITS/ML VIAL (FIVE THOUSAND) SUBCUT SCH (08:35)
[2017-12-14] MEDS: Lisinopril TAB* 10 MG PO SCH (08:40)
[2017-12-14] MEDS: Carvedilol TAB* 6.25 MG PO SCH (08:42)
[2017-12-14] MEDS: levETIRAcetam TAB* 500 MG PO SCH (08:43)
[2017-12-14] MEDS: amLODIPine TAB* 5 MG PO SCH (08:43)
[2017-12-14] MEDS: Isosorbide Mononitrate ER TAB* 60 MG PO SCH (08:43)
[2017-12-14] MEDS ORDERED: Pneumococcal *Vac Polyvalent 0.5 ML VIAL IM ONE (11:00)
[2017-12-14] MEDS ORDERED: Doxazosin TAB* 2 MG PO SCH (21:00)
--- NOTE | 2017-12-14 22:13 | DS ---
CC: Dr. Menezes; Dr. Vora * DISCHARGE SUMMARY: DATE OF ADMISSION: DATE OF DISCHARGE: 12/14/17 HISTORY OF PRESENT ILLNESS: This is a 67-year-old man, who was admitted with a seizure; this occurred during his hemodialysis session, which was interrupted due to the seizure. His blood pressure in the emergency room was 280 systolic. He was started on an infusion of nicardipine. He was given intravenous levetiracetam. He was seen in consultation by Dr. Ernst. He recovered well. His MRI of the brain showed an elevated T2/FLAIR signal in the periventricular and subcortical white matter, which is nonspecific, but could represent chronic small vessel ischemia. There is a right mastoid effusion. The patient, I think, recovered to his baseline. His clonidine was discontinued due to QT prolongation. The QTc was normal after the clonidine was completely withdrawn. Due to his elevated blood pressures, I started him on doxazosin 2 mg h.s. He had this first dose on 12/13/17. The next morning his blood pressure was 198/ 66. I am going to increase it to 4 mg h.s. upon discharge to start on 12/14/17. He was evaluated by Physical Therapy. He was able to walk the length of the clements several times with a walker and contact guarding. He will be tested on stairs, as there are stairs to get in and out of his house. He will be brought to his outpatient hemodialysis appointment on the morning of discharge and his son will take him home from there. DISCHARGE DIAGNOSES: 1. Seizure. 2. Hypertensive emergency. 3. End-stage renal disease. 4. QT prolongation on clonidine. 5. Diabetes. 6. Debility. DISCHARGE MEDICATIONS: 1. Levetiracetam 500 mg b.i.d. 2. Doxazosin 2 mg 2 tablets daily at bedtime. 3. Polyethylene glycol 17 g daily. 4. Lisinopril 40 mg daily. 5. Glipizide 5 mg daily. 6. Isosorbide mononitrate 60 mg daily. 7. Gabapentin 100 mg daily. 8. Docusate 100 mg b.i.d. p.r.n. 9. Carvedilol 12.5 mg b.i.d. 10. Amlodipine 10 mg daily. 11. Acetaminophen 650 mg every 6 hours p.r.n. 12. Lidocaine/prilocaine EMLA cream p.r.n. DISCHARGE DISPOSITION: home DISCHARGE CONDITION: stable [id number]/CPS #: [id number] [facility]
== END 2017-12-14 11:45 | disposition home health service (06) | DRG 100 ==
LOC: ED 14:34 → ICU 15:51 → MEDTELE 12-10 17:18
PROVIDERS: ADMIT Internal Medicine; ATTEND Internal Medicine
PROC: 4A10X4Z Monitoring of Central Nervous Electrical Activity, External Approach (ICD-10-PCS; principal; 2017-12-08)
PROC: 5A1D70Z Performance of Urinary Filtration, Intermittent, Less than 6 Hours Per Day (ICD-10-PCS; 2017-12-09)
PROC: 5A1D70Z Performance of Urinary Filtration, Intermittent, Less than 6 Hours Per Day (ICD-10-PCS; 2017-12-11)
DX: R56.9 Unspecified convulsions (principal); N18.6 End stage renal disease; I16.1 Hypertensive emergency; I50.32 Chronic diastolic (congestive) heart failure; I13.2 Hypertensive heart and chronic kidney disease with heart failure and with stage 5 chronic kidney disease, or end stage renal disease; E87.2 Acidosis; R50.9 Fever, unspecified; T46.5X5A Adverse effect of other antihypertensive drugs, initial encounter; Y92.239 Unspecified place in hospital as the place of occurrence of the external cause; I45.81 Long QT syndrome; E11.22 Type 2 diabetes mellitus with diabetic chronic kidney disease; G47.33 Obstructive sleep apnea (adult) (pediatric); E11.319 Type 2 diabetes mellitus with unspecified diabetic retinopathy without macular edema; E11.42 Type 2 diabetes mellitus with diabetic polyneuropathy; Z96.1 Presence of intraocular lens; R53.81 Other malaise; N40.0 Benign prostatic hyperplasia without lower urinary tract symptoms; Z23 Encounter for immunization; Z99.2 Dependence on renal dialysis; Z98.42 Cataract extraction status, left eye; Z98.41 Cataract extraction status, right eye; Z79.84 Long term (current) use of oral hypoglycemic drugs; D50.0 Iron deficiency anemia secondary to blood loss (chronic); R07.9 Chest pain, unspecified; I44.5 Left posterior fascicular block; Z79.899 Other long term (current) drug therapy
CPT/HCPCS: 36415; 36600; 70450; 70551; 71045; 80048; 80053; 81003; 81015; 82550; 82803; 83605; 83735; 83880; 84100; 84443; 84484; 85025; 85610; 87040; 87086; 87641; 90686; 90732; 90935; 93005; 95819; 99285; A9270-GY; G0257; G8978-GP-CM; G8979-GP-CI; J0360; J1644; J1885; J2060; J2543

== ENCOUNTER 2017-12-23 11:58 | Day surgery (SDC) | payer MEDICARE ==
--- NOTE | 2017-12-18 09:52 | HP ---
AMENDED REPORT NOW INCLUDES ADDENDUM / RESET FOR ALL SIGNATURES HISTORY AND PHYSICAL: DATE OF ADMISSION/SURGERY: 12/22/17 He is scheduled for surgery at [facility] on 12/22/17. DATE OF EXAM: 12/17/17 ATTENDING PHYSICIAN: Dr. Delcid.* (DICTATED BY JOSE A LÓPEZ NP) CHIEF COMPLAINT: Malfunctioning right radiocephalic arteriovenous fistula. HISTORY OF PRESENT ILLNESS: Filippo Rojas is a 67-year-old male who has end-stage renal disease and on hemodialysis. He underwent a radiocephalic arteriovenous fistula on the right wrist on 09/17/17. They had difficulty cannulating the fistula and on 11/18/17, the patient returned to the operating room for a right arm fistula angiogram and balloon angioplasty of the cephalic vein for stenosis of the cephalic vein. At this time, the patient does have thrill at his fistula site, but there is decreased flow and stenosis above the graft in the cephalic vein. The patient is now returning to the OR for placement of a Torrance- Joseph graft for hemodialysis of the left arm. The patient was recently discharged from the hospital after having a bout of pneumonia, but is doing well at the present time. Dr. Delcid has discussed the nature and course of AV fistula with Torrance-Joseph graft and has discussed the material risk and relevant alternatives to surgery. These were reviewed with the patient at his preoperative appointment, including but not limited to infection, bleeding, poor healing, recurrent, and failure of the graft. The patient has been given a chance to ask questions and these have been answered and he will sign an informed consent for arterial venous fistula with Torrance-Joseph graft, left arm. PAST MEDICAL HISTORY: End-stage renal disease, history of pneumonia, hypertension, and diabetes. MEDICATIONS: 1. Gabapentin 100 mg 1. capsule 3 times daily. 2. Polyethylene glycol 3350 NF mix and then drink 17 g of 8 ounces of liquid every morning. 3. Amlodipine besylate 10 mg 1 tablet every morning. 4. Clonidine HCl 0.2 mg 1 tablet by mouth 2 times daily. 5. Isosorbide mononitrate ER 60 mg take 1 tablet by mouth every morning. 6. Lisinopril 30 mg 1 tablet q.a.m. 7. Glipizide 5 mg 1 tablet p.o. q.5 p.m. 8. DOK 100 mg take 1 capsule by mouth 2 times daily, maximum daily dose of 2. 9. Acetaminophen 325 mg. ALLERGIES: No known drug allergies. REVIEW OF SYSTEMS: As noted in the past medical history. Denied problems with anesthesia. He does not take a daily aspirin. PHYSICAL EXAMINATION GENERAL: Filippo Rojas is a 67-year-old male in no acute distress. VITAL SIGNS: Blood pressure 143/73, height 56 inches, weight 133. HEENT: Within normal limits. Teeth are in good repair. CHEST: Lungs clear. HEART: S1, S2. Regular rate and rhythm. ABDOMEN: Soft, nontender. Positive bowel sounds. Positive tympany. No masses or organomegaly. EXTREMITIES: Local exam shows a right arm radiocephalic arteriovenous fistula with thrill at the site, but decreased flow. NEUROLOGIC: Alert and oriented x3. The rest of the exam is grossly intact. IMPRESSION: Malfunctioning right radiocephalic arteriovenous fistula with stenosis of the cephalic vein. PLAN/RECOMMENDATIONS: Same-day surgery admission to Dr. Delcid's service for left arteriovenous fistula with Torrance-Joseph graft. JOSE A LÓPEZ NP ADDENDUM: DATE OF ADMISSION/SURGERY: The patient is now scheduled for surgery 12/22/17. The patient is now scheduled for surgery 12/22/17 for left arm arterial venous graft. The patient was scheduled for surgery on 12/21/17 and he called on 12/18 and wanted to cancel his surgery as he did not want to go ahead and he was scheduled for the 12/22/17. He called and has changed his mind and now wishes to proceed with surgery and this is scheduled for 12/22/17 at [facility]. There is also since the previous history and physical was dictated a new medication list, which is Velphoro 500 mg p.o. t.i.d., levetiracetam 500 mg 1 tablet by mouth 2 times daily, carvedilol 12.5 mg 1 tablet by mouth 2 times daily, amlodipine besylate 10 mg 1 tablet by mouth every evening, acetaminophen 325 mg p.r.n., lisinopril 30 mg 1 tablet p.o. every morning and clonidine HCL 0.2 mg take 1 tablet by mouth 2 times a day. Other than that there is no interval changes. The patient is scheduled for same-day surgery at [facility] for left arm arterial venous graft. JOSE A LÓPEZ NP [id number]/CPS #: [id number]/CPS #: [id number] CARISSA
--- NOTE | 2017-12-23 03:43 | HP ---
HISTORY AND PHYSICAL: DATE OF ADMISSION: 12/21/17. DATE OF ADMISSION/SURGERY: The patient is now scheduled for surgery 12/22/17. ADDENDUM: The patient is now scheduled for surgery 12/22/17 for left arm arterial venous graft. The patient was scheduled for surgery on 12/21/17 and he called on 12/18/17 and wanted to cancel his surgery as he did not want to go ahead and he was scheduled for the 12/22/17. He called and has changed his mind and now wishes to proceed with surgery and this is scheduled for 12/22/17 at [facility]. There is also since the previous history and physical was dictated a new medication list, which is Velphoro 500 mg p.o. t.i.d., levetiracetam 500 mg 1 tablet by mouth 2 times daily, carvedilol 12.5 mg 1 tablet by mouth 2 times daily, amlodipine besylate 10 mg 1 tablet by mouth every evening, acetaminophen 325 mg p.r.n., lisinopril 30 mg 1 tablet p.o. every morning and clonidine HCL 0.2 mg take 1 tablet by mouth 2 times a day. Other than that there is no interval changes. The patient is scheduled for same -day surgery at [facility] for left arm arterial venous graft. JOSE A LÓPEZ NP [id number]/CPS #: [id number] MTDKami
[~2017-12-23 11:58] MED LIST changes: +KETAMINE HCL* 50 MG/ML 10 ML VIAL ONE; +Midazolam* 1 MG/ML 5 ML VIAL (5 MG) ONE; +Ondansetron ODT TAB* 4 MG ONE; +ceFAZolin 2 GM PREMIX in ORs 2 GM/50 ML BAG IVPB ONE; -ceFAZolin 2 GM in NS PREMIX(*) 2 GM/100 ML BAG IVPB ONE; +fentaNYL* 50 MCG/ML 2 ML VIAL (100 MCG VIAL) ONE
[2017-12-23] MEDS ORDERED: Buffered Lidocaine 0.9% SYRIN* 5 ML/SYR SYRINGE ONE (12:36)
[2017-12-23] MEDS ORDERED: Heparin DIALYSIS ONLY(*) 1,000 UNITS/ML VIAL ONE ×2 (13:27→14:33)
[2017-12-23] MEDS ORDERED: Lidocaine 1% INJ* 10 MG/ML 30 ML SDV ONE (13:28)
[2017-12-23] MEDS ORDERED: Heparin 2 UNITS/ML IVPREMIX* 0 ML IV ONE (13:37)
[2017-12-23] MEDS ORDERED: Bupivacaine 0.25% SDV* 30 ML ONE (14:32)
[2017-12-23] MEDS ORDERED: hydrALAZINE IV* 20 MG/ML VIAL ONE (15:08)
[2017-12-23] MEDS ORDERED: Thrombin 5,000 UNITS* 1 APPLIC KIT - topical use - TOPICAL ONE (15:52)
[2017-12-23] MEDS ORDERED: Naloxone* 0.4 MG/ML 1 ML VIAL IV PRN (16:20)
[2017-12-23] MEDS ORDERED: oxyCODONE/Acetamin 5/325 MG* TAB PO PRN (16:20)
[2017-12-23] MEDS ORDERED: fentaNYL* 50 MCG/ML 2 ML VIAL (100 MCG VIAL) IV PRN (16:20)
[2017-12-23] MEDS ORDERED: DiMENhydriNATE IV* 50 MG/ML VIAL IV PUSH PRN (16:20)
[2017-12-23 16:57] VITALS: BP 181/81
--- NOTE | 2017-12-24 01:34 | OP ---
DATE OF OPERATION: 12/23/17 - [facility] DATE OF : 52 SURGEON: Sukh Delcid MD [employer]ERMIT W[employer]ING MACHINE OPERATOR: Isabelle Skelton NP PRE-OP DIAGNOSIS: End-stage renal disease. POST-OP DIAGNOSIS: End-stage renal disease. OPERATIVE PROCEDURE: Left arm arteriovenous graft for dialysis using 6 mm Propaten Cranston. ESTIMATED BLOOD LOSS: Approximately 30 cc. DESCRIPTION OF PROCEDURE: The patient was taken to the operating room. He was placed in supine position. He was prepped and draped in the usual sterile fashion. He received preoperative antibiotics. After proper identification of patient and site of surgery, and the patient was prepped and draped in the usual sterile fashion under sedation, lidocaine 1% was used to infiltrate on the medial aspect of the left arm. A transverse incision was performed in this area. The incision was carried down to the skin and subcutaneous tissue. Bleeders were controlled by electrocoagulation. After opening the fascia, dissection was carried around until the basilic vein was found up towards the axilla. This was then encircled and vessel loops proximal and distally. We then proceeded to make an incision on the medial aspect more distal above the elbow. This incision was carried down through skin and subcutaneous tissue. The brachial artery was identified, exposed encircled in vessel loops and after this was done, local anesthesia using Marcaine 0.25% was used to infiltrate in a loop in order to create the tunnel and after this was done using a curved tunneler, we connected the two incisions and via the tunneler, a 6-mm Propaten Cranston-Joseph graft was attached to the tunneler and pulled into the incisions leaving both ends into each individual incision. After this was completed and the graft was settled in place, we then proceeded to give the patient heparin a total of 3000 units and after this was done, we then proceeded to cross clamp the basilic vein proximally and distally. We then perform a venotomy, which was extended with Pott scissors and the Cranston-Joseph was beveled and anastomosed to the basilic vein using 7-0 Prolene in a continuous running suture. After this was completed, there was good flow, irrigating heparinized saline into the graft and into the vein. After this, the Cranston-Joseph was cross clamped at the vein site and we then proceeded to anastomose the arterial anastomosis after cross clamping the brachial artery proximally and distally. The Cranston-Joseph graft was cut in a transverse manner and arteriotomy was done, which was then extended with Pott scissors and an end-to-side anastomosis was then done through the brachial artery using 7-0 Prolene in a continuous running suture. After this was completed, we then proceeded to open the clamp in the venous arm of the Cranston-Joseph and then opened the brachial artery into the graft. Excellent flow was noted. This was confirmed by a pulse in the graft and a thrill and also distally in the basilic vein. After this was done, the radial pulses were checked, they were strong palpable pulses. There was good capillary refill. We then checked for hemostasis. There was minor oozing from the needle point, which were then controlled with Surgicel and topical thrombin and after the field was dry, we then proceeded to close the incision, closing subcutaneous tissue with 4-0 Vicryl suture and the skin with subcuticular 5- 0 Monocryl. Dermabond was applied over the area. The patient tolerated the procedure well and was taken in good condition to the recovery area. [id number]/[facility] #: [id number] CARISSA
== END 2017-12-23 17:19 | disposition home or self-care (01) ==
LOC: OR 11:58
PROVIDERS: ATTEND Surgery
DX: T82.590A Other mechanical complication of surgically created arteriovenous fistula, initial encounter (principal); N18.6 End stage renal disease; E11.9 Type 2 diabetes mellitus without complications; I12.9 Hypertensive chronic kidney disease with stage 1 through stage 4 chronic kidney disease, or unspecified chronic kidney disease; D64.9 Anemia, unspecified
CPT/HCPCS: A9270-GY; C1768; J0360; J0690; J1644; J2250; J3010

== ENCOUNTER 2018-02-12 08:31 | Day surgery (SDC) | payer MEDICARE ==
--- NOTE | 2018-02-11 17:47 | HP ---
HISTORY AND PHYSICAL: DATE OF ADMISSION: 02/12/18 CHIEF COMPLAINT: Ecchymosis of the left side of the chest and arm area. HISTORY OF PRESENT ILLNESS: The patient is a 67-year-old male with end-stage renal disease, on hemodialysis. He underwent a left brachial graft for hemodialysis at the end of November 2017. The dialysis graft was being used and he was noticed to have ecchymosis in the area of the left side of the chest and arm area. It was felt that possibly the patient could have a resistance in the outflow and for this reason had spontaneous bleeding of vessel. For this reason , the patient is being admitted to the hospital for an angiogram of the graft, possible angioplasty. PAST MEDICAL HISTORY: Remarkable for: 1. End-stage renal disease. 2. Hypertension. 3. Uts-sdufkvu-xgvylorit diabetes. CURRENT MEDICATIONS: Include: 1. Lisinopril 40 mg p.o. daily. 2. MiraLAX 17 g p.o. daily. 3. Tylenol 650 mg every 8 hours as needed. 4. Velphoro 500 mg tablets, 1 tablet p.o. daily. 5. Amlodipine besylate 10 mg 1 tablet p.o. daily. 6. Carvedilol 12.5 mg 1 tablet p.o. b.i.d. 7. Clonidine 0.3 mg 1 tablet p.o. daily. 8. Docusate sodium 100 mg capsules, 1 capsule p.o. daily. 9. Doxazosin mesylate 2 mg 1 tablet at bedtime. 10. Gabapentin 100 mg capsule, 1 capsule p.o. daily. 11. Glipizide 5 mg 1 tablet p.o. daily. 12. Imdur 60 mg tablets, 1 tablet every 24 hours. 13. Keppra 500 mg 1 tablet twice daily. ALLERGIES: The patient has no known allergies. REVIEW OF SYSTEMS: His review of systems is contributory for the above- mentioned end-stage renal disease, hypertension, diabetes, prior history of catheter placement for hemodialysis, both temporary and permanent. PHYSICAL EXAMINATION GENERAL: The patient is alert and oriented. VITAL SIGNS: His weight is 58.3 kilos. His blood pressure is 163/65, pulse of 53, respirations of 18. HEAD AND NECK: Reveals no neck nodes or masses. There is a tunnelled catheter for hemodialysis on the right side that has been present for over 3 months. On the left side, there are no masses. There is some ecchymosis on the left side of the arm and the chest. There is a brachial graft patent with excellent thrill on the left side. The patient has excellent palpable pulses in the upper extremities. LUNGS: Clear to auscultation bilaterally. HEART: Regular. ABDOMEN: Soft and otherwise unremarkable. EXTREMITIES: Lower extremities, unremarkable. DIAGNOSTIC IMPRESSION: Possible outflow stenosis in the central area, either subclavian or central venous location. PLAN: The plan is to proceed with angiogram of the left brachial graft, possible balloon angioplasty. If the angiogram is negative, we will then proceed with removal of the tunnelled hemodialysis catheter on the right side of the neck. The patient understands, agrees, and wishes to proceed with the surgery. [id number]/CPS #: [id number] MTDD
[~2018-02-12 08:31] MED LIST changes: +DiMENhydriNATE IV* 50 MG/ML VIAL IV PUSH PRN; -Famotidine IV* 10 MG/ML 2 ML (20 mg) ONE; -KETAMINE HCL* 50 MG/ML 10 ML VIAL ONE; +Lactated Ringers 1000 ML Bag* 1,000 ML IV SCH; -Midazolam* 1 MG/ML 5 ML VIAL (5 MG) ONE; +Morphine VIAL* 4 MG/ML VIAL (1 ml vial) IV PRN; +Naloxone* 0.4 MG/ML 1 ML VIAL IV PRN; -Ondansetron ODT TAB* 4 MG ONE; +Ondansetron TAB* 4 MG PO ONE; +PROCHLORPERAZINE INJ 5 MG/ML 2 ML VIAL IV PRN; -ceFAZolin 2 GM PREMIX in ORs 2 GM/50 ML BAG IVPB ONE; +fentaNYL* 50 MCG/ML 2 ML VIAL (100 MCG VIAL) IV PRN; -fentaNYL* 50 MCG/ML 2 ML VIAL (100 MCG VIAL) ONE; +oxyCODONE/Acetamin 5/325 MG* TAB PO PRN
[2018-02-12] MEDS ORDERED: ceFAZolin 2 GM PREMIX in ORs 2 GM/50 ML BAG IVPB ONE (09:07)
[2018-02-12] MEDS ORDERED: Ondansetron ODT TAB* 4 MG ONE (09:09)
[2018-02-12] MEDS ORDERED: Famotidine IV* 10 MG/ML 2 ML (20 mg) ONE (09:09)
[2018-02-12] MEDS ORDERED: fentaNYL* 50 MCG/ML 2 ML VIAL (100 MCG VIAL) ONE (09:48)
[2018-02-12] MEDS ORDERED: Midazolam* 1 MG/ML 2 ML VIAL (2 MG) ONE ×2 (09:48→11:55)
[2018-02-12] MEDS ORDERED: Heparin 2 UNITS/ML IVPREMIX* 1,000 ML IV ONE (10:26)
[2018-02-12] MEDS ORDERED: Heparin VIAL(*) 5000 UNITS/ML VIAL (FIVE THOUSAND) ONE (10:28)
[2018-02-12] MEDS ORDERED: Iohexol 180 (CONTRAST) 10 ML SDV IV ONE ×3 (10:29→11:15)
[2018-02-12] MEDS ORDERED: Bupivacaine 0.25% EPI 200,000* 30 ML SDV ONE (10:29)
[2018-02-12] MEDS ORDERED: hydrALAZINE IV* 20 MG/ML VIAL ONE (11:55)
[2018-02-12 13:47] VITALS: BP 202/83
--- NOTE | 2018-02-13 08:19 | OP ---
DATE OF OPERATION: 02/12/18 [facility] DATE OF : 52 SURGEON: Dr. Delcid. PRODUCT COMMUNICATIONS MANAGER: Isabelle Skelton NP ANESTHESIA: Local plus MAC. PRE-OP DIAGNOSIS: Stenosis, left brachial graft. POST-OP DIAGNOSIS: Stenosis of the left axillary vein. OPERATIVE PROCEDURES: 1. Left brachial graft angiogram. 2. Left axillary vein balloon angioplasty. 3. Removal of tunneled temporary dialysis catheter. ESTIMATED BLOOD LOSS: Approximately 50 cc. INDICATIONS: The patient is a 67-year-old male with end-stage renal disease that had a left brachial graft placed from the brachial artery to the brachial vein in November 2017. The patient had been having dialysis. In one of the runs , the patient developed ecchymosis around the chest area. It was felt that there may be stenosis more proximal, and for this reason the patient was admitted for a brachial graft angiogram. DESCRIPTION OF PROCEDURE: The patient was taken to the operating room. He received preoperative antibiotics. The site of surgery was identified as well as the patient. Under sedation, he was prepped and draped in the usual sterile fashion. After a timeout, lidocaine 1% was used to infiltrate the lateral aspect of the brachial graft located on the left arm. A percutaneous cannulation of the graft was done with a 16-gauge Angiocath and after this, a check-flow valve was applied to the Angiocath with brisk bleeding. After this was done, an angiogram was performed. The body of the graft appeared to be clear of any clots or obstructions. The arterial anastomosis appeared to be clean without any stenosis. Distal to the venous anastomosis in the axillary vein, there was an area narrowed at least 50% and it was felt it was important to dilate this area in order to improve the outflow. At this point, we switched the 16-gauge Angiocath out for a 6-[place] short sheath that was advanced over the wire. After this was done, we then proceeded to advance the Zip wire and traverse the venous anastomosis and placed the wire into the subclavian vein. After this was done, we then proceeded to introduce a 6 mm, 75 cm long [place] balloon angioplasty catheter. The area of stenosis was then dilated and corrected. After this was done, we then proceeded to advance a 7 mm [place] balloon and dilated again the area. Left the balloon up for 1 minute and after this was completed, the balloon was then pulled back. We proceeded to shoot an angiogram via the sheath and with correction of the stenosis. We also followed the subclavian vein all the way to the superior vena cava. There was no evidence of obstruction. At this point, we then proceeded to place a figure- of-eight suture around the 6-[place] sheath. Pulled and tightened the suture over a bolster and with a 180-degree twist to avoid any bleeding. Steri-strips were applied. There was excellent pulse and thrill to the graft. At the end of the procedure, the patient had good pulses at the radial artery. After this was completed, we then proceeded to prep and drape the upper right chest area and after injecting lidocaine around the catheter, an incision was made at the entrance site, dissection was carried to the cuff of the catheter. The fibrosis was then dissected off the Brian cuff of the catheter, released it completely and we then proceeded to pull the catheter out applying pressure to the jugular site entrance of the catheter. This was done uninterrupted for 10 minutes and after this there was no evidence of back bleeding. A dressing was applied to the area of the entrance of the catheter. After this was done, the patient was taken in good condition to recovery room. [id number]/[facility] #: [id number] CARISSA
== END 2018-02-12 14:12 | disposition home or self-care (01) ==
LOC: OR 08:31
PROVIDERS: ATTEND Surgery
DX: T82.858A Stenosis of other vascular prosthetic devices, implants and grafts, initial encounter (principal); N18.6 End stage renal disease; I12.9 Hypertensive chronic kidney disease with stage 1 through stage 4 chronic kidney disease, or unspecified chronic kidney disease; E11.21 Type 2 diabetes mellitus with diabetic nephropathy; I69.398 Other sequelae of cerebral infarction
CPT/HCPCS: 76001; A9270-GY; C1725; C1769; C1887; J0360; J0690; J1644; J2250; J3010

== ENCOUNTER 2018-02-28 21:48 | Emergency (ER) | payer MEDICARE ==
--- NOTE | 2018-02-28 22:17 | ED ---
Shortness of Breath - HPI Summary HPI Summary: Pt is a 67 y/o male who presents to the ED c/o SOB. He is a dialysis patient, and usually gets his dialysis every Thursday and Thursday. Pt had less fluid taken off than usual his last dialysis treatment, which was 2 days ago. His next appointment is tomorrow. Pt c/o diffuse edema, abdominal pain, and SOB since yesterday. He states that his whole body feels tight and swollen. As per partner, he urinated today. Dr. Vora is his genetic engineer. - History of Current Complaint Chief Complaint: EDGeneral Time Seen by Provider: 02/28/18 22:00 Hx Obtained From: Patient, Family/Developer Designer Onset/Duration: Gradual Onset, Lasting Days - Yesterday, Still Present Timing: Constant Dyspnea At: Rest Aggrevating Factors: Other - Taking off less fluid during dialysis Alleviating Factors: Nothing Associated Signs & Symptoms: Edema - Allergy/Home Medications Allergies/Adverse Reactions: Allergies Allergy/AdvReac Type Severity Reaction Status Date / Time No Known Allergies Allergy Verified 02/12/18 09:13 PMH/Surg Hx/FS Hx/Imm Hx Endocrine/Hematology History: Reports: Hx Anticoagulant Therapy - ASA, Hx Diabetes - Type 2 Denies: Hx Bone Marrow Disease, Hx Sickle Cell Disease, Hx Thyroid Disease, Hx Anemia Cardiovascular History: Reports: Hx Congestive Heart Failure - hx of diastolic dysfunction w/acute chronic heart failure, Hx Hypertension - hypertensive crisis -12/14/17 discharge note Denies: Hx Pacemaker/ICD, Other Cardiovascular Problems/Disorders Respiratory History: Denies: Hx Asthma, Hx Chronic Obstructive Pulmonary Disease (COPD), Hx Sleep Apnea, Other Respiratory Problems/Disorders GI History: Denies: Hx Gastroesophageal Reflux Disease, Hx Hiatal Hernia, Other GI Disorders History: Reports: Hx Chronic Renal Failure, Hx Dialysis Musculoskeletal History: Reports: Hx Arthritis - legs and hands Denies: Other Musculoskeletal History Sensory History: Reports: Hx Cataracts - bilateral-extracted, Hx Contacts or Glasses - Reading glasses Denies: Hx Deafness, Hx Hearing Aid Opthamlomology History: Reports: Hx Cataracts - bilateral-extracted, Hx Contacts or Glasses - Reading glasses Neurological History: Reports: Hx Headaches - occasional, Hx Nerve Disease - peripheral neuropathy, Hx Peripheral Neuropathy, Hx Seizures - from high blood pressure and medication 12/17 Denies: Hx Dementia, Hx Developmental Delay, Other Neuro Impairments/ Disorders Psychiatric History: Denies: Hx Panic Disorder - Cancer History Hx Chemotherapy: No - Surgical History Surgery Procedure, Year, and Place: Circumcision 08/01 [facility]. Extraction of cataract to the right eye with an IOL implant 04/07 [facility]. Extraction of cataract to the left eye with an IOL implant 01/10 [facility]. Insertion of retirement hemosplit hemodialysis catheter 07/29/17 [facility]. AV fistula right wrist 09/17/17. AV fistula 12/17 Hx Anesthesia Reactions: No - Immunization History Date of Tetanus Vaccine: unk Date of Influenza Vaccine: unk Infectious Disease History: No Infectious Disease History: Denies: Traveled Outside the [place] in Last 30 Days - Family History Known Family History: Negative: Cardiac Disease, Hypertension - Social History Alcohol Use: None Hx Substance Use: No Substance Use Type: Reports: None Hx Tobacco Use: No Smoking Status (MU): Never Smoked Tobacco Type: Cigarettes Have You Smoked in the Last Year: No Review of Systems Positive: Shortness Of Breath Positive: Abdominal Pain Positive: Edema All Other Systems Reviewed And Are Negative: Yes Physical Exam - Summary Physical Exam Summary: Appearance: Well appearing, no pain distress Skin: warm, dry, reflects adequate perfusion, mild edema everywhere, active fistula in LUE Head/face: normal Eyes: EOMI, DEE ENT: mucous membranes moist Neck: supple, non-tender, JVD Respiratory: CTA, breath sounds diminished in bases, no crackles Cardiovascular: RRR, pulses symmetrical, bilateral pitting edema to knees of LE Abdomen: non-tender, soft Bowel Sounds: present Musculoskeletal: normal, strength/ROM intact Neuro: normal, sensory motor intact, A&Ox3 Triage Information Reviewed: Yes Vital Signs On Initial Exam: Initial Vitals Temp Pulse Resp BP Pulse Ox 99.0 F 66 20 146/63 96 02/28/18 21:49 02/28/18 21:49 02/28/18 21:49 02/28/18 21:49 02/28/18 21:49 Vital Signs Reviewed: Yes Diagnostics - Vital Signs Vital Signs Temp Pulse Resp BP Pulse Ox 02/28/18 21:49 99.0 F 66 20 146/63 96 - Laboratory Result Diagrams: 02/28/18 22:11 02/28/18 22:11 Lab Statement: Any lab studies that have been ordered have been reviewed, and results considered in the medical decision making process. - Radiology CXR Radiology Interpretation Completed By: ED Physician Summary of Radiographic Findings: CHF and cardiomegaly. Pending official radiology report. - EKG 22:23 Cardiac Rate: Bradycardia - [address] Segment: Normal Summary of EKG Findings: 1st degree AV block, poor R wave progression. Course/Dx - Course Course Of Treatment: Nurse's notes reviewed. Patient presents with history of dialysis and whole body edema/weight gain. He has no significant respiratory distress. His blood pressures minnie while he is here. This is treated with nitroglycerin. He was explained fluid overload and that this needed to be dealt with at dialysis. He does make urine and so a dose of oral Lasix was given. His laboratories were within his normal including potassium. No hypoxia or increased work of breathing. He has dialysis scheduled for the morning. Discharged in improved condition. - Diagnoses Differential Diagnosis/HQI/PQRI: Positive: CHF, Pneumonia, Pulmonary Edema Provider Diagnoses: Fluid overload, ESRD (end stage renal disease) on dialysis, Uncontrolled hypertension Discharge - Sign-Out/Discharge Documenting (check all that apply): Patient Departure - Discharge - Discharge Plan Condition: Improved Disposition: HOME Patient Education Materials: Heart Failure (ED), Leg Edema (ED) Referrals: Brad Menezes MD [Primary Care Provider] - Additional Instructions: Go to dialysis first thing in the morning as scheduled. Be sure to inform them that you have increased weight gain. They can remove more fluid during dialysis. Return if difficulty breathing, worse, new symptoms or other concerns as discussed. - Billing Disposition and Condition Condition: IMPROVED Disposition: Home - Attestation Statements Document Initiated by John: Yes Documenting Scribe: Lavonne Gomez Provider For Whom John is Documenting (Include Credential): Shyam Silverman MD Scribe Attestation: Lavonne Browning, scribed for Shyam Silverman MD on 02/28/18 at 2351. Scribe Documentation Reviewed: Yes Provider Attestation: The documentation as recorded by the Lavonne caballero accurately reflects the service I personally performed and the decisions made by me, Shyam Silverman MD Status of Scribe Document: Viewed
[2018-02-28] MEDS: Furosemide TAB* 20 MG PO ONE (22:25)
[2018-02-28 22:30] LABS: INR 0.92 (0.77-1.02)
[2018-02-28 22:41] LABS: Albumin 3.8 g/dL (3.2-5.2); Albumin/Globulin Ratio 1.3 (1-3); BUN/Creatinine Ratio 6.8 (8-20); Calcium 8.9 mg/dL (8.6-10.3); EGFR Non-African American 9.1 (>60); Potassium 3.9 mmol/L (3.5-5.0); Total Bilirubin 0.6 mg/dL (0.2-1.0); Total Protein 6.8 g/dL (6.4-8.9)
[2018-02-28 22:56] LABS: Hematocrit 33 % (42-52); Hemoglobin 10.6 g/dl (14.0-18.0); Mean Corpuscular HGB Conc 33 g/dl (31-36); Mean Corpuscular Hemoglobin 26 pg (27-31); Mean Corpuscular Volume 80 fL (80-94); Mean Platelet Volume 7.3 fL (7.4-10.4); Platelet Count 244 10^3/ul (150-450); Red Blood Count 4.08 10^6/ul (4.00-5.40); Red Cell Distribution Width 17 % (10.5-15); White Blood Count 5.9 10^3/ul (3.5-10.8)
[2018-02-28] MEDS: Nitroglycerin 2% OINT* 1 GM PAK TOPICAL ONE (23:07)
[2018-02-28 23:17] LABS: Immature Granulocytes 1 % (0-9); Lymphocytes % 30 %; Metamyelocytes % 1 % (0-2); Monocytes % 10 %; Neutrophil % 54 %
[2018-02-28 23:21] LABS: Polychromasia 1+
[2018-02-28 23:26] LABS: ABS Eosinophils 0.24 10^3/ul (0-0.6); ABS Neutrophils 3.25 10^3/ul (1.5-7.7)
[2018-02-28 23:27] LABS: ABS Basophils 0.06 10^3/ul (0-0.2)
[2018-02-28 23:34] VITALS: BP 192/78
== END 2018-02-28 23:33 | disposition home or self-care (01) ==
LOC: ED 21:48
DX: E87.70 Fluid overload, unspecified (principal); I12.9 Hypertensive chronic kidney disease with stage 1 through stage 4 chronic kidney disease, or unspecified chronic kidney disease; E11.22 Type 2 diabetes mellitus with diabetic chronic kidney disease; N18.6 End stage renal disease; J44.9 Chronic obstructive pulmonary disease, unspecified; Z79.01 Long term (current) use of anticoagulants; Z99.2 Dependence on renal dialysis
CPT/HCPCS: 36415; 71045; 80053; 85025; 85610; 93005; 99283; A9270-GY

== ENCOUNTER 2018-08-23 15:31 | Emergency (ER) | payer MEDICARE ==
[2018-08-23] MEDS ORDERED: Collagen Hemostat* 1 GM JAR TOPICAL ONE (16:05)
[2018-08-23 16:34] LABS: ABS Eosinophils 0.4 10^3/ul (0-0.6); ABS Lymphocytes 0.9 10^3/ul (1.0-4.8); ABS Monocytes 0.5 10^3/ul (0-0.8); ABS Neutrophils 2.5 10^3/ul (1.5-7.7); Eosinophil % 9.8 %; Hematocrit 33 % (42-52); Hemoglobin 11.3 g/dL (14.0-18.0); Lymphocyte % 20.7 %; Mean Corpuscular HGB Conc 34 g/dL (31-36); Mean Corpuscular Hemoglobin 26 pg (27-31); Mean Corpuscular Volume 76 fL (80-94); Mean Platelet Volume 7.1 fL (7.4-10.4); Nucleated Red Blood Cells % 0.1; Platelet Count 191 10^3/uL (150-450); Red Blood Count 4.39 10^6 /uL (4.18-5.48); Red Cell Distribution Width 15 % (10-15); White Blood Count 4.4 10^3/uL (3.5-10.8)
[2018-08-23] MEDS ORDERED: Tranexamic Acid 1,000 MG/10 ML SDV TOPICAL ONE (17:54)
--- NOTE | 2018-08-23 18:22 | ED ---
Upper Extremity Pain - History of Current Complaint Chief Complaint: EDBleedingDisorder Stated Complaint: UNABLE TO STOP THE BLEEDING ON LT ARM PER PT Time Seen by Provider: 08/23/18 15:58 - Allergies/Home Medications Allergies/Adverse Reactions: Allergies Allergy/AdvReac Type Severity Reaction Status Date / Time No Known Allergies Allergy Verified 08/23/18 15:46 PMH/Surg Hx/FS Hx/Imm Hx Endocrine/Hematology History: Reports: Hx Anticoagulant Therapy - ASA, Hx Diabetes - Type 2 Denies: Hx Bone Marrow Disease, Hx Sickle Cell Disease, Hx Thyroid Disease, Hx Anemia Cardiovascular History: Reports: Hx Congestive Heart Failure - hx of diastolic dysfunction w/acute chronic heart failure, Hx Hypertension - hypertensive crisis -12/14/17 discharge note Denies: Hx Pacemaker/ICD, Other Cardiovascular Problems/Disorders Respiratory History: Denies: Hx Asthma, Hx Chronic Obstructive Pulmonary Disease (COPD), Hx Sleep Apnea, Other Respiratory Problems/Disorders GI History: Denies: Hx Gastroesophageal Reflux Disease, Hx Hiatal Hernia, Other GI Disorders History: Reports: Hx Chronic Renal Failure, Hx Dialysis Musculoskeletal History: Reports: Hx Arthritis - legs and hands Denies: Other Musculoskeletal History Sensory History: Reports: Hx Cataracts - bilateral-extracted, Hx Contacts or Glasses - Reading glasses Denies: Hx Deafness, Hx Hearing Aid Opthamlomology History: Reports: Hx Cataracts - bilateral-extracted, Hx Contacts or Glasses - Reading glasses Neurological History: Reports: Hx Headaches - occasional, Hx Nerve Disease - peripheral neuropathy, Hx Peripheral Neuropathy, Hx Seizures - from high blood pressure and medication 12/17 Denies: Hx Dementia, Hx Developmental Delay, Other Neuro Impairments/ Disorders Psychiatric History: Denies: Hx Panic Disorder - Cancer History Hx Chemotherapy: No - Surgical History Surgery Procedure, Year, and Place: Circumcision 08/01 [facility] [place]. Extraction of cataract to the right eye with an IOL implant 04/07 [facility]. Extraction of cataract to the left eye with an IOL implant 01/10 [facility]. Insertion of shelter hemosplit hemodialysis catheter 07/29/17 [facility]. AV fistula right wrist 09/17/17. AV fistula 12/17 Hx Anesthesia Reactions: No - Immunization History Date of Tetanus Vaccine: unk Date of Influenza Vaccine: unk Infectious Disease History: No Infectious Disease History: Denies: Traveled Outside the [place] in Last 30 Days - Family History Known Family History: Negative: Cardiac Disease, Hypertension - Social History Alcohol Use: None Hx Substance Use: No Substance Use Type: Reports: None Hx Tobacco Use: No Smoking Status (MU): Never Smoked Tobacco Type: Cigarettes Have You Smoked in the Last Year: No Physical Exam Vital Signs On Initial Exam: Initial Vitals Temp Pulse Resp BP Pulse Ox 98.6 F 58 16 117/55 96 08/23/18 15:42 08/23/18 15:42 08/23/18 15:42 08/23/18 15:42 08/23/18 15:42 Diagnostics - Vital Signs Vital Signs Temp Pulse Resp BP Pulse Ox 08/23/18 15:42 98.6 F 58 16 117/55 96 - Laboratory Lab Results: Lab Results 08/23/18 Range/Units 16:27 WBC 4.4 (3.5-10.8) 10^3/uL RBC 4.39 (4.18-5.48) 10^6 /uL Hgb 11.3 L (14.0-18.0) g/dL Hct 33 L (42-52) % MCV 76 L (80-94) fL MCH 26 L (27-31) pg MCHC 34 (31-36) g/dL RDW 15 (10-15) % Plt Count 191 (150-450) 10^3/uL MPV 7.1 L (7.4-10.4) fL Neut % (Auto) 57.0 % Lymph % (Auto) 20.7 % [place] % (Auto) 11.5 % Eos % (Auto) 9.8 % Baso % (Auto) 1.0 % Absolute Neuts (auto) 2.5 (1.5-7.7) 10^3/ul Absolute Lymphs (auto) 0.9 L (1.0-4.8) 10^3/ul Absolute Monos (auto) 0.5 (0-0.8) 10^3/ul Absolute Eos (auto) 0.4 (0-0.6) 10^3/ul Absolute Basos (auto) 0.0 (0-0.2) 10^3/ul Absolute Nucleated RBC 0.0 10^3/ul Nucleated RBC % 0.1 Result Diagrams: 08/23/18 16:27 Lab Statement: Any lab studies that have been ordered have been reviewed, and results considered in the medical decision making process. Course/Dx - Diagnoses Provider Diagnoses: Bleeding Discharge - Sign-Out/Discharge Documenting (check all that apply): Patient Departure Patient Received Moderate/Deep Sedation with Procedure: No - Discharge Plan Condition: Stable Disposition: HOME Patient Education Materials: Postoperative Bleeding (ED) Referrals: Brad Menezes MD [Primary Care Provider] - Additional Instructions: Keep dressing in place until you return to dialysis on Thursday. Minimize use of left arm. Call 911 immediately if bleeding starts to occur again. - Billing Disposition and Condition Condition: STABLE Disposition: Home
[2018-08-23 18:39] VITALS: BP 118/61
== END 2018-08-23 18:30 | disposition home or self-care (01) ==
LOC: ED 15:31
DX: R58 Hemorrhage, not elsewhere classified (principal); Z79.01 Long term (current) use of anticoagulants; E11.9 Type 2 diabetes mellitus without complications; K21.9 Gastro-esophageal reflux disease without esophagitis
CPT/HCPCS: 36415; 85025; 99282; A9270-GY

== ENCOUNTER → 2018-09-01 05:37 | Day surgery (SDC) | payer MEDICARE ==
--- NOTE | 2018-08-31 16:55 | HP ---
HISTORY AND PHYSICAL: DATE OF ADMISSION: 09/01/18 He is scheduled for surgery at [facility] for 09/01/18. ATTENDING PHYSICIAN: Dr. Delcid.* (DICTATED BY JOSE A LÓPEZ NP) CHIEF COMPLAINT: Prolonged bleeding of the dialysis graft after cannulation. HISTORY OF PRESENT ILLNESS: Filippo Rojas is a 68-year-old male who underwent a brachial graft for hemodialysis in November 2017. They have had episodes of being unable to control the bleeding post dialysis and the patient was seen in the emergency room on one episode to stop the bleeding. The patient has also had stenosis of the left axillary vein and balloon angioplasty in January 2018. He is now returning to the operating room for left arm angiogram of anastomosis graft with possible angioplasty. The patient will sign on admission an informed consent for this. PAST MEDICAL HISTORY: End-stage renal disease, hypertension, non-insulin- dependent diabetes. MEDICATIONS: 1. Acetaminophen 350 mg p.r.n. 2. Amlodipine besylate 10 mg take 1 tablet by mouth every night. 3. Carvedilol 12.5 mg 1 tablet p.o. b.i.d. 4. Clonidine HCl 0.3 mg 1 tablet twice daily. 5. Doxazosin mesylate 2 mg p.o. daily. 6. Gabapentin 100 mg 1 tablet t.i.d. 7. Glipizide 5 mg p.o. daily. 8. Isosorbide mononitrate ER 60 mg 1 tablet q.a.m. 9. Levetiracetam 500 mg take 1 tablet twice daily. 10. Lisinopril 30 mg take 1 tablet q.a.m. 11. Minoxidil 10 mg 1 tablet t.i.d. 12. MiraLAX p.o. p.r.n. 13. Docusate sodium p.r.n. 14. He takes some multivitamin. 15. Velphoro 500 mg p.o. t.i.d. ALLERGIES: None. REVIEW OF SYSTEMS: He denied problems with anesthesia. He denies daily aspirin use. He has not had any recent exposure to any communicable disease. He has been very well. PHYSICAL EXAMINATION GENERAL: Filippo Rojas is a 68-year-old male, well developed, well nourished, in no acute distress. He is alert and oriented. VITAL SIGNS: Blood pressure 171/78, pulse is 70, respirations 18. Height 5 feet 6 inches, weight 132 pounds. HEENT: Within normal limits. Teeth are in fair repair. CHEST: Lungs clear. HEART: S1, S2. Regular rate and rhythm. No extra heart sounds, murmurs, clicks, or rubs. ABDOMEN: Soft and nontender. Positive bowel sounds. Positive tympany. No masses or organomegaly. IMPRESSION: Possible outflow stenosis due to prolonged bleeding times. PLAN: Left arm angiogram of anastomosis graft with possible angioplasty. JOSE A LÓPEZ, TRAVEL PHYSICAL THERAPIST [id number]/[facility] #: [id number] CARISSA
[~2018-09-01 05:37] MED LIST changes: +Acetaminophen TAB* 325 MG PO PRN; -Buffered Lidocaine 0.9% SYRIN* 5 ML/SYR SYRINGE INTRADERM ONE; +Buffered Lidocaine 1% SYRIN* 1 ML/SYRINGE INTRADERM ONE; -DiMENhydriNATE IV* 50 MG/ML VIAL IV PUSH PRN; -Famotidine IV* 10 MG/ML 2 ML (20 mg) IV ONE; +Heparin 2 UNITS/ML IVPREMIX* 1,000 ML IV ONE; +Heparin DIALYSIS ONLY(*) 1,000 UNITS/ML VIAL ONE; +Heparin VIAL(*) 5000 UNITS/ML VIAL (FIVE THOUSAND) ONE; +Iohexol 180 (CONTRAST) 10 ML SDV IV ONE; -Lactated Ringers 1000 ML Bag* 1,000 ML IV SCH; +Lidocaine 1% INJ* 10 MG/ML 30 ML SDV ONE; -Morphine VIAL* 4 MG/ML VIAL (1 ml vial) IV PRN; +Ondansetron INJ* 2 MG/ML VIAL IV PRN; -Ondansetron TAB* 4 MG PO ONE; -PROCHLORPERAZINE INJ 5 MG/ML 2 ML VIAL IV PRN; +ceFAZolin 2 GM in NS PREMIX(*) 2 GM/100 ML BAG IVPB ONE; +fentaNYL* 50 MCG/ML 2 ML VIAL (100 MCG VIAL) ONE
[2018-09-01 09:24] VITALS: BP 126/59
--- NOTE | 2018-09-01 10:16 | OP ---
DATE OF OPERATION: 09/01/18 - [facility] DATE OF : 52 SURGEON: Sukh Delcid MD ANESTHESIA: Local plus MAC. PRE-OP DIAGNOSIS: Prolonged bleeding at the dialysis graft site after dialysis secondary to likely distal stenosis. POST-OP DIAGNOSIS: Prolonged bleeding at the dialysis graft site after dialysis secondary to likely distal stenosis. OPERATIVE PROCEDURE: Left brachial graft angiogram with balloon angioplasty of the graft venous anastomosis to the brachial vein and balloon angioplasty of the axillary vein. ESTIMATED BLOOD LOSS: None. INDICATIONS: The patient is a 68-year-old male with end-stage renal disease who is being dialyzed via left brachial graft, [place] 6 mm. Lately, the dialysis unit has noticed that his post cannulation bleeding time has been prolonged progressively, although the patient has an excellent thrill at the graft. There is likely the possibility that this is related to outflow stenosis. For this reason, the patient has been brought in for an on-table angiogram, possible angioplasty of stenoses. 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 DESCRIPTION OF PROCEDURE: The patient was taken to the procedure room. He was placed in a supine position on the x-ray table and the arm extended into an arm board. He underwent proper identification of patient, site of surgery, and he was then prepped and draped in the usual sterile fashion under sedation. After this was done, proper time-out was performed and we started the procedure by infiltrating lidocaine 1% over the graft towards the arterial anastomosis approximately 5 cm from it. Using an 18-gauge Angiocath, the graft was cannulated, brisk bleeding was noted. We then proceeded to start doing angiography from this Angiocath. An angiogram was performed that revealed at least 30% to 40% stenosis at the venous anastomosis between the graft and the brachial vein. We then proceeded to advance a 0.038 glidewire via the 18-gauge Angiocath and we switched the Angiocath for a 7-[place] short sheath over the wire. Once this was in place, we then proceeded to remove the guidewire from the sheath and we advanced a 0.035 Glidewire up to the central venous system. Once in place, we then proceeded to advance an 8 mm diameter, 40 mm length balloon angioplasty, [place], over the wire and positioned right at the level of the anastomosis. We then proceeded to pressurize the balloon with contrast gradually and slowly initially up to a pressure of 8 atmospheres and then subsequently to 10 atmospheres until effacement of the stenosis was noted. After this was done, the effacement was only 90%. We then proceeded to deflate the balloon, repeated the angiogram with significant improvement. We then proceeded to advance again the same balloon angioplasty catheter over the wire in the same location. We proceeded to insufflate the balloon slowly and gradually up to a pressure of 12 atmospheres, at which point full effacement of the stenosis was noted. After this was completed, an angiogram of this area after pulling back the balloon. The angiogram revealed patent graft venous anastomosis. We then proceeded to perform an angiogram of the axillary vein towards the subclavian vein, and there appeared to be a small area of stenosis of approximately 30% in the axillary vein distal to the outflow anastomosis. We then proceeded to balloon angioplasty this area in the same manner using the same [place] 8 mm balloon, 40 cm long. This was done up to a pressure of 10 atmospheres with full effacement of the stenosis. A final angiogram of the outflow was performed and there appeared to be resolution of the stenosis. We then proceeded to perform a retrograde angiogram towards the arterial anastomosis in order to evaluate the pseudoaneurysm that was noted on physical examination. There was full patency and the pseudoaneurysm does not light up on the angiogram. At this point, we proceeded to remove the wire and proceeded to perform a [id number] suture at the entrance site of the sheath, pulled the sheath out, and closed the opening. Steri-Strips were applied. At the end of the procedure, the patient had excellent thrill and good radial pulse. The patient was then taken in good condition to recovery room. [id number]/[facility] #: [id number] CARISSA
== END | disposition home or self-care (01) ==
LOC: OR 05:37
PROVIDERS: ATTEND Surgery
DX: T82.858A Stenosis of other vascular prosthetic devices, implants and grafts, initial encounter (principal); N18.6 End stage renal disease; E11.22 Type 2 diabetes mellitus with diabetic chronic kidney disease; I12.0 Hypertensive chronic kidney disease with stage 5 chronic kidney disease or end stage renal disease; Z99.2 Dependence on renal dialysis; G47.33 Obstructive sleep apnea (adult) (pediatric); E22.2 Syndrome of inappropriate secretion of antidiuretic hormone; D64.9 Anemia, unspecified; R00.1 Bradycardia, unspecified
CPT/HCPCS: 36415; 76000; 84132; C1725; J0690; J1644; J3010

== ENCOUNTER → 2018-12-10 05:52 | Day surgery (SDC) | payer MEDICARE ==
--- NOTE | 2018-12-08 16:23 | HP ---
HISTORY AND PHYSICAL: DATE OF ADMISSION: 12/10/18 - [facility] CHIEF COMPLAINT: Possible malfunctioning of the left brachial dialysis graft. HISTORY OF PRESENT ILLNESS: Mr. Rojas is a 68-year-old male who underwent placement of a left Warren-Joseph brachial graft a year ago. Since then, the patient had an angiogram with balloon angioplasty for stenosis of the axillary vein. He is now being admitted for an angiogram as they had difficulty cannulating the graft during dialysis a few times and for this reason an angiogram is warranted in order to prevent the possibility of obstruction. The patient is being admitted for left brachial graft angiogram with possible angioplasty. PAST MEDICAL HISTORY: Remarkable for end-stage renal disease, on hemodialysis; hypertension; [id number] diabetes mellitus. CURRENT MEDICATIONS: Include: 1. Acetaminophen as needed. 2. Amlodipine besylate 10 mg p.o. daily. 3. Carvedilol 12.5 mg 1 tablet p.o. b.i.d. 4. Clonidine hydrochloride 0.3 mg 1 tablet b.i.d. 5. Doxazosin mesylate 2 mg p.o. daily. 6. Gabapentin 100 mg 1 tablet p.o. t.i.d. 7. Glipizide 5 mg p.o. daily. 8. Isosorbide ER 60 mg q.a.m. 9. Levetiracetam 500 mg 1 tablet p.o. b.i.d. 10. Lisinopril 30 mg p.o. q.a.m. 11. Minoxidil 10 mg p.o. t.i.d. 12. MiraLAX as needed. 13. Docusate as needed. 14. Multivitamins. 15. Velphoro 500 mg p.o. t.i.d. REVIEW OF SYSTEMS: Contributory for renal disease, hypertension, coronary artery disease, [id number]-sqtmstspy diabetes mellitus, and arthritis. PHYSICAL EXAMINATION VITAL SIGNS: The patient's height is 66 inches, weight 132 pounds, blood pressure 171/78, BMI of 21, pulse of 70, respirations of 18. HEAD AND NECK: Unremarkable. LUNGS: Clear to auscultation bilaterally. HEART: Regular without murmurs. EXTREMITIES: The patient has excellent palpable pulses in the upper extremities and lower extremities as well. The left brachial graft is patent with bruit and a palpable pulse. DIAGNOSTIC IMPRESSION: Patent left brachial graft, reported to have had difficulties accessing during dialysis. PLAN: The patient is being brought in for angiogram of the left brachial graft , possible angioplasty. [id number]/[facility] #: [id number] CARISSA
[~2018-12-10 05:52] MED LIST changes: -Acetaminophen TAB* 325 MG PO PRN; +Dexamethasone IV* 4 MG/ML 1 ML (4 MG) ONE; +DiMENhydriNATE IV* 50 MG/ML VIAL IV PUSH PRN; +Famotidine IV* 10 MG/ML 2 ML (20 mg) IV ONE; +Famotidine IV* 10 MG/ML 2 ML (20 mg) ONE; -Heparin DIALYSIS ONLY(*) 1,000 UNITS/ML VIAL ONE; +KETAMINE HCL* 50 MG/ML 10 ML VIAL ONE; +Lidocaine 2% PF * 5 ML VIAL ONE; +Lidocaine 2.5%/Prilocain 2.5%* 5 GM TUBE ONE; +Midazolam* 1 MG/ML 10 ML VIAL (10 MG) ONE; -Ondansetron INJ* 2 MG/ML VIAL IV PRN; +Ondansetron INJ* 2 MG/ML VIAL ONE; +Propofol* 10 MG/ML 20 ML BTL ONE; -oxyCODONE/Acetamin 5/325 MG* TAB PO PRN
[2018-12-10 10:25] VITALS: BP 186/80
--- NOTE | 2018-12-10 12:30 | OP ---
DATE OF OPERATION: 12/10/18 - [facility] DATE OF : 52 SURGEON: Sukh Delcid MD ANESTHESIA: Local plus MAC. PRE-OP DIAGNOSIS: Malfunctioning left brachial graft. 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 OPERATIVE PROCEDURE: Left brachial graft angiogram with percutaneous balloon angioplasty and stenting of the graft venous anastomosis. ESTIMATED BLOOD LOSS: Less than 30 cc. TOTAL CONTRAST USED: 116 cc. INDICATIONS: The patient is a 68-year-old male, referred for evaluation from the dialysis unit as they have had difficulty once cannulating the graft and there has been decrease in the thrill of the graft, but still patent and being used for hemodialysis. He is being admitted for angiogram in order to rule out stenosis of the graft. DESCRIPTION OF PROCEDURE: The patient was taken to the operating room. He was placed in a supine position on an x-ray table under sedation. He was prepped and draped in the usual sterile fashion. He received preoperative antibiotics. After proper identification of the patient and site of surgery and proper time -out, we proceeded to infiltrate lidocaine 1% to the arterial limb of the graft right above the antecubital area on the left arm. The graft was accessed with an 18-gauge needle. This was followed by a 0.018 guidewire and subsequently we then proceeded to advance a 4-Tajik catheter. Over the 4-Tajik catheter, a short 0.035 guidewire was advanced and the 4-Tajik catheter was then exchanged for a 6-Tajik sheath introducer and once this was done, flush was done with heparinized saline. We then proceeded to perform an angiogram right away where I could see stenoses at the venous end of the graft and right at the anastomosis between the graft and the brachial vein. The stenosis was at least 70% to 80% and the graft stenoses were approximately 50%. At this point, we then proceeded to advance via the sheath an 0.035 Glidewire which we were then able to maneuver to pass and cross the anastomosis all the way up to the subclavian vein. At this point, we then proceeded to doing an angiogram of the central venous system. An angiogram of this area was done with excellent flowing through the subclavian vein. The axillary vein appeared to be unremarkable on the upper part. In the lower part, it appeared to be stenotic right beyond the anastomosis and then severe stenosis at the graft venous anastomosis and in the distal end of the graft. An angiogram of the arterial system revealed excellent flow into the arterial anastomosis. At this point, we then proceeded to advance an 8-mm Leeds balloon angioplasty 4 cm long over the wire and we then proceeded to dilate the brachial vein stenosis. We dilated the balloon up to 12 mmHg until effacement was completed. We then proceeded to pull back the balloon and the balloon at the graft brachial vein anastomosis and we then dilated up to 12 atmospheres and then we proceeded to do the same in the distal end of the graft several times. After this was done, an angiogram was performed with significant improvement of the flow but there is still residual severe stenosis at the graft brachial vein anastomosis. It was felt that a stent between the graft and the postdilated brachial vein was indicated. We measured the distance between the landing areas and felt that a 7.5 cm x 8 mm Viabahn covered stent was indicated. We then proceeded to exchange the 6-Tajik sheath for an 8-Tajik sheath in order to allow for the stent to pass over the wire and this was done uneventfully. We then proceeded to perform another angiogram, place the markings for the landing area, and we then proceeded to advance a Viabahn 8 mm x 7.5 cm long covered stent and the tip was extended approximately 2 cm in the postdilated vein and it covered 1 cm to 2 cm above the stenotic area in the graft. Once the stent was deployed under direct fluoroscopic guidance, one could see a narrow point at the anastomosis. We then proceeded to advance an 8-mm balloon angioplasty over the wire and dilated the stent up to 10 mmHg. This was done uneventfully; however, there was a residual still narrow area at the anastomosis. It was felt that the going with a higher size of balloon would be better. We then proceeded to balloon angioplasty the anastomosis with a 9-mm Leeds balloon 7.5 cm that was left inside the stent, dilated, and after this it was removed. The final angiogram revealed excellent flow into the axillary brachial vein and in the graft itself. At this point, we then proceeded to remove the wire, the balloon angioplasty first, and finally the sheath. We then proceeded to put a figure-of - eight around the entrance point, pulled the sheath, and tightened the figure- of- eight over a bolster area to apply compression at the entrance point and Steri-Strips were applied to the area. There was good flowing to the graft itself. The patient has excellent palpable pulses at the end of the procedure and the patient was then taken in good condition to the recovery room. [id number]/[facility] #: [id number] CARISSA
== END | disposition home or self-care (01) ==
LOC: OR 05:52
PROVIDERS: ATTEND Surgery
DX: T82.858A Stenosis of other vascular prosthetic devices, implants and grafts, initial encounter (principal); N18.6 End stage renal disease; Z99.2 Dependence on renal dialysis; E11.21 Type 2 diabetes mellitus with diabetic nephropathy; Z79.84 Long term (current) use of oral hypoglycemic drugs; I25.10 Atherosclerotic heart disease of native coronary artery without angina pectoris; I12.0 Hypertensive chronic kidney disease with stage 5 chronic kidney disease or end stage renal disease; E11.22 Type 2 diabetes mellitus with diabetic chronic kidney disease; M19.90 Unspecified osteoarthritis, unspecified site
CPT/HCPCS: 36140; 75710; A9270-GY; C1725; C1874; J0690; J1100; J1644; J2250; J2405; J2704; J3010

== ENCOUNTER 2019-06-29 14:14 | Emergency (ER) | payer MEDICARE ==
[2019-06-29 15:40] LABS: Albumin 4.2 g/dL (3.2-5.2); Anion Gap 11 mmol/L (2-11); CO2 Carbon Dioxide 27 mmol/L (22-32); Calcium 9.7 mg/dL (8.6-10.3); Chloride 94 mmol/L (101-111); Potassium 3.9 mmol/L (3.5-5.0); Sodium 132 mmol/L (135-145)
[2019-06-29 15:46] LABS: ALT 16 U/L (7-52); AST 27 U/L (13-39); Albumin/Globulin Ratio 1.1 (1-3); Alkaline Phosphatase 112 U/L (34-104); BUN/Creatinine Ratio 4.5 (8-20); Blood Urea Nitrogen 23 mg/dL (6-24); EGFR African American 13.8 (>60); EGFR Non-African American 11.4 (>60); Globulin 3.7 g/dL (2-4); Glucose 253 mg/dL (70-100); Total Protein 7.9 g/dL (6.4-8.9)
[2019-06-29 15:47] LABS: ABS Eosinophils 0.3 10^3/ul (0-0.6); ABS Monocytes 0.6 10^3/ul (0-0.8); Eosinophil % 3.1 %; Hematocrit 32 % (42-52); Hemoglobin 10.7 g/dL (14.0-18.0); Mean Corpuscular HGB Conc 33 g/dL (31-36); Mean Corpuscular Hemoglobin 26 pg (27-31); Mean Corpuscular Volume 79 fL (80-94); Mean Platelet Volume 7.3 fL (7.4-10.4); Platelet Count 253 10^3/uL (150-450); Red Blood Count 4.09 10^6 /uL (4.18-5.48); Red Cell Distribution Width 17 % (10-15); White Blood Count 8.6 10^3/uL (3.5-10.8)
[2019-06-29 15:59] LABS: INR 0.95 (0.82-1.09)
[2019-06-29 16:01] LABS: Alcohol, S < 10 mg/dL (<10)
[2019-06-29 16:36] LABS: TSH (Thyroid Stimulating Horm) 2.31 mcIU/mL (0.34-5.60)
[2019-06-29 17:12] LABS: Troponin I 0.03 ng/mL (<0.03)
[2019-06-29 17:50] VITALS: BP 175/90
== END 2019-06-29 17:45 | disposition home or self-care (01) ==
LOC: ED 14:14

== ENCOUNTER 2020-05-28 15:32 | Inpatient (IN) ==
[2020-05-28 19:13] LABS: ABS Lymphocytes 0.7 10^3/ul (1.0-4.8); ABS Monocytes 0.4 10^3/ul (0-0.8); ABS Neutrophils 7.3 10^3/ul (1.5-7.7); Hematocrit 39 % (42-52); Lymphocyte % 8.1 %; Mean Corpuscular HGB Conc 34 g/dL (31-36); Mean Corpuscular Hemoglobin 25 pg (27-31); Mean Corpuscular Volume 75 fL (80-94); Mean Platelet Volume 8.6 fL (7.4-10.4); Platelet Count 206 10^3/uL (150-450); Red Blood Count 5.18 10^6 /uL (4.18-5.48); Red Cell Distribution Width 15 % (10-15); White Blood Count 8.4 10^3/uL (3.5-10.8)
[2020-05-28] MEDS ORDERED: Acyclovir IV 700 MG in NS 0.9% 100 ml BAG 100 ML IVPB ONE (19:17)
[2020-05-28] MEDS ORDERED: ceFAZolin 1 GM ADVAN 1 GM in NS 0.9% 50 ML 50 ML IVPB ONE (19:21)
[2020-05-28 19:23] LABS: Activated Partial Thrombo Time 28.8 seconds (26.0-38.0); INR 1.04 (0.82-1.09)
[2020-05-28 19:29] LABS: ALT 19 U/L (7-52); AST 45 U/L (13-39); Albumin 4.6 g/dL (3.2-5.2); Albumin/Globulin Ratio 0.9 (1-3); Alkaline Phosphatase 256 U/L (34-104); Anion Gap 15 mmol/L (2-11); BUN/Creatinine Ratio 4.4 (8-20); Blood Urea Nitrogen 22 mg/dL (6-24); C Reactive Protein 308.47 mg/L (<8.01); CO2 Carbon Dioxide 28 mmol/L (22-32); Chloride 85 mmol/L (101-111); EGFR African American 13.9 (>60); EGFR Non-African American 11.5 (>60); Glucose 361 mg/dL (70-100); Potassium 4.2 mmol/L (3.5-5.0); Sodium 128 mmol/L (135-145); Total Protein 9.6 g/dL (6.4-8.9)
[2020-05-28 19:36] LABS: Troponin I 2.32 ng/mL (<0.03)
[2020-05-28] MEDS ORDERED: ceFAZolin 1 GM ADVAN 1 GM ADDV.VIAL IVPB ONE (20:41)
[2020-05-28] MEDS ORDERED: Polyethylene Glycol 3350 17 GM PACKET PO PRN (21:59)
[2020-05-28] MEDS ORDERED: Isosorbide Mononit ER 60mg TAB PO ONE (22:00)
[2020-05-28] MEDS ORDERED: Insulin GLARGINE 100 un/ml 10 ml VIAL SUBCUT ONE (22:27)
[2020-05-28] MEDS: hydrALAZINE 20 mg/ml 1 ML Vial IV IV SLOW PU PRN (22:56)
[2020-05-29 00:48] LABS: Troponin I 1.88 ng/mL (<0.03)
[2020-05-29] MEDS: Heparin 5000 UNITS/ML 1 mL VIAL SUBCUT SCH ×4 (04:22→21:22)
[2020-05-29 06:57] LABS: ABS Basophils 0.1 10^3/ul (0-0.2); ABS Eosinophils 0.1 10^3/ul (0-0.6); ABS Lymphocytes 1.6 10^3/ul (1.0-4.8); ABS Neutrophils 7.4 10^3/ul (1.5-7.7); Eosinophil % 0.6 %; Hematocrit 31 % (42-52); Hemoglobin 10.2 g/dL (14.0-18.0); Lymphocyte % 15.8 %; Mean Corpuscular HGB Conc 33 g/dL (31-36); Mean Corpuscular Hemoglobin 24 pg (27-31); Mean Platelet Volume 8.3 fL (7.4-10.4); Platelet Count 191 10^3/uL (150-450); Red Blood Count 4.17 10^6 /uL (4.18-5.48); Red Cell Distribution Width 15 % (10-15); White Blood Count 10.1 10^3/uL (3.5-10.8)
[2020-05-29 07:12] LABS: Anion Gap 14 mmol/L (2-11); BUN/Creatinine Ratio 4.6 (8-20); Blood Urea Nitrogen 31 mg/dL (6-24); CO2 Carbon Dioxide 28 mmol/L (22-32); Chloride 90 mmol/L (101-111); EGFR African American 9.9 (>60); EGFR Non-African American 8.2 (>60); Glucose 114 mg/dL (70-100); Potassium 3.3 mmol/L (3.5-5.0); Sodium 132 mmol/L (135-145)
[2020-05-29 07:26] LABS: Troponin I 2.12 ng/mL (<0.03)
[2020-05-29] MEDS: Isosorbide Mononit ER 60mg TAB PO SCH (08:34)
[2020-05-29] MEDS: hydrALAZINE 20 mg/ml 1 ML Vial IV IV SLOW PU PRN ×3 (08:37→21:56)
[2020-05-29 08:52] LABS: Mean Corpuscular Volume 74 fL (80-94)
[2020-05-29 08:57] LABS: Microcytosis 2+
[2020-05-29] MEDS ORDERED: Potassium Chlor 20 meq TAB.ER PO ONE ×2 (09:14→14:00)
[2020-05-29 13:04] LABS: Troponin I 1.89 ng/mL (<0.03)
[2020-05-29] MEDS: ceFAZolin 1 GM ADVAN 1 GM in NS 0.9% 50 ML 50 ML IVPB SCH (21:19)
[2020-05-30] MEDS ORDERED: Ondansetron 4 mg VIAL 2 MG/ML 2 ml VIAL IV PRN (01:23)
[2020-05-30] MEDS: hydrALAZINE 20 mg/ml 1 ML Vial IV IV SLOW PU PRN (03:56)
[2020-05-30] MEDS ORDERED: Lorazepam PYXIS KEY PRN (05:00)
[2020-05-30] MEDS ORDERED: LORazepam 2 mg VIAL 1 ml IM ONE (05:00)
[2020-05-30] MEDS: Heparin 5000 UNITS/ML 1 mL VIAL SUBCUT SCH ×3 (05:46→20:49)
[2020-05-30] MEDS ORDERED: Heparin 1,000 UNIT/ML 10 ml (10,000 UNITS) CATHLAB/DIALYSIS DIALYSIS ONE (09:00)
[2020-05-30 10:23] LABS: Potassium 4.7 mmol/L (3.5-5.0)
[2020-05-30 10:29] LABS: BUN/Creatinine Ratio 6.1 (8-20); C Reactive Protein 165.42 mg/L (<8.01); EGFR African American 7.7 (>60); EGFR Non-African American 6.4 (>60)
[2020-05-30 10:59] LABS: ABS Lymphocytes 1.4 10^3/ul (1.0-4.8); ABS Monocytes 0.5 10^3/ul (0-0.8); ABS Neutrophils 7.2 10^3/ul (1.5-7.7); Hematocrit 29 % (42-52); Hemoglobin 9.5 g/dL (14.0-18.0); Lymphocyte % 15.5 %; Mean Corpuscular HGB Conc 33 g/dL (31-36); Mean Corpuscular Hemoglobin 24 pg (27-31); Mean Corpuscular Volume 74 fL (80-94); Mean Platelet Volume 8.8 fL (7.4-10.4); Platelet Count 249 10^3/uL (150-450); Red Blood Count 3.92 10^6 /uL (4.18-5.48); Red Cell Distribution Width 15 % (10-15); White Blood Count 9.2 10^3/uL (3.5-10.8)
[2020-05-30] MEDS: Isosorbide Mononit ER 60mg TAB PO SCH (13:55)
[2020-05-30] MEDS: ceFAZolin 1 GM ADVAN 1 GM in NS 0.9% 50 ML 50 ML IVPB SCH (20:09)
[2020-05-31 06:08] LABS: Hematocrit 28 % (42-52); Hemoglobin 9.2 g/dL (14.0-18.0); Mean Corpuscular HGB Conc 33 g/dL (31-36); Mean Corpuscular Hemoglobin 25 pg (27-31); Mean Corpuscular Volume 75 fL (80-94); Mean Platelet Volume 8.4 fL (7.4-10.4); Platelet Count 250 10^3/uL (150-450); Red Blood Count 3.76 10^6 /uL (4.18-5.48); Red Cell Distribution Width 16 % (10-15); White Blood Count 6.1 10^3/uL (3.5-10.8)
[2020-05-31] MEDS: Heparin 5000 UNITS/ML 1 mL VIAL SUBCUT SCH ×2 (06:11→12:45)
[2020-05-31 06:24] LABS: BUN/Creatinine Ratio 4.7 (8-20); EGFR Non-African American 10.2 (>60)
[2020-05-31 06:25] LABS: C Reactive Protein 98.71 mg/L (<8.01); EGFR African American 12.4 (>60)
[2020-05-31 06:43] LABS: Potassium 4.6 mmol/L (3.5-5.0)
[2020-05-31 11:21] VITALS: BP 152/66
[2020-06-01 11:12] LABS: Hepatitis B Surface Antigen Nonreactive (Nonreactive)
[2020-06-01 11:30] LABS: Hepatitis B Surface Ab Immune (Immune)
== END 2020-05-31 16:00 | disposition home or self-care (01) | DRG 595 ==
LOC: ED 15:32 → MEDTELE 21:59 → MED 05-29 01:51
PROVIDERS: ADMIT Internal Medicine; ATTEND Internal Medicine

== ENCOUNTER 2021-09-16 15:18 | Inpatient (IN) ==
[2021-09-16] MEDS ORDERED: Dextrose 50% Syringe 50 ml 25 GM/50 ML SYRINGE IV PUSH PRN (15:58)
[2021-09-16] MEDS ORDERED: Polyethylene Glycol 3350 17 GM PACKET PO PRN (16:08)
[2021-09-16] MEDS ORDERED: Senna TAB 8.6 mg TAB PO PRN (16:09)
[2021-09-16 17:34] LABS: CO2 Carbon Dioxide 20 mmol/L (22-32); Calcium 8.4 mg/dL (8.6-10.3); Chloride 97 mmol/L (101-111); Sodium 130 mmol/L (135-145)
[2021-09-16 17:40] LABS: Blood Urea Nitrogen 31 mg/dL (6-24); Glucose 110 mg/dL (70-100); eGFR CKD-EPI 20.4 (>60)
[2021-09-16 17:48] LABS: Anion Gap 13 mmol/L (2-11)
[2021-09-16] MEDS: Aspirin EC 81 mg TAB.EC (enteric coated) PO SCH (21:09)
[2021-09-16] MEDS: Heparin 5000 UNITS/ML 1 mL VIAL SUBCUT SCH (21:09)
[2021-09-16] MEDS: Magnesium Hydroxide LIQ 30 ML UDC PO SCH (21:10)
[2021-09-16] MEDS: Insulin GLARGINE 100 un/ml 10 ml VIAL SUBCUT SCH (21:10)
[2021-09-17 06:50] LABS: Hematocrit 30 % (42-52); Hemoglobin 9.7 g/dL (14.0-18.0); Mean Corpuscular HGB Conc 32 g/dL (31-36); Mean Corpuscular Hemoglobin 27 pg (27-31); Mean Corpuscular Volume 86 fL (80-94); Mean Platelet Volume 8.6 fL (7.4-10.4); Platelet Count 213 10^3/uL (150-450); Red Blood Count 3.53 10^6 /uL (4.18-5.48); Red Cell Distribution Width 25 % (10-15); White Blood Count 7.1 10^3/uL (3.5-10.8)
[2021-09-17 09:00] LABS: ABS Basophils 0.1 10^3/ul (0-0.2); ABS Eosinophils 0.1 10^3/ul (0-0.6); ABS Lymphocytes 1.1 10^3/ul (1.0-4.8); ABS Neutrophils 4.8 10^3/ul (1.5-7.7); Eosinophil % 1.4 %; Nucleated Red Blood Cells % 0.3
[2021-09-17] MEDS: Heparin 5000 UNITS/ML 1 mL VIAL SUBCUT SCH ×2 (10:21→20:33)
[2021-09-17] MEDS: Magnesium Hydroxide LIQ 30 ML UDC PO SCH ×2 (10:41→20:34)
[2021-09-17 16:51] LABS: CO2 Carbon Dioxide 21 mmol/L (22-32); Calcium 8.6 mg/dL (8.6-10.3); Chloride 97 mmol/L (101-111); Sodium 130 mmol/L (135-145)
[2021-09-17 16:56] LABS: Anion Gap 12 mmol/L (2-11)
[2021-09-17 16:57] LABS: Blood Urea Nitrogen 49 mg/dL (6-24); Glucose 55 mg/dL (70-100)
[2021-09-17] MEDS: Insulin GLARGINE 100 un/ml 10 ml VIAL SUBCUT SCH (20:32)
[2021-09-17] MEDS: Aspirin EC 81 mg TAB.EC (enteric coated) PO SCH (20:33)
[2021-09-18] MEDS: Heparin 5000 UNITS/ML 1 mL VIAL SUBCUT SCH ×2 (08:39→21:28)
[2021-09-18] MEDS: Magnesium Hydroxide LIQ 30 ML UDC PO SCH ×3 (08:39→20:35)
[2021-09-18] MEDS ORDERED: Iron Sucrose 200 MG in NS 0.9% 100 ml BAG 100 ML IVPB ONE (09:00)
[2021-09-18 17:06] LABS: Calcium 8.5 mg/dL (8.6-10.3); Potassium 4.7 mmol/L (3.5-5.0); eGFR CKD-EPI 16.3 (>60)
[2021-09-18] MEDS: Aspirin EC 81 mg TAB.EC (enteric coated) PO SCH ×2 (21:28→22:32)
[2021-09-18] MEDS: Insulin GLARGINE 100 un/ml 10 ml VIAL SUBCUT SCH (21:28)
[2021-09-19 06:12] LABS: ABS Eosinophils 0.1 10^3/ul (0-0.6); ABS Monocytes 0.8 10^3/ul (0-0.8); ABS Neutrophils 4.9 10^3/ul (1.5-7.7); Eosinophil % 0.8 %; Hematocrit 30 % (42-52); Hemoglobin 9.2 g/dL (14.0-18.0); Lymphocyte % 14.7 %; Mean Corpuscular HGB Conc 31 g/dL (31-36); Mean Corpuscular Hemoglobin 26 pg (27-31); Mean Corpuscular Volume 85 fL (80-94); Mean Platelet Volume 8.3 fL (7.4-10.4); Nucleated Red Blood Cells % 0.2; Platelet Count 244 10^3/uL (150-450); Red Blood Count 3.51 10^6 /uL (4.18-5.48); Red Cell Distribution Width 25 % (10-15); White Blood Count 6.8 10^3/uL (3.5-10.8)
[2021-09-19] MEDS: Magnesium Hydroxide LIQ 30 ML UDC PO SCH ×2 (09:10→19:41)
[2021-09-19] MEDS: Heparin 5000 UNITS/ML 1 mL VIAL SUBCUT SCH ×2 (09:14→20:15)
[2021-09-19 17:04] LABS: Calcium 8.9 mg/dL (8.6-10.3); eGFR CKD-EPI 14.6 (>60)
[2021-09-19 17:07] LABS: Potassium 5.9 mmol/L (3.5-5.0)
[2021-09-19] MEDS: Insulin GLARGINE 100 un/ml 10 ml VIAL SUBCUT SCH (20:15)
[2021-09-20] MEDS: Heparin 5000 UNITS/ML 1 mL VIAL SUBCUT SCH ×2 (08:48→20:57)
[2021-09-20] MEDS: Magnesium Hydroxide LIQ 30 ML UDC PO SCH ×2 (08:49→21:07)
[2021-09-20 17:17] LABS: Calcium 9.3 mg/dL (8.6-10.3); eGFR CKD-EPI 10.3 (>60)
[2021-09-20 17:20] LABS: Potassium 6.4 mmol/L (3.5-5.0)
[2021-09-20] MEDS ORDERED: Sodium Polystyrene ORAL.SUSP 15 GM/60 ML BTL PO ONE (18:00)
[2021-09-20] MEDS ORDERED: CALCIUM GLUCONATE 1GM/50ML NS 1 GM/50 ML BAG IV ONE (18:28)
[2021-09-20] MEDS ORDERED: Dextrose 50% Syringe 50 ml 25 GM/50 ML SYRINGE IV PUSH ONE ×2 (18:30→19:00)
[2021-09-20] MEDS ORDERED: Furosemide 40 mg/4 ml IV VIAL IV SLOW PU ONE (18:36)
[2021-09-20] MEDS ORDERED: Dextrose 50% Syringe 50 ml 25 GM/50 ML SYRINGE IV PUSH SCH (19:00)
[2021-09-20] MEDS: Insulin GLARGINE 100 un/ml 10 ml VIAL SUBCUT SCH (21:28)
[2021-09-20] MEDS ORDERED: Ondansetron 4 mg VIAL 2 MG/ML 2 ml VIAL IV ONE (22:17)
[2021-09-21 01:22] LABS: Calcium 9.4 mg/dL (8.6-10.3); eGFR CKD-EPI 9.2 (>60)
[2021-09-21 01:23] LABS: Potassium 5.8 mmol/L (3.5-5.0)
[2021-09-21 05:57] LABS: ABS Lymphocytes 0.9 10^3/ul (1.0-4.8); ABS Monocytes 0.7 10^3/ul (0-0.8); ABS Neutrophils 5.1 10^3/ul (1.5-7.7); Eosinophil % 0.4 %; Hematocrit 30 % (42-52); Hemoglobin 9.7 g/dL (14.0-18.0); Lymphocyte % 13.4 %; Mean Corpuscular HGB Conc 32 g/dL (31-36); Mean Corpuscular Hemoglobin 27 pg (27-31); Mean Corpuscular Volume 85 fL (80-94); Mean Platelet Volume 8.8 fL (7.4-10.4); Nucleated Red Blood Cells % 0.1; Platelet Count 283 10^3/uL (150-450); Red Blood Count 3.54 10^6 /uL (4.18-5.48); Red Cell Distribution Width 24 % (10-15); White Blood Count 6.8 10^3/uL (3.5-10.8)
[2021-09-21] MEDS: Heparin 5000 UNITS/ML 1 mL VIAL SUBCUT SCH ×2 (08:45→20:50)
[2021-09-21] MEDS: Magnesium Hydroxide LIQ 30 ML UDC PO SCH ×2 (08:47→20:55)
[2021-09-21] MEDS ORDERED: DUPIXENT SUBCUT ONE (12:00)
[2021-09-21] MEDS: Heparin 1,000 UNIT/ML 10 ml (10,000 UNITS) CATHLAB/DIALYSIS DIALYSIS ONE ×3 (14:33→16:53)
[2021-09-21 19:40] LABS: Calcium 8.6 mg/dL (8.6-10.3); Potassium 4.9 mmol/L (3.5-5.0); eGFR CKD-EPI 16.6 (>60)
[2021-09-21] MEDS: Insulin GLARGINE 100 un/ml 10 ml VIAL SUBCUT SCH (20:51)
[2021-09-22] MEDS: Heparin 5000 UNITS/ML 1 mL VIAL SUBCUT SCH ×2 (08:26→20:35)
[2021-09-22] MEDS: Magnesium Hydroxide LIQ 30 ML UDC PO SCH ×2 (08:30→20:36)
[2021-09-22 17:11] LABS: eGFR CKD-EPI 11.7 (>60)
[2021-09-22 17:22] LABS: Potassium 5.7 mmol/L (3.5-5.0)
[2021-09-22] MEDS: Insulin GLARGINE 100 un/ml 10 ml VIAL SUBCUT SCH (20:35)
[2021-09-23] MEDS: Heparin 5000 UNITS/ML 1 mL VIAL SUBCUT SCH ×2 (08:47→21:21)
[2021-09-23] MEDS ORDERED: STERILE WATER FOR INJ SCH (10:00)
[2021-09-23] MEDS ORDERED: ALTEPLASE SCH (10:00)
[2021-09-23 10:45] LABS: Hepatitis B Surface Antigen Nonreactive (Nonreactive)
[2021-09-23 10:49] LABS: Hepatitis B Core IgM Nonreactive (Nonreactive)
[2021-09-23 11:08] LABS: Hepatitis B Surface Ab Immune (Immune)
[2021-09-23] MEDS ORDERED: Iohexol 350 (CONTRAST) 100 ML PAK IV ONE ×3 (11:12→13:05)
[2021-09-23] MEDS ORDERED: Lidocaine 1% MPF 5 ML VIAL ONE (11:12)
[2021-09-23] MEDS ORDERED: Heparin 2 UNITS/ML IVPREMIX 2,000 UNIT/1,000 ML BAG IV ONE (11:13)
[2021-09-23] MEDS ORDERED: Midazolam 5 mg/5 ml VIAL 1 mg/ml 5 ml VIAL (5 mg) ONE (11:17)
[2021-09-23] MEDS ORDERED: fentaNYL 100 mcg/2 ml 50 MCG/ML VIAL ONE (11:17)
[2021-09-23] MEDS ORDERED: Heparin 1,000 UNIT/ML 10 ml (10,000 UNITS) CATHLAB/DIALYSIS ONE ×2 (12:24→12:59)
[2021-09-23] MEDS ORDERED: Heparin 2 UNITS/ML IVPREMIX 1,000 UNIT/500 ML BAG IV ONE (12:59)
[2021-09-23] MEDS: Insulin GLARGINE 100 un/ml 10 ml VIAL SUBCUT SCH (21:25)
[2021-09-24] MEDS: Heparin 5000 UNITS/ML 1 mL VIAL SUBCUT SCH ×2 (08:17→19:54)
[2021-09-24] MEDS: Pentafluoroprop/Tetrafluoro 1 SPRAY TOP.SPRAY TOPICAL PRN (11:03)
[2021-09-24] MEDS: Insulin GLARGINE 100 un/ml 10 ml VIAL SUBCUT SCH (19:52)
[2021-09-25] MEDS: Heparin 5000 UNITS/ML 1 mL VIAL SUBCUT SCH ×2 (08:04→20:26)
[2021-09-25] MEDS ORDERED: Ondansetron ODT 4 mg TAB 4 MG TAB SL PRN (10:02)
[2021-09-25] MEDS: Pentafluoroprop/Tetrafluoro 1 SPRAY TOP.SPRAY TOPICAL PRN (13:00)
[2021-09-25] MEDS: Insulin GLARGINE 100 un/ml 10 ml VIAL SUBCUT SCH (20:25)
[2021-09-26] MEDS: Heparin 5000 UNITS/ML 1 mL VIAL SUBCUT SCH ×2 (09:14→20:25)
[2021-09-26] MEDS: Insulin GLARGINE 100 un/ml 10 ml VIAL SUBCUT SCH (20:25)
[2021-09-27] MEDS: Heparin 5000 UNITS/ML 1 mL VIAL SUBCUT SCH ×2 (08:47→21:01)
[2021-09-27] MEDS: Insulin GLARGINE 100 un/ml 10 ml VIAL SUBCUT SCH (21:01)
[2021-09-28] MEDS: Heparin 5000 UNITS/ML 1 mL VIAL SUBCUT SCH ×2 (10:19→21:02)
[2021-09-28] MEDS: Insulin GLARGINE 100 un/ml 10 ml VIAL SUBCUT SCH (21:04)
[2021-09-29] MEDS: Heparin 5000 UNITS/ML 1 mL VIAL SUBCUT SCH ×2 (08:30→20:26)
[2021-09-29] MEDS: Insulin GLARGINE 100 un/ml 10 ml VIAL SUBCUT SCH (20:27)
[2021-09-30] MEDS: Heparin 5000 UNITS/ML 1 mL VIAL SUBCUT SCH ×2 (07:39→20:50)
[2021-09-30 13:31] LABS: Blood Urea Nitrogen 67 mg/dL (6-24); CO2 Carbon Dioxide 22 mmol/L (22-32); Chloride 93 mmol/L (101-111); Glucose 141 mg/dL (70-100); Sodium 125 mmol/L (135-145); eGFR CKD-EPI 9.4 (>60)
[2021-09-30 13:36] LABS: Anion Gap 10 mmol/L (2-11)
[2021-09-30] MEDS: Heparin 1,000 UNIT/ML 10 ml (10,000 UNITS) CATHLAB/DIALYSIS DIALYSIS ONE (18:16)
[2021-09-30] MEDS: Insulin GLARGINE 100 un/ml 10 ml VIAL SUBCUT SCH (20:49)
[2021-10-01] MEDS: Heparin 1,000 UNIT/ML 10 ml (10,000 UNITS) CATHLAB/DIALYSIS DIALYSIS ONE ×4 (08:30→10:37)
[2021-10-01] MEDS: Pentafluoroprop/Tetrafluoro 1 SPRAY TOP.SPRAY TOPICAL PRN (08:30)
[2021-10-01] MEDS: Heparin 5000 UNITS/ML 1 mL VIAL SUBCUT SCH ×2 (12:30→20:52)
[2021-10-01] MEDS: Insulin GLARGINE 100 un/ml 10 ml VIAL SUBCUT SCH (20:53)
[2021-10-02 06:29] LABS: Hematocrit 30 % (42-52); Hemoglobin 10.1 g/dL (14.0-18.0); Mean Platelet Volume 8.8 fL (7.4-10.4); Platelet Count 223 10^3/uL (150-450)
[2021-10-02 06:57] LABS: eGFR CKD-EPI 12.3 (>60)
[2021-10-02 10:24] LABS: Calcium 7.9 mg/dL (8.6-10.3); Phosphorus 4.4 mg/dL (2.5-5.0); Potassium 4.7 mmol/L (3.5-5.0); eGFR CKD-EPI 13.8 (>60)
[2021-10-02] MEDS: Heparin 5000 UNITS/ML 1 mL VIAL SUBCUT SCH ×2 (12:55→20:49)
[2021-10-02] MEDS: Insulin GLARGINE 100 un/ml 10 ml VIAL SUBCUT SCH (20:48)
[2021-10-03] MEDS: Heparin 5000 UNITS/ML 1 mL VIAL SUBCUT SCH ×2 (08:54→20:36)
[2021-10-03] MEDS: Insulin GLARGINE 100 un/ml 10 ml VIAL SUBCUT SCH (20:34)
[2021-10-04] MEDS: Heparin 5000 UNITS/ML 1 mL VIAL SUBCUT SCH ×2 (12:42→21:16)
[2021-10-04] MEDS: Insulin GLARGINE 100 un/ml 10 ml VIAL SUBCUT SCH (21:16)
[2021-10-05] MEDS: Heparin 5000 UNITS/ML 1 mL VIAL SUBCUT SCH ×2 (08:38→21:43)
[2021-10-05] MEDS: Insulin GLARGINE 100 un/ml 10 ml VIAL SUBCUT SCH (21:43)
[2021-10-06] MEDS: Heparin 5000 UNITS/ML 1 mL VIAL SUBCUT SCH ×2 (09:00→21:48)
[2021-10-06] MEDS: Insulin GLARGINE 100 un/ml 10 ml VIAL SUBCUT SCH (21:49)
[2021-10-07] MEDS: Heparin 5000 UNITS/ML 1 mL VIAL SUBCUT SCH ×2 (07:27→21:19)
[2021-10-07] MEDS: Pentafluoroprop/Tetrafluoro 1 SPRAY TOP.SPRAY TOPICAL PRN (08:05)
[2021-10-07] MEDS: Insulin GLARGINE 100 un/ml 10 ml VIAL SUBCUT SCH (21:20)
[2021-10-08] MEDS: Heparin 5000 UNITS/ML 1 mL VIAL SUBCUT SCH ×2 (09:03→19:49)
[2021-10-08] MEDS: Insulin GLARGINE 100 un/ml 10 ml VIAL SUBCUT SCH (19:48)
[2021-10-09 06:10] LABS: Hematocrit 32 % (42-52); Hemoglobin 10.2 g/dL (14.0-18.0); Mean Platelet Volume 8.2 fL (7.4-10.4); Platelet Count 229 10^3/uL (150-450)
[2021-10-09 06:37] LABS: eGFR CKD-EPI 10.4 (>60)
[2021-10-09] MEDS: Heparin 5000 UNITS/ML 1 mL VIAL SUBCUT SCH ×2 (08:29→19:54)
[2021-10-09] MEDS: Insulin GLARGINE 100 un/ml 10 ml VIAL SUBCUT SCH (19:54)
[2021-10-10] MEDS: Heparin 5000 UNITS/ML 1 mL VIAL SUBCUT SCH ×2 (07:58→20:55)
[2021-10-10] MEDS: Insulin GLARGINE 100 un/ml 10 ml VIAL SUBCUT SCH (20:53)
[2021-10-11] MEDS: Heparin 5000 UNITS/ML 1 mL VIAL SUBCUT SCH ×2 (08:06→20:32)
[2021-10-11] MEDS: Pentafluoroprop/Tetrafluoro 1 SPRAY TOP.SPRAY TOPICAL PRN (08:46)
[2021-10-11 09:29] LABS: Calcium 7.8 mg/dL (8.6-10.3); Potassium 3.7 mmol/L (3.5-5.0); eGFR CKD-EPI 12.2 (>60)
[2021-10-11] MEDS: Insulin GLARGINE 100 un/ml 10 ml VIAL SUBCUT SCH (20:32)
[2021-10-12] MEDS: Heparin 5000 UNITS/ML 1 mL VIAL SUBCUT SCH ×2 (08:04→20:41)
[2021-10-12] MEDS: Insulin GLARGINE 100 un/ml 10 ml VIAL SUBCUT SCH (20:42)
[2021-10-13] MEDS: Heparin 5000 UNITS/ML 1 mL VIAL SUBCUT SCH ×2 (08:27→22:07)
[2021-10-13] MEDS: Insulin GLARGINE 100 un/ml 10 ml VIAL SUBCUT SCH (22:08)
[2021-10-14] MEDS: Pentafluoroprop/Tetrafluoro 1 SPRAY TOP.SPRAY TOPICAL PRN (08:15)
[2021-10-14] MEDS: Heparin 5000 UNITS/ML 1 mL VIAL SUBCUT SCH ×2 (08:54→21:26)
[2021-10-14] MEDS: Insulin GLARGINE 100 un/ml 10 ml VIAL SUBCUT SCH (21:26)
[2021-10-15] MEDS: Heparin 5000 UNITS/ML 1 mL VIAL SUBCUT SCH ×2 (08:49→21:12)
[2021-10-15] MEDS: Insulin GLARGINE 100 un/ml 10 ml VIAL SUBCUT SCH (21:13)
[2021-10-16 06:20] LABS: Hematocrit 28 % (42-52); Hemoglobin 9.1 g/dL (14.0-18.0); Mean Platelet Volume 8.8 fL (7.4-10.4); Platelet Count 224 10^3/uL (150-450)
[2021-10-16 06:31] LABS: eGFR CKD-EPI 10.5 (>60)
[2021-10-16 06:32] LABS: Calcium 8.5 mg/dL (8.6-10.3); Phosphorus 7.1 mg/dL (2.5-5.0); eGFR CKD-EPI 10.6 (>60)
[2021-10-16 06:35] LABS: Potassium 5.1 mmol/L (3.5-5.0)
[2021-10-16] MEDS: Heparin 5000 UNITS/ML 1 mL VIAL SUBCUT SCH ×2 (08:30→21:03)
[2021-10-16 14:50] LABS: Hematocrit 29 % (42-52); Hemoglobin 9.2 g/dL (14.0-18.0); Mean Corpuscular HGB Conc 32 g/dL (31-36); Mean Corpuscular Hemoglobin 27 pg (27-31); Mean Corpuscular Volume 83 fL (80-94); Mean Platelet Volume 8.6 fL (7.4-10.4); Platelet Count 233 10^3/uL (150-450); Red Blood Count 3.47 10^6 /uL (4.18-5.48); Red Cell Distribution Width 19 % (10-15); White Blood Count 6.5 10^3/uL (3.5-10.8)
[2021-10-16] MEDS: Insulin GLARGINE 100 un/ml 10 ml VIAL SUBCUT SCH (21:04)
[2021-10-17] MEDS: Calcium Carb (TUMS) 500 mg CHEW TAB PO SCH ×3 (11:44→21:17)
[2021-10-17] MEDS: Heparin 5000 UNITS/ML 1 mL VIAL SUBCUT SCH ×2 (12:39→21:16)
[2021-10-17] MEDS: Pentafluoroprop/Tetrafluoro 1 SPRAY TOP.SPRAY TOPICAL PRN (13:36)
[2021-10-17] MEDS: Insulin GLARGINE 100 un/ml 10 ml VIAL SUBCUT SCH (21:16)
[2021-10-18] MEDS: Pentafluoroprop/Tetrafluoro 1 SPRAY TOP.SPRAY TOPICAL PRN (09:37)
[2021-10-18] MEDS: Calcium Carb (TUMS) 500 mg CHEW TAB PO SCH ×3 (13:56→20:15)
[2021-10-18] MEDS: Heparin 5000 UNITS/ML 1 mL VIAL SUBCUT SCH ×2 (14:14→20:22)
[2021-10-18] MEDS: Insulin GLARGINE 100 un/ml 10 ml VIAL SUBCUT SCH (20:16)
[2021-10-19] MEDS: Calcium Carb (TUMS) 500 mg CHEW TAB PO SCH ×3 (08:26→20:13)
[2021-10-19] MEDS: Heparin 5000 UNITS/ML 1 mL VIAL SUBCUT SCH ×2 (08:26→20:13)
[2021-10-19] MEDS: Insulin GLARGINE 100 un/ml 10 ml VIAL SUBCUT SCH (20:14)
[2021-10-20] MEDS: Calcium Carb (TUMS) 500 mg CHEW TAB PO SCH ×3 (08:32→19:40)
[2021-10-20] MEDS: Heparin 5000 UNITS/ML 1 mL VIAL SUBCUT SCH ×2 (08:32→19:40)
[2021-10-20] MEDS: Insulin GLARGINE 100 un/ml 10 ml VIAL SUBCUT SCH (19:40)
[2021-10-21] MEDS: Heparin 5000 UNITS/ML 1 mL VIAL SUBCUT SCH ×2 (09:03→21:12)
[2021-10-21] MEDS: Calcium Carb (TUMS) 500 mg CHEW TAB PO SCH ×3 (09:05→21:08)
[2021-10-21] MEDS: Insulin GLARGINE 100 un/ml 10 ml VIAL SUBCUT SCH (21:12)
[2021-10-22] MEDS: Heparin 5000 UNITS/ML 1 mL VIAL SUBCUT SCH ×2 (07:55→20:38)
[2021-10-22] MEDS: Calcium Carb (TUMS) 500 mg CHEW TAB PO SCH ×3 (07:58→20:38)
[2021-10-22] MEDS: Pentafluoroprop/Tetrafluoro 1 SPRAY TOP.SPRAY TOPICAL PRN (09:05)
[2021-10-22 13:52] LABS: Hepatitis B Surface Antigen Nonreactive (Nonreactive)
[2021-10-22 13:57] LABS: Hepatitis B Core IgM Nonreactive (Nonreactive)
[2021-10-22 14:09] LABS: Hepatitis B Surface Ab Immune (Immune)
[2021-10-22] MEDS: Insulin GLARGINE 100 un/ml 10 ml VIAL SUBCUT SCH (20:38)
[2021-10-23 05:46] LABS: Calcium 8.7 mg/dL (8.6-10.3); eGFR CKD-EPI 12.6 (>60)
[2021-10-23 05:47] LABS: Potassium 5.1 mmol/L (3.5-5.0)
[2021-10-23] MEDS: Pentafluoroprop/Tetrafluoro 1 SPRAY TOP.SPRAY TOPICAL PRN (09:45)
[2021-10-23] MEDS: Calcium Carb (TUMS) 500 mg CHEW TAB PO SCH ×3 (10:31→20:51)
[2021-10-23] MEDS: Heparin 5000 UNITS/ML 1 mL VIAL SUBCUT SCH ×2 (14:21→20:53)
[2021-10-23] MEDS: Insulin GLARGINE 100 un/ml 10 ml VIAL SUBCUT SCH (20:54)
[2021-10-24] MEDS: Heparin 5000 UNITS/ML 1 mL VIAL SUBCUT SCH ×2 (09:33→22:00)
[2021-10-24] MEDS: Calcium Carb (TUMS) 500 mg CHEW TAB PO SCH ×3 (09:34→22:51)
[2021-10-24] MEDS: Insulin GLARGINE 100 un/ml 10 ml VIAL SUBCUT SCH (22:00)
[2021-10-25] MEDS: Calcium Carb (TUMS) 500 mg CHEW TAB PO SCH ×3 (12:26→20:50)
[2021-10-25] MEDS: Heparin 5000 UNITS/ML 1 mL VIAL SUBCUT SCH ×2 (12:26→20:50)
[2021-10-25] MEDS: Insulin GLARGINE 100 un/ml 10 ml VIAL SUBCUT SCH (20:50)
[2021-10-26] MEDS: Calcium Carb (TUMS) 500 mg CHEW TAB PO SCH ×3 (08:52→22:01)
[2021-10-26] MEDS: Heparin 5000 UNITS/ML 1 mL VIAL SUBCUT SCH ×2 (08:53→22:02)
[2021-10-26] MEDS: Insulin GLARGINE 100 un/ml 10 ml VIAL SUBCUT SCH (22:03)
[2021-10-27] MEDS: Calcium Carb (TUMS) 500 mg CHEW TAB PO SCH ×3 (08:10→22:02)
[2021-10-27] MEDS: Heparin 5000 UNITS/ML 1 mL VIAL SUBCUT SCH ×2 (08:12→22:00)
[2021-10-27] MEDS: Insulin GLARGINE 100 un/ml 10 ml VIAL SUBCUT SCH (22:01)
[2021-10-28] MEDS: Calcium Carb (TUMS) 500 mg CHEW TAB PO SCH ×3 (07:27→20:46)
[2021-10-28] MEDS: Heparin 5000 UNITS/ML 1 mL VIAL SUBCUT SCH ×2 (07:30→20:48)
[2021-10-28] MEDS: Pentafluoroprop/Tetrafluoro 1 SPRAY TOP.SPRAY TOPICAL PRN (14:00)
[2021-10-28] MEDS: Insulin GLARGINE 100 un/ml 10 ml VIAL SUBCUT SCH (20:47)
[2021-10-29] MEDS: Heparin 5000 UNITS/ML 1 mL VIAL SUBCUT SCH ×2 (07:57→21:43)
[2021-10-29] MEDS: Calcium Carb (TUMS) 500 mg CHEW TAB PO SCH ×3 (07:57→21:43)
[2021-10-29] MEDS: Insulin GLARGINE 100 un/ml 10 ml VIAL SUBCUT SCH (21:44)
[2021-10-30] MEDS: Heparin 5000 UNITS/ML 1 mL VIAL SUBCUT SCH ×2 (08:14→21:32)
[2021-10-30] MEDS: Calcium Carb (TUMS) 500 mg CHEW TAB PO SCH ×3 (08:15→21:32)
[2021-10-30] MEDS: Insulin GLARGINE 100 un/ml 10 ml VIAL SUBCUT SCH (21:32)
[2021-10-31] MEDS: Calcium Carb (TUMS) 500 mg CHEW TAB PO SCH ×3 (15:52→21:12)
[2021-10-31] MEDS: Heparin 5000 UNITS/ML 1 mL VIAL SUBCUT SCH ×2 (15:53→21:12)
[2021-10-31] MEDS: Insulin GLARGINE 100 un/ml 10 ml VIAL SUBCUT SCH (21:12)
[2021-11-01] MEDS: Pentafluoroprop/Tetrafluoro 1 SPRAY TOP.SPRAY TOPICAL PRN (08:20)
[2021-11-01] MEDS: Calcium Carb (TUMS) 500 mg CHEW TAB PO SCH ×3 (13:22→22:35)
[2021-11-01] MEDS: Heparin 5000 UNITS/ML 1 mL VIAL SUBCUT SCH ×2 (13:23→22:36)
[2021-11-01] MEDS: Insulin GLARGINE 100 un/ml 10 ml VIAL SUBCUT SCH (22:37)
[2021-11-02] MEDS: Heparin 5000 UNITS/ML 1 mL VIAL SUBCUT SCH ×2 (08:56→20:22)
[2021-11-02] MEDS: Calcium Carb (TUMS) 500 mg CHEW TAB PO SCH ×3 (08:57→20:21)
[2021-11-02] MEDS: Insulin GLARGINE 100 un/ml 10 ml VIAL SUBCUT SCH (20:21)
[2021-11-03] MEDS: Calcium Carb (TUMS) 500 mg CHEW TAB PO SCH ×3 (08:05→21:23)
[2021-11-03] MEDS: Heparin 5000 UNITS/ML 1 mL VIAL SUBCUT SCH ×2 (08:06→21:23)
[2021-11-03] MEDS ORDERED: Benzocaine/Menthol LOZ PO PRN (11:15)
[2021-11-03] MEDS ORDERED: Phenol 1.4% Throat Spray 177 ml BTL MT PRN (13:22)
[2021-11-03] MEDS: Insulin GLARGINE 100 un/ml 10 ml VIAL SUBCUT SCH (21:23)
[2021-11-04] MEDS: Calcium Carb (TUMS) 500 mg CHEW TAB PO SCH ×3 (08:01→21:15)
[2021-11-04] MEDS: Heparin 5000 UNITS/ML 1 mL VIAL SUBCUT SCH ×2 (08:02→21:16)
[2021-11-04 09:19] LABS: ABS Eosinophils 0.3 10^3/ul (0-0.6); ABS Lymphocytes 0.7 10^3/ul (1.0-4.8); ABS Monocytes 0.7 10^3/ul (0-0.8); Eosinophil % 3.9 %; Hematocrit 30 % (42-52); Hemoglobin 9.7 g/dL (14.0-18.0); Lymphocyte % 9.1 %; Mean Corpuscular HGB Conc 33 g/dL (31-36); Mean Corpuscular Hemoglobin 26 pg (27-31); Mean Corpuscular Volume 80 fL (80-94); Mean Platelet Volume 8.6 fL (7.4-10.4); Platelet Count 294 10^3/uL (150-450); Red Blood Count 3.71 10^6 /uL (4.18-5.48); Red Cell Distribution Width 18 % (10-15); White Blood Count 7.8 10^3/uL (3.5-10.8)
[2021-11-04 10:01] LABS: Magnesium 2.1 mg/dL (1.9-2.7); eGFR CKD-EPI 8.8 (>60)
[2021-11-04] MEDS: Pentafluoroprop/Tetrafluoro 1 SPRAY TOP.SPRAY TOPICAL PRN (10:01)
[2021-11-04 10:03] LABS: Potassium 5.7 mmol/L (3.5-5.0)
[2021-11-04] MEDS: Insulin GLARGINE 100 un/ml 10 ml VIAL SUBCUT SCH (21:16)
[2021-11-05] MEDS: Heparin 5000 UNITS/ML 1 mL VIAL SUBCUT SCH ×2 (09:48→21:26)
[2021-11-05] MEDS: Calcium Carb (TUMS) 500 mg CHEW TAB PO SCH ×3 (09:49→21:26)
[2021-11-05] MEDS: Insulin GLARGINE 100 un/ml 10 ml VIAL SUBCUT SCH (21:26)
[2021-11-06] MEDS: Calcium Carb (TUMS) 500 mg CHEW TAB PO SCH ×3 (08:29→21:12)
[2021-11-06] MEDS: Heparin 5000 UNITS/ML 1 mL VIAL SUBCUT SCH ×2 (08:30→21:13)
[2021-11-06] MEDS: Pentafluoroprop/Tetrafluoro 1 SPRAY TOP.SPRAY TOPICAL PRN (14:02)
[2021-11-06] MEDS: Insulin GLARGINE 100 un/ml 10 ml VIAL SUBCUT SCH (21:13)
[2021-11-07] MEDS: Heparin 5000 UNITS/ML 1 mL VIAL SUBCUT SCH ×2 (07:48→20:46)
[2021-11-07] MEDS: Calcium Carb (TUMS) 500 mg CHEW TAB PO SCH ×3 (07:48→20:45)
[2021-11-07] MEDS: Insulin GLARGINE 100 un/ml 10 ml VIAL SUBCUT SCH (20:47)
[2021-11-08] MEDS: Calcium Carb (TUMS) 500 mg CHEW TAB PO SCH ×2 (07:52→14:30)
[2021-11-08] MEDS: Heparin 5000 UNITS/ML 1 mL VIAL SUBCUT SCH (07:52)
[2021-11-08] MEDS: Pentafluoroprop/Tetrafluoro 1 SPRAY TOP.SPRAY TOPICAL PRN (08:38)
[2021-11-08] MEDS: Heparin 1,000 UNIT/ML 10 ml (10,000 UNITS) CATHLAB/DIALYSIS DIALYSIS SCH ×3 (09:35→11:30)
[2021-11-08 12:36] VITALS: BP 126/65
== END 2021-11-08 16:15 | disposition home or self-care (01) | DRG 981 ==
LOC: SUATTDRO 15:18 → MED 15:18
PROVIDERS: ADMIT Student in an Organized Health Care Education/Training Program; ATTEND Internal Medicine
PROC: ANG.PRO (2021-09-23 11:10)

== ENCOUNTER 2021-12-05 15:18 | Inpatient (IN) ==
[2021-12-05] MEDS ORDERED: Lactated Ringers 500 ml BAG 500 ML IV ONE (15:48)
[2021-12-05 16:33] LABS: Activated Partial Thrombo Time 33.3 seconds (26.0-38.0); INR 1.35 (0.89-1.11)
[2021-12-05 16:44] LABS: ABS Eosinophils 0.1 10^3/ul (0-0.6); ABS Lymphocytes 1.2 10^3/ul (1.0-4.8); ABS Monocytes 0.9 10^3/ul (0-0.8); ABS Neutrophils 8.8 10^3/ul (1.5-7.7); Eosinophil % 0.5 %; Hematocrit 34 % (42-52); Hemoglobin 10.4 g/dL (14.0-18.0); Lymphocyte % 10.6 %; Mean Corpuscular HGB Conc 30 g/dL (31-36); Mean Corpuscular Hemoglobin 24 pg (27-31); Mean Corpuscular Volume 80 fL (80-94); Mean Platelet Volume 8.9 fL (7.4-10.4); Platelet Count 170 10^3/uL (150-450); Red Blood Count 4.29 10^6 /uL (4.18-5.48); Red Cell Distribution Width 19 % (10-15); White Blood Count 10.9 10^3/uL (3.5-10.8)
[2021-12-05 16:52] LABS: Albumin 3.2 g/dL (3.2-5.2); Albumin/Globulin Ratio 0.7 (1-3); C Reactive Protein 185.07 mg/L (<8.01); Calcium 8.6 mg/dL (8.6-10.3); Globulin 4.6 g/dL (2-4); Potassium 3.7 mmol/L (3.5-5.0); Total Bilirubin 1.3 mg/dL (0.2-1.0); Total Protein 7.8 g/dL (6.4-8.9); eGFR CKD-EPI 21.1 (>60)
[2021-12-05] MEDS ORDERED: Cefepime 1 GM in Dextrose 1 GM/50 ML BAG IV ONE (17:11)
[2021-12-05] MEDS ORDERED: Vancomycin 1,000 MG in NS 0.9% 250 ml 250 ML IVPB ONE (17:11)
[2021-12-05 18:49] LABS: High Sensitivity Troponin 1 Hr 54 pg/mL (<20)
[2021-12-05] MEDS ORDERED: Piperacillin/Tazobac ADVAN 3.375 GM in NS 0.9% 100 ml BAG 100 ML IV ONE (19:37)
[2021-12-05] MEDS ORDERED: Zosyn per Pharmacy NOTE FOLLOW UP SCH (20:00)
[2021-12-05] MEDS ORDERED: Vancomycin per Pharmacy 1 EA NOTE FOLLOW UP SCH (20:00)
[2021-12-05] MEDS ORDERED: Insulin GLARGINE 100 un/ml 10 ml VIAL SUBCUT SCH (21:00)
[2021-12-05] MEDS: Heparin 5000 UNITS/ML 1 mL VIAL SUBCUT SCH (21:58)
[2021-12-05] MEDS ORDERED: Dextrose 50% Syringe 50 ml 25 GM/50 ML SYRINGE IV PUSH PRN (23:58)
[2021-12-06] MEDS ORDERED: Vancomycin Random Level NOTE FOLLOW UP ONE (06:00)
[2021-12-06 08:48] LABS: ABS Basophils 0.1 10^3/ul (0-0.2); ABS Lymphocytes 0.6 10^3/ul (1.0-4.8); ABS Monocytes 0.6 10^3/ul (0-0.8); ABS Neutrophils 6.5 10^3/ul (1.5-7.7); Eosinophil % 0.5 %; Hematocrit 30 % (42-52); Hemoglobin 9.4 g/dL (14.0-18.0); Lymphocyte % 7.9 %; Mean Corpuscular HGB Conc 32 g/dL (31-36); Mean Corpuscular Hemoglobin 26 pg (27-31); Mean Corpuscular Volume 81 fL (80-94); Mean Platelet Volume 8.6 fL (7.4-10.4); Platelet Count 130 10^3/uL (150-450); Red Blood Count 3.67 10^6 /uL (4.18-5.48); Red Cell Distribution Width 19 % (10-15); White Blood Count 7.9 10^3/uL (3.5-10.8)
[2021-12-06] MEDS ORDERED: Vancomycin - DIALYSIS DOSING 1 EA NOTE FOLLOW UP SCH (09:00)
[2021-12-06] MEDS: ZOSYN 3.375 GM Q12H per EXTENDED INFUSION IV SCH ×2 (09:06→21:47)
[2021-12-06 09:21] LABS: ALT 11 U/L (7-52); AST 32 U/L (13-39); Albumin 2.5 g/dL (3.2-5.2); Albumin/Globulin Ratio 0.7 (1-3); Alkaline Phosphatase 406 U/L (35-149); Anion Gap 10 mmol/L (2-11); Blood Urea Nitrogen 36 mg/dL (6-24); CO2 Carbon Dioxide 29 mmol/L (22-32); Chloride 94 mmol/L (101-111); Globulin 3.8 g/dL (2-4); Glucose 107 mg/dL (70-100); Potassium 3.5 mmol/L (3.5-5.0); Sodium 133 mmol/L (135-145); Total Protein 6.3 g/dL (6.4-8.9); eGFR CKD-EPI 17.3 (>60)
[2021-12-06] MEDS: Heparin 5000 UNITS/ML 1 mL VIAL SUBCUT SCH ×2 (09:21→21:51)
[2021-12-06 09:43] LABS: CRP High Sensitivity > 80.00 mg/L (<2.00)
[2021-12-06] MEDS: Heparin 1,000 UNIT/ML 10 ml (10,000 UNITS) CATHLAB/DIALYSIS DIALYSIS ONE ×4 (15:21→20:33)
[2021-12-06] MEDS ORDERED: Vancomycin 500 MG in NS 0.9% 250 ML IVPB ONE (18:00)
[2021-12-07] MEDS: Heparin 5000 UNITS/ML 1 mL VIAL SUBCUT SCH ×2 (09:26→20:44)
[2021-12-07] MEDS: ZOSYN 3.375 GM Q12H per EXTENDED INFUSION IV SCH ×2 (09:51→20:44)
[2021-12-08 05:50] LABS: ABS Eosinophils 0.1 10^3/ul (0-0.6); ABS Lymphocytes 1.3 10^3/ul (1.0-4.8); ABS Monocytes 0.8 10^3/ul (0-0.8); ABS Neutrophils 7.1 10^3/ul (1.5-7.7); Eosinophil % 1.3 %; Hematocrit 32 % (42-52); Hemoglobin 9.8 g/dL (14.0-18.0); Mean Corpuscular HGB Conc 31 g/dL (31-36); Mean Corpuscular Hemoglobin 25 pg (27-31); Mean Corpuscular Volume 79 fL (80-94); Mean Platelet Volume 8.8 fL (7.4-10.4); Platelet Count 169 10^3/uL (150-450); Red Blood Count 3.98 10^6 /uL (4.18-5.48); Red Cell Distribution Width 18 % (10-15); White Blood Count 9.4 10^3/uL (3.5-10.8)
[2021-12-08 06:24] LABS: Calcium 8.3 mg/dL (8.6-10.3); Potassium 4.6 mmol/L (3.5-5.0); eGFR CKD-EPI 19.1 (>60)
[2021-12-08] MEDS: Heparin 5000 UNITS/ML 1 mL VIAL SUBCUT SCH ×2 (10:36→20:36)
[2021-12-08] MEDS: ZOSYN 3.375 GM Q12H per EXTENDED INFUSION IV SCH (11:04)
[2021-12-08] MEDS ORDERED: CEFDINIR 250 MG/5 ML PO SCH (12:44)
[2021-12-08] MEDS ORDERED: Cefdinir SUSP ORALSYR 50 MG/ML (250 mg/5 ml) PO SCH (13:00)
[2021-12-09] MEDS ORDERED: Vancomycin Random Level NOTE FOLLOW UP ONE (06:00)
[2021-12-09 06:31] LABS: ABS Basophils 0.1 10^3/ul (0-0.2); ABS Eosinophils 0.2 10^3/ul (0-0.6); ABS Lymphocytes 1.2 10^3/ul (1.0-4.8); ABS Monocytes 0.7 10^3/ul (0-0.8); ABS Neutrophils 6.5 10^3/ul (1.5-7.7); Eosinophil % 1.9 %; Hematocrit 28 % (42-52); Hemoglobin 9.3 g/dL (14.0-18.0); Lymphocyte % 14.5 %; Mean Corpuscular HGB Conc 33 g/dL (31-36); Mean Corpuscular Hemoglobin 26 pg (27-31); Mean Corpuscular Volume 78 fL (80-94); Mean Platelet Volume 8.7 fL (7.4-10.4); Platelet Count 168 10^3/uL (150-450); Red Blood Count 3.62 10^6 /uL (4.18-5.48); Red Cell Distribution Width 19 % (10-15); White Blood Count 8.6 10^3/uL (3.5-10.8)
[2021-12-09 06:52] LABS: C Reactive Protein 138.16 mg/L (<8.01); Calcium 7.9 mg/dL (8.6-10.3); Potassium 4.6 mmol/L (3.5-5.0); eGFR CKD-EPI 14.3 (>60)
[2021-12-09] MEDS: Heparin 5000 UNITS/ML 1 mL VIAL SUBCUT SCH ×2 (08:32→22:14)
[2021-12-09] MEDS: Heparin 1,000 UNIT/ML 10 ml (10,000 UNITS) CATHLAB/DIALYSIS DIALYSIS SCH ×3 (14:31→16:19)
[2021-12-09] MEDS ORDERED: Cefdinir SUSP ORALSYR 50 MG/ML (250 mg/5 ml) PO ONE (16:00)
[2021-12-09 18:01] LABS: Hepatitis B Surface Antigen Nonreactive (Nonreactive)
[2021-12-09 18:06] LABS: Hepatitis B Core IgM Nonreactive (Nonreactive)
[2021-12-09 18:20] LABS: Hepatitis B Surface Ab Immune (Immune)
[2021-12-10 06:41] LABS: ABS Eosinophils 0.2 10^3/ul (0-0.6); ABS Monocytes 0.8 10^3/ul (0-0.8); ABS Neutrophils 5.7 10^3/ul (1.5-7.7); Eosinophil % 2.2 %; Hematocrit 32 % (42-52); Hemoglobin 9.9 g/dL (14.0-18.0); Lymphocyte % 13.3 %; Mean Corpuscular HGB Conc 31 g/dL (31-36); Mean Corpuscular Hemoglobin 24 pg (27-31); Mean Corpuscular Volume 79 fL (80-94); Mean Platelet Volume 8.5 fL (7.4-10.4); Nucleated Red Blood Cells % 0.1; Platelet Count 188 10^3/uL (150-450); Red Blood Count 4.08 10^6 /uL (4.18-5.48); Red Cell Distribution Width 19 % (10-15); White Blood Count 7.8 10^3/uL (3.5-10.8)
[2021-12-10 06:42] LABS: Calcium 8.3 mg/dL (8.6-10.3); Potassium 4.1 mmol/L (3.5-5.0)
[2021-12-10 06:48] LABS: eGFR CKD-EPI 20.9 (>60)
[2021-12-10] MEDS: Heparin 5000 UNITS/ML 1 mL VIAL SUBCUT SCH (10:27)
[2021-12-10] MEDS: Heparin 1,000 UNIT/ML 10 ml (10,000 UNITS) CATHLAB/DIALYSIS DIALYSIS SCH (13:15)
[2021-12-10 15:16] VITALS: BP 96/58
== END 2021-12-10 15:30 | disposition home health service (06) | DRG 564 ==
LOC: ED 15:18 → SUATTDRO 19:19 → EDHOLD 19:19 → MED 22:09
PROVIDERS: ADMIT Internal Medicine; ATTEND Internal Medicine

== ENCOUNTER 2021-12-31 16:02 | Inpatient (IN) ==
[2021-12-31 17:25] LABS: ABS Basophils 0.1 10^3/ul (0-0.2); ABS Lymphocytes 1.9 10^3/ul (1.0-4.8); ABS Monocytes 1.5 10^3/ul (0-0.8); ABS Neutrophils 14.3 10^3/ul (1.5-7.7); Eosinophil % 0.2 %; Hematocrit 32 % (42-52); Hemoglobin 9.9 g/dL (14.0-18.0); Lymphocyte % 10.4 %; Mean Corpuscular HGB Conc 31 g/dL (31-36); Mean Corpuscular Hemoglobin 24 pg (27-31); Mean Corpuscular Volume 79 fL (80-94); Mean Platelet Volume 8.4 fL (7.4-10.4); Nucleated Red Blood Cells % 0.1; Platelet Count 297 10^3/uL (150-450); Red Cell Distribution Width 20 % (10-15); White Blood Count 17.9 10^3/uL (3.5-10.8)
[2021-12-31] MEDS ORDERED: Morphine 4 MG/ML VIAL (1 ml) IV ONE (17:33)
[2021-12-31] MEDS ORDERED: Lactated Ringers 1000 ml BAG 1,000 ML IV ONE (17:34)
[2021-12-31] MEDS ORDERED: Cefepime 1 GM in Dextrose 1 GM/50 ML BAG IV ONE (17:45)
[2021-12-31] MEDS ORDERED: Vancomycin 1,000 MG VIAL IVPB SCH (18:00)
[2021-12-31] MEDS ORDERED: Vancomycin 1,250 MG IV x ONCE IVPB ONE (18:00)
[2021-12-31 18:14] LABS: CO2 Carbon Dioxide 27 mmol/L (22-32); Calcium 8.2 mg/dL (8.6-10.3); Chloride 92 mmol/L (101-111); Sodium 130 mmol/L (135-145)
[2021-12-31 18:20] LABS: ALT 10 U/L (7-52); Albumin/Globulin Ratio 0.6 (1-3); Alkaline Phosphatase 457 U/L (35-149); Blood Urea Nitrogen 21 mg/dL (6-24); C Reactive Protein 234.61 mg/L (<8.01); Globulin 5.2 g/dL (2-4); Glucose 77 mg/dL (70-100); Total Protein 8.2 g/dL (6.4-8.9); eGFR CKD-EPI 18.8 (>60)
[2021-12-31 18:25] LABS: Anion Gap 11 mmol/L (2-11)
[2021-12-31 19:52] LABS: Activated Partial Thrombo Time 31.7 seconds (26.0-38.0); INR 1.41 (0.89-1.11)
[2021-12-31 20:10] LABS: Potassium Redraw 3.5 mmol/L (3.5-5.0)
[2021-12-31] MEDS ORDERED: Polyethylene Glycol 3350 17 GM PACKET PO PRN (20:41)
[2021-12-31] MEDS ORDERED: Senna TAB 8.6 mg TAB PO PRN (20:41)
[2021-12-31] MEDS ORDERED: Dextrose 50% Syringe 50 ml 25 GM/50 ML SYRINGE IV PUSH PRN (20:43)
[2021-12-31] MEDS ORDERED: cefTRIAXone 1 gm/50 mL D5W 1 GM/50 ML BAG IV SCH (21:00)
[2021-12-31] MEDS ORDERED: Piperacillin/Tazobac ADVAN 3.375 GM in NS 0.9% 100 ml BAG 100 ML IV ONE (21:02)
[2021-12-31] MEDS ORDERED: Zosyn per Pharmacy NOTE FOLLOW UP SCH (22:00)
[2022-01-01] MEDS ORDERED: Vancomycin per Pharmacy 1 EA NOTE FOLLOW UP SCH (02:00)
[2022-01-01] MEDS ORDERED: DOXYcycline 100 MG in NS 0.9% 250 ml 250 ML IVPB SCH (03:00)
[2022-01-01] MEDS ORDERED: Magnesium Hydroxide LIQ 30 ML UDC PO PRN (03:01)
[2022-01-01 03:12] LABS: ABS Basophils 0.1 10^3/ul (0-0.2); ABS Eosinophils 0.1 10^3/ul (0-0.6); ABS Lymphocytes 1.1 10^3/ul (1.0-4.8); ABS Monocytes 1.2 10^3/ul (0-0.8); ABS Neutrophils 12.6 10^3/ul (1.5-7.7); Eosinophil % 0.4 %; Hematocrit 28 % (42-52); Hemoglobin 8.6 g/dL (14.0-18.0); Lymphocyte % 7.6 %; Mean Corpuscular HGB Conc 31 g/dL (31-36); Mean Corpuscular Hemoglobin 25 pg (27-31); Mean Corpuscular Volume 79 fL (80-94); Mean Platelet Volume 8.5 fL (7.4-10.4); Nucleated Red Blood Cells % 0.1; Platelet Count 246 10^3/uL (150-450); Red Blood Count 3.52 10^6 /uL (4.18-5.48); Red Cell Distribution Width 19 % (10-15); White Blood Count 15.1 10^3/uL (3.5-10.8)
[2022-01-01] MEDS ORDERED: ZOSYN 3.375 GM Q12H per EXTENDED INFUSION IV SCH ×2 (04:00)
[2022-01-01 04:13] LABS: Albumin 2.5 g/dL (3.2-5.2); Albumin/Globulin Ratio 0.6 (1-3); Globulin 4.3 g/dL (2-4); Potassium 3.5 mmol/L (3.5-5.0); Total Bilirubin 2.1 mg/dL (0.2-1.0); Total Protein 6.8 g/dL (6.4-8.9); Vancomycin Random 16.3 mcg/mL
[2022-01-01 04:43] LABS: C Reactive Protein 218.03 mg/L (<8.01)
[2022-01-01] MEDS ORDERED: Vancomycin Random Level NOTE FOLLOW UP ONE (06:00)
[2022-01-01] MEDS: Heparin 5000 UNITS/ML 1 mL VIAL SUBCUT SCH ×3 (06:04→21:31)
[2022-01-01] MEDS: cefTRIAXone 1 gm/50 mL D5W 1 GM/50 ML BAG IV SCH (08:18)
[2022-01-01] MEDS: Calcium Carb (TUMS) 500 mg CHEW TAB PO SCH ×3 (08:21→21:31)
[2022-01-01] MEDS ORDERED: Heparin 1,000 UNIT/ML 10 ml (10,000 UNITS) CATHLAB/DIALYSIS DIALYSIS ONE (08:30)
[2022-01-01] MEDS ORDERED: Lactated Ringers 1000 ml BAG 1,000 ML IV ONE (16:15)
[2022-01-01] MEDS ORDERED: Norepinephrine 16MCG/ML BAG NS 4,000 MCG/250 ML BAG IV SCH (17:30)
[2022-01-01] MEDS: Norepinephrine 16MCG/ML BAGD5W 4,000 MCG/250 ML BAG IV SCH (17:40)
[2022-01-01] MEDS ORDERED: Vancomycin 500 MG in NS 0.9% 250 ML IVPB ONE (18:00)
[2022-01-01] MEDS ORDERED: Lorazepam PYXIS KEY PRN (18:22)
[2022-01-01] MEDS ORDERED: LORazepam 2 mg VIAL 1 ml IV PUSH ONE (18:22)
[2022-01-01] MEDS ORDERED: Lorazepam PYXIS KEY ONE (18:26)
[2022-01-01] MEDS ORDERED: LORazepam 2 mg VIAL 1 ml ONE (18:26)
[2022-01-01 18:31] LABS: Venous Bicarbonate HCO3 27.9 mmol/L (24-28)
[2022-01-01 18:36] LABS: ABS Eosinophils 0.1 10^3/ul (0-0.6); ABS Lymphocytes 1.6 10^3/ul (1.0-4.8); ABS Monocytes 0.8 10^3/ul (0-0.8); ABS Neutrophils 12.8 10^3/ul (1.5-7.7); Eosinophil % 0.6 %; Hematocrit 29 % (42-52); Hemoglobin 8.6 g/dL (14.0-18.0); Lymphocyte % 10.5 %; Mean Corpuscular HGB Conc 30 g/dL (31-36); Mean Corpuscular Hemoglobin 24 pg (27-31); Mean Corpuscular Volume 79 fL (80-94); Mean Platelet Volume 8.6 fL (7.4-10.4); Platelet Count 278 10^3/uL (150-450); Red Blood Count 3.63 10^6 /uL (4.18-5.48); Red Cell Distribution Width 19 % (10-15); White Blood Count 15.4 10^3/uL (3.5-10.8)
[2022-01-01 18:53] LABS: Albumin 2.4 g/dL (3.2-5.2); Albumin/Globulin Ratio 0.6 (1-3); Calcium 7.8 mg/dL (8.6-10.3); Globulin 3.8 g/dL (2-4); Potassium 3.7 mmol/L (3.5-5.0); Total Bilirubin 1.6 mg/dL (0.2-1.0); Total Protein 6.2 g/dL (6.4-8.9); eGFR CKD-EPI 15.4 (>60)
[2022-01-02] MEDS: Norepinephrine 16MCG/ML BAGD5W 4,000 MCG/250 ML BAG IV SCH ×4 (00:12→16:49)
[2022-01-02] MEDS: Heparin 5000 UNITS/ML 1 mL VIAL SUBCUT SCH ×3 (05:06→21:32)
[2022-01-02 06:20] LABS: ABS Basophils 0.1 10^3/ul (0-0.2); ABS Eosinophils 0.2 10^3/ul (0-0.6); ABS Lymphocytes 2.3 10^3/ul (1.0-4.8); ABS Neutrophils 16.9 10^3/ul (1.5-7.7); Eosinophil % 0.9 %; Hematocrit 30 % (42-52); Hemoglobin 9.4 g/dL (14.0-18.0); Lymphocyte % 11.4 %; Mean Corpuscular HGB Conc 31 g/dL (31-36); Mean Corpuscular Hemoglobin 25 pg (27-31); Mean Corpuscular Volume 79 fL (80-94); Mean Platelet Volume 8.8 fL (7.4-10.4); Platelet Count 336 10^3/uL (150-450); Red Blood Count 3.82 10^6 /uL (4.18-5.48); Red Cell Distribution Width 19 % (10-15); White Blood Count 20.5 10^3/uL (3.5-10.8)
[2022-01-02 06:54] LABS: Magnesium 1.9 mg/dL (1.9-2.7); Phosphorus 5.6 mg/dL (2.5-5.0); Potassium 3.8 mmol/L (3.5-5.0); eGFR CKD-EPI 14.8 (>60)
[2022-01-02] MEDS: Heparin 1,000 UNIT/ML 10 ml (10,000 UNITS) CATHLAB/DIALYSIS DIALYSIS PRN ×6 (08:10→13:01)
[2022-01-02] MEDS ORDERED: DOXYcycline 100 MG in NS 0.9% 250 ml 250 ML IVPB SCH (09:00)
[2022-01-02] MEDS ORDERED: Hydrocortisone INJ 100 MG/2ML 2 ML VIAL IV ONE (09:56)
[2022-01-02 11:45] LABS: Vancomycin Random 18.7 mcg/mL
[2022-01-02] MEDS: Calcium Carb (TUMS) 500 mg CHEW TAB PO SCH ×3 (14:59→21:31)
[2022-01-02] MEDS: cefTRIAXone 1 gm/50 mL D5W 1 GM/50 ML BAG IV SCH (15:09)
[2022-01-02] MEDS: Hydrocortisone INJ 100 MG/2ML 2 ML VIAL IV SCH (17:11)
[2022-01-02] MEDS ORDERED: Vancomycin 500 MG in NS 0.9% 250 ML IVPB ONE (18:00)
[2022-01-03] MEDS: Hydrocortisone INJ 100 MG/2ML 2 ML VIAL IV SCH ×3 (02:45→17:33)
[2022-01-03] MEDS ORDERED: Vancomycin Random Level NOTE FOLLOW UP ONE ×2 (06:00)
[2022-01-03 06:07] LABS: Hematocrit 33 % (42-52); Hemoglobin 10.1 g/dL (14.0-18.0); Mean Corpuscular HGB Conc 31 g/dL (31-36); Mean Corpuscular Hemoglobin 25 pg (27-31); Mean Corpuscular Volume 79 fL (80-94); Platelet Count 339 10^3/uL (150-450); Red Blood Count 4.12 10^6 /uL (4.18-5.48); Red Cell Distribution Width 19 % (10-15); White Blood Count 22.4 10^3/uL (3.5-10.8)
[2022-01-03] MEDS: Heparin 5000 UNITS/ML 1 mL VIAL SUBCUT SCH ×4 (06:19→20:56)
[2022-01-03 06:41] LABS: Magnesium 1.9 mg/dL (1.9-2.7); Phosphorus 4.5 mg/dL (2.5-5.0); Potassium 4.1 mmol/L (3.5-5.0); Vancomycin Random 17.4 mcg/mL; eGFR CKD-EPI 25.5 (>60)
[2022-01-03] MEDS: Calcium Carb (TUMS) 500 mg CHEW TAB PO SCH ×4 (07:50→20:02)
[2022-01-03] MEDS ORDERED: Magnesium Sulfate IV 1GM/100ML 1 GM/100 ML BAG IV ONE (07:58)
[2022-01-03] MEDS: Heparin 1,000 UNIT/ML 10 ml (10,000 UNITS) CATHLAB/DIALYSIS DIALYSIS PRN ×4 (08:15→11:07)
[2022-01-03 09:05] LABS: ABS Lymphocytes 0.7 10^3/ul (1.0-4.8); ABS Monocytes 0.8 10^3/ul (0-0.8); ABS Neutrophils 20.9 10^3/ul (1.5-7.7); Lymphocyte % 3.2 %; Nucleated Red Blood Cells % 0.1
[2022-01-03] MEDS: Norepinephrine 16MCG/ML BAGD5W 4,000 MCG/250 ML BAG IV SCH (09:54)
[2022-01-03] MEDS ORDERED: Ondansetron 4 mg VIAL 2 MG/ML 2 ml VIAL IV ONE (11:56)
[2022-01-03] MEDS ORDERED: Ondansetron 4 mg VIAL 2 MG/ML 2 ml VIAL ONE (11:57)
[2022-01-03] MEDS: cefTRIAXone 1 gm/50 mL D5W 1 GM/50 ML BAG IV SCH (12:45)
[2022-01-03] MEDS ORDERED: Vancomycin 500 MG in NS 0.9% 250 ML IVPB ONE (16:00)
[2022-01-03] MEDS ORDERED: Haloperidol 5 mg/ml SDV IV/IM 5 MG/ML AMP IV SLOW PU ONE (22:28)
[2022-01-04] MEDS: Norepinephrine 16MCG/ML BAGD5W 4,000 MCG/250 ML BAG IV SCH (00:32)
[2022-01-04] MEDS: Hydrocortisone INJ 100 MG/2ML 2 ML VIAL IV SCH ×2 (00:35→09:04)
[2022-01-04 05:24] LABS: ABS Lymphocytes 0.9 10^3/ul (1.0-4.8); ABS Monocytes 0.8 10^3/ul (0-0.8); ABS Neutrophils 18.5 10^3/ul (1.5-7.7); Hematocrit 31 % (42-52); Hemoglobin 9.3 g/dL (14.0-18.0); Lymphocyte % 4.4 %; Mean Corpuscular HGB Conc 30 g/dL (31-36); Mean Corpuscular Hemoglobin 24 pg (27-31); Mean Corpuscular Volume 78 fL (80-94); Mean Platelet Volume 8.4 fL (7.4-10.4); Nucleated Red Blood Cells % 0.1; Platelet Count 275 10^3/uL (150-450); Red Blood Count 3.94 10^6 /uL (4.18-5.48); Red Cell Distribution Width 19 % (10-15); White Blood Count 20.2 10^3/uL (3.5-10.8)
[2022-01-04 05:36] LABS: INR 1.34 (0.89-1.11)
[2022-01-04 05:52] LABS: Calcium 8.2 mg/dL (8.6-10.3); Phosphorus 4.3 mg/dL (2.5-5.0); eGFR CKD-EPI 31.8 (>60)
[2022-01-04] MEDS: Heparin 5000 UNITS/ML 1 mL VIAL SUBCUT SCH (06:04)
[2022-01-04] MEDS ORDERED: Potassium Chlor 20 meq TAB.ER PO ONE (07:57)
[2022-01-04] MEDS ORDERED: Zosyn per Pharmacy NOTE FOLLOW UP SCH (09:00)
[2022-01-04] MEDS: Calcium Carb (TUMS) 500 mg CHEW TAB PO SCH ×3 (09:03→21:27)
[2022-01-04] MEDS ORDERED: ceFAZolin 1 GM in Dextrose 1 GM/50 ML BAG ONE (11:16)
[2022-01-04] MEDS ORDERED: ceFAZolin 2 GM PREMIX 0 GM/0 ML BAG ONE (11:16)
[2022-01-04] MEDS ORDERED: HYDROmorphone 0.5 MG/0.5 ML SYRINGE ONE (11:16)
[2022-01-04] MEDS ORDERED: Naloxone 0.4 mg VIAL 0.4 mg/ml 1 ml VIAL IV PRN (11:55)
[2022-01-04] MEDS ORDERED: Piperacillin/Tazobac ADVAN 3.375 GM in NS 0.9% 100 ml BAG 100 ML IV ONE (12:00)
[2022-01-04] MEDS ORDERED: Desflurane 240 ML INH ONE (12:11)
[2022-01-04] MEDS ORDERED: Bupivacaine 0.5% SDV PF 30ML VIAL ONE (12:22)
[2022-01-04] MEDS ORDERED: Dextrose 50% Syringe 50 ml 25 GM/50 ML SYRINGE IV PUSH PRN (16:09)
[2022-01-04] MEDS: ZOSYN 3.375 GM Q8H per EXTENDED INFUSION IV SCH (17:05)
[2022-01-05] MEDS: Acetaminophen IV 1 GM/100ML 1,000 MG/100 ML BAG IV PRN (01:56)
[2022-01-05] MEDS: ZOSYN 3.375 GM Q8H per EXTENDED INFUSION IV SCH ×2 (05:50→17:38)
[2022-01-05 06:20] LABS: Hematocrit 29 % (42-52); Hemoglobin 9.3 g/dL (14.0-18.0); Mean Corpuscular HGB Conc 33 g/dL (31-36); Mean Corpuscular Hemoglobin 26 pg (27-31); Mean Corpuscular Volume 79 fL (80-94); Mean Platelet Volume 8.5 fL (7.4-10.4); Platelet Count 236 10^3/uL (150-450); Red Blood Count 3.63 10^6 /uL (4.18-5.48); Red Cell Distribution Width 19 % (10-15); White Blood Count 15.6 10^3/uL (3.5-10.8)
[2022-01-05 06:38] LABS: ABS Basophils 0.1 10^3/ul (0-0.2); ABS Monocytes 1.1 10^3/ul (0-0.8); ABS Neutrophils 13.4 10^3/ul (1.5-7.7); Eosinophil % 0.2 %; Lymphocyte % 6.2 %; Nucleated Red Blood Cells % 0.1
[2022-01-05 06:47] LABS: Calcium 8.4 mg/dL (8.6-10.3); Magnesium 2.2 mg/dL (1.9-2.7); Phosphorus 5.4 mg/dL (2.5-5.0); Potassium 4.9 mmol/L (3.5-5.0)
[2022-01-05] MEDS: Calcium Carb (TUMS) 500 mg CHEW TAB PO SCH ×3 (08:31→20:03)
[2022-01-05] MEDS: Enoxaparin 30 MG/0.3 ML SYR SUBCUT SCH (11:41)
[2022-01-05] MEDS: Insulin GLARGINE 100 un/ml 10 ml VIAL SUBCUT SCH (21:19)
[2022-01-05] MEDS ORDERED: Haloperidol 5 mg/ml SDV IV/IM 5 MG/ML AMP IV SLOW PU PRN (21:50)
[2022-01-06 05:28] LABS: Hematocrit 28 % (42-52); Hemoglobin 8.8 g/dL (14.0-18.0); Mean Corpuscular HGB Conc 31 g/dL (31-36); Mean Corpuscular Hemoglobin 24 pg (27-31); Mean Corpuscular Volume 78 fL (80-94); Mean Platelet Volume 8.5 fL (7.4-10.4); Platelet Count 211 10^3/uL (150-450); Red Blood Count 3.62 10^6 /uL (4.18-5.48); Red Cell Distribution Width 19 % (10-15); White Blood Count 21.4 10^3/uL (3.5-10.8)
[2022-01-06 05:54] LABS: Blood Urea Nitrogen 53 mg/dL (6-24); CO2 Carbon Dioxide 24 mmol/L (22-32); Calcium 8.3 mg/dL (8.6-10.3); Chloride 93 mmol/L (101-111); Glucose 162 mg/dL (70-100); Sodium 125 mmol/L (135-145); Vancomycin Random 18.7 mcg/mL; eGFR CKD-EPI 18.2 (>60)
[2022-01-06] MEDS ORDERED: Vancomycin Random Level NOTE FOLLOW UP ONE (06:00)
[2022-01-06 06:01] LABS: Anion Gap 8 mmol/L (2-11)
[2022-01-06] MEDS: ZOSYN 3.375 GM Q8H per EXTENDED INFUSION IV SCH ×2 (06:02→18:01)
[2022-01-06 06:27] LABS: Potassium, Whole Blood 6.2 mmol/L (3.4-4.5)
[2022-01-06 07:30] LABS: Anisocytosis 1+; Hypochromasia 2+; Microcytosis 1+; Target Cells 2+
[2022-01-06 07:33] LABS: ABS Basophils 0.1 10^3/ul (0-0.2); ABS Lymphocytes 0.7 10^3/ul (1.0-4.8); ABS Monocytes 1.1 10^3/ul (0-0.8); ABS Neutrophils 19.5 10^3/ul (1.5-7.7); Eosinophil % 0.1 %; Lymphocyte % 3.4 %; Nucleated Red Blood Cells % 0.2
[2022-01-06] MEDS: Heparin 1,000 UNIT/ML 10 ml (10,000 UNITS) CATHLAB/DIALYSIS DIALYSIS PRN ×4 (07:40→12:45)
[2022-01-06 08:11] LABS: Magnesium 2.2 mg/dL (1.9-2.7)
[2022-01-06 08:17] LABS: Phosphorus 5.5 mg/dL (2.5-5.0)
[2022-01-06] MEDS: Calcium Carb (TUMS) 500 mg CHEW TAB PO SCH ×3 (09:00→20:54)
[2022-01-06] MEDS: Aspirin EC 81 mg TAB.EC (enteric coated) PO SCH ×2 (09:00→17:21)
[2022-01-06] MEDS: Enoxaparin 30 MG/0.3 ML SYR SUBCUT SCH (10:30)
[2022-01-06] MEDS: Heparin 5000 UNITS/ML 1 mL VIAL SUBCUT SCH ×2 (11:30→20:54)
[2022-01-06 12:34] LABS: INR 1.32 (0.89-1.11)
[2022-01-06 14:49] LABS: Activated Partial Thrombo Time >240.0 seconds (26.0-38.0)
[2022-01-06] MEDS: Insulin GLARGINE 100 un/ml 10 ml VIAL SUBCUT SCH (20:54)
[2022-01-06] MEDS ORDERED: Insulin GLARGINE 100 un/ml 10 ml VIAL SUBCUT SCH (21:00)
[2022-01-07] MEDS: ZOSYN 3.375 GM Q8H per EXTENDED INFUSION IV SCH ×2 (05:53→17:59)
[2022-01-07 06:11] LABS: ABS Basophils 0.1 10^3/ul (0-0.2); ABS Monocytes 0.8 10^3/ul (0-0.8); ABS Nucleated RBC 0.1 10^3/ul; Hematocrit 31 % (42-52); Hemoglobin 9.3 g/dL (14.0-18.0); Lymphocyte % 12.7 %; Mean Corpuscular HGB Conc 30 g/dL (31-36); Mean Corpuscular Hemoglobin 24 pg (27-31); Mean Corpuscular Volume 79 fL (80-94); Mean Platelet Volume 8.5 fL (7.4-10.4); Nucleated Red Blood Cells % 0.3; Platelet Count 226 10^3/uL (150-450); Red Blood Count 3.88 10^6 /uL (4.18-5.48); Red Cell Distribution Width 19 % (10-15)
[2022-01-07 06:20] LABS: Albumin 2.8 g/dL (3.2-5.2); Calcium 8.4 mg/dL (8.6-10.3); Magnesium 2.1 mg/dL (1.9-2.7); Potassium 4.1 mmol/L (3.5-5.0); Total Bilirubin 1.3 mg/dL (0.2-1.0)
[2022-01-07 06:26] LABS: Albumin/Globulin Ratio 0.7 (1-3); Globulin 4.3 g/dL (2-4); Total Protein 7.1 g/dL (6.4-8.9); eGFR CKD-EPI 29.8 (>60)
[2022-01-07] MEDS: Aspirin EC 81 mg TAB.EC (enteric coated) PO SCH (08:04)
[2022-01-07] MEDS: Calcium Carb (TUMS) 500 mg CHEW TAB PO SCH ×4 (08:05→21:28)
[2022-01-07] MEDS: Heparin 5000 UNITS/ML 1 mL VIAL SUBCUT SCH ×2 (08:05→21:19)
[2022-01-07] MEDS: Acetaminophen IV 1 GM/100ML 1,000 MG/100 ML BAG IV PRN (10:07)
[2022-01-07] MEDS: Insulin GLARGINE 100 un/ml 10 ml VIAL SUBCUT SCH (21:20)
[2022-01-08] MEDS: ZOSYN 3.375 GM Q8H per EXTENDED INFUSION IV SCH ×2 (05:33→18:15)
[2022-01-08 05:55] LABS: ABS Basophils 0.1 10^3/ul (0-0.2); ABS Eosinophils 0.1 10^3/ul (0-0.6); ABS Monocytes 0.7 10^3/ul (0-0.8); ABS Neutrophils 13.5 10^3/ul (1.5-7.7); ABS Nucleated RBC 0.1 10^3/ul; Eosinophil % 0.8 %; Hematocrit 27 % (42-52); Hemoglobin 8.6 g/dL (14.0-18.0); Lymphocyte % 6.2 %; Mean Corpuscular HGB Conc 32 g/dL (31-36); Mean Corpuscular Hemoglobin 25 pg (27-31); Mean Corpuscular Volume 78 fL (80-94); Mean Platelet Volume 8.5 fL (7.4-10.4); Nucleated Red Blood Cells % 0.4; Platelet Count 203 10^3/uL (150-450); Red Blood Count 3.46 10^6 /uL (4.18-5.48); Red Cell Distribution Width 19 % (10-15); White Blood Count 15.4 10^3/uL (3.5-10.8)
[2022-01-08 06:17] LABS: Calcium 8.5 mg/dL (8.6-10.3); Magnesium 2.3 mg/dL (1.9-2.7); Potassium 4.4 mmol/L (3.5-5.0); eGFR CKD-EPI 20.3 (>60)
[2022-01-08] MEDS: Heparin 5000 UNITS/ML 1 mL VIAL SUBCUT SCH ×2 (09:06→20:26)
[2022-01-08] MEDS: Calcium Carb (TUMS) 500 mg CHEW TAB PO SCH ×3 (09:06→20:25)
[2022-01-08] MEDS ORDERED: Heparin 1,000 UNIT/ML 10 ml (10,000 UNITS) CATHLAB/DIALYSIS DIALYSIS PRN ×2 (10:32→11:00)
[2022-01-08] MEDS: Aspirin EC 81 mg TAB.EC (enteric coated) PO SCH (10:44)
[2022-01-08] MEDS: Heparin 1,000 UNIT/ML 10 ml (10,000 UNITS) CATHLAB/DIALYSIS DIALYSIS SCH (11:39)
[2022-01-08 12:09] LABS: Hepatitis B Surface Antigen Nonreactive (Nonreactive)
[2022-01-08 12:14] LABS: Hepatitis B Core IgM Nonreactive (Nonreactive)
[2022-01-08 12:27] LABS: Hepatitis B Surface Ab Immune (Immune)
[2022-01-08 13:24] LABS: PCO2 Arterial 41 mmHg (35-45); PO2 Arterial 76 mmHg (80-100)
[2022-01-08 13:46] LABS: Hematocrit 30 % (42-52); Hemoglobin 9.2 g/dL (14.0-18.0); Mean Corpuscular HGB Conc 31 g/dL (31-36); Mean Corpuscular Hemoglobin 24 pg (27-31); Mean Corpuscular Volume 79 fL (80-94); Mean Platelet Volume 8.7 fL (7.4-10.4); Platelet Count 251 10^3/uL (150-450); Red Blood Count 3.78 10^6 /uL (4.18-5.48); Red Cell Distribution Width 20 % (10-15); White Blood Count 17.6 10^3/uL (3.5-10.8)
[2022-01-08 13:49] LABS: Activated Partial Thrombo Time 95.8 seconds (26.0-38.0); INR 1.21 (0.89-1.11)
[2022-01-08 15:31] LABS: Calcium 8.6 mg/dL (8.6-10.3); Magnesium 2.2 mg/dL (1.9-2.7); Potassium 3.8 mmol/L (3.5-5.0); eGFR CKD-EPI 40.5 (>60)
[2022-01-08 15:43] LABS: Albumin 3.3 g/dL (3.2-5.2); Total Bilirubin 1.7 mg/dL (0.2-1.0)
[2022-01-08 15:49] LABS: Albumin/Globulin Ratio 0.7 (1-3); Globulin 4.8 g/dL (2-4); Phosphorus 3.2 mg/dL (2.5-5.0); Total Protein 8.1 g/dL (6.4-8.9)
[2022-01-08 15:50] LABS: Anisocytosis 2+
[2022-01-08 15:51] LABS: Target Cells 2+
[2022-01-08 15:54] LABS: ABS Eosinophils 0.2 10^3/ul (0-0.6); ABS Lymphocytes 1.4 10^3/ul (1.0-4.8); ABS Monocytes 0.5 10^3/ul (0-0.8); ABS Neutrophils 15.5 10^3/ul (1.5-7.7)
[2022-01-08] MEDS ORDERED: Iodixanol (CONTRAST) 320 MG/ML 100 ML SDV IV ONE (17:49)
[2022-01-08] MEDS: Insulin GLARGINE 100 un/ml 10 ml VIAL SUBCUT SCH (20:41)
[2022-01-08] MEDS: Acetaminophen IV 1 GM/100ML 1,000 MG/100 ML BAG IV PRN (22:03)
[2022-01-09] MEDS: ZOSYN 3.375 GM Q8H per EXTENDED INFUSION IV SCH ×2 (05:33→17:53)
[2022-01-09 06:24] LABS: ABS Basophils 0.1 10^3/ul (0-0.2); ABS Eosinophils 0.1 10^3/ul (0-0.6); ABS Lymphocytes 1.1 10^3/ul (1.0-4.8); ABS Monocytes 0.5 10^3/ul (0-0.8); ABS Nucleated RBC 0.1 10^3/ul; Hematocrit 27 % (42-52); Hemoglobin 7.9 g/dL (14.0-18.0); Lymphocyte % 11.1 %; Mean Corpuscular HGB Conc 29 g/dL (31-36); Mean Corpuscular Hemoglobin 25 pg (27-31); Mean Corpuscular Volume 86 fL (80-94); Mean Platelet Volume 8.8 fL (7.4-10.4); Nucleated Red Blood Cells % 0.7; Platelet Count 137 10^3/uL (150-450); Red Blood Count 3.17 10^6 /uL (4.18-5.48); Red Cell Distribution Width 20 % (10-15); White Blood Count 9.8 10^3/uL (3.5-10.8)
[2022-01-09 06:53] LABS: Calcium 8.3 mg/dL (8.6-10.3); Chloride 93 mmol/L (101-111); Magnesium 2.2 mg/dL (1.9-2.7); Sodium 129 mmol/L (135-145)
[2022-01-09 06:59] LABS: Blood Urea Nitrogen 41 mg/dL (6-24); Glucose 123 mg/dL (70-100); eGFR CKD-EPI 25.6 (>60)
[2022-01-09 07:09] LABS: Anion Gap 24 mmol/L (2-11); CO2 Carbon Dioxide 12 mmol/L (22-32)
[2022-01-09 07:55] LABS: Hematocrit 24 % (42-52); Hemoglobin 7.3 g/dL (14.0-18.0); Mean Corpuscular HGB Conc 31 g/dL (31-36); Mean Corpuscular Hemoglobin 25 pg (27-31); Mean Corpuscular Volume 81 fL (80-94); Mean Platelet Volume 8.6 fL (7.4-10.4); Platelet Count 178 10^3/uL (150-450); Red Blood Count 2.94 10^6 /uL (4.18-5.48); Red Cell Distribution Width 20 % (10-15); White Blood Count 10.5 10^3/uL (3.5-10.8)
[2022-01-09] MEDS: Aspirin EC 81 mg TAB.EC (enteric coated) PO SCH (08:30)
[2022-01-09] MEDS: Calcium Carb (TUMS) 500 mg CHEW TAB PO SCH ×3 (08:30→21:39)
[2022-01-09] MEDS: Heparin 5000 UNITS/ML 1 mL VIAL SUBCUT SCH ×2 (08:31→21:39)
[2022-01-09 10:17] LABS: Anisocytosis 2+; Hypochromasia 2+; Microcytosis 1+; Polychromasia 1+; Target Cells 1+
[2022-01-09 10:18] LABS: ABS Basophils 0.1 10^3/ul (0-0.2); ABS Eosinophils 0.1 10^3/ul (0-0.6); ABS Lymphocytes 2.1 10^3/ul (1.0-4.8); ABS Monocytes 0.5 10^3/ul (0-0.8); ABS Neutrophils 7.7 10^3/ul (1.5-7.7); ABS Nucleated RBC 0.1 10^3/ul; Lymphocyte % 20.2 %; Nucleated Red Blood Cells % 0.4
[2022-01-09] MEDS: Insulin GLARGINE 100 un/ml 10 ml VIAL SUBCUT SCH (21:38)
[2022-01-10 07:53] LABS: Hematocrit 25 % (42-52); Mean Corpuscular HGB Conc 32 g/dL (31-36); Mean Corpuscular Hemoglobin 25 pg (27-31); Mean Corpuscular Volume 78 fL (80-94); Mean Platelet Volume 8.4 fL (7.4-10.4); Platelet Count 197 10^3/uL (150-450); Red Blood Count 3.17 10^6 /uL (4.18-5.48); Red Cell Distribution Width 20 % (10-15); White Blood Count 11.4 10^3/uL (3.5-10.8)
[2022-01-10 07:59] LABS: Calcium 8.1 mg/dL (8.6-10.3); Magnesium 2.3 mg/dL (1.9-2.7); eGFR CKD-EPI 18.9 (>60)
[2022-01-10] MEDS: Calcium Carb (TUMS) 500 mg CHEW TAB PO SCH ×3 (09:14→22:23)
[2022-01-10] MEDS: Heparin 5000 UNITS/ML 1 mL VIAL SUBCUT SCH ×2 (09:14→22:25)
[2022-01-10] MEDS: Aspirin EC 81 mg TAB.EC (enteric coated) PO SCH (09:14)
[2022-01-10 09:21] LABS: Anisocytosis 2+; Microcytosis 1+; Polychromasia 1+; Target Cells 2+
[2022-01-10 09:23] LABS: ABS Neutrophils 9.5 10^3/ul (1.5-7.7)
[2022-01-10] MEDS: Heparin 1,000 UNIT/ML 10 ml (10,000 UNITS) CATHLAB/DIALYSIS DIALYSIS SCH ×3 (11:39→13:40)
[2022-01-10] MEDS: Insulin GLARGINE 100 un/ml 10 ml VIAL SUBCUT SCH (22:24)
[2022-01-11 06:04] LABS: Hematocrit 25 % (42-52); Hemoglobin 7.9 g/dL (14.0-18.0); Mean Corpuscular HGB Conc 32 g/dL (31-36); Mean Corpuscular Hemoglobin 25 pg (27-31); Mean Corpuscular Volume 79 fL (80-94); Mean Platelet Volume 8.6 fL (7.4-10.4); Platelet Count 182 10^3/uL (150-450); Red Blood Count 3.13 10^6 /uL (4.18-5.48); Red Cell Distribution Width 20 % (10-15); White Blood Count 7.8 10^3/uL (3.5-10.8)
[2022-01-11 06:15] LABS: Calcium 8.1 mg/dL (8.6-10.3); Magnesium 2.1 mg/dL (1.9-2.7); Potassium 3.6 mmol/L (3.5-5.0); eGFR CKD-EPI 28.6 (>60)
[2022-01-11] MEDS: Heparin 5000 UNITS/ML 1 mL VIAL SUBCUT SCH ×2 (09:36→20:45)
[2022-01-11] MEDS: Calcium Carb (TUMS) 500 mg CHEW TAB PO SCH ×3 (09:36→20:38)
[2022-01-11] MEDS: Aspirin EC 81 mg TAB.EC (enteric coated) PO SCH (09:37)
[2022-01-11] MEDS: Insulin GLARGINE 100 un/ml 10 ml VIAL SUBCUT SCH (20:43)
[2022-01-12] MEDS: Aspirin EC 81 mg TAB.EC (enteric coated) PO SCH (09:33)
[2022-01-12] MEDS: Heparin 5000 UNITS/ML 1 mL VIAL SUBCUT SCH ×2 (09:33→21:33)
[2022-01-12] MEDS: Calcium Carb (TUMS) 500 mg CHEW TAB PO SCH ×3 (09:33→21:34)
[2022-01-12] MEDS: Insulin GLARGINE 100 un/ml 10 ml VIAL SUBCUT SCH (21:33)
[2022-01-12 22:49] LABS: Rapid COVID-19 Molecular Undetected (Undetected)
[2022-01-13] MEDS: Heparin 1,000 UNIT/ML 10 ml (10,000 UNITS) CATHLAB/DIALYSIS DIALYSIS SCH ×4 (09:28→12:33)
[2022-01-13] MEDS: Calcium Carb (TUMS) 500 mg CHEW TAB PO SCH ×3 (16:39→21:36)
[2022-01-13] MEDS: Aspirin EC 81 mg TAB.EC (enteric coated) PO SCH (16:39)
[2022-01-13] MEDS: Heparin 5000 UNITS/ML 1 mL VIAL SUBCUT SCH ×2 (16:40→21:36)
[2022-01-13] MEDS: Insulin GLARGINE 100 un/ml 10 ml VIAL SUBCUT SCH (21:47)
[2022-01-14] MEDS: Aspirin EC 81 mg TAB.EC (enteric coated) PO SCH (08:51)
[2022-01-14] MEDS: Calcium Carb (TUMS) 500 mg CHEW TAB PO SCH (08:51)
[2022-01-14] MEDS: Heparin 5000 UNITS/ML 1 mL VIAL SUBCUT SCH (08:52)
[2022-01-14 11:19] VITALS: BP 126/49
== END 2022-01-14 12:21 | DRG 853 ==
LOC: EDHOLD 16:02 → ED 16:02 → SUATTDRO 20:22 → MED 01-01 00:58 → ICU 01-01 17:23 → SUATTDRO 01-01 18:55 → SSU 01-06 15:45
PROVIDERS: ADMIT Internal Medicine; ATTEND Internal Medicine
PROC: O.ORAMP (2022-01-04 11:00)

== ENCOUNTER 2022-01-21 18:37 | Inpatient (IN) ==
[2022-01-21] MEDS ORDERED: Benzocaine/Menthol LOZ PO ONE (22:19)
[2022-01-22 00:29] LABS: Hematocrit 25 % (42-52); Hemoglobin 7.8 g/dL (14.0-18.0); Mean Corpuscular HGB Conc 31 g/dL (31-36); Mean Corpuscular Hemoglobin 26 pg (27-31); Mean Corpuscular Volume 85 fL (80-94); Red Blood Count 2.97 10^6 /uL (4.18-5.48); Red Cell Distribution Width 25 % (10-15); White Blood Count 9.9 10^3/uL (3.5-10.8)
[2022-01-22 00:41] LABS: ALT 8 U/L (7-52); Albumin 2.9 g/dL (3.2-5.2); Albumin/Globulin Ratio 0.7 (1-3); Alkaline Phosphatase 301 U/L (35-149); Blood Urea Nitrogen 36 mg/dL (6-24); CO2 Carbon Dioxide 30 mmol/L (22-32); Calcium 8.2 mg/dL (8.6-10.3); Chloride 92 mmol/L (101-111); Globulin 4.3 g/dL (2-4); Glucose 120 mg/dL (70-100); Sodium 133 mmol/L (135-145); Total Protein 7.2 g/dL (6.4-8.9); eGFR CKD-EPI 24.5 (>60)
[2022-01-22 00:42] LABS: Anion Gap 11 mmol/L (2-11)
[2022-01-22 01:25] LABS: ABS Basophils 0.1 10^3/ul (0-0.2); ABS Eosinophils 0.2 10^3/ul (0-0.6); ABS Lymphocytes 1.1 10^3/ul (1.0-4.8); ABS Monocytes 0.3 10^3/ul (0-0.8); ABS Neutrophils 8.2 10^3/ul (1.5-7.7); Lymphocyte % 11.6 %; Mean Platelet Volume 9.6 fL (7.4-10.4); Nucleated Red Blood Cells % 0.1; Platelet Count 213 10^3/uL (150-450)
[2022-01-22] MEDS ORDERED: Magnesium Hydroxide LIQ 30 ML UDC PO PRN (02:29)
[2022-01-22] MEDS ORDERED: Senna TAB 8.6 mg TAB PO PRN (02:29)
[2022-01-22] MEDS ORDERED: Polyethylene Glycol 3350 17 GM PACKET PO PRN (02:29)
[2022-01-22] MEDS ORDERED: Enoxaparin 30 MG/0.3 ML SYR SUBCUT SCH (03:00)
[2022-01-22] MEDS ORDERED: Dextrose 50% Syringe 50 ml 25 GM/50 ML SYRINGE IV PUSH PRN (03:01)
[2022-01-22 04:03] LABS: Potassium 4.2 mmol/L (3.5-5.0)
[2022-01-22 06:46] LABS: ABS Basophils 0.1 10^3/ul (0-0.2); ABS Lymphocytes 1.1 10^3/ul (1.0-4.8); ABS Monocytes 0.4 10^3/ul (0-0.8); ABS Neutrophils 9.4 10^3/ul (1.5-7.7); Eosinophil % 0.4 %; Hematocrit 23 % (42-52); Hemoglobin 7.2 g/dL (14.0-18.0); Mean Corpuscular HGB Conc 31 g/dL (31-36); Mean Corpuscular Hemoglobin 26 pg (27-31); Mean Corpuscular Volume 84 fL (80-94); Mean Platelet Volume 9.2 fL (7.4-10.4); Nucleated Red Blood Cells % 0.1; Platelet Count 150 10^3/uL (150-450); Red Blood Count 2.76 10^6 /uL (4.18-5.48); Red Cell Distribution Width 25 % (10-15)
[2022-01-22 07:18] LABS: Calcium 8.1 mg/dL (8.6-10.3); Magnesium 1.9 mg/dL (1.9-2.7); Potassium 4.4 mmol/L (3.5-5.0); eGFR CKD-EPI 22.4 (>60)
[2022-01-22] MEDS: Calcium Carb (TUMS) 500 mg CHEW TAB PO SCH ×3 (07:58→20:27)
[2022-01-22] MEDS: Enoxaparin 30 MG/0.3 ML SYR SUBCUT SCH (07:58)
[2022-01-22 08:31] LABS: C Reactive Protein 98.14 mg/L (<8.01)
[2022-01-22] MEDS: MENTHOL ZINC OXIDE TOPICAL SCH (08:59)
[2022-01-22] MEDS ORDERED: Pentafluoroprop/Tetrafluoro 1 SPRAY TOP.SPRAY TOPICAL PRN (09:00)
[2022-01-22] MEDS: Heparin 1,000 UNIT/ML 10 ml (10,000 UNITS) CATHLAB/DIALYSIS DIALYSIS PRN ×3 (12:56→15:09)
[2022-01-23] MEDS: MENTHOL ZINC OXIDE TOPICAL SCH ×3 (00:48→22:15)
[2022-01-23 06:05] LABS: Magnesium 1.9 mg/dL (1.9-2.7); Potassium 3.8 mmol/L (3.5-5.0); eGFR CKD-EPI 34.4 (>60)
[2022-01-23 06:11] LABS: Hematocrit 23 % (42-52); Hemoglobin 7.1 g/dL (14.0-18.0); Mean Corpuscular HGB Conc 31 g/dL (31-36); Mean Corpuscular Hemoglobin 26 pg (27-31); Mean Corpuscular Volume 84 fL (80-94); Mean Platelet Volume 9.1 fL (7.4-10.4); Platelet Count 136 10^3/uL (150-450); Red Blood Count 2.73 10^6 /uL (4.18-5.48); Red Cell Distribution Width 24 % (10-15); White Blood Count 6.3 10^3/uL (3.5-10.8)
[2022-01-23] MEDS ORDERED: Potassium Chlor 20 meq TAB.ER PO ONE (06:53)
[2022-01-23] MEDS ORDERED: Magnesium Sulfate IV 1GM/100ML 1 GM/100 ML BAG IV ONE (06:53)
[2022-01-23 07:44] LABS: ABS Basophils 0.1 10^3/ul (0-0.2); ABS Eosinophils 0.2 10^3/ul (0-0.6); ABS Lymphocytes 1.1 10^3/ul (1.0-4.8); ABS Monocytes 0.4 10^3/ul (0-0.8); ABS Neutrophils 4.6 10^3/ul (1.5-7.7); Lymphocyte % 17.7 %; Nucleated Red Blood Cells % 0.1
[2022-01-23] MEDS: Calcium Carb (TUMS) 500 mg CHEW TAB PO SCH ×3 (09:30→22:15)
[2022-01-23] MEDS: Enoxaparin 30 MG/0.3 ML SYR SUBCUT SCH (09:30)
[2022-01-24 05:21] LABS: ABS Eosinophils 0.2 10^3/ul (0-0.6); ABS Lymphocytes 1.1 10^3/ul (1.0-4.8); ABS Monocytes 0.5 10^3/ul (0-0.8); ABS Neutrophils 3.5 10^3/ul (1.5-7.7); Eosinophil % 3.9 %; Hematocrit 24 % (42-52); Hemoglobin 7.6 g/dL (14.0-18.0); Lymphocyte % 20.6 %; Mean Corpuscular HGB Conc 32 g/dL (31-36); Mean Corpuscular Hemoglobin 27 pg (27-31); Mean Corpuscular Volume 85 fL (80-94); Mean Platelet Volume 9.4 fL (7.4-10.4); Nucleated Red Blood Cells % 0.5; Platelet Count 156 10^3/uL (150-450); Red Blood Count 2.85 10^6 /uL (4.18-5.48); Red Cell Distribution Width 24 % (10-15); White Blood Count 5.4 10^3/uL (3.5-10.8)
[2022-01-24 05:35] LABS: Calcium 8.2 mg/dL (8.6-10.3); Magnesium 2.2 mg/dL (1.9-2.7); Potassium 4.3 mmol/L (3.5-5.0); eGFR CKD-EPI 23.3 (>60)
[2022-01-24] MEDS: MENTHOL ZINC OXIDE TOPICAL SCH (07:40)
[2022-01-24] MEDS: Calcium Carb (TUMS) 500 mg CHEW TAB PO SCH (08:42)
[2022-01-24] MEDS: Enoxaparin 30 MG/0.3 ML SYR SUBCUT SCH (09:39)
[2022-01-24] MEDS ORDERED: Albumin Human 25% 25 GM/100 ML BTL IV ONE (12:24)
[2022-01-24] MEDS ORDERED: Albumin Human 25% 25 GM/100 ML BTL IV PRN (13:00)
[2022-01-24 14:52] VITALS: BP 138/77
== END 2022-01-24 15:54 | DRG 291 ==
LOC: EDHOLD 18:37 → ED 18:37 → SUATTDRO 01-22 01:59 → OBSVTOIN 01-22 01:59 → EDHOLD 01-22 11:04 → MEDTELE 01-22 12:03 → MED 01-23 14:00
PROVIDERS: ADMIT Internal Medicine; ATTEND Student in an Organized Health Care Education/Training Program

== ENCOUNTER 2022-02-19 13:23 | Inpatient (IN) ==
[2022-02-19] MEDS ORDERED: Piperacillin/Tazobac ADVAN 3.375 GM in NS 0.9% 100 ml BAG 100 ML IV ONE (14:21)
[2022-02-19] MEDS ORDERED: [UNRECOGNIZED DRUG - MIXTURE] IV ONE (14:24)
[2022-02-19 14:40] LABS: ABS Basophils 0.1 10^3/ul (0-0.2); ABS Lymphocytes 0.9 10^3/ul (1.0-4.8); ABS Monocytes 0.4 10^3/ul (0-0.8); ABS Neutrophils 3.2 10^3/ul (1.5-7.7); Eosinophil % 0.9 %; Hematocrit 28 % (42-52); Hemoglobin 8.9 g/dL (14.0-18.0); Lymphocyte % 18.9 %; Mean Corpuscular HGB Conc 32 g/dL (31-36); Mean Corpuscular Hemoglobin 26 pg (27-31); Mean Corpuscular Volume 83 fL (80-94); Mean Platelet Volume 8.6 fL (7.4-10.4); Nucleated Red Blood Cells % 0.3; Platelet Count 161 10^3/uL (150-450); Red Blood Count 3.38 10^6 /uL (4.18-5.48); Red Cell Distribution Width 20 % (10-15); White Blood Count 4.7 10^3/uL (3.5-10.8)
[2022-02-19 15:00] LABS: INR 1.3 (0.88-1.18)
[2022-02-19 15:34] LABS: ALT 8 U/L (7-52); Albumin 3.1 g/dL (3.2-5.2); Albumin/Globulin Ratio 0.6 (1-3); Alkaline Phosphatase 375 U/L (35-149); Blood Urea Nitrogen 39 mg/dL (6-24); C Reactive Protein 139.29 mg/L (<8.01); CO2 Carbon Dioxide 31 mmol/L (22-32); Calcium 8.7 mg/dL (8.6-10.3); Chloride 93 mmol/L (101-111); Globulin 5.4 g/dL (2-4); Sodium 136 mmol/L (135-145); Total Protein 8.5 g/dL (6.4-8.9); eGFR CKD-EPI 21.8 (>60)
[2022-02-19 15:37] LABS: Glucose 41 mg/dL (70-100)
[2022-02-19 15:38] LABS: Anion Gap 12 mmol/L (2-11)
[2022-02-19] MEDS ORDERED: D10W 1000 ml BAG 1,000 ML IV SCH (17:00)
[2022-02-19] MEDS ORDERED: Senna TAB 8.6 mg TAB PO PRN (21:27)
[2022-02-19] MEDS ORDERED: Polyethylene Glycol 3350 17 GM PACKET PO PRN (21:27)
[2022-02-19] MEDS ORDERED: Magnesium Hydroxide LIQ 30 ML UDC PO PRN (21:27)
[2022-02-20] MEDS: Amoxicillin/Clavul 500/125 TAB (Augmentin 500 mg tab) PO SCH ×3 (01:05→19:47)
[2022-02-20] MEDS: Heparin 5000 UNITS/ML 1 mL VIAL SUBCUT SCH ×4 (01:09→20:00)
[2022-02-20] MEDS ORDERED: Dextrose 50% Syringe 50 ml 25 GM/50 ML SYRINGE IV PUSH PRN (01:45)
[2022-02-20 01:50] LABS: Potassium Redraw 4.5 mmol/L (3.5-5.0)
[2022-02-20 06:46] LABS: ABS Basophils 0.1 10^3/ul (0-0.2); ABS Eosinophils 0.1 10^3/ul (0-0.6); ABS Lymphocytes 0.8 10^3/ul (1.0-4.8); ABS Monocytes 0.6 10^3/ul (0-0.8); ABS Neutrophils 2.4 10^3/ul (1.5-7.7); Eosinophil % 2.4 %; Hematocrit 25 % (42-52); Hemoglobin 8.2 g/dL (14.0-18.0); Lymphocyte % 20.7 %; Mean Corpuscular HGB Conc 32 g/dL (31-36); Mean Corpuscular Hemoglobin 27 pg (27-31); Mean Corpuscular Volume 84 fL (80-94); Mean Platelet Volume 8.9 fL (7.4-10.4); Nucleated Red Blood Cells % 0.2; Platelet Count 115 10^3/uL (150-450); Red Blood Count 3.02 10^6 /uL (4.18-5.48); Red Cell Distribution Width 20 % (10-15)
[2022-02-20 07:27] LABS: Albumin 2.5 g/dL (3.2-5.2); Albumin/Globulin Ratio 0.6 (1-3); Calcium 8.1 mg/dL (8.6-10.3); Potassium 4.6 mmol/L (3.5-5.0); Total Bilirubin 0.8 mg/dL (0.2-1.0); Total Protein 6.5 g/dL (6.4-8.9); eGFR CKD-EPI 17.9 (>60)
[2022-02-20] MEDS: Calcium Carb (TUMS) 500 mg CHEW TAB PO SCH ×3 (09:03→19:47)
[2022-02-20 11:05] LABS: Hepatitis B Surface Ab Immune (Immune)
[2022-02-20 11:11] LABS: Hepatitis B Surface Antigen Nonreactive (Nonreactive)
[2022-02-20 11:16] LABS: Hepatitis B Core IgM Nonreactive (Nonreactive)
[2022-02-20] MEDS: Heparin 1,000 UNIT/ML 10 ml (10,000 UNITS) CATHLAB/DIALYSIS DIALYSIS ONE ×3 (14:03→16:07)
[2022-02-21] MEDS: Heparin 5000 UNITS/ML 1 mL VIAL SUBCUT SCH ×3 (05:43→21:42)
[2022-02-21] MEDS ORDERED: Dextrose 50% Syringe 50 ml 25 GM/50 ML SYRINGE IV PUSH PRN ×3 (05:50→12:09)
[2022-02-21 06:46] LABS: Calcium 8.3 mg/dL (8.6-10.3); Potassium 4.2 mmol/L (3.5-5.0)
[2022-02-21] MEDS: Amoxicillin/Clavul 500/125 TAB (Augmentin 500 mg tab) PO SCH (10:24)
[2022-02-21] MEDS: Calcium Carb (TUMS) 500 mg CHEW TAB PO SCH ×2 (10:24→14:30)
[2022-02-21] MEDS ORDERED: Albuterol HFA INHALER 8 gm MDI INH ONE (14:24)
[2022-02-21] MEDS ORDERED: Albuterol HFA INHALER 8 gm MDI INH PRN (14:25)
[2022-02-21] MEDS: Heparin 1,000 UNIT/ML 10 ml (10,000 UNITS) CATHLAB/DIALYSIS DIALYSIS ONE ×3 (14:30→16:31)
[2022-02-21 15:21] LABS: TSH Ultra Thyroid Stim Horm 7.67 mcIU/mL (0.34-5.60)
[2022-02-21] MEDS ORDERED: Vancomycin per Pharmacy 1 EA NOTE FOLLOW UP SCH (23:00)
[2022-02-21 23:24] LABS: ABS Eosinophils 0.1 10^3/ul (0-0.6); ABS Lymphocytes 0.6 10^3/ul (1.0-4.8); ABS Monocytes 0.5 10^3/ul (0-0.8); ABS Neutrophils 7.6 10^3/ul (1.5-7.7); Eosinophil % 0.6 %; Hematocrit 25 % (42-52); Hemoglobin 7.7 g/dL (14.0-18.0); Mean Corpuscular HGB Conc 30 g/dL (31-36); Mean Corpuscular Hemoglobin 27 pg (27-31); Mean Corpuscular Volume 87 fL (80-94); Mean Platelet Volume 9.1 fL (7.4-10.4); Nucleated Red Blood Cells % 0.1; Platelet Count 135 10^3/uL (150-450); Red Blood Count 2.92 10^6 /uL (4.18-5.48); Red Cell Distribution Width 19 % (10-15); White Blood Count 8.8 10^3/uL (3.5-10.8)
[2022-02-21] MEDS ORDERED: NS 0.9% 500 ml BAG 500 ML IV ONE (23:29)
[2022-02-21] MEDS ORDERED: Zosyn per Pharmacy NOTE FOLLOW UP SCH (23:45)
[2022-02-21] MEDS ORDERED: Lactated Ringers 1000 ml BAG 1,000 ML IV ONE ×2 (23:52→23:54)
[2022-02-22 00:01] LABS: Albumin 2.4 g/dL (3.2-5.2); Albumin/Globulin Ratio 0.6 (1-3); C Reactive Protein 137.78 mg/L (<8.01); Calcium 7.9 mg/dL (8.6-10.3); Globulin 3.8 g/dL (2-4); Potassium 3.8 mmol/L (3.5-5.0); Total Bilirubin 0.8 mg/dL (0.2-1.0); Total Protein 6.2 g/dL (6.4-8.9); eGFR CKD-EPI 40.5 (>60)
[2022-02-22 00:28] LABS: Erythrocyte Sed Rate > 120 mm/Hr (0-19)
[2022-02-22] MEDS ORDERED: Lactated Ringers 1000 ml BAG 1,000 ML IV ONE (00:52)
[2022-02-22] MEDS ORDERED: ZOSYN 3.375 GM Q8H per EXTENDED INFUSION IV ONE (01:00)
[2022-02-22] MEDS ORDERED: Vancomycin 1000 MG in NS 0.9% 250 ML IVPB ONE (01:00)
[2022-02-22] MEDS: Amoxicillin/Clavul 500/125 TAB (Augmentin 500 mg tab) PO SCH (01:03)
[2022-02-22] MEDS: Calcium Carb (TUMS) 500 mg CHEW TAB PO SCH ×5 (01:47→19:57)
[2022-02-22 06:52] LABS: CO2 Carbon Dioxide 20 mmol/L (22-32); Chloride 104 mmol/L (101-111); Sodium 136 mmol/L (135-145)
[2022-02-22 06:57] LABS: Blood Urea Nitrogen 18 mg/dL (6-24); eGFR CKD-EPI 35.9 (>60)
[2022-02-22 06:59] LABS: Glucose 41 mg/dL (70-100)
[2022-02-22 07:34] LABS: Anion Gap 12 mmol/L (2-11)
[2022-02-22] MEDS: Heparin 5000 UNITS/ML 1 mL VIAL SUBCUT SCH ×3 (07:35→22:24)
[2022-02-22 07:40] LABS: Potassium, Whole Blood 4.6 mmol/L (3.4-4.5)
[2022-02-22] MEDS ORDERED: Dextrose 50% Syringe 50 ml 25 GM/50 ML SYRINGE IV PUSH PRN (08:45)
[2022-02-22] MEDS ORDERED: D10W 1000 ml BAG 1,000 ML IV SCH (09:00)
[2022-02-22] MEDS: Acetaminophen IV 1 GM/100ML 1,000 MG/100 ML BAG IV PRN ×2 (09:16→19:56)
[2022-02-22] MEDS: Sodium Chloride CONC. 4 MEQ/ML 38.5 MEQ in D10W 1000 ml BAG 1,000 ML IV SCH ×2 (10:29→22:19)
[2022-02-22] MEDS: Cefepime 1 GM in Dextrose 1 GM/50 ML BAG IV SCH (14:38)
[2022-02-22] MEDS ORDERED: ZOSYN 3.375 GM Q12H per EXTENDED INFUSION IV SCH (15:00)
[2022-02-23] MEDS: Heparin 5000 UNITS/ML 1 mL VIAL SUBCUT SCH ×3 (06:15→21:24)
[2022-02-23 06:54] LABS: ABS Basophils 0.1 10^3/ul (0-0.2); ABS Eosinophils 0.2 10^3/ul (0-0.6); ABS Lymphocytes 0.9 10^3/ul (1.0-4.8); ABS Monocytes 0.4 10^3/ul (0-0.8); ABS Neutrophils 2.7 10^3/ul (1.5-7.7); Eosinophil % 4.9 %; Hematocrit 28 % (42-52); Hemoglobin 8.6 g/dL (14.0-18.0); Lymphocyte % 21.5 %; Mean Corpuscular HGB Conc 31 g/dL (31-36); Mean Corpuscular Hemoglobin 27 pg (27-31); Mean Corpuscular Volume 87 fL (80-94); Mean Platelet Volume 9.6 fL (7.4-10.4); Nucleated Red Blood Cells % 0.5; Platelet Count 142 10^3/uL (150-450); Red Blood Count 3.18 10^6 /uL (4.18-5.48); Red Cell Distribution Width 19 % (10-15); White Blood Count 4.3 10^3/uL (3.5-10.8)
[2022-02-23 07:00] LABS: Calcium 8.1 mg/dL (8.6-10.3); Magnesium 1.9 mg/dL (1.9-2.7); Potassium 4.1 mmol/L (3.5-5.0)
[2022-02-23 07:05] LABS: eGFR CKD-EPI 26.5 (>60)
[2022-02-23] MEDS ORDERED: Dextrose 50% Syringe 50 ml 25 GM/50 ML SYRINGE IV PUSH PRN (07:25)
[2022-02-23] MEDS: Sodium Chloride CONC. 4 MEQ/ML 38.5 MEQ in D10W 1000 ml BAG 1,000 ML IV SCH (08:52)
[2022-02-23] MEDS: Calcium Carb (TUMS) 500 mg CHEW TAB PO SCH ×3 (08:53→20:34)
[2022-02-23] MEDS: Acetaminophen IV 1 GM/100ML 1,000 MG/100 ML BAG IV PRN ×2 (09:24→21:23)
[2022-02-23] MEDS: Cefepime 1 GM in Dextrose 1 GM/50 ML BAG IV SCH (13:43)
[2022-02-23 22:05] LABS: Calcium 8.4 mg/dL (8.6-10.3); Potassium 4.4 mmol/L (3.5-5.0); eGFR CKD-EPI 22.1 (>60)
[2022-02-24] MEDS ORDERED: Vancomycin Random Level NOTE FOLLOW UP ONE (06:00)
[2022-02-24] MEDS: Heparin 5000 UNITS/ML 1 mL VIAL SUBCUT SCH ×2 (06:21→15:23)
[2022-02-24] MEDS: Acetaminophen IV 1 GM/100ML 1,000 MG/100 ML BAG IV PRN (08:41)
[2022-02-24] MEDS ORDERED: Albumin Human 25% 25 GM/100 ML BTL IV PRN (10:04)
[2022-02-24] MEDS: Calcium Carb (TUMS) 500 mg CHEW TAB PO SCH ×2 (10:55→15:23)
[2022-02-24] MEDS ORDERED: Heparin *DIALYSIS* ONLY 1,000 UNITS/ML VIAL DIALYSIS PRN (11:46)
[2022-02-24 15:02] VITALS: BP 173/56
[2022-02-24] MEDS: Cefepime 1 GM in Dextrose 1 GM/50 ML BAG IV SCH (15:23)
== END 2022-02-24 18:20 | disposition home or self-care (01) | DRG 193 ==
LOC: ED 13:23 → EDHOLD 21:09 → SUATTDRO 21:09 → MED 02-20 00:20
PROVIDERS: ADMIT Internal Medicine; ATTEND Family Medicine

== ENCOUNTER 2022-05-07 16:03 | Inpatient (IN) ==
[2022-05-07] MEDS ORDERED: metroNIDAZOLE IV 500 MG/100ML 500 MG/100 ML BAG IVPB ONE (16:40)
[2022-05-07] MEDS ORDERED: Cefepime 2 GM in Dextrose 2 GM/50 ML BAG IV ONE (16:40)
[2022-05-07] MEDS ORDERED: Lactated Ringers 1000 ml BAG 1,000 ML IV ONE ×2 (16:42)
[2022-05-07] MEDS ORDERED: Vancomycin 1,500 MG in NS 0.9% 250 ml 250 ML IVPB SCH (17:00)
[2022-05-07 17:01] LABS: ABS Eosinophils 0.1 10^3/ul (0-0.6); ABS Monocytes 0.3 10^3/ul (0-0.8); ABS Neutrophils 4.5 10^3/ul (1.5-7.7); Eosinophil % 1.1 %; Hematocrit 33 % (42-52); Hemoglobin 10.1 g/dL (14.0-18.0); Lymphocyte % 17.4 %; Mean Corpuscular HGB Conc 31 g/dL (31-36); Mean Corpuscular Hemoglobin 25 pg (27-31); Mean Corpuscular Volume 82 fL (80-94); Mean Platelet Volume 9.6 fL (7.4-10.4); Nucleated Red Blood Cells % 0.1; Platelet Count 126 10^3/uL (150-450); Red Cell Distribution Width 21 % (10-15); White Blood Count 5.9 10^3/uL (3.5-10.8)
[2022-05-07 17:22] LABS: High Sens Troponin Baseline 53 pg/mL (<20)
[2022-05-07 17:31] LABS: Activated Partial Thrombo Time 35.7 seconds (26.0-38.0); INR 1.28 (0.88-1.18)
[2022-05-07] MEDS ORDERED: Iodixanol (CONTRAST) 320 MG/ML 100 ML SDV IV ONE (17:40)
[2022-05-07] MEDS ORDERED: Vancomycin 750 MG in NS 0.9% 250 ML IVPB ONE (18:00)
[2022-05-07 18:06] LABS: ALT 27 U/L (7-52); AST 54 U/L (13-39); Albumin 2.6 g/dL (3.2-5.2); Albumin/Globulin Ratio 0.6 (1-3); Alkaline Phosphatase 492 U/L (35-149); Anion Gap 7 mmol/L (2-11); Blood Urea Nitrogen 68 mg/dL (6-24); CO2 Carbon Dioxide 34 mmol/L (22-32); Calcium 9.3 mg/dL (8.6-10.3); Chloride 90 mmol/L (101-111); Creatinine, Serum 2.97 mg/dL (0.67-1.17); Globulin 4.7 g/dL (2-4); Glucose 135 mg/dL (70-100); Sodium 131 mmol/L (135-145); Total Protein 7.3 g/dL (6.4-8.9); eGFR CKD-EPI 21.9 (>60)
[2022-05-07 18:43] LABS: High Sensitivity Troponin 1 Hr 50 pg/mL (<20)
[2022-05-07] MEDS ORDERED: Vancomycin per Pharmacy 1 EA NOTE FOLLOW UP SCH (19:00)
[2022-05-07 19:38] LABS: Hepatitis B Surface Antigen Nonreactive (Nonreactive)
[2022-05-07 19:55] LABS: Hepatitis B Surface Ab Immune (Immune)
[2022-05-07 21:04] LABS: GGTP 286 U/L (9-64.0)
[2022-05-08 01:06] LABS: % Iron Saturation 19 % (15-55); .Transferrin 77 mg/dL (203-362); Iron < 20 ug/dL (50-212); Total Iron Binding Capacity 108 mcg/dL (250-450); Unsaturated Iron Binding 88 ug/dL
[2022-05-08] MEDS: Senna TAB 8.6 mg TAB PO SCH ×2 (01:21→21:18)
[2022-05-08] MEDS: Heparin 5000 UNITS/ML 1 mL VIAL SUBCUT SCH ×4 (01:21→21:12)
[2022-05-08 01:25] LABS: Ferritin 1119.2 ng/mL (24-336)
[2022-05-08] MEDS ORDERED: Vancomycin Random Level NOTE FOLLOW UP ONE (06:00)
[2022-05-08 07:40] LABS: ABS Eosinophils 0.1 10^3/ul (0-0.6); ABS Lymphocytes 0.9 10^3/ul (1.0-4.8); ABS Monocytes 0.6 10^3/ul (0-0.8); ABS Neutrophils 4.4 10^3/ul (1.5-7.7); Eosinophil % 1.2 %; Hematocrit 27 % (42-52); Hemoglobin 8.4 g/dL (14.0-18.0); Lymphocyte % 15.1 %; Mean Corpuscular HGB Conc 32 g/dL (31-36); Mean Corpuscular Hemoglobin 26 pg (27-31); Mean Corpuscular Volume 82 fL (80-94); Nucleated Red Blood Cells % 0.1; Platelet Count 132 10^3/uL (150-450); Red Blood Count 3.28 10^6 /uL (4.18-5.48); Red Cell Distribution Width 20 % (10-15); White Blood Count 5.9 10^3/uL (3.5-10.8)
[2022-05-08 07:45] LABS: Hepatitis A Ab IgM Negative (Negative)
[2022-05-08 07:46] LABS: Hepatitis B Core IgM Nonreactive (Nonreactive)
[2022-05-08 07:58] LABS: Hepatitis C Antibody Negative (Negative)
[2022-05-08 08:23] LABS: ALT 25 U/L (7-52); Albumin 2.1 g/dL (3.2-5.2); Albumin/Globulin Ratio 0.5 (1-3); Alkaline Phosphatase 416 U/L (35-149); Blood Urea Nitrogen 72 mg/dL (6-24); CO2 Carbon Dioxide 30 mmol/L (22-32); Calcium 8.5 mg/dL (8.6-10.3); Chloride 92 mmol/L (101-111); Creatinine, Serum 3.01 mg/dL (0.67-1.17); Globulin 4.1 g/dL (2-4); Glucose 124 mg/dL (70-100); Sodium 130 mmol/L (135-145); Total Protein 6.2 g/dL (6.4-8.9); eGFR CKD-EPI 21.6 (>60)
[2022-05-08 08:27] LABS: Anion Gap 8 mmol/L (2-11)
[2022-05-08] MEDS ORDERED: metroNIDAZOLE IV 500 MG/100ML 500 MG/100 ML BAG IVPB SCH (09:00)
[2022-05-08] MEDS: Polyethylene Glycol 3350 17 GM PACKET PO SCH (10:44)
[2022-05-08] MEDS ORDERED: Piperacillin/Tazobac ADVAN 2.25 GM in NS 0.9% 100 ml BAG 100 ML IV ONE (10:45)
[2022-05-08] MEDS ORDERED: Zosyn per Pharmacy NOTE FOLLOW UP SCH (11:00)
[2022-05-08] MEDS ORDERED: Zosyn 3.375 GM IV - ED ONCE IV ONE (12:00)
[2022-05-08 12:36] LABS: Vancomycin Random 9.6 mcg/mL
[2022-05-08] MEDS ORDERED: Cefepime 0.5 GM in NS 0.9% 50 ML 50 ML IVPB SCH (15:00)
[2022-05-08] MEDS ORDERED: Cefepime 2 GM in Dextrose 2 GM/50 ML BAG IV SCH (17:00)
[2022-05-08] MEDS ORDERED: CEFEPIME ADVAN IVPB SCH (17:00)
[2022-05-08] MEDS ORDERED: Vancomycin 500 MG in NS 0.9% 250 ML IVPB ONE (18:00)
[2022-05-08] MEDS: ZOSYN 3.375 GM Q12H per EXTENDED INFUSION IV SCH (23:16)
[2022-05-09] MEDS: Ondansetron 4 mg VIAL 2 MG/ML 2 ml VIAL IV PRN (03:48)
[2022-05-09] MEDS ORDERED: Vancomycin Random Level NOTE FOLLOW UP ONE (06:00)
[2022-05-09] MEDS: Heparin 5000 UNITS/ML 1 mL VIAL SUBCUT SCH ×3 (06:07→21:05)
[2022-05-09] MEDS: ZOSYN 3.375 GM Q12H per EXTENDED INFUSION IV SCH ×2 (08:11→21:03)
[2022-05-09] MEDS: Polyethylene Glycol 3350 17 GM PACKET PO SCH (09:00)
[2022-05-09] MEDS ORDERED: Vancomycin - DIALYSIS DOSING 1 EA NOTE FOLLOW UP SCH (11:00)
[2022-05-09] MEDS: Senna TAB 8.6 mg TAB PO SCH (21:05)
[2022-05-10] MEDS: Heparin 5000 UNITS/ML 1 mL VIAL SUBCUT SCH ×3 (06:13→20:15)
[2022-05-10 08:18] LABS: Albumin/Globulin Ratio 0.5 (1-3); C Reactive Protein 80.21 mg/L (<8.01); Calcium 8.2 mg/dL (8.6-10.3); Creatinine, Serum 2.67 mg/dL (0.67-1.17); Globulin 3.8 g/dL (2-4); Magnesium 1.8 mg/dL (1.9-2.7); Potassium 4.6 mmol/L (3.5-5.0); Total Bilirubin 0.7 mg/dL (0.2-1.0); Total Protein 5.8 g/dL (6.4-8.9); eGFR CKD-EPI 24.9 (>60)
[2022-05-10 08:31] LABS: Hematocrit 24 % (42-52); Hemoglobin 7.7 g/dL (14.0-18.0); Mean Corpuscular HGB Conc 31 g/dL (31-36); Mean Corpuscular Hemoglobin 26 pg (27-31); Mean Corpuscular Volume 82 fL (80-94); Mean Platelet Volume 9.4 fL (7.4-10.4); Platelet Count 84 10^3/uL (150-450); Red Blood Count 2.96 10^6 /uL (4.18-5.48); Red Cell Distribution Width 21 % (10-15); White Blood Count 5.1 10^3/uL (3.5-10.8)
[2022-05-10] MEDS: ZOSYN 3.375 GM Q12H per EXTENDED INFUSION IV SCH ×2 (08:43→20:15)
[2022-05-10] MEDS: Polyethylene Glycol 3350 17 GM PACKET PO SCH (08:43)
[2022-05-10] MEDS: Dextrose 50% Syringe 50 ml 25 GM/50 ML SYRINGE IV PUSH PRN ×2 (08:43→17:29)
[2022-05-10] MEDS: Senna TAB 8.6 mg TAB PO SCH (20:26)
[2022-05-10] MEDS: Ondansetron 4 mg VIAL 2 MG/ML 2 ml VIAL IV PRN (23:58)
[2022-05-11] MEDS ORDERED: HYDROmorphone 0.5 MG/0.5 ML SYRINGE IV SLOW PU PRN (00:42)
[2022-05-11] MEDS ORDERED: Lactated Ringers 1000 ml BAG 1,000 ML IV ONE (03:25)
[2022-05-11] MEDS ORDERED: Naloxone 0.4 mg VIAL 0.4 mg/ml 1 ml VIAL IV PUSH ONE (03:29)
[2022-05-11] MEDS ORDERED: Morphine ORAL CONCENTRATE 5 MG/0.25 ML ORAL.SYRIN SL PRN (03:51)
[2022-05-11 04:29] LABS: Hematocrit 27 % (42-52); Hemoglobin 8.4 g/dL (14.0-18.0); Mean Corpuscular HGB Conc 31 g/dL (31-36); Mean Corpuscular Hemoglobin 26 pg (27-31); Mean Corpuscular Volume 84 fL (80-94); Mean Platelet Volume 9.6 fL (7.4-10.4); Platelet Count 101 10^3/uL (150-450); Red Blood Count 3.28 10^6 /uL (4.18-5.48); Red Cell Distribution Width 21 % (10-15); White Blood Count 9.7 10^3/uL (3.5-10.8)
[2022-05-11 04:46] LABS: Albumin 2.1 g/dL (3.2-5.2); Calcium 8.5 mg/dL (8.6-10.3); Total Bilirubin 0.8 mg/dL (0.2-1.0)
[2022-05-11 04:49] LABS: Potassium 5.4 mmol/L (3.5-5.0)
[2022-05-11 04:52] LABS: Albumin/Globulin Ratio 0.5 (1-3); Creatinine, Serum 3.19 mg/dL (0.67-1.17); Globulin 4.1 g/dL (2-4); Total Protein 6.2 g/dL (6.4-8.9); eGFR CKD-EPI 20.1 (>60)
[2022-05-11] MEDS: Dextrose 50% Syringe 50 ml 25 GM/50 ML SYRINGE IV PUSH PRN (05:04)
[2022-05-11] MEDS: Morphine ORAL CONCENTRATE 5 MG/0.25 ML ORAL.SYRIN SL PRN ×3 (05:04→20:58)
[2022-05-11] MEDS: Heparin 5000 UNITS/ML 1 mL VIAL SUBCUT SCH ×3 (05:05→20:55)
[2022-05-11] MEDS ORDERED: Naloxone 0.4 mg VIAL 0.4 mg/ml 1 ml VIAL IV PUSH PRN (05:27)
[2022-05-11] MEDS ORDERED: SODIUM ZIRCONIUM CYCLOSILICATE 5 GM PACKET PO SCH (09:00)
[2022-05-11] MEDS: ZOSYN 3.375 GM Q12H per EXTENDED INFUSION IV SCH ×2 (09:00→20:54)
[2022-05-11] MEDS: Polyethylene Glycol 3350 17 GM PACKET PO SCH (12:03)
[2022-05-11] MEDS: Senna TAB 8.6 mg TAB PO SCH (21:57)
[2022-05-12] MEDS ORDERED: Vancomycin Random Level NOTE FOLLOW UP ONE (06:00)
[2022-05-12] MEDS: Heparin 5000 UNITS/ML 1 mL VIAL SUBCUT SCH ×3 (06:02→22:19)
[2022-05-12] MEDS: ZOSYN 3.375 GM Q12H per EXTENDED INFUSION IV SCH ×2 (09:50→22:14)
[2022-05-12] MEDS ORDERED: Dextrose 50% VIAL 50 ml IV PRN (10:13)
[2022-05-12] MEDS: Dextrose 50% Syringe 50 ml 25 GM/50 ML SYRINGE IV PUSH PRN (10:20)
[2022-05-12] MEDS ORDERED: D5NS 0.9% 1000 ml BAG 1,000 ML IV SCH (11:00)
[2022-05-12] MEDS: Polyethylene Glycol 3350 17 GM PACKET PO SCH (11:02)
[2022-05-12] MEDS ORDERED: Albumin Human 25% 25 GM/100 ML BTL IV PRN (15:14)
[2022-05-12 15:36] LABS: Hematocrit 25 % (42-52); Hemoglobin 7.8 g/dL (14.0-18.0); Mean Corpuscular HGB Conc 31 g/dL (31-36); Mean Corpuscular Hemoglobin 25 pg (27-31); Mean Corpuscular Volume 83 fL (80-94); Mean Platelet Volume 10.2 fL (7.4-10.4); Platelet Count 160 10^3/uL (150-450); Red Blood Count 3.07 10^6 /uL (4.18-5.48); Red Cell Distribution Width 21 % (10-15); White Blood Count 12.8 10^3/uL (3.5-10.8)
[2022-05-12 16:47] LABS: Blood Urea Nitrogen 65 mg/dL (6-24); CO2 Carbon Dioxide 21 mmol/L (22-32); Calcium 8.1 mg/dL (8.6-10.3); Chloride 95 mmol/L (101-111); Creatinine, Serum 3.79 mg/dL (0.67-1.17); Glucose 70 mg/dL (70-100); Sodium 131 mmol/L (135-145); Vancomycin Random 5.8 mcg/mL; eGFR CKD-EPI 16.4 (>60)
[2022-05-12 16:51] LABS: Anion Gap 15 mmol/L (2-11)
[2022-05-12 18:39] LABS: Calcium 7.6 mg/dL (8.6-10.3); Creatinine, Serum 3.21 mg/dL (0.67-1.17)
[2022-05-12] MEDS: Senna TAB 8.6 mg TAB PO SCH (22:19)
[2022-05-13] MEDS: Dextrose 50% Syringe 50 ml 25 GM/50 ML SYRINGE IV PUSH PRN (01:36)
[2022-05-13] MEDS ORDERED: D5NS 0.9% 1000 ml BAG 1,000 ML IV SCH (02:03)
[2022-05-13] MEDS ORDERED: Norepinephrine 16MCG/ML BAGD5W 4,000 MCG/250 ML BAG IV ONE (04:48)
[2022-05-13] MEDS ORDERED: Norepinephrine 16MCG/ML BAGD5W 4,000 MCG/250 ML BAG IV SCH ×2 (05:00)
[2022-05-13] MEDS: Heparin 5000 UNITS/ML 1 mL VIAL SUBCUT SCH (05:54)
[2022-05-13 05:57] LABS: Hematocrit 25 % (42-52); Hemoglobin 7.7 g/dL (14.0-18.0); Mean Corpuscular HGB Conc 31 g/dL (31-36); Mean Corpuscular Hemoglobin 26 pg (27-31); Mean Corpuscular Volume 84 fL (80-94); Mean Platelet Volume 9.3 fL (7.4-10.4); Platelet Count 99 10^3/uL (150-450); Red Blood Count 2.99 10^6 /uL (4.18-5.48); Red Cell Distribution Width 21 % (10-15); White Blood Count 12.7 10^3/uL (3.5-10.8)
[2022-05-13 06:17] LABS: Calcium 7.2 mg/dL (8.6-10.3); Creatinine, Serum 3.21 mg/dL (0.67-1.17); Magnesium 1.9 mg/dL (1.9-2.7)
[2022-05-13 06:19] LABS: Potassium 5.2 mmol/L (3.5-5.0)
[2022-05-13] MEDS: Morphine ORAL CONCENTRATE 5 MG/0.25 ML ORAL.SYRIN SL PRN (08:01)
[2022-05-13] MEDS: ZOSYN 3.375 GM Q12H per EXTENDED INFUSION IV SCH ×2 (08:01→21:11)
[2022-05-13] MEDS: Ondansetron 4 mg VIAL 2 MG/ML 2 ml VIAL IV PRN (10:21)
[2022-05-13] MEDS: Polyethylene Glycol 3350 17 GM PACKET PO SCH (12:37)
[2022-05-13] MEDS ORDERED: Acetaminophen IV 1 GM/100ML 1,000 MG/100 ML BAG IV PRN (15:08)
[2022-05-13] MEDS ORDERED: Acetaminophen IV 1 GM/100ML 1,000 MG/100 ML BAG IV ONE (15:09)
[2022-05-13] MEDS: Acetaminophen IV 1 GM/100ML 1,000 MG/100 ML BAG IV PRN (22:51)
[2022-05-14] MEDS: ZOSYN 3.375 GM Q12H per EXTENDED INFUSION IV SCH (09:21)
[2022-05-14 13:28] VITALS: BP 80/0
[2022-05-14] MEDS: Acetaminophen IV 1 GM/100ML 1,000 MG/100 ML BAG IV PRN (19:37)
== END 2022-05-14 20:40 | disposition home or self-care (01) | DRG 637 ==
LOC: ED 16:03 → SUATTDRO 18:47 → EDHOLD 18:47 → MEDTELE 05-08 17:22 → ICU 05-13 04:51 → MED 05-13 22:32
PROVIDERS: ADMIT Hospitalist; ATTEND Internal Medicine